=== PATIENT | female | born 1950 | race Caucasian/White ===

== ENCOUNTER → 2017-02-24 | Outpatient (CLI) | payer OTHER ==
--- NOTE | 2017-02-24 18:40 | US ---
EXAMINATION TYPE: US carotid duplex BILAT DATE OF EXAM: 02/24/2017 COMPARISON: NONE CLINICAL HISTORY: R55 Near Syncope, R00.2 Palpitations. EXAM MEASUREMENTS: RIGHT: Peak Systolic Velocity (PSV) cm/sec ----- Right CCA: 71.6 ----- Right ICA: 66.9 ----- Right ECA: 82.8 ICA/CCA ratio: 0.9 RIGHT: End Diastole cm/sec ----- Right CCA: 20.7 ----- Right ICA: 20.2 ----- Right ECA: 15.0 LEFT: Peak Systolic Velocity (PSV) cm/sec ----- Left CCA: 55.2 ----- Left ICA: 82.8 ----- Left ECA: 105.4 ICA/CCA ratio: 1.5 LEFT: End Diastole cm/sec ----- Left CCA: 20.0 ----- Left ICA: 32.5 ----- Left ECA: 17.5 VERTEBRALS (direction of flow): Right Vertebral: Antegrade Left Vertebral: Antegrade Bilateral high bifurcation vessels dive deep and torturous IMPRESSION: There is antegrade flow in the vertebral arteries. The images and measurements suggest c lose to 0% stenosis in both internal carotid arteries. Criteria for Assigning % of Stenosis / Diameter reduction (Estimation based on the indirect measurements of the internal carotid artery velocities (ICA PSV). 1. Normal (no stenosis)=ICA PSV < 125 cm/s: ratio < 2.0: ICA EDV<40 cm/s. 2. Less than 50% stenosis=ICA PSV < 125 cm/s: ratio < 2.0: ICA EDV<40 cm/s. 3. 50 to 69% stenosis=ICA PSV of 125 to 230 cm/s: ration 2.0 ? 4.0: ICA EDV 40-100 cm/s. 4. Greater than 70% stenosis to near occlusion= ICA PSV > 230 cm/s: ratio > 4.0: ICA EDV > 100 cm/s. 5. Near occlusion= ICA PSV velocities may be low or undetectable: variable ratio and ICA EDV. 6. Total occlusion=unable to detect flow.
== END | disposition home or self-care (01) ==
LOC: RADCTMAIN 17:48
PROVIDERS: ATTEND Family Medicine
DX: R55 Syncope and collapse (principal); R00.2 Palpitations
CPT/HCPCS: 93880

== ENCOUNTER → 2018-01-23 | Outpatient (CLI) | payer MEDICARE, OTHER ==
[2018-01-23 09:44] LABS: Albumin 3.9 g/dL (3.5-5.0); Calcium 9.1 mg/dL (8.4-10.2); Potassium 4.3 mmol/L (3.5-5.1); Total Bilirubin 0.4 mg/dL (0.2-1.3); Total Protein 6.3 g/dL (6.3-8.2)
[2018-01-23 09:48] LABS: Basophils % (A) 1 %; Eosinophils # (A) 0.2 k/uL (0-0.7); Eosinophils % (A) 4 %; HCT 44.6 % (34.0-46.0); HGB 14.4 gm/dL (11.4-16.0); Lymphocytes # (A) 2.2 k/uL (1.0-4.8); Lymphocytes % (A) 41 %; MCH 29.4 pg (25.0-35.0); MCHC 32.3 g/dL (31.0-37.0); Mean Platelet Volume 7.4; Monocytes # (A) 0.3 k/uL (0-1.0); Monocytes % (A) 5 %; Neutrophils # (A) 2.5 k/uL (1.3-7.7); Neutrophils % (A) 47 %; Platelet Count 242 k/uL (150-450); RDW 13.8 % (11.5-15.5); WBC 5.4 k/uL (3.8-10.6)
[2018-01-23 09:56] LABS: T4, Free (Free Thyroxine) 1.1 ng/dL (0.78-2.19)
[2018-01-23 18:14] LABS: Hemoglobin A1C 6.2 % (4.0-6.0)
== END | disposition home or self-care (01) ==
LOC: LABWHC1 08:51
PROVIDERS: ATTEND Family Medicine
DX: Z00.00 Encounter for general adult medical examination without abnormal findings (principal); E53.8 Deficiency of other specified B group vitamins; I10 Essential (primary) hypertension
CPT/HCPCS: 36415; 80053; 80061; 83036; 84439; 84443; 85025

== ENCOUNTER 2019-03-30 12:57 | Emergency (ER) | payer MEDICARE, OTHER ==
[2019-03-30 13:07] VITALS: TEMP 98.2
[2019-03-30] MEDS ORDERED: methylPREDNISolone SOD SUCCI 125 MG/2 ML VIAL IV STA (13:21)
[2019-03-30] MEDS ORDERED: IBUPROFEN 600 MG TAB PO STA (13:21)
[2019-03-30] MEDS ORDERED: IPRATROPIUM-ALBUTEROL 3 ML NEB INHALATION STA (13:21)
[2019-03-30] MEDS ORDERED: ACETAMINOPHEN TAB 500 MG TAB PO STA (13:21)
[2019-03-30] MEDS ORDERED: SODIUM CHLORIDE 0.9% 1,000 ML IV STA ×3 (13:21→13:24)
--- NOTE | 2019-03-30 13:56 | ED ---
URI HPI - General Chief Complaint: Upper Respiratory Infection Stated Complaint: head cold Time Seen by Provider: 03/30/19 13:11 Source: patient, RN notes reviewed, old records reviewed Mode of arrival: ambulatory Limitations: no limitations - History of Present Illness Initial Comments: Patient is a 68-year-old female presents emergency department today with chief complaint of dizziness, and cough for the past month. Patient reports symptoms started in her upper airway, with sinusitis and she was prescribed amoxicillin by her PCP. Patient reports that she finished a 10 day course 3 days ago. Patient states that she's had no specific fever or chills. She does report a productive cough. Patient denies any associated chest pain, or resting chest pain this time. She reports that she has felt quite lightheaded a few days ago. - Related Data Home Medications Medication Instructions Recorded Confirmed Diazepam [Valium] 5 mg PO DAILY PRN 03/30/19 03/30/19 Losartan/Hydrochlorothiazide 1 tab PO DAILY@1200 03/30/19 03/30/19 [Losartan-Hctz 100-25 mg Tab] Previous Rx's Medication Instructions Recorded Albuterol Inhaler [Ventolin Hfa 1 - 2 puff INHALATION RT-Q6H PRN 03/30/19 Inhaler] #1 inhaler guaiFENesin-DM 600/30MG [Mucinex 1 each PO Q12HR #20 tab.er.12h 03/30/19 Dm] methylPREDNISolone Dose Pack 4 mg PO DIRECTED #21 package 03/30/19 [Medrol Dose Pack] Allergies Allergy/AdvReac Type Severity Reaction Status Date / Time No Known Allergies Allergy Verified 03/30/19 13:24 Review of Systems ROS Statement: Those systems with pertinent positive or pertinent negative responses have been documented in the HPI. ROS Other: All systems not noted in ROS Statement are negative. Past Medical History Past Medical History: Hypertension Past Surgical History: Section, Tonsillectomy Additional Past Surgical History / Comment(s): Part on colon removed Past Psychological History: Anxiety Smoking Status: Former smoker Past Alcohol Use History: Occasional Past Drug Use History: None Reported General Exam - General Exam Comments Initial Comments: 68-year-old female. No significant distress. Limitations: no limitations General appearance: alert, in no apparent distress Head exam: Present: atraumatic, normocephalic, normal inspection Eye exam: Present: normal appearance, PERRL, EOMI. Absent: scleral icterus, conjunctival injection, periorbital swelling ENT exam: Present: normal exam, mucous membranes moist Neck exam: Present: normal inspection. Absent: tenderness, meningismus, lymphadenopathy Respiratory exam: Present: normal lung sounds bilaterally, other (slight cough with deep breathing. ) Cardiovascular Exam: Present: regular rate, normal rhythm, normal heart sounds. Absent: systolic murmur, diastolic murmur, rubs, gallop, clicks GI/Abdominal exam: Present: soft, normal bowel sounds. Absent: distended, tenderness, guarding, rebound, rigid Extremities exam: Present: normal inspection, full ROM, normal capillary refill. Absent: tenderness, pedal edema, joint swelling, calf tenderness Back exam: Present: normal inspection Neurological exam: Present: alert, oriented X3, CN II-XII intact Psychiatric exam: Present: normal affect, normal mood Skin exam: Present: warm, dry, intact, normal color. Absent: rash Course Vital Signs 03/30/19 03/30/19 03/30/19 13:02 13:41 13:51 Temperature 98.2 F Pulse Rate 114 H 112 H 110 H Respiratory 18 Rate Blood Pressure 153/82 O2 Sat by Pulse 98 Oximetry Medical Decision Making - Medical Decision Making This patient's a 68-year-old female presents emergency department today for evaluation for 3 weeks of cough congestion, upper respiratory symptoms. That she was feeling somewhat dizzy and lightheaded. Discussed doing the workup in cluding cardiac evaluation. Patient's EKG was reviewed and shows normal sinus rhythm, but sinus tachycardia but otherwise was normal. She had lab work obtained. With the dizziness, she did have a high heart rate we were concerned for the small likelihood of a PE. Patient did have a mildly elevated d-dimer of 0.76. CT of the chest was completed. There is low suspicion but difficult to visualize for concern for PE. Recommended could perform a repeat study in 24 hours. However patient's clinical appearance is more consistent with upper respiratory bronchitis. Patient was given 1 dose of Rocephin and Solu-Medrol after chest x-ray shows evidence of pneumonia. White blood cell count is within normal limits. There is also incidental noting of atherosclerotic plaque on the upper abdominal aorta. I discussed case with Dr. Lam. We did offer the Patient to be admitted for evaluation for dizziness lightheadedness, and concern for this possible plaque Patient denies abdominal pain or any cool extremities and her legs. I discussed that this would eventually need evaluation follow-up from her primary care doctor she does not stay in the hospital. Patient abraded she states that she preferred to go home. I discussed we can put the Patient on medication for upper respiratory infection. I did discuss she is prompt follow- up for primary care doctor for cholesterol check and further evaluation for the aorta. Says she were having any persistent chest pain or other complaints 2 hours return to the ER. Patient is agreeable to treatment plan. - Lab Data Result diagrams: 03/30/19 13:30 03/30/19 13:30 Lab Results 03/30/19 03/30/19 03/30/19 Range/Units 13:30 13:30 13:30 WBC 7.6 (3.8-10.6) k/uL RBC 4.83 (3.80-5.40) m/uL Hgb 14.3 (11.4-16.0) gm/dL Hct 44.7 (34.0-46.0) % MCV 92.5 (80.0-100.0) fL MCH 29.6 (25.0-35.0) pg MCHC 32.0 (31.0-37.0) g/dL RDW 14.1 (11.5-15.5) % Plt Count 262 (150-450) k/uL Neutrophils % 61 % Lymphocytes % 28 % Monocytes % 5 % Eosinophils % 3 % Basophils % 1 % Neutrophils # 4.7 (1.3-7.7) k/uL Lymphocytes # 2.1 (1.0-4.8) k/uL Monocytes # 0.4 (0-1.0) k/uL Eosinophils # 0.3 (0-0.7) k/uL Basophils # 0.1 (0-0.2) k/uL PT 9.4 (9.0-12.0) sec INR 0.9 (<1.2) APTT 25.6 (22.0-30.0) sec D-Dimer 0.72 H (<0.60) mg/L FEU Sodium 137 (137-145) mmol/L Potassium 4.2 (3.5-5.1) mmol/L Chloride 102 (98-107) mmol/L Carbon Dioxide 30 (22-30) mmol/L Anion Gap 5 mmol/L BUN 17 (7-17) mg/dL Creatinine 0.81 (0.52-1.04) mg/dL Est GFR (CKD-EPI)AfAm 88 (>60 ml/min/1.73 sqM) Est GFR (CKD-EPI)NonAf 76 (>60 ml/min/1.73 sqM) Glucose 140 H (74-99) mg/dL Calcium 9.0 (8.4-10.2) mg/dL Magnesium 2.1 (1.6-2.3) mg/dL Total Bilirubin 0.7 (0.2-1.3) mg/dL AST 19 (14-36) U/L ALT 46 (9-52) U/L Alkaline Phosphatase 65 (38-126) U/L Troponin I (0.000-0.034) ng/mL NT-Pro-B Natriuret Pep pg/mL Total Protein 6.2 L (6.3-8.2) g/dL Albumin 3.6 (3.5-5.0) g/dL 03/30/19 03/30/19 Range/Units 13:30 13:30 WBC (3.8-10.6) k/uL RBC (3.80-5.40) m/uL Hgb (11.4-16.0) gm/dL Hct (34.0-46.0) % MCV (80.0-100.0) fL MCH (25.0-35.0) pg MCHC (31.0-37.0) g/dL RDW (11.5-15.5) % Plt Count (150-450) k/uL Neutrophils % % Lymphocytes % % Monocytes % % Eosinophils % % Basophils % % Neutrophils # (1.3-7.7) k/uL Lymphocytes # (1.0-4.8) k/uL Monocytes # (0-1.0) k/uL Eosinophils # (0-0.7) k/uL Basophils # (0-0.2) k/uL PT (9.0-12.0) sec INR (<1.2) APTT (22.0-30.0) sec D-Dimer (<0.60) mg/L FEU Sodium (137-145) mmol/L Potassium (3.5-5.1) mmol/L Chloride (98-107) mmol/L Carbon Dioxide (22-30) mmol/L Anion Gap mmol/L BUN (7-17) mg/dL Creatinine (0.52-1.04) mg/dL Est GFR (CKD-EPI)AfAm (>60 ml/min/1.73 sqM) Est GFR (CKD-EPI)NonAf (>60 ml/min/1.73 sqM) Glucose (74-99) mg/dL Calcium (8.4-10.2) mg/dL Magnesium (1.6-2.3) mg/dL Total Bilirubin (0.2-1.3) mg/dL AST (14-36) U/L ALT (9-52) U/L Alkaline Phosphatase (38-126) U/L Troponin I <0.012 (0.000-0.034) ng/mL NT-Pro-B Natriuret Pep 42 pg/mL Total Protein (6.3-8.2) g/dL Albumin (3.5-5.0) g/dL - Radiology Data Radiology results: report reviewed CT shows nondiagnostic exam due to suboptimal opacification of the pulmonary arteries. There is extensive artifact noted. VQ scan a repeat exam in 24 hours could be Recommended. There is extensive eccentric soft atherosclerotic plaque visualized through the aorta near 50% stenosis of the upper abdominal aorta. Less than 5 mm pulmonary nodule is too small to characterize recommended follow- up in [address] recommended. Low density adenopathy in the anterior mediastinum measuring a short axis of 1.4 cm. Chest x-ray shows left basilar infiltrate. Disposition Clinical Impression: URI (upper respiratory infection), Atherosclerosis of aorta Disposition: HOME SELF-CARE Condition: Good Instructions (If sedation given, give patient instructions): Upper Respiratory Infection (ED) Additional Instructions: Please use medication as discussed. Please follow up with family doctor if s ymptoms have not improved over the next two days. Please return to the emergency room if your symptoms increase or worsen or for any other concerns. Prescriptions: methylPREDNISolone Dose Pack [Medrol Dose Pack] 4 mg PO DIRECTED #21 package guaiFENesin-DM 600/30MG [Mucinex Dm] 1 each PO Q12HR #20 tab.er.12h Albuterol Inhaler [Ventolin Hfa Inhaler] 1 - 2 puff INHALATION RT-Q6H PRN #1 inhaler PRN Reason: Shortness Of Breath Is patient prescribed a controlled substance at d/c from ED?: No Referrals: Gatito Kamara DO [Primary Care Provider] - 1-2 days Time of Disposition: 16:59
--- NOTE | 2019-03-30 14:16 | XR ---
EXAMINATION TYPE: XR chest 2V DATE OF EXAM: 03/30/2019 COMPARISON: 04/10/2014 TECHNIQUE: PA and lateral views submitted. HISTORY: Chest pain FINDINGS: Subsegmental consolidation left lung base. No overt failure or pneumothorax. Biapical pleural thicken ing. Heart size normal. Atherosclerotic change aorta. Degenerative change the spine. IMPRESSION: 1. Left basilar infiltrate
[2019-03-30 14:17] LABS: Basophils # (A) 0.1 k/uL (0-0.2); Basophils % (A) 1 %; Eosinophils # (A) 0.3 k/uL (0-0.7); Eosinophils % (A) 3 %; HCT 44.7 % (34.0-46.0); HGB 14.3 gm/dL (11.4-16.0); Lymphocytes # (A) 2.1 k/uL (1.0-4.8); Lymphocytes % (A) 28 %; MCH 29.6 pg (25.0-35.0); MCV 92.5 fL (80.0-100.0); Mean Platelet Volume 7.5; Monocytes # (A) 0.4 k/uL (0-1.0); Monocytes % (A) 5 %; Neutrophils # (A) 4.7 k/uL (1.3-7.7); Neutrophils % (A) 61 %; Platelet Count 262 k/uL (150-450); RBC 4.83 m/uL (3.80-5.40); RDW 14.1 % (11.5-15.5); WBC 7.6 k/uL (3.8-10.6)
[2019-03-30 14:26] LABS: Albumin 3.6 g/dL (3.5-5.0); Magnesium 2.1 mg/dL (1.6-2.3); Potassium 4.2 mmol/L (3.5-5.1); Total Bilirubin 0.7 mg/dL (0.2-1.3); Total Protein 6.2 g/dL (6.3-8.2)
[2019-03-30 14:36] LABS: INR 0.9 (<1.2); Partial Thromboplastin Time 25.6 sec (22.0-30.0); Prothrombin Time 9.4 sec (9.0-12.0)
[2019-03-30 14:43] LABS: D-Dimer 0.72 mg/L FEU (<0.60)
--- NOTE | 2019-03-30 16:09 | CT ---
EXAMINATION TYPE: CT chest angio for PE DATE OF EXAM: 03/30/2019 COMPARISON: 03/30/2019 HISTORY: elevated d dimer CT DLP: 783 mGycm Automated exposure control for dose reduction was used. CONTRAST: CT Chest for pulmonary embolism performed with with IV Contrast, patient injected with 100 mL of Isov ue 370. FINDINGS: LUNGS: The lungs are grossly clear, there is no concerning parenchymal mass or nodule identified. T here is no pleural effusion or pneumothorax seen. The tracheobronchial tree is patent. Subsegmental changes involving both lower lobes suggestive of scar or atelectasis. Left lower lobe 2 mm subpleural nodule. 4 mm right lower lobe pulmonary noted. MEDIASTINUM: There is unsatisfactory enhancement of the pulmonary arteries. There is extensive artifa ct within the pulmonary arteries bilaterally. Exam is felt nondiagnostic in assessment for pulmonary embolism. Coronary artery calcification noted. Irregular atherosclerotic plaque of the thoracic aorta . There is a soft tissue density in the anterior mediastinum with short axis of 1.4 cm may represent a small amount pericardial fluid or low density lymphadenopathy. OTHER: Multilevel degenerative disc disease and hypertrophic spurring. IMPRESSION: 1. Nondiagnostic exam due to suboptimal opacification of the pulmonary arteries. Extensive artifact i s noted. Either VQ scan or repeat exam in 24 hours recommended. 2. Extensive eccentric soft atherosclerotic plaque throughout the visualized aorta to near 50% stenos is of the upper abdominal aorta. 3. Less than 5 mm pulmonary nodules too small to characterize recommend follow-up [address] chest. 3. Low density adenopathy in the anterior mediastinum measuring a short axis of 1.4 cm.
[2019-03-30 17:19] VITALS: BP 138/88; PULSE 86; RESP 16
== END 2019-03-30 17:20 | disposition home or self-care (01) ==
LOC: EC 12:57
DX: J06.9 Acute upper respiratory infection, unspecified (principal); I70.0 Atherosclerosis of aorta; J18.9 Pneumonia, unspecified organism; R00.0 Tachycardia, unspecified; R79.1 Abnormal coagulation profile; R42 Dizziness and giddiness; I10 Essential (primary) hypertension; Z87.891 Personal history of nicotine dependence; Z79.899 Other long term (current) drug therapy; Z90.89 Acquired absence of other organs; Z53.20 Procedure and treatment not carried out because of patient's decision for unspecified reasons; Z53.8 Procedure and treatment not carried out for other reasons
CPT/HCPCS: 36415; 94640; 93005; 85379; 83880; 80053; 83735; 84484; 85025; 85610; 85730; 71046; 71275; 99284; 96365; 96375; 96361 ×2; J2930; J0696; Q9967

== ENCOUNTER 2019-06-16 18:12 | Inpatient (IN) | payer MEDICARE ==
[2019-06-16] MEDS ORDERED: HYDROmorphone 0.5 MG/0.5 ML SYRINGE IVP STA ×2 (18:37→20:07)
[2019-06-16] MEDS ORDERED: ONDANSETRON 4 MG/2 ML VIAL IVP STA (18:38)
[2019-06-16] MEDS ORDERED: SODIUM CHLORIDE 0.9% 500 ML 500 ML IV ONE (18:38)
[2019-06-16] MEDS: SODIUM CHLORIDE 0.9% 1,000 ML IV SCH (18:40)
--- NOTE | 2019-06-16 18:48 | ED ---
Abdominal Pain HPI - General Source: patient Mode of arrival: EMS Limitations: no limitations <Jackelyn Peterson - Last Filed: 06/16/19 20:08> <Mike Lam - Last Filed: 06/16/19 22:32> - General Chief Complaint: Abdominal Pain Stated Complaint: Abd pain Time Seen by Provider: 06/16/19 18:34 - History of Present Illness Initial Comments: 68-year-old female with history ofhypertension previous section presents today for chief complaint of ab and vomiting. (Jackelyn Peterson) - Related Data Home Medications Medication Instructions Recorded Confirmed Diazepam [Valium] 5 mg PO DAILY PRN 03/30/19 03/30/19 Losartan/Hydrochlorothiazide 1 tab PO DAILY@1200 03/30/19 03/30/19 [Losartan-Hctz 100-25 mg Tab] Previous Rx's Medication Instructions Recorded Albuterol Inhaler [Ventolin Hfa 1 - 2 puff INHALATION RT-Q6H PRN 03/30/19 Inhaler] #1 inhaler guaiFENesin-DM 600/30MG [Mucinex 1 each PO Q12HR #20 tab.er.12h 03/30/19 Dm] methylPREDNISolone Dose Pack 4 mg PO DIRECTED #21 package 03/30/19 [Medrol Dose Pack] Allergies Allergy/AdvReac Type Severity Reaction Status Date / Time No Known Allergies Allergy Verified 06/16/19 18:25 Review of Systems ROS Other: All systems not noted in ROS Statement are negative. <Jackelyn Peterson - Last Filed: 06/16/19 20:08> ROS Other: All systems not noted in ROS Statement are negative. <Mike Lam - Last Filed: 06/16/19 22:32> ROS Statement: Those systems with pertinent positive or pertinent negative responses have been documented in the HPI. Past Medical History Past Medical History: Hypertension Past Surgical History: Section, Tonsillectomy Additional Past Surgical History / Comment(s): Part on colon removed Past Psychological History: Anxiety Smoking Status: Former smoker Past Alcohol Use History: Occasional Past Drug Use History: None Reported <Jackelyn Peterson - Last Filed: 06/16/19 20:08> General Exam Limitations: no limitations <Jackelyn Peterson - Last Filed: 06/16/19 20:08> Course Vital Signs 06/16/19 06/16/19 06/16/19 18:21 19:25 20:00 Temperature 97.0 F L Pulse Rate 70 85 84 Respiratory 18 18 20 Rate Blood Pressure 198/102 189/86 183/89 O2 Sat by Pulse 95 98 98 Oximetry Medical Decision Making - Lab Data Result diagrams: 06/16/19 18:35 06/16/19 18:35 <Jackelyn Peterson - Last Filed: 06/16/19 20:08> - Lab Data Result diagrams: 06/16/19 18:35 06/16/19 18:35 <Mike Lam - Last Filed: 06/16/19 22:32> - Medical Decision Making Patient care was sent out to me by previous shift physician broker assistant Diana Ring. Briefly, patient 68-year-old female presents with abdominal pain. Plan sign out was to follow up with pending labs and imaging studies. Laboratory evaluation is unremarkable. No leukocytosis. Computed tomography scan was unremarkable for any acute processes. Ultrasound gallbladder showed gallstone with concern of acute cholecystitis. Discussed patient case with Dr. Spencer who recommends patient be started antibiotics and be admitted for observation. (Mike Lam) - Lab Data Lab Results 06/16/19 06/16/19 06/16/19 Range/Units 18:35 18:35 18:35 WBC 9.3 (3.8-10.6) k/uL RBC 5.01 (3.80-5.40) m/uL Hgb 14.7 (11.4-16.0) gm/dL Hct 45.0 (34.0-46.0) % MCV 89.8 (80.0-100.0) fL MCH 29.3 (25.0-35.0) pg MCHC 32.6 (31.0-37.0) g/dL RDW 14.1 (11.5-15.5) % Plt Count 223 (150-450) k/uL Neutrophils % 72 % Lymphocytes % 19 % Monocytes % 6 % Eosinophils % 1 % Basophils % 1 % Neutrophils # 6.7 (1.3-7.7) k/uL Lymphocytes # 1.8 (1.0-4.8) k/uL Monocytes # 0.5 (0-1.0) k/uL Eosinophils # 0.1 (0-0.7) k/uL Basophils # 0.1 (0-0.2) k/uL Sodium 138 (137-145) mmol/L Potassium 3.8 (3.5-5.1) mmol/L Chloride 105 (98-107) mmol/L Carbon Dioxide 27 (22-30) mmol/L Anion Gap 6 mmol/L BUN 13 (7-17) mg/dL Creatinine 0.72 (0.52-1.04) mg/dL Est GFR (CKD-EPI)AfAm >90 (>60 ml/min/1.73 sqM) Est GFR (CKD-EPI)NonAf 88 (>60 ml/min/1.73 sqM) Glucose 160 H (74-99) mg/dL Plasma Lactic Acid Manuel 1.1 (0.7-2.0) mmol/L Calcium 9.1 (8.4-10.2) mg/dL Total Bilirubin 0.7 (0.2-1.3) mg/dL AST 20 (14-36) U/L ALT 11 (4-34) U/L Alkaline Phosphatase 61 (38-126) U/L Troponin I (0.000-0.034) ng/mL Total Protein 6.3 (6.3-8.2) g/dL Albumin 3.8 (3.5-5.0) g/dL Amylase 31 (30-110) U/L Lipase 72 (23-300) U/L 06/16/ Range/Units 18:35 WBC (3.8-10.6) k/uL RBC (3.80-5.40) m/uL Hgb (11.4-16.0) gm/dL Hct (34.0-46.0) % MCV (80.0-100.0) fL MCH (25.0-35.0) pg MCHC (31.0-37.0) g/dL RDW (11.5-15.5) % Plt Count (150-450) k/uL Neutrophils % % Lymphocytes % % Monocytes % % Eosinophils % % Basophils % % Neutrophils # (1.3-7.7) k/uL Lymphocytes # (1.0-4.8) k/uL Monocytes # (0-1.0) k/uL Eosinophils # (0-0.7) k/uL Basophils # (0-0.2) k/uL Sodium (137-145) mmol/L Potassium (3.5-5.1) mmol/L Chloride (98-107) mmol/L Carbon Dioxide (22-30) mmol/L Anion Gap mmol/L BUN (7-17) mg/dL Creatinine (0.52-1.04) mg/dL Est GFR (CKD-EPI)AfAm (>60 ml/min/1.73 sqM) Est GFR (CKD-EPI)NonAf (>60 ml/min/1.73 sqM) Glucose (74-99) mg/dL Plasma Lactic Acid Manuel (0.7-2.0) mmol/L Calcium (8.4-10.2) mg/dL Total Bilirubin (0.2-1.3) mg/dL AST (14-36) U/L ALT (4-34) U/L Alkaline Phosphatase (38-126) U/L Troponin I <0.012 (0.000-0.034) ng/mL Total Protein (6.3-8.2) g/dL Albumin (3.5-5.0) g/dL Amylase (30-110) U/L Lipase (23-300) U/L Disposition <Jackelyn Peterson - Last Filed: 06/16/19 20:08> Decision Time: 22:32 <Mike Lam - Last Filed: 06/16/19 22:32> Clinical Impression: Abdominal pain Disposition: ADMITTED IP TO THIS HOSP Condition: Fair Referrals: Gatito Kamara DO [Primary Care Provider] - 1-2 days
[2019-06-16 19:03] LABS: Basophils # (A) 0.1 k/uL (0-0.2); Basophils % (A) 1 %; Eosinophils # (A) 0.1 k/uL (0-0.7); Eosinophils % (A) 1 %; HGB 14.7 gm/dL (11.4-16.0); Lymphocytes # (A) 1.8 k/uL (1.0-4.8); Lymphocytes % (A) 19 %; MCH 29.3 pg (25.0-35.0); MCHC 32.6 g/dL (31.0-37.0); MCV 89.8 fL (80.0-100.0); Mean Platelet Volume 8.1; Monocytes # (A) 0.5 k/uL (0-1.0); Monocytes % (A) 6 %; Neutrophils # (A) 6.7 k/uL (1.3-7.7); Neutrophils % (A) 72 %; Platelet Count 223 k/uL (150-450); RBC 5.01 m/uL (3.80-5.40); RDW 14.1 % (11.5-15.5); WBC 9.3 k/uL (3.8-10.6)
[2019-06-16 19:10] LABS: ALT 11 U/L (4-34); AST 20 U/L (14-36); African American GFR (CKD) >90 (>60 ml/min/1.73 sqM); Albumin 3.8 g/dL (3.5-5.0); Alkaline Phosphatase 61 U/L (38-126); Amylase 31 U/L (30-110); Anion Gap 6 mmol/L; Blood Urea Nitrogen 13 mg/dL (7-17); Calcium 9.1 mg/dL (8.4-10.2); Carbon Dioxide 27 mmol/L (22-30); Chloride 105 mmol/L (98-107); Glucose 160 mg/dL (74-99); Non-African American GFR(CKD) 88 (>60 ml/min/1.73 sqM); Potassium 3.8 mmol/L (3.5-5.1); Sodium 138 mmol/L (137-145); Total Bilirubin 0.7 mg/dL (0.2-1.3); Total Protein 6.3 g/dL (6.3-8.2)
--- NOTE | 2019-06-16 21:43 | US ---
EXAMINATION TYPE: US gallbladder DATE OF EXAM: 06/16/2019 COMPARISON: CT 2019 CLINICAL HISTORY: stone on CT abdominal pain vomiting. Stone on CT. Abdominal pain, vomiting. Part of colon removed. HTN. EXAM MEASUREMENTS: Liver Length: 19.4 cm Gallbladder Wall: 0.21 cm CBD: 0.50 cm Right Kidney: 9.6 x 4.8 x 3.4 cm Limited due to large body habitus and overlying bowel gas. Pancreas: Obscured by overlying bowel gas. Liver: Appears enlarged. Appears to have an increased echogenicity. Gallbladder: Hyperechoic focus seen with posterior shadowing and twinkle artifact within the gallbla dder measurin.0 x 2.0 x 1.4 cm. Evidence for sonographic Chandra's sign: Yes CBD: Appears to be wnl. Right Kidney: Appears to be wnl. IMPRESSION: There is a large gallstone. No dilated ducts. Mildly dilated gallbladder suggestive of ch olecystitis. gallbladder measures 5 cm in diameter.
--- NOTE | 2019-06-16 21:52 | CT ---
EXAM: CT Abdomen and Pelvis With Intravenous Contrast CLINICAL HISTORY: Moderate to severe pain, painful hernia palpable TECHNIQUE: Axial computed tomography images of the abdomen and pelvis with intravenous contrast. CTDI is 0.085, 0.085, 30.3, 30.7 mGy and DLP is 3052.4 mGy-cm. This CT exam was performed using one or more of the following dose reduction techniques: automated exposure control, adjustment of the mA and/or kV according to patient size, and/or use of iterative reconstruction technique. COMPARISON: No relevant prior studies available. FINDINGS: Lung bases: Bibasilar atelectasis. ABDOMEN: Liver: Decreased attenuation liver which may be phase of IV contrast versus hepatic steatosis. Gallbladder and bile ducts: Gallstones. No evidence of acute cholecystitis. Pancreas: Unremarkable. Spleen: Unremarkable. Adrenals: Unremarkable. Kidneys and ureters: Unremarkable. Stomach and bowel: Noninflamed colonic diverticulosis. PELVIS: Appendix: Appendix is unremarkable. Bladder: Unremarkable. Reproductive: Unremarkable as visualized. ABDOMEN and PELVIS: Intraperitoneal space: Unremarkable. Bones/joints: No acute fracture. No dislocation. Soft tissues: Minimal stranding noted about the umbilicus. Question prior umbilical hernia repair. Tiny residual fat-containing umbilical hernia is noted. Vasculature: Calcific and noncalcific atheromatous disease of the thoracic abdominal aorta. No abdominal aortic aneurysm. Lymph nodes: Unremarkable. IMPRESSION: Minimal stranding noted about the umbilicus. Question prior umbilical hernia repair. Tiny residual fat-containing umbilical hernia is noted.
[2019-06-16] MEDS ORDERED: PIPERACILLIN-TAZOBACTAM 3.375 GM in SODIUM CHLORIDE 0.9% 100 ML IVPB STA (22:24)
[2019-06-16] MEDS ORDERED: ONDANSETRON 4 MG/2 ML VIAL IVP PRN (22:29)
[2019-06-16] MEDS ORDERED: ACETAMINOPHEN TAB 325 MG TAB PO PRN (22:29)
[2019-06-16] MEDS ORDERED: NALOXONE 0.4 MG/ML 1 ML VIAL IV PRN (22:29)
[2019-06-16] MEDS: HYDROmorphone 0.5 MG/0.5 ML SYRINGE IVP PRN (23:43)
[2019-06-17] MEDS: HYDROmorphone 0.5 MG/0.5 ML SYRINGE IVP PRN (02:40)
[2019-06-17] MEDS: MORPHINE SULFATE 4 MG/ML SYRINGE IV PRN ×2 (04:36→04:38)
[2019-06-17 08:20] LABS: Basophils # (A) 0.1 k/uL (0-0.2); Basophils % (A) 0 %; Eosinophils % (A) 0 %; HCT 45.7 % (34.0-46.0); Lymphocytes # (A) 0.9 k/uL (1.0-4.8); Lymphocytes % (A) 5 %; MCH 30.3 pg (25.0-35.0); MCHC 32.8 g/dL (31.0-37.0); MCV 92.2 fL (80.0-100.0); Mean Platelet Volume 8.3; Monocytes # (A) 1.1 k/uL (0-1.0); Monocytes % (A) 6 %; Neutrophils # (A) 14.8 k/uL (1.3-7.7); Neutrophils % (A) 87 %; Platelet Count 245 k/uL (150-450); RBC 4.96 m/uL (3.80-5.40); RDW 13.9 % (11.5-15.5); WBC 16.9 k/uL (3.8-10.6)
[2019-06-17] MEDS ORDERED: HYDROmorphone 0.5 MG/0.5 ML SYRINGE IVP PRN (09:20)
[2019-06-17] MEDS ORDERED: HYDROmorphone 1 MG/ML 1 ML SYRINGE IVP STA (09:20)
--- NOTE | 2019-06-17 09:26 | P.GSHP ---
<Karina Salomon - Last Filed: 06/17/19 09:19> History of Present Illness H&P Date: 06/17/19 Chief Complaint: abdominal pain CHIEF COMPLAINT: abdominal pain HISTORY OF PRESENT ILLNESS: 68-year-old female who presented to emergency with chief complaint of abdominal pain. Patient reports she began having abdominal pain Wed night at approximately 6 PM after eating a plain hamburger. She reports her pain has been pretty consistent since that time. She reports the pain is in the epigastric region and is starting to radiate to her back. She re ports nausea and vomiting at home. Patient reports mild nausea this morning. No further episodes of vomiting. She denies fever or chills at home. PAST MEDICAL HISTORY: See list. PAST SURGICAL HISTORY: See list. SOCIAL HISTORY: No illicit drug use. REVIEW OF SYSTEMS: CONSTITUTIONAL: Denies fever or chills. HEENT: Denies blurred vision, vision changes, or eye pain. Denies hemoptysis CARDIOVASCULAR: Denies chest pain or pressure. RESPIRATORY: No shortness of breath. GASTROINTESTINAL: Refer to HPI for pertinent findings HEMATOLOGIC: Denies bleeding disorders. GENITOURINARY: Denies any blood in urine. SKIN: Denies pruitis. Denies rash. PHYSICAL EXAM: VITAL SIGNS: Reviewed. GENERAL: Well-developed in no acute distress. HEENT: No sclera icterus. Extraocular movements grossly intact. Moist buccal mucosa. Head is atraumatic, normocephalic. ABDOMEN: Soft. obese. Nondistended. Tenderness upon palpation of the epigastric region. NEUROLOGIC: Alert and oriented. Cranial nerves II through XII grossly intact. LABORATORY DATA: WBC on admission 9.3. Repeat 16.9. Bilirubin 0.7. AST 20. ALT 11. IMAGIN. ultrasound gallbladder: Large gallstone. No dilated ducts. Mildly dilated gallbladder suggestive of cholecystitis. Gallbladder measures 5 cm in diameter. 2. CT abdomen pelvis: gallstones. Appendix is unremarkable. minimal stranding noted about the umbilicus. ASSESSMENT: 1. Abdominal pain, nausea, vomiting 2. Cholelithiasis 3. Acute cholecystitis PLAN: -nothing by mouth -increase IV fluids to 125 mL an hour -pain control. Give 1 mg Dilaudid now. Increase Dilaudid to 1 mg every 3 hours as needed -Begin Zosyn IV every 8 hours. Monitor WBC -increase Zofran to every 6 hours -Obtain CMP -Consult PCP for medical management -Patient to undergo laparoscopic, possible open cholecystectomy today with Dr. Spencer Nurse practitioner note has been reviewed by physician. Signing provider agrees with the documented findings, assessment, and plan of care. Past Medical History Past Medical History: Hypertension History of Any Multi-Drug Resistant Organisms: None Reported Past Surgical History: Section, Tonsillectomy Additional Past Surgical History / Comment(s): Part on colon removed Past Anesthesia/Blood Transfusion Reactions: No Reported Reaction Past Psychological History: Anxiety Smoking Status: Former smoker Past Alcohol Use History: Occasional Past Drug Use History: None Reported Medications and Allergies Home Medications Medication Instructions Recorded Confirmed Type Albuterol Inhaler [Ventolin Hfa 1 - 2 puff INHALATION RT-Q6H PRN 03/30/19 06/16/19 Rx Inhaler] #1 inhaler Diazepam [Valium] 5 mg PO DAILY PRN 03/30/19 06/16/19 History Losartan/Hydrochlorothiazide 1 tab PO DAILY 03/30/19 06/17/19 History [Losartan-Hctz 100-25 mg Tab] Allergies Allergy/AdvReac Type Severity Reaction Status Date / Time No Known Allergies Allergy Verified 06/16/19 22:52 Surgical - Exam Vital Signs Temp Pulse Resp BP Pulse Ox 97.0 F L 70 18 198/102 95 06/16/19 18:21 06/16/19 18:21 06/16/19 18:21 06/16/19 18:21 06/16/19 18:21 Results - Labs 06/17/19 07:41 06/16/19 18:35 Abnormal Lab Results - Last 24 Hours (Table) 06/16/19 06/17/19 Range/Units 18:35 07:41 WBC 16.9 H (3.8-10.6) k/uL Neutrophils # 14.8 H (1.3-7.7) k/uL Lymphocytes # 0.9 L (1.0-4.8) k/uL Monocytes # 1.1 H (0-1.0) k/uL Glucose 160 H (74-99) mg/dL Diabetes panel 06/16/19 Range/Units 18:35 Sodium 138 (137-145) mmol/L Potassium 3.8 (3.5-5.1) mmol/L Chloride 105 (98-107) mmol/L Carbon Dioxide 27 (22-30) mmol/L BUN 13 (7-17) mg/dL Creatinine 0.72 (0.52-1.04) mg/dL Glucose 160 H (74-99) mg/dL Calcium 9.1 (8.4-10.2) mg/dL AST 20 (14-36) U/L ALT 11 (4-34) U/L Alkaline Phosphatase 61 (38-126) U/L Total Protein 6.3 (6.3-8.2) g/dL Albumin 3.8 (3.5-5.0) g/dL Calcium panel 06/16/19 Range/Units 18:35 Calcium 9.1 (8.4-10.2) mg/dL Albumin 3.8 (3.5-5.0) g/dL Pituitary panel 06/16/19 Range/Units 18:35 Sodium 138 (137-145) mmol/L Potassium 3.8 (3.5-5.1) mmol/L Chloride 105 (98-107) mmol/L Carbon Dioxide 27 (22-30) mmol/L BUN 13 (7-17) mg/dL Creatinine 0.72 (0.52-1.04) mg/dL Glucose 160 H (74-99) mg/dL Calcium 9.1 (8.4-10.2) mg/dL Adrenal panel 06/16/19 Range/Units 18:35 Sodium 138 (137-145) mmol/L Potassium 3.8 (3.5-5.1) mmol/L Chloride 105 (98-107) mmol/L Carbon Dioxide 27 (22-30) mmol/L BUN 13 (7-17) mg/dL Creatinine 0.72 (0.52-1.04) mg/dL Glucose 160 H (74-99) mg/dL Calcium 9.1 (8.4-10.2) mg/dL Total Bilirubin 0.7 (0.2-1.3) mg/dL AST 20 (14-36) U/L ALT 11 (4-34) U/L Alkaline Phosphatase 61 (38-126) U/L Total Protein 6.3 (6.3-8.2) g/dL Albumin 3.8 (3.5-5.0) g/dL <Devin Spencer - Last Filed: 06/17/19 14:28> History of Present Illness As above. Patient quite uncomfortable. White blood cell count increased now to 16.9. CAT scan and ultrasound suggest presence of acute cholecystitis. Exam findings consistent with that diagnosis. We will proceed with laparoscopic, possible open cholecystectomy. Risks of bleeding, infection, bile leak, bile duct injury, retained common bile duct stone, trocar injury, conversion to an open procedure, hernia, anesthesia related complications were reviewed. The patient understands and wishes to proceed. Surgical - Exam Vital Signs Temp Pulse Resp BP Pulse Ox 97.0 F L 70 18 198/102 95 06/16/19 18:21 06/16/19 18:21 06/16/19 18:21 06/16/19 18:21 06/16/19 18:21 Results - Labs 06/17/19 07:41 06/17/19 09:51 Abnormal Lab Results - Last 24 Hours (Table) 06/16/19 06/17/19 06/17/19 Range/Units 18:35 07:41 09:51 WBC 16.9 H (3.8-10.6) k/uL Neutrophils # 14.8 H (1.3-7.7) k/uL Lymphocytes # 0.9 L (1.0-4.8) k/uL Monocytes # 1.1 H (0-1.0) k/uL Glucose 160 H 171 H (74-99) mg/dL POC Glucose (mg/dL) (75-99) mg/dL 06/17/19 Range/Units 14:19 WBC (3.8-10.6) k/uL Neutrophils # (1.3-7.7) k/uL Lymphocytes # (1.0-4.8) k/uL Monocytes # (0-1.0) k/uL Glucose (74-99) mg/dL POC Glucose (mg/dL) 167 H (75-99) mg/dL Diabetes panel 06/16/19 06/17/19 Range/Units 18:35 09:51 Sodium 138 139 (137-145) mmol/L Potassium 3.8 4.3 (3.5-5.1) mmol/L Chloride 105 104 (98-107) mmol/L Carbon Dioxide 27 30 (22-30) mmol/L BUN 13 13 (7-17) mg/dL Creatinine 0.72 0.74 (0.52-1.04) mg/dL Glucose 160 H 171 H (74-99) mg/dL Calcium 9.1 8.7 (8.4-10.2) mg/dL AST 20 23 (14-36) U/L ALT 11 12 (4-34) U/L Alkaline Phosphatase 61 63 (38-126) U/L Total Protein 6.3 6.3 (6.3-8.2) g/dL Albumin 3.8 3.7 (3.5-5.0) g/dL Calcium panel 06/16/19 06/17/19 Range/Units 18:35 09:51 Calcium 9.1 8.7 (8.4-10.2) mg/dL Albumin 3.8 3.7 (3.5-5.0) g/dL Pituitary panel 06/16/19 06/17/19 Range/Units 18:35 09:51 Sodium 138 139 (137-145) mmol/L Potassium 3.8 4.3 (3.5-5.1) mmol/L Chloride 105 104 (98-107) mmol/L Carbon Dioxide 27 30 (22-30) mmol/L BUN 13 13 (7-17) mg/dL Creatinine 0.72 0.74 (0.52-1.04) mg/dL Glucose 160 H 171 H (74-99) mg/dL Calcium 9.1 8.7 (8.4-10.2) mg/dL Adrenal panel 06/16/19 06/17/19 Range/Units 18:35 09:51 Sodium 138 139 (137-145) mmol/L Potassium 3.8 4.3 (3.5-5.1) mmol/L Chloride 105 104 (98-107) mmol/L Carbon Dioxide 27 30 (22-30) mmol/L BUN 13 13 (7-17) mg/dL Creatinine 0.72 0.74 (0.52-1.04) mg/dL Glucose 160 H 171 H (74-99) mg/dL Calcium 9.1 8.7 (8.4-10.2) mg/dL Total Bilirubin 0.7 0.6 (0.2-1.3) mg/dL AST 20 23 (14-36) U/L ALT 11 12 (4-34) U/L Alkaline Phosphatase 61 63 (38-126) U/L Total Protein 6.3 6.3 (6.3-8.2) g/dL Albumin 3.8 3.7 (3.5-5.0) g/dL
[2019-06-17] MEDS ORDERED: LOSARTAN-HCTZ 50-12.5 MG 1 EACH TAB PO SCH (09:30)
[2019-06-17] MEDS: PIPERACILLIN-TAZOBACTAM 3.375 GM in SODIUM CHLORIDE 0.9% 100 ML IVPB SCH ×2 (10:07→20:36)
[2019-06-17] MEDS ORDERED: DIAZEPAM 5 MG TAB PO PRN (10:17)
[2019-06-17] MEDS ORDERED: hydrALAZINE HCL 20 MG/ML 1 ML VIAL IVP PRN (10:20)
[2019-06-17 10:47] LABS: ALT 12 U/L (4-34); AST 23 U/L (14-36); African American GFR (CKD) >90 (>60 ml/min/1.73 sqM); Albumin 3.7 g/dL (3.5-5.0); Alkaline Phosphatase 63 U/L (38-126); Anion Gap 5 mmol/L; Blood Urea Nitrogen 13 mg/dL (7-17); Calcium 8.7 mg/dL (8.4-10.2); Carbon Dioxide 30 mmol/L (22-30); Chloride 104 mmol/L (98-107); Glucose 171 mg/dL (74-99); Non-African American GFR(CKD) 85 (>60 ml/min/1.73 sqM); Potassium 4.3 mmol/L (3.5-5.1); Sodium 139 mmol/L (137-145); Total Bilirubin 0.6 mg/dL (0.2-1.3); Total Protein 6.3 g/dL (6.3-8.2)
[2019-06-17] MEDS: HYDROmorphone 1 MG/ML 1 ML SYRINGE IVP PRN ×2 (13:27→21:51)
--- NOTE | 2019-06-17 14:19 | P.CONS ---
History of Present Illness - Reason for Consult Consult date: 06/17/19 - Chief Complaint epigastric pain - History of Present Illness 68 years old female with past medical history of hypertension, history of diverticulitis status post colectomy, anxiety comes in with acute onset of abdominal pain started 3 days ago while patient was eating a burger. patient denies previous episodes of epigastric pain. Patient also endorses nausea and vomiting. Pain has started in the epigastric area and radiates to the back. Patient denies any hematemesis or hematuria. She denies any history of black stools, melena or change in bowel habits.no history of chest pain, shortness of breath. No history of heart attacks in the past she does have history of skipped heartbeat but denies any irregular rhythm. Patient does have high blood pressure and takes blood pressure medication as needed. On evaluation of white of his temp is 98.4 and pulse is 108 respiratory rate 18 blood pressure 182/106 saturating well on 2 L of oxygen.labs suggestive leukocytosis of 16.9 glucose 171 lactic acid 1.1 and normal liver enzymes. Liver suggest decrease agitation with concern for gallstones.no cholecystitis seen on computed tomography scan. On gallbladder ultrasound is a large gallstone no dilated duct mildly dilated gallbladder suggestive of cholecystitis. Patient is planned for surgery tonight Review of Systems Constitutional: Denies chills, Denies fever, Denies lethargy, Denies malaise, Denies poor appetite, Denies weakness, Denies weight loss Eyes: denies decreased vision, denies diplopia, denies discharge, denies pain Ears: deny: decreased hearing Ears, nose, mouth and throat: Denies dental pain, Denies headache, Denies nasal discharge, Denies nose pain Cardiovascular: Denies chest pain, Denies decreased exercise tolerance, Denies e matt, Denies high blood pressure, Denies irregular heart beat, Denies palpitations, Denies paroxysmal nocturnal dyspnea, Denies rapid heart beat, Denies shortness of breath Respiratory: Denies congestion, Denies cough, Denies cough with sputum, Denies dyspnea, Denies home oxygen, Denies wheezing Gastrointestinal: endorses severe abdominal pain, Denies change in bowel habits, Denies coffee ground emesis, Denies early satiety, Denies excessive gas, Denies heartburn, Denies hematemesis, Denies hematochezia, Denies loss of appetite, endorses nausea, endorses vomiting Genitourinary: Denies dysuria, Denies flank pain, Denies kidney stones, Denies m enorrhagia, Denies urgency, Denies urinary frequency Musculoskeletal: Denies gait dysfunction, Denies limitation of motion, Denies morning stiffness, Denies muscle cramps Integumentary: Denies rash, Denies wounds, Denies brittle nails, Denies change in hair/nails, Denies darkening of skin Neurological: Denies balance difficulties, Denies change in speech, Denies double vision, Denies gait dysfunction, Denies loss of vision, Denies motor disturbance, Denies numbness, Denies paralysis, Denies paresthesias, Denies seizures Psychiatric: Denies anxiety, Denies depression Endocrine: Denies excessive sweating, Denies excessive thirst, Denies high blood sugars, Denies palpitations Hematologic/Lymphatic: Denies easy bruising, Denies lymphadenopathy Past Medical History Past Medical History: Hypertension History of Any Multi-Drug Resistant Organisms: None Reported Past Surgical History: Section, Tonsillectomy Additional Past Surgical History / Comment(s): Part on colon removed Past Anesthesia/Blood Transfusion Reactions: No Reported Reaction Past Psychological History: Anxiety Smoking Status: Former smoker Past Alcohol Use History: Occasional Past Drug Use History: None Reported Medications and Allergies Home Medications Medication Instructions Recorded Confirmed Type Albuterol Inhaler [Ventolin Hfa 1 - 2 puff INHALATION RT-Q6H PRN 03/30/19 06/16/19 Rx Inhaler] #1 inhaler Diazepam [Valium] 5 mg PO DAILY PRN 03/30/19 06/16/19 History Losartan/Hydrochlorothiazide 1 tab PO DAILY 03/30/19 06/17/19 History [Losartan-Hctz 100-25 mg Tab] Allergies Allergy/AdvReac Type Severity Reaction Status Date / Time No Known Allergies Allergy Verified 06/16/19 22:52 Physical Exam Vitals: Vital Signs Temp Pulse Pulse Resp BP BP Pulse Ox 06/17/19 12:03 106 H 169/76 06/17/19 11:30 99 06/17/19 07:20 98.1 F 108 H 18 183/106 99 06/17/19 04:59 18 95 06/17/19 04:53 104 H 16 186/93 06/17/19 03:40 99 17 06/16/19 23:58 98.2 F 99 17 169/108 95 06/16/19 23:40 18 06/16/19 22:55 18 06/16/19 22:00 97.8 F 98 20 175/93 97 06/16/19 20:00 84 20 183/89 98 06/16/19 19:25 85 18 189/86 98 06/16/19 18:21 97.0 F L 70 18 198/102 95 Intake and Output 06/16/19 06/17/19 06/17/19 22:59 06:59 14:59 Other: # Voids 1 Weight 127.006 kg - Constitutional General appearance: cooperative, no acute distress, morbidly obese - EENT Eyes: anicteric sclerae, PERRLA, normal appearance ENT: hearing grossly normal - Neck Neck: no lymphadenopathy, normal ROM, no other, no rigidity, no stridor, no thyromegaly - Respiratory Respiratory: bilateral: CTA, negative: diminished, dullness, rales, rhonchi - Cardiovascular Rhythm: irregular Heart sounds: normal: S1, S2 Abnormal Heart Sounds: no systolic murmur, no diastolic murmur, no rub, no S3 Gallop, no S4 Gallop, no click, no other - Gastrointestinal General gastrointestinal: normal bowel sounds, soft tender in the right upper quadrant epigastric and pelvic area - Integumentary Integumentary: no rash - Neurologic Neurologic: CNII-XII intact - Musculoskeletal Musculoskeletal: gait not assessedl, strength equal bilaterally - Psychiatric Psychiatric: A&O x's 3, appropriate affect Results CBC & Chem 7: 06/17/19 07:41 06/17/19 09:51 Labs: Abnormal Lab Results - Last 24 Hours (Table) 06/16/19 06/17/19 06/17/19 Range/Units 18:35 07:41 09:51 WBC 16.9 H (3.8-10.6) k/uL Neutrophils # 14.8 H (1.3-7.7) k/uL Lymphocytes # 0.9 L (1.0-4.8) k/uL Monocytes # 1.1 H (0-1.0) k/uL Glucose 160 H 171 H (74-99) mg/dL Assessment and Plan Plan: #1 acute cholecystitis. Patient is low to intermediate risk with surgery but denies any history of chest pain. No history of coronary artery disease in the past. Blood pressure is significantly elevated. We will avoid giving Hayden inhibitors prior to surgery. Continue hydralazine 10 mg IV every 6 hours systolic more than 160. Incentive spirometry. Pain control with diet ordered 1 mg every 3 hours. Continue Zosyn 3.375 every 8 hours continue IV fluids at 75 mL per hour. Patient is cleared for surgery. #2 hypertension hold losartan/HCTZ prior to surgery. We will control blood pressure with hydralazine 10 mg IV every 6 hours. Patient can be started on amlodipine post surgery. #3 DVT prophylaxis with SCDs #4 anxiety continue Valium daily. Xanax can be given as needed for anxiety. #5 history of diverticulitis status post colectomy, stable #6 hypoglycemia patient is borderline diabetic continue insulin sliding scale thank you for the consult. I'll be happy to assist in patient's medical the lacerations in the hospital
[2019-06-17 14:21] LABS: Glucose,Whole Blood 167 mg/dL (75-99)
[2019-06-17] MEDS ORDERED: HEPARIN SODIUM,PORCINE 5,000 UNIT/ML 1 ML VIAL SQ STA (14:25)
[2019-06-17] MEDS ORDERED: ceFAZolin 3 GM in SODIUM CHLORIDE 0.9% 100 ML IVPB STA (14:25)
[2019-06-17] MEDS ORDERED: IV FLUID CONTINUATION 1,000 ML IV ONE (14:32)
[2019-06-17] MEDS: ONDANSETRON 4 MG/2 ML VIAL IVP PRN (14:49)
[2019-06-17] MEDS ORDERED: fentaNYL (PF) 50 MCG/ML 2 ML AMP IV ONE (15:54)
[2019-06-17] MEDS: SODIUM CHLORIDE 0.9% 1,000 ML IV SCH ×2 (15:58→22:37)
[2019-06-17] MEDS ORDERED: GLYCOPYRROLATE 0.2 MG/ML 2 ML VIAL ONE (16:37)
[2019-06-17] MEDS ORDERED: NEOSTIGMINE 1 MG/ML 10 ML VIAL ONE (16:37)
[2019-06-17] MEDS ORDERED: LIDOCAINE 1% INJ 10MG/ML (20 ML MDV) ONE (16:37)
[2019-06-17] MEDS ORDERED: fentaNYL (PF) 50 MCG/ML 2 ML AMP ONE (16:37)
[2019-06-17] MEDS ORDERED: PROPOFOL 10 MG/ML 20 ML VIAL IV ONE (16:37)
[2019-06-17] MEDS ORDERED: SUCCINYLCHOLINE CHLORIDE 100 MG/5 ML SYR IV ONE (16:37)
[2019-06-17] MEDS ORDERED: ROCURONIUM BROMIDE 10 MG/ML 10 ML VIAL IV ONE (16:37)
[2019-06-17] MEDS ORDERED: BUPIVACAINE (PF) 0.25% 30 ML VIAL SQ ONE (16:53)
[2019-06-17] MEDS ORDERED: LACTATED RINGERS 1,000 ML IV ONE (17:24)
[2019-06-17] MEDS ORDERED: NALOXONE 0.4 MG/ML 1 ML VIAL IV PRN (18:18)
--- NOTE | 2019-06-17 18:22 | P.OP ---
Date of Procedure: 06/17/19 Procedure(s) Performed: PREOPERATIVE DIAGNOSIS: Acute cholecystitis POSTOPERATIVE DIAGNOSIS: Same, intra-abdominal adhesions PROCEDURE: Laparoscopic cholecystectomy, laparoscopic lysis of adhesions SURGEON: Tj EBL: Minimal see anesthesia record ANESTHESIA: Gen. COMPLICATIONS: None OPERATIVE PROCEDURE: The patient was brought and placed on the operating room table in the supine position. The patient was placed under general anesthesia at that time. The abdomen was prepped and draped in the usual sterile fashion. An incision was then made in the left upper quadrant. Entrance into the peritoneal cavity took place using an optical 5 mm trocar. Thankfully there were no adhesions immediately beneath the peritoneum at this location. Insufflation took place up to 15 mmHg. An additional 5 mm trocar was placed under direct visualization in the upper lateral left upper quadrant. Through these trochars I was able to lyse adhesions between the omentum and the abdominal wall. This was relatively extensive taking approximately 20-30 minutes. The LigaSure and sharp dissection took place for this. Once we had enough space a 5 mm trocar was placed superior and to the right of the umbilicus. 2 additional 5 mm trochars were placed in the right upper quadrant under direct visualization. A 12 mm trocar was advanced into the epigastric incision site. The gallbladder was retracted superiorly and laterally. The gallbladder itself was distended. A large stone was present in the infundibulum . The peritoneum overlying the infundibulum was bluntly dissected. The patient's cystic duct was visualized. The junction between the cystic duct common and hepatic duct was identified. The cystic duct was then divided after placement of 3 12 mm clips on the patient's side and one on the specimen side. The cystic artery was identified and clipped as well. A small vessel was seen along the gallbladder fossa and clipped as well. The gallbladder was then removed from the liver bed using electrocautery and the LigaSure device. The gallbladder was then removed from the epigastric trocar site with an Endo Catch bag. The gallbladder fossa was irrigated with saline. There was no evidence of any bleeding or biliary drainage seen. The fascia at the 12 millimeter site was closed using a Satya-Sanjeev 0 Vicryl stitch. The trochars were then removed. The skin at all 6 sites was closed using a 4-0 Monocryl stitch. Skin glue was utilized on the incision sites. At the end of this procedure the sponge and needle counts were correct. DISPOSITION: Stable to the recovery room
[2019-06-17 20:36] LABS: Glucose,Whole Blood 182 mg/dL (75-99)
[2019-06-18] MEDS: HYDROmorphone 1 MG/ML 1 ML SYRINGE IVP PRN (02:19)
[2019-06-18] MEDS: PIPERACILLIN-TAZOBACTAM 3.375 GM in SODIUM CHLORIDE 0.9% 100 ML IVPB SCH ×3 (02:23→17:19)
[2019-06-18] MEDS: SODIUM CHLORIDE 0.9% 1,000 ML IV SCH (02:26)
[2019-06-18 06:50] LABS: Glucose,Whole Blood 151 mg/dL (75-99)
[2019-06-18 07:33] LABS: Basophils # (A) 0.1 k/uL (0-0.2); Basophils % (A) 0 %; Eosinophils % (A) 0 %; HCT 41.3 % (34.0-46.0); HGB 13.4 gm/dL (11.4-16.0); Lymphocytes # (A) 0.8 k/uL (1.0-4.8); Lymphocytes % (A) 6 %; MCH 30.2 pg (25.0-35.0); MCHC 32.5 g/dL (31.0-37.0); Mean Platelet Volume 8.4; Monocytes # (A) 0.7 k/uL (0-1.0); Monocytes % (A) 5 %; Neutrophils # (A) 12.2 k/uL (1.3-7.7); Neutrophils % (A) 88 %; Platelet Count 231 k/uL (150-450); RBC 4.44 m/uL (3.80-5.40); RDW 14.2 % (11.5-15.5)
[2019-06-18 07:46] LABS: Albumin 3.5 g/dL (3.5-5.0); Calcium 8.7 mg/dL (8.4-10.2); Magnesium 2.1 mg/dL (1.6-2.3); Total Bilirubin 0.7 mg/dL (0.2-1.3); Total Protein 5.9 g/dL (6.3-8.2)
[2019-06-18] MEDS: IPRATROPIUM-ALBUTEROL 3 ML NEB INHALATION PRN ×3 (08:20→17:00)
[2019-06-18] MEDS: HYDROcodone/APAP 5-325MG 1 EACH TAB PO PRN ×2 (08:22→12:14)
[2019-06-18] MEDS: ONDANSETRON 4 MG/2 ML VIAL IVP PRN ×2 (08:23→23:05)
[2019-06-18] MEDS: amLODIPine 10 MG TAB PO SCH (08:23)
[2019-06-18] MEDS: CARVEDILOL 6.25 MG TAB PO SCH ×2 (10:11→17:19)
--- NOTE | 2019-06-18 10:25 | P.PN ---
Subjective Progress Note Date: 06/18/19 Principal diagnosis: Status post cholecystectomy Patient currently is denying chest pain shortness breath nausea vomiting abdominal pain dizziness lightheadedness or blurry vision stated that her pain is controlled with the current IV pain medication that she is receiving. Patient overnight developed irregular heartbeats and EKG showed wide bundle but when I reviewed the EKG and noticed that there was EKG done on June 16 that showed atrial fibrillation. Objective - Vital Signs Vital signs: Vital Signs Temp 98.3 F 06/18/19 07:00 Pulse 100 06/18/19 08:29 Resp 17 06/18/19 07:00 BP 168/97 06/18/19 07:00 Pulse Ox 98 06/18/19 07:00 Intake & Output 06/17/19 06/18/19 06/18/19 18:59 06:59 18:59 Intake Total 1000 750 100 Output Total 10 Balance 990 750 100 Weight 137.5 kg Intake: IV 1000 Intake, IV Titration 750 Amount Lactated Ringers 1,000 ml 750 @ 0 mls/hr IV .[facility] [employer] Rx#:[id number] Oral 100 Output: Estimated Blood Loss 10 Other: # Voids 1 - Exam Gen.: in stated age, no acute distress Heart: Irregularly irregular rhythm Lungs: Clear to auscultation bilaterally Abdomen: Soft, no tenderness, hypoactive bowel sounds no guarding or rebound Skin: No new rash Psych: Alert and oriented 3 Neuro: No focal deficit - Labs CBC & Chem 7: 06/18/19 06:56 06/18/19 06:56 Labs: Abnormal Lab Results - Last 24 Hours (Table) 06/17/19 06/17/19 06/17/19 Range/Units 09:51 14:19 20:34 WBC (3.8-10.6) k/uL Neutrophils # (1.3-7.7) k/uL Lymphocytes # (1.0-4.8) k/uL Carbon Dioxide (22-30) mmol/L Glucose 171 H (74-99) mg/dL POC Glucose (mg/dL) 167 H 182 H (75-99) mg/dL Total Protein (6.3-8.2) g/dL 06/18/19 06/18/19 06/18/19 Range/Units 06:47 06:56 06:56 WBC 14.0 H (3.8-10.6) k/uL Neutrophils # 12.2 H (1.3-7.7) k/uL Lymphocytes # 0.8 L (1.0-4.8) k/uL Carbon Dioxide 33 H (22-30) mmol/L Glucose 139 H (74-99) mg/dL POC Glucose (mg/dL) 151 H (75-99) mg/dL Total Protein 5.9 L (6.3-8.2) g/dL Assessment and Plan Assessment: 1. Status post cholecystectomy. 2. New onset atrial fibrillation. 3. Bundle-branch block. 4. Morbid obesity. 5. under diagnosed obstructive sleep apnea. 6. COPD. 7. Remote history of smoking. I had long discussion with patient and her family members at the bedside where I explained that she's currently having new onset atrial fibrillation heart rate is fairly controlled worse with movement and I would like to start patients on Coreg 6.25 mg twice daily as her blood pressure is elevated and I would like to order stat 2-D echo. I have noticed that EKG was done on June 16 and showed atrial fibrillation that patient denied any history of irregular heartbeats in the past and asked last night for cardiology evaluation will follow-up with the recommendation and follow-up on 2-D echo result. I discussed with patient the option of being started on heparin drip if surgery agreed to the current decision but she declined it and stated that she would like to get over the surgery first and then consider anticoagulation as she is not ready to take the risk of bleeding and she does not want any other surgery even after explaining the risk of having thrombosis with all complication possibility. We'll monitor patient closely, repeat blood work in the morning and follow-up with cardiology and general surgery recommendation
[2019-06-18 11:17] LABS: Hemoglobin A1C 6.5 % (4.0-6.0)
[2019-06-18 11:24] LABS: Glucose,Whole Blood 141 mg/dL (75-99)
--- NOTE | 2019-06-18 11:41 | P.PN ---
Progress Note - Text Progress Note Date: 06/18/19 the patient status post laparoscopic cholestatic. She has complaints of significant abdominal pain. She also has had poor oral intake and nausea. She has complaints of GERD. On exam her vital signs are stable. Her abdomen soft. Incision sites are clean and intact. Status post laparoscopic choleKostecki. Patient was started on omeprazole. She'll hopefully be discharged home tomorrow.
[2019-06-18] MEDS: PANTOPRAZOLE 40 MG TABLET PO SCH ×2 (12:14→17:19)
--- NOTE | 2019-06-18 16:07 | P.CRDCN ---
History of Present Illness Consult date: 06/18/19 History of present illness: This is a 68-year-old female with history of hypertension, diverticulitis, status post colectomy and anxiety, who was admitted to the hospital with abdominal pain. Patient was having some nausea and vomiting and she was diagnosed to have cholecystitis. Patient underwent cholecystectomy, yesterday. Patient is still complaining of some burning pain. We're asked to see the patient because of possible atrial fibrillation. Patient also developed rate related, newly detected left bundle-branch block pattern. There is one EKG in the chart which shows irregular heart rhythm with significant baseline artifact. It is difficult to discern if patient has any periods, but appears it could be atrial fibrillation with controlled ventricular response. Subsequent EKGs showed a rate related left bundle branch block and all the monitor strips available also showed sinus rhythm and sinus tachycardia. From cardiac standpoint, she seemed to be stable. She has history of hypertension, seizure female, age 64. Patient may qualify for anti-coagulation therapy but patient at this point doesn't want to have any anticoagulation therapy. Echocardiogram is already done and will assess her LV function. The patient is concerned about going on anticoagulation, patient could be treated with aspirin at this time. We'll continue to monitor for any recurrence of atrial fibrillation. The patient remains in a sinus rhythm at this time, I would recommend outpatient long-term monitoring to see if there is any recurrence of atrial fibrillation. Further recommendations depend upon clinical course Review of Systems As per the chart Past Medical History Past Medical History: Hypertension History of Any Multi-Drug Resistant Organisms: None Reported Past Surgical History: Section, Tonsillectomy Additional Past Surgical History / Comment(s): Part on colon removed Past Anesthesia/Blood Transfusion Reactions: No Reported Reaction Past Psychological History: Anxiety Smoking Status: Former smoker Past Alcohol Use History: Occasional Past Drug Use History: None Reported Medications and Allergies Home Medications Medication Instructions Recorded Confirmed Type Albuterol Inhaler [Ventolin Hfa 1 - 2 puff INHALATION RT-Q6H PRN 03/30/19 06/16/19 Rx Inhaler] #1 inhaler Diazepam [Valium] 5 mg PO DAILY PRN 03/30/19 06/16/19 History Losartan/Hydrochlorothiazide 1 tab PO DAILY 03/30/19 06/17/19 History [Losartan-Hctz 100-25 mg Tab] Allergies Allergy/AdvReac Type Severity Reaction Status Date / Time No Known Allergies Allergy Verified 06/16/19 22:52 Physical Exam Vitals: Vital Signs Temp Pulse Pulse Pulse Resp BP Pulse Ox 06/18/19 14:26 98.4 F 81 16 148/72 93 L 06/18/19 12:09 130 H 169/94 06/18/19 11:42 100 06/18/19 11:33 96 06/18/19 08:29 100 06/18/19 08:23 101 H 06/18/19 07:00 98.3 F 98 17 168/97 98 06/18/19 04:28 16 06/18/19 00:24 97.6 F 114 H 15 156/80 99 06/18/19 00:00 16 06/17/19 22:15 97 169/80 06/17/19 22:00 116 H 153/87 06/17/19 21:45 92 168/87 06/17/19 21:30 80 163/84 06/17/19 21:15 93 161/83 06/17/19 21:00 76 164/94 06/17/19 20:45 73 173/90 06/17/19 20:30 78 173/80 06/17/19 20:15 97.6 F 75 16 161/81 98 06/17/19 20:10 16 06/17/19 19:45 76 20 162/77 95 06/17/19 19:31 79 20 165/79 95 06/17/19 19:16 84 20 159/72 94 L 06/17/19 19:00 90 24 160/76 94 L 06/17/19 18:47 97 F L 112 H 20 140/89 06/17/19 16:00 110 H 16 188/79 92 L Intake and Output 06/18/19 06/18/19 06/18/19 06:59 14:59 22:59 Intake Total 750 200 Balance 750 200 Intake: Intake, IV Titration 750 Amount Lactated Ringers 1,000 ml 750 @ 0 mls/hr IV .STK-MED ONE Rx#:[id number] Oral 200 Other: # Voids 1 2 Weight 137.5 kg GENERAL EXAM: Patient is alert and oriented and doesn't appear to be in any acute distress but having some abdominal discomfort HEENT: Normocephalic. Normal reaction of pupils, equal size, normal range of extraocular motion. No erythema or exudates in the throat. NECK: No masses, no nuchal rigidity. CHEST: No chest wall deformity. LUNGS: Equal air entry with no crackles or wheeze. HEART: S1 and S2 normal with no audible mumurs or gallops. Regular rhythm, femorals equal on both sides.. ABDOMEN: Postsurgical SKIN: No rashes CENTRAL NERVOUS SYSTEM: No focal deficits. EXTREMITIES: No cyanosis, clubbing or edema. Results 06/18/19 06:56 06/18/19 06:56 Cardiac Enzymes 06/18/19 Range/Units 06:56 AST 26 (14-36) U/L CBC 06/18/19 Range/Units 06:56 WBC 14.0 H (3.8-10.6) k/uL RBC 4.44 (3.80-5.40) m/uL Hgb 13.4 (11.4-16.0) gm/dL Hct 41.3 (34.0-46.0) % Plt Count 231 (150-450) k/uL Comprehensive Metabolic Panel 06/18/19 Range/Units 06:56 Sodium 140 (137-145) mmol/L Potassium 4.0 (3.5-5.1) mmol/L Chloride 100 (98-107) mmol/L Carbon Dioxide 33 H (22-30) mmol/L BUN 12 (7-17) mg/dL Creatinine 0.91 (0.52-1.04) mg/dL Glucose 139 H (74-99) mg/dL Calcium 8.7 (8.4-10.2) mg/dL AST 26 (14-36) U/L ALT 16 (4-34) U/L Alkaline Phosphatase 61 (38-126) U/L Total Protein 5.9 L (6.3-8.2) g/dL Albumin 3.5 (3.5-5.0) g/dL Current Medications Generic Name Dose Route Start Last Admin Trade Name Freq PRN Reason Stop Dose Admin Acetaminophen 650 mg 06/16/19 22:29 Tylenol Tab PO Q6HR PRN Mild Pain or Fever > 100.5 Hydrocodone Bitart/Acetaminophen 1 each 06/17/19 18:18 06/18/19 12:14 [place] 5-325 PO 1 each Q4HR PRN Administration Mild Pain Albuterol/Ipratropium 3 ml 12/20/19 10:18 06/18/19 11:32 Duoneb 0.5 Mg-3 Mg/3 Ml Soln INHALATION 3 ml RT-QID PRN Administration sob Amlodipine Besylate 10 mg 06/18/19 09:00 06/18/19 08:23 Norvasc PO 10 mg DAILY MUKESH Administration Carvedilol 6.25 mg 06/18/19 10:00 06/18/19 10:11 Coreg PO 6.25 mg BID-W/MEALS MUKESH Administration Diazepam 5 mg 06/17/19 10:17 Valium PO DAILY PRN Anxiety Hydralazine HCl 10 mg 06/17/19 10:20 06/18/19 12:14 Apresoline IVP 10 mg Q6HR PRN Administration Blood Pressure - High Hydromorphone HCl 1 mg 06/17/19 12:52 06/18/19 02:19 Dilaudid IVP 1 mg Q4HR PRN Administration Pain Piperacillin Sod/Tazobactam 100 mls @ 25 mls/hr 06/17/19 10:00 06/18/19 08:23 Sod 3.375 gm/ Sodium Chloride IVPB 25 mls/hr Q8H MUKESH Administration Morphine Sulfate 4 mg 06/16/19 22:29 06/17/19 04:38 Morphine Sulfate (Inj) IV 4 mg Q4HR PRN Administration Severe Pain Naloxone HCl 0.2 mg 06/16/19 22:29 Narcan IV Q2M PRN Opioid Reversal Naloxone HCl 0.2 mg 06/17/19 18:18 Narcan IV Q2M PRN Opioid Reversal Ondansetron HCl 4 mg 06/17/19 09:25 06/18/19 08:23 Zofran IVP 4 mg Q6HR PRN Administration Nausea And Vomiting Pantoprazole Sodium 40 mg 06/18/19 11:45 06/18/19 12:14 Protonix PO 40 mg AC-BID MUKESH Administration Intake and Output 06/18/19 06/18/19 06/18/19 06:59 14:59 22:59 Intake Total 750 200 Balance 750 200 Intake: Intake, IV Titration 750 Amount Lactated Ringers 1,000 ml 750 @ 0 mls/hr IV .STK-MED ONE Rx#:[id number] Oral 200 Other: # Voids 1 2 Weight 137.5 kg 06/18/19 06:56 06/18/19 06:56 EKG Interpretations (text) 1. EKG showed irregular heart rhythm with significant baseline artifacts. It may be consistent with atrial fibrillation but cannot be diagnosed with c onfidence. Rest of the EKGs and rhythm strips are consistent with a sinus rhythm or sinus tachycardia. Assessment and Plan (1) Status post cholecystectomy Current Visit: Yes Status: Acute Code(s): Z90.49 - ACQUIRED ABSENCE OF OTHER SPECIFIED PARTS OF DIGESTIVE TRACT SNOMED Code(s): 078776248 (2) Atrial fibrillation Current Visit: Yes Status: Acute Code(s): I48.91 - UNSPECIFIED ATRIAL FIBRILLATION SNOMED Code(s): 03534950 (3) Left bundle branch block Current Visit: Yes Status: Acute Code(s): I44.7 - LEFT BUNDLE-BRANCH BLOCK, UNSPECIFIED SNOMED Code(s): 03898696 Plan: EKGs are size to possible paroxysmal atrial fibrillation. Patient is currently in sinus rhythm with rate-related bundle branch block. Patient doesn't want to go on and decortication therapy. We'll make consider adding aspirin and continue to monitor for definite evidence of atrial fibrillation. Echocardiogra m to reviewed
--- NOTE | 2019-06-18 16:44 | ECHOF ---
Referral Reason:ekg changes, HTN MEASUREMENTS -------- HEIGHT: 152.4 cm WEIGHT: 137.4 kg BP: RVIDd: 3.4 cm (< 3.3) IVSd: 1.4 cm (0.6 - 1.1) LVIDd: 3.7 cm (3.9 - 5.3) LVPWd: 1.3 cm (0.6 - 1.1) IVSs: 1.8 cm LVIDs: 2.6 cm LVPWs: 1.6 cm LA Diam: 3.9 cm (2.7 - 3.8) Ao Diam: 3.3 cm (2.0 - 3.7) LA Diam: 3.7 cm (2.7 - 3.8) MV EXCURSION: 21.866 mm (> 18.000) MV EF SLOPE: 158 mm/s (70 - 150) EPSS: 0.2 cm MV E Caleb: 0.87 m/s MV DecT: 249 ms MV A Caleb: 1.03 m/s MV E/A Ratio: 0.85 RAP: 5.00 mmHg RVSP: 14.95 mmHg FINDINGS -------- Sinus rhythm. Morbid Obesity The left ventricular size is normal. There is mild concentric left ventricular hypertrophy. Overa ll left ventricular systolic function is low-normal with, an EF between 50 - 55 %. The right ventricle is normal in size. The left atrial size is normal. The right atrial size is normal. There is mild aortic valve sclerosis. There is no evidence of aortic regurgitation. Mild mitral annular calcification present. Mild mitral regurgitation is present. Mild tricuspid regurgitation present. Right ventricular systolic pressure is normal at < 35 mmHg. There is no evidence of pulmonary hypertension. The pulmonic valve was not well visualized. The aortic root size is normal. There is no pericardial effusion. CONCLUSIONS -------- 1. Sinus rhythm. 2. Morbid Obesity 3. The left ventricular size is normal. 4. There is mild concentric left ventricular hypertrophy. 5. Overall left ventricular systolic function is low-normal with, an EF between 50 - 55 %. 6. The right ventricle is normal in size. 7. The left atrial size is normal. 8. The right atrial size is normal. 9. There is mild aortic valve sclerosis. 10. Mild mitral annular calcification present. 11. Mild mitral regurgitation is present. 12. Mild tricuspid regurgitation present. 13. Right ventricular systolic pressure is normal at < 35 mmHg. 14. There is no evidence of pulmonary hypertension. 15. The pulmonic valve was not well visualized. 16. The aortic root size is normal. 17. There is no pericardial effusion. ANGLE DOZER OPERATOR: Jennifer Stein RDCS
[2019-06-18 16:48] LABS: Glucose,Whole Blood 153 mg/dL (75-99)
[2019-06-18 20:20] LABS: Glucose,Whole Blood 143 mg/dL (75-99)
[2019-06-19] MEDS: PIPERACILLIN-TAZOBACTAM 3.375 GM in SODIUM CHLORIDE 0.9% 100 ML IVPB SCH ×3 (01:35→17:29)
[2019-06-19] MEDS: HYDROcodone/APAP 5-325MG 1 EACH TAB PO PRN ×3 (01:39→20:27)
[2019-06-19 06:48] LABS: Glucose,Whole Blood 141 mg/dL (75-99)
[2019-06-19] MEDS: PANTOPRAZOLE 40 MG TABLET PO SCH ×2 (07:34→17:26)
[2019-06-19] MEDS: CARVEDILOL 6.25 MG TAB PO SCH ×2 (07:34→17:26)
[2019-06-19] MEDS: amLODIPine 10 MG TAB PO SCH (07:34)
[2019-06-19] MEDS: IPRATROPIUM-ALBUTEROL 3 ML NEB INHALATION PRN ×2 (08:09→11:30)
[2019-06-19 11:47] LABS: Glucose,Whole Blood 173 mg/dL (75-99)
--- NOTE | 2019-06-19 12:44 | P.PN ---
Subjective Progress Note Date: 06/19/19 Principal diagnosis: Status post cholecystectomy patient continued to be hemodynamically stable overnight has converted to sinus rhythm over the last 24 hours but continued to have right bundle branch block. 2-D echo was updated and showed preserved ejection fraction. Patient is denying chest pain shortness breath nausea vomiting abdominal pain dizziness lightheadedness or blurry vision was able to tolerate liquid diet and sitting up in chair along with walking to the bathroom without assistance. Family at the bedside and feels that the patient has improved significantly since yesterday Objective - Vital Signs Vital signs: Vital Signs Temp 97.8 F 06/19/19 07:00 Pulse 88 06/19/19 11:41 Resp 17 06/19/19 07:00 BP 120/85 06/19/19 07:00 Pulse Ox 96 06/19/19 07:00 Intake & Output 06/18/19 06/19/19 06/19/19 18:59 06:59 18:59 Intake Total 200 Balance 200 Intake: Oral 200 Other: # Voids 2 1 - Exam Gen.: in stated age, no acute distress Heart: Irregularly irregular rhythm Lungs: Clear to auscultation bilaterally Abdomen: Soft, no tenderness, hypoactive bowel sounds no guarding or rebound Skin: No new rash Psych: Alert and oriented 3 Neuro: No focal deficit - Labs CBC & Chem 7: 06/18/19 06:56 06/18/19 06:56 Labs: Abnormal Lab Results - Last 24 Hours (Table) 06/18/19 06/18/19 06/19/19 Range/Units 16:46 20:19 06:46 POC Glucose (mg/dL) 153 H 143 H 141 H (75-99) mg/dL 06/19/19 Range/Units 11:44 POC Glucose (mg/dL) 173 H (75-99) mg/dL Assessment and Plan Assessment: 1. Status post cholecystectomy. 2. New onset atrial fibrillation. 3. Bundle-branch block. 4. Morbid obesity. 5. under diagnosed obstructive sleep apnea. 6. COPD. 7. Remote history of smoking. I had long discussion with patient and her family regarding her irregular rhythm on D1 was suggesting atrial fibrillation but patient and currently is in sinus r hythm. Patient is still refusing any kind of anticoagulation and stated that she wants to get over the surgery first and then consider that in the future. 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 Patient will benefit from sleep study outpatient and weight loss on the long run area did would continue with oxygen supplementation continue with aggressive pulmonary hygiene encourage ambulation and encourage oral intake. we'll follow- up with cardiology recommendation and have patient's follow-up with cardiology office outpatient. Patient will benefit from aspirin and heart rate controlling agents on discharge and we will defer final decision for cardiology. Plan for discharge in the morning based on clinical progress
--- NOTE | 2019-06-19 12:44 | P.PN ---
Subjective Progress Note Date: 06/19/19 This is a patient was admitted with abdominal pain and underwent cholecystectomy. We're asked to see the patient because of episode of atrial fibrillation documented on the EKG. That EKGs has significant baseline artifacts and difficult to see if she has any P waves are not. Subsequent EKGs and rhythm strips did not reveal any evidence of atrial fibrillation. Patient doesn't want to go on anticoagulation therapy. She could be discharged on aspirin and be evaluated with event monitor as an outpatient. He Objective - Vital Signs Vital signs: Vital Signs Temp 97.8 F 06/19/19 07:00 Pulse 88 06/19/19 11:41 Resp 17 06/19/19 07:00 BP 120/85 06/19/19 07:00 Pulse Ox 96 06/19/19 07:00 Intake & Output 06/18/19 06/19/19 06/19/19 18:59 06:59 18:59 Intake Total 200 Balance 200 Intake: Oral 200 Other: # Voids 2 1 - Exam GENERAL EXAM: Patient is alert and oriented and doesn't appear to be in any acute distress HEENT: Normocephalic. Normal reaction of pupils, equal size, normal range of extraocular motion. No erythema or exudates in the throat. NECK: No masses, no nuchal rigidity. CHEST: No chest wall deformity. LUNGS: Equal air entry with no crackles or wheeze. HEART: S1 and S2 normal with no audible mumurs or gallops. Regular rhythm, femorals equal on both sides.. ABDOMEN: Postsurgical SKIN: No rashes CENTRAL NERVOUS SYSTEM: No focal deficits. EXTREMITIES: No cyanosis, clubbing or edema. - Labs CBC & Chem 7: 06/18/19 06:56 06/18/19 06:56 Labs: Abnormal Lab Results - Last 24 Hours (Table) 06/18/19 06/18/19 06/19/19 Range/Units 16:46 20: 06:46 POC Glucose (mg/dL) 153 H 143 H 141 H (75-99) mg/dL 06/19/19 Range/Units 11:44 POC Glucose (mg/dL) 173 H (75-99) mg/dL Assessment and Plan (1) Status post cholecystectomy Current Visit: Yes Status: Acute Code(s): Z90.49 - ACQUIRED ABSENCE OF OTHER SPECIFIED PARTS OF DIGESTIVE TRACT SNOMED Code(s): 358635778 (2) Atrial fibrillation Current Visit: Yes Status: Acute Code(s): I48.91 - UNSPECIFIED ATRIAL FIBRILLATION SNOMED Code(s): 81144211 (3) Left bundle branch block Current Visit: Yes Status: Acute Code(s): I44.7 - LEFT BUNDLE-BRANCH BLOCK, UNSPECIFIED SNOMED Code(s): 08544340 Plan: No recurrence of any episodes of atrial fibrillation. Patient doesn't want to go on anti-cognition therapy. Patient could be discharged home on aspirin. Outpatient event monitor and follow-up
--- NOTE | 2019-06-19 14:33 | P.PN ---
Progress Note - Text Progress Note Date: 06/19/19 the patient has complaints of abdominal pain and nausea. She does not want to go home today. On exam her vital signs are stable. Her abdomen soft. Incision sites are clean and intact. Patient will continue to have supportive care. We anticipate discharge home tomorrow.
[2019-06-19] MEDS: ONDANSETRON 4 MG/2 ML VIAL IVP PRN (15:57)
[2019-06-19] MEDS: INSULIN ASPART (NovoLOG) 100 UNIT/ML VIAL SQ SCH (17:27)
[2019-06-19 20:22] LABS: Glucose,Whole Blood 147 mg/dL (75-99)
[2019-06-20] MEDS: PIPERACILLIN-TAZOBACTAM 3.375 GM in SODIUM CHLORIDE 0.9% 100 ML IVPB SCH ×3 (02:30→17:50)
[2019-06-20 06:49] LABS: Glucose,Whole Blood 128 mg/dL (75-99)
[2019-06-20] MEDS: PANTOPRAZOLE 40 MG TABLET PO SCH ×2 (07:37→17:51)
[2019-06-20] MEDS: amLODIPine 10 MG TAB PO SCH (07:37)
[2019-06-20] MEDS: INSULIN ASPART (NovoLOG) 100 UNIT/ML VIAL SQ SCH ×3 (07:37→17:52)
[2019-06-20] MEDS: CARVEDILOL 6.25 MG TAB PO SCH (07:37)
[2019-06-20] MEDS ORDERED: METOPROLOL TARTRATE 50 MG TAB PO STA (08:47)
[2019-06-20 09:09] LABS: African American GFR (CKD) >90 (>60 ml/min/1.73 sqM); Anion Gap 4 mmol/L; Blood Urea Nitrogen 11 mg/dL (7-17); Calcium 8.3 mg/dL (8.4-10.2); Carbon Dioxide 36 mmol/L (22-30); Chloride 98 mmol/L (98-107); Glucose 136 mg/dL (74-99); Non-African American GFR(CKD) 83 (>60 ml/min/1.73 sqM); Potassium 3.6 mmol/L (3.5-5.1); Sodium 138 mmol/L (137-145)
[2019-06-20] MEDS ORDERED: DILTIAZEM DRIP BOLUS FROM BAG 1 MG SOLN IV ONE (09:33)
--- NOTE | 2019-06-20 09:43 | P.PN ---
Subjective This is a pleasant 68-year-old female past medical history significant for hypertension, diverticulitis with status post cholecystectomy. Telemetry tracings indicate paroxysmal atrial fibrillation with evidence of rate dependent left bundle branch block. This morning she initially was in sinus mechanism however had converted to atrial fibrillation with left bundle branch block heart rate in the 150s. She is seen and examined resting comfortably laying flat in bed in no acute distress. She complains of feeling palpitations. She denies chest pain, dizziness or shortness of breath. She states she has episodes like this frequently in the past but has never been diagnosed with A. fib. She denies prior history of coronary artery disease however has never undergone stress testing. Echocardiogram on this admission reveals preserved LV systolic function with ejection fraction 50-55% with mild mitral regurgitation. She is currently maintained on amlodipine 10 mg daily and coreg 6.25 mg BID. Blood pressure 149/76. She was initially resistant to manager terminal anti-coagulation however has agreed to try Eliquis 5 mg BID. Laboratory data reviewed, sodium 138, potassium 3.6, creatinine 0.76, magnesium 2.0 and TSH 1.05. GENERAL: Well-appearing, well-nourished and in no acute distress. Obese. NECK: Supple without JVD or thyromegaly. LUNGS: Breath sounds clear to auscultation bilaterally. Respiration equal and unlabored. No wheezes, rales or rhonchi. HEART: Irregular rate and rhythm without murmurs, rubs or gallops. S1 and S2 heard. Tachycardic. EXTREMITIES: Normal range of motion, no edema. No clubbing or cyanosis. P eripheral pulses intact. ASSESSMENT Paroxysmal atrial fibrillation with rapid ventricular response, new onset on this admission. Rate dependent left bundle branch block Status post cholecystectomy Leukocytosis Hypertension Morbid obesity, BMI 57 PLAN Electrolytes requested and reviewed. Lopressor 50 mg given initially with no response or improvement in heart rate. Initiate cardizem bolus and infusion for rate control. Discontinue amlodipine. Change to lopressor 50 mg BID. Resume home dose of losartan if blood pressure can tolerate. She is agreeable to Eliquis 5 mg BID, we have asked case management to check for coverage. Rx sent to pharmacy. Ongoing telemetry monitoring. Transfer to [facility] for cardizem infusion. We will continue to follow and make recommendations accordingly. Nurse Practitioner note has been reviewed, I agree with a documented findings and plan of care. Patient was seen and examined. Objective - Vital Signs Vital signs: Vital Signs Temp 98.5 F 06/20/19 07:56 Pulse 92 06/20/19 07:56 Resp 18 06/20/19 07:56 BP 149/76 06/20/19 07:56 Pulse Ox 97 06/20/19 07:56 Intake & Output 06/19/19 06/20/19 06/20/19 18:59 06:59 18:59 Intake Total 500 200 Output Total 1 Balance 500 199 Intake: Intake, IV Titration 260 200 Amount Lactated Ringers 1,000 ml 160 @ 0 mls/hr IV .STK-MED ONE Rx#:[id number] Piperacillin-Tazobactam 3 100 200 .375 gm In Sodium Chloride 0.9% 100 ml @ 25 mls/hr IVPB Q8H [facility] Rx#: [id number] Oral 240 Output: Urine 1 Other: Voiding Method Toilet # Voids 1 - Labs CBC & Chem 7: 06/18/19 06:56 06/20/19 08:26 Labs: Abnormal Lab Results - Last 24 Hours (Table) 06/19/19 06/19/19 06/20/19 Range/Units 11:44 20:20 06:48 Carbon Dioxide (22-30) mmol/L Glucose (74-99) mg/dL POC Glucose (mg/dL) 173 H 147 H 128 H (75-99) mg/dL Calcium (8.4-10.2) mg/dL 06/20/19 Range/Units 08:26 Carbon Dioxide 36 H (22-30) mmol/L Glucose 136 H (74-99) mg/dL POC Glucose (mg/dL) (75-99) mg/dL Calcium 8.3 L (8.4-10.2) mg/dL
[2019-06-20] MEDS: APIXABAN 5 MG TAB PO SCH ×2 (09:55→20:48)
[2019-06-20] MEDS: DILTIAZEM 125 MG in SODIUM CHLORIDE 0.9% 100 ML IV SCH (10:57)
--- NOTE | 2019-06-20 11:24 | P.PN ---
Subjective Progress Note Date: 06/20/19 Principal diagnosis: Acute cholecystitis Patient doing well today. Denies abdominal pain. [facility]. fib with RVR. Denies chest pain. Tolerating diet. Says her right upper quadrant pain has resolved. Objective - Vital Signs Vital signs: Vital Signs Temp 98.5 F 06/20/19 07:56 Pulse 92 06/20/19 07:56 Resp 18 06/20/19 07:56 BP 149/76 06/20/19 07:56 Pulse Ox 97 06/20/19 07:56 Intake & Output 06/19/19 06/20/19 06/20/19 18:59 06:59 18:59 Intake Total 500 200 Output Total 1 Balance 500 199 Intake: Intake, IV Titration 260 200 Amount Lactated Ringers 1,000 ml 160 @ 0 mls/hr IV .STK-MED ONE Rx#:[id number] Piperacillin-Tazobactam 3 100 200 .375 gm In Sodium Chloride 0.9% 100 ml @ 25 mls/hr IVPB Q8H [facility] Rx#: [id number] Oral 240 Output: Urine 1 Other: Voiding Method Toilet # Voids 1 - Exam Abdomen: Soft, nondistended, incisions clean and dry, minimal tenderness - Labs CBC & Chem 7: 06/18/19 06:56 06/20/19 08:26 Labs: Abnormal Lab Results - Last 24 Hours (Table) 06/19/19 06/19/19 06/20/19 Range/Units 11:44 20:20 06:48 Carbon Dioxide (22-30) mmol/L Glucose (74-99) mg/dL POC Glucose (mg/dL) 173 H 147 H 128 H (75-99) mg/dL Calcium (8.4-10.2) mg/dL 06/20/19 Range/Units 08:26 Carbon Dioxide 36 H (22-30) mmol/L Glucose 136 H (74-99) mg/dL POC Glucose (mg/dL) (75-99) mg/dL Calcium 8.3 L (8.4-10.2) mg/dL Assessment and Plan (1) Status post cholecystectomy Narrative/Plan: Patient doing well from our standpoint. Continue diet as tolerated. Continue oral analgesics. I'm comfortable with anticoagulation if needed. Current Visit: Yes Status: Acute Code(s): Z90.49 - ACQUIRED ABSENCE OF OTHER SPECIFIED PARTS OF DIGESTIVE TRACT SNOMED Code(s): 818276582
[2019-06-20 12:05] LABS: Glucose,Whole Blood 165 mg/dL (75-99)
[2019-06-20] MEDS: HYDROmorphone 1 MG/ML 1 ML SYRINGE IVP PRN ×2 (13:23→20:49)
[2019-06-20 16:37] LABS: Glucose,Whole Blood 136 mg/dL (75-99)
[2019-06-20] MEDS ORDERED: MAGNESIUM HYDROXIDE 2,400 MG/10 ML CUP PO PRN (17:53)
--- NOTE | 2019-06-20 18:55 | P.PN ---
Subjective Progress Note Date: 06/20/19 68 years old female with past medical history of hypertension, history of diverticulitis status post colectomy, anxiety comes in with acute onset of abdominal pain started 3 days ago while patient was eating a burger. patient denies previous episodes of epigastric pain. Patient also endorses nausea and vomiting. Pain has started in the epigastric area and radiates to the back. Patient denies any hematemesis or hematuria. She denies any history of black stools, melena or change in bowel habits.no history of chest pain, shortness of breath. No history of heart attacks in the past she does have history of skipped heartbeat but denies any irregular rhythm. Patient does have high blood pressure and takes blood pressure medication as needed. On evaluation of white of his temp is 98.4 and pulse is 108 respiratory rate 18 blood pressure 182/106 saturating well on 2 L of oxygen.labs suggestive leukocytosis of 16.9 glucose 171 lactic acid 1.1 and normal liver enzymes. Liver suggest decrease agitation with concern for gallstones.no cholecystitis seen on computed tomography scan. On gallbladder ultrasound is a large gallstone no dilated duct mildly dilated gallbladder suggestive of cholecystitis. Patient is planned for surgery 06/17patient was transferred to the cardiology floor secondary to atrial fibrillation, new onset, with RVR, patient is now seen by cardiology, ech ocardiogram performed shows EF of 55 to percent, mild MR, on Coreg 6.25 mg twice a day, she was counseled by cardiology to start on long-term anticoagulation for which now she has agreed totryE eliquis 5 mg twice a daypatient denies any labored breathing, no chest pain, she is comfortable, with postoperative pain under control, TSH 1.05, creatinine 0.76, potassium 3.6 Objective - Vital Signs Vital signs: Vital Signs Temp 98.4 F 06/20/19 16:00 Pulse 100 06/20/19 16:00 Resp 18 06/20/19 16:00 BP 103/59 06/20/19 16:00 Pulse Ox 94 L 06/20/19 17:46 Intake & Output 06/19/19 06/20/19 06/20/19 18:59 06:59 18:59 Intake Total 500 200 120 Output Total 1 Balance 500 199 120 Intake: Intake, IV Titration 260 200 Amount Lactated Ringers 1,000 ml 160 @ 0 mls/hr IV [facility] Rx#:[id number] Piperacillin-Tazobactam 3 100 200 .375 gm In Sodium Chloride 0.9% 100 ml @ 25 mls/hr IVPB Q8H [facility] Rx#: [id number] Oral 240 120 Output: Urine 1 Other: Voiding Method Toilet Toilet # Voids 1 - Constitutional General appearance: Present: average body habitus, cooperative, morbidly obese - EENT Eyes: Present: anicteric sclerae, EOMI, PERRLA, dentition normal, normal appearance ENT: Present: NA/AT, normal oropharynx - Respiratory Respiratory: bilateral: CTA, negative: diminished, dullness - Cardiovascular Rhythm: regular Heart sounds: normal: S1, S2 Abnormal Heart Sounds: Absent: systolic murmur, diastolic murmur, rub, S3 Gallop, S4 Gallop, click, other - Gastrointestinal General gastrointestinal: Present: normal bowel sounds - Integumentary Integumentary: Present: normal, normal turgor - Neurologic Neurologic: Present: CNII-XII intact - Musculoskeletal Musculoskeletal: Present: gait normal, strength equal bilaterally - Psychiatric Psychiatric: Present: A&O x's 3, appropriate affect, intact judgment & insight - Labs CBC & Chem 7: 06/18/19 06:56 06/20/19 08:26 Labs: Abnormal Lab Results - Last 24 Hours (Table) 06/19/19 06/20/19 06/20/19 Range/Units 20:20 06:48 08:26 Carbon Dioxide 36 H (22-30) mmol/L Glucose 136 H (74-99) mg/dL POC Glucose (mg/dL) 147 H 128 H (75-99) mg/dL Calcium 8.3 L (8.4-10.2) mg/dL 06/20/19 06/20/19 Range/Units 11:55 16:36 Carbon Dioxide (22-30) mmol/L Glucose (74-99) mg/dL POC Glucose (mg/dL) 165 H 136 H (75-99) mg/dL Calcium (8.4-10.2) mg/dL Assessment and Plan Plan: #1 acute cholecystitisstatus post laparoscopic cholecystectomy 06/17/2019, postop day #3. surgical specimen shows acute cholecystitis without abscess without perforation without gangrene Patient is low to intermediate risk with surgery but denies any history of chest pain. No history of coronary artery disease in the past. Blood pressure is significantly elevated. Continue hydralazine 10 mg IV every 6 hours systolic more than 160. Incentive spirometry. Pain control with diet ordered 1 mg every 3 hours. Continue Zosyn 3.375 every 8 hours continue IV fluids at 75 mL per hour. the plans for antibiotic post discharge unless recommended by general surgery #2, paroxysmal new-onset atrial fibrillation,[id number] score of 3, now oneliquis and metoprolol cardiology would follow, patient would need most likely an event monitor post discharge, and perform sleep studies as recommended #2 hypertension hold losartan/HCTZ prior to surgery. We will control blood pressure with hydralazine 10 mg IV every 6 hours. Patient can be started on amlodipine post surgery. #3 DVT prophylaxis with SCDs #4 anxiety continue Valium daily. Xanax can be given as needed for anxiety. #5 history of diverticulitis status post colectomy, stable #6 hyperglycemia A1c shows diabetic range at 6.5 continue insulin sliding scalecounseled regarding dietary modification, patient's eligible for metformin,
[2019-06-20 20:49] LABS: Glucose,Whole Blood 127 mg/dL (75-99)
[2019-06-20] MEDS: METOPROLOL TARTRATE 50 MG TAB PO SCH (20:49)
[2019-06-21] MEDS: PIPERACILLIN-TAZOBACTAM 3.375 GM in SODIUM CHLORIDE 0.9% 100 ML IVPB SCH ×2 (03:33→09:59)
[2019-06-21 06:14] LABS: Glucose,Whole Blood 134 mg/dL (75-99)
[2019-06-21] MEDS: INSULIN ASPART (NovoLOG) 100 UNIT/ML VIAL SQ SCH ×3 (06:22→17:41)
[2019-06-21] MEDS: HYDROmorphone 1 MG/ML 1 ML SYRINGE IVP PRN ×2 (06:28→12:27)
[2019-06-21] MEDS: PANTOPRAZOLE 40 MG TABLET PO SCH ×2 (06:29→17:42)
[2019-06-21] MEDS: APIXABAN 5 MG TAB PO SCH ×2 (09:57→20:34)
[2019-06-21] MEDS: METOPROLOL TARTRATE 50 MG TAB PO SCH ×2 (09:57→20:34)
[2019-06-21 12:15] LABS: Glucose,Whole Blood 119 mg/dL (75-99)
--- NOTE | 2019-06-21 13:35 | P.PN ---
Subjective Progress Note Date: 06/21/19 CHIEF COMPLAINT: Abdominal pain HISTORY OF PRESENT ILLNESS: Patient is status post laparoscopic cholecystectomy. Patient examined at the bedside with Dr. Meza. Patient reports her abdominal pain is tolerable at this time. Tolerating diet without nausea or vomiting. Patient remains in atrial fibrillation. She is also on a Cardizem drip. PHYSICAL EXAM: VITAL SIGNS: Reviewed. GENERAL: Well-developed in no acute distress. HEENT: No sclera icterus. Extraocular movements grossly intact. Moist buccal mucosa. Head is atraumatic, normocephalic. ABDOMEN: Soft. Nondistended. Appropriate surgical tenderness. Incisions clean dry and intact without drainage. NEUROLOGIC: Alert and oriented. Cranial nerves II through XII grossly intact. ASSESSMENT: 1. Acute cholecystitis, status post laparoscopic cholecystectomy 2. Atrial fibrillation PLAN: -Continue diet as tolerated -Pain control -Increase activity as tolerated -Cardiology following for new onset atrial fibrillation. Patient has been started on Eliquis. Patient will be discharged home when cleared by cardiology. Nurse practitioner note has been reviewed by physician. Signing provider agrees with the documented findings, assessment, and plan of care. Objective - Vital Signs Vital signs: Vital Signs Temp 98.7 F 06/21/19 12:00 Pulse 82 06/21/19 12:00 Resp 16 06/21/19 12:00 BP 112/69 06/21/19 12:00 Pulse Ox 94 L 06/21/19 12:00 Intake & Output 06/20/19 06/21/19 06/21/19 18:59 06:59 18:59 Intake Total 360 225 Balance 360 225 Weight 135.8 kg Intake: Intake, IV Titration 125 Amount Diltiazem 125 mg In 25 Sodium Chloride 0.9% 100 ml @ 5 MG/HR 5 mls/hr IV .Q24H [facility] Rx#:[id number] Piperacillin-Tazobactam 3 100 .375 gm In Sodium Chloride 0.9% 100 ml @ 25 mls/hr IVPB Q8H [facility] Rx#: [id number] Oral 360 100 Other: Voiding Method Toilet Toilet Toilet # Voids 3 # Bowel Movements 2 - Labs CBC & Chem 7: 06/18/19 06:56 06/20/19 08:26 Labs: Abnormal Lab Results - Last 24 Hours (Table) 06/20/19 06/20/19 06/21/19 Range/Units 16:36 20:48 06:12 POC Glucose (mg/dL) 136 H 127 H 134 H (75-99) mg/dL 06/21/19 Range/Units 12:13 POC Glucose (mg/dL) 119 H (75-99) mg/dL
--- NOTE | 2019-06-21 13:48 | P.PN ---
Subjective Progress Note Date: 06/21/19 68 years old female with past medical history of hypertension, history of diverticulitis status post colectomy, anxiety comes in with acute onset of abdominal pain started 3 days ago while patient was eating a burger. patient denies previous episodes of epigastric pain. Patient also endorses nausea and vomiting. Pain has started in the epigastric area and radiates to the back. Patient denies any hematemesis or hematuria. She denies any history of black stools, melena or change in bowel habits.no history of chest pain, shortness of breath. No history of heart attacks in the past she does have history of skipped heartbeat but denies any irregular rhythm. Patient does have high blood pressure and takes blood pressure medication as needed. On evaluation of white of his temp is 98.4 and pulse is 108 respiratory rate 18 blood pressure 182/106 saturating well on 2 L of oxygen.labs suggestive leukocytosis of 16.9 glucose 171 lactic acid 1.1 and normal liver enzymes. Liver suggest decrease agitation with concern for gallstones.no cholecystitis seen on computed tomography scan. On gallbladder ultrasound is a large gallstone no dilated duct mildly dilated gallbladder suggestive of cholecystitis. Patient is planned for surgery 06/17patient was transferred to the cardiology floor secondary to atrial fibrillation, new onset, with RVR, patient is now seen by cardiology, ech ocardiogram performed shows EF of 55 to percent, mild MR, on Coreg 6.25 mg twice a day, she was counseled by cardiology to start on long-term anticoagulation for which now she has agreed totryE eliquis 5 mg twice a daypatient denies any labored breathing, no chest pain, she is comfortable, with postoperative pain under control, TSH 1.05, creatinine 0.76, potassium 3.6 06/21: Patient remains in the cardiac monitoring unit, discuss with cardiology, has no new episodes of atrial fibrillation, patient is on IV Cardizem, which we will switch to oral metoprolol 25 mg twice a day per cardiology recommendations, patient is still requiring IV Dilaudid instead of the oral [place], patient still mentions that she feels sick, just diarrhea at 3 PM, none since then. Patient does not have any nausea, no abdominal pain that is different from postop pain however she prefers IV Dilaudid she also has A1c of 6.5 which gets into the diagnoses of diabetes mellitus, fasting sugars are in the 140s, we've offered her metformin at this time she has declined the treatment, patient is also not very committed towards compliance to eliquis she wants to speak to his brother regarding his experience for atrial fibrillation, patient also was counseled regarding close monitoring to her cardiology visits as an outpatient, event monitor was likely would be done, discharge planning is in progress, anticipate discharge in the next 24 hours once cleared by cardiology. We'll discontinue IV antibiotics at this time continue to monitor Objective - Vital Signs Vital signs: Vital Signs Temp 98.7 F 06/21/19 12:00 Pulse 82 06/21/19 12:00 Resp 16 06/21/19 12:00 BP 112/69 06/21/19 12:00 Pulse Ox 94 L 06/21/19 12:00 Intake & Output 06/20/19 06/21/19 06/21/19 18:59 06:59 18:59 Intake Total 360 225 Balance 360 225 Weight 135.8 kg Intake: Intake, IV Titration 125 Amount Diltiazem 125 mg In 25 Sodium Chloride 0.9% 100 ml @ 5 MG/HR 5 mls/hr IV .Q24H [facility] Rx#:[id number] Piperacillin-Tazobactam 3 100 .375 gm In Sodium Chloride 0.9% 100 ml @ 25 mls/hr IVPB Q8H [facility] Rx#: [id number] Oral 360 100 Other: Voiding Method Toilet Toilet Toilet # Voids 3 # Bowel Movements 2 - Constitutional General appearance: Present: cooperative, no acute distress, obese - EENT Eyes: Present: EOMI, PERRLA ENT: Present: NA/AT, normal oropharynx - Neck Neck: Present: normal ROM - Respiratory Respiratory: bilateral: CTA, negative: diminished, dullness, rales - Cardiovascular Rhythm: regular Heart sounds: normal: S1, S2 Abnormal Heart Sounds: Absent: systolic murmur, diastolic murmur, rub, S3 Gallop, S4 Gallop, click, other - Gastrointestinal General gastrointestinal: Present: normal bowel sounds, soft - Integumentary Integumentary: Present: decreased turgor, normal - Neurologic Neurologic: Present: CNII-XII intact - Musculoskeletal Musculoskeletal: Present: gait normal, strength equal bilaterally - Psychiatric Psychiatric: Present: A&O x's 3, appropriate affect, intact judgment & insight - Labs CBC & Chem 7: 06/18/19 06:56 06/20/19 08:26 Labs: Abnormal Lab Results - Last 24 Hours (Table) 06/20/19 06/20/19 06/21/19 Range/Units 16:36 20:48 06:12 POC Glucose (mg/dL) 136 H 127 H 134 H (75-99) mg/dL 06/21/19 Range/Units 12:13 POC Glucose (mg/dL) 119 H (75-99) mg/dL Assessment and Plan Plan: #1 acute cholecystitisstatus post laparoscopic cholecystectomy 06/17/2019, postop day #3. surgical specimen shows acute cholecystitis without abscess without perforation without gangrene Patient is low to intermediate risk with surgery but denies any history of chest pain. No history of coronary artery disease in the past. Blood pressure is significantly elevated. Continue hydralazine 10 mg IV every 6 hours systolic more than 160. Incentive spirometry. Pain control with dilaudid 1 mg every 3 hours. discontinue Zosyn 3.375 every 8 hours today, Hep-Lock IV no plans for antibiotic post discharge unless recommended by general surgery #2, paroxysmal new-onset atrial fibrillation,[id number] score of 3, now oneliquis and metoprolol cardiology would follow, patient would need most likely an event monitor post discharge, and perform sleep studies as recommended discontinued IV diltiazem June 21 #2 hypertension hold losartan/HCTZ prior to surgery. We will control blood p ressure with hydralazine 10 mg IV every 6 hours. Patient can be started on amlodipine post surgery. #3 DVT prophylaxis with SCDs #4 anxiety continue Valium daily. Xanax can be given as needed for anxiety. #5 history of diverticulitis status post colectomy, stable #6 new-onset diabetes mellitus type 2, hyperglycemia A1c shows diabetic range at 6.5 continue insulin sliding scalecounseled regarding dietary modification, patient's eligible for metformin, patient refused new medications at this time, patient was advised on compliance to diet as well as he dietary counseling that was already offered to her outpatient discharge planning, anticipate discharge in the next 24 hours, [facility]
[2019-06-21] MEDS: DILTIAZEM 125 MG in SODIUM CHLORIDE 0.9% 100 ML IV SCH (14:50)
[2019-06-21] MEDS: HYDROcodone/APAP 5-325MG 1 EACH TAB PO PRN (17:00)
[2019-06-21 17:20] LABS: Glucose,Whole Blood 120 mg/dL (75-99)
--- NOTE | 2019-06-21 18:46 | P.PN ---
Subjective Progress Note Date: 06/21/19 This is a patient was admitted with abdominal pain and underwent cholecystectomy. We're asked to see the patient because of episode of atrial fibrillation documented on the EKG. That EKGs has significant baseline artifacts and difficult to see if she has any P waves are not. Subsequent EKGs and rhythm strips did not reveal any evidence of atrial fibrillation. Patient doesn't want to go on anticoagulation therapy. She could be discharged on aspirin and be evaluated with event monitor as an outpatient. 06/21/2019. Patient is status post cholecystectomy. Had one EKG suggestive of atrial fibrillation. Since then has been maintaining sinus rhythm. Patient doesn't want to go on and decortication therapy. From Cardec standpoint patient is stable. Could be discharged home in medically cleared. Outpatient monitoring to be done to rule out recurrence of atrial fibrillation Objective - Vital Signs Vital signs: Vital Signs Temp 98.2 F 06/21/19 14:58 Pulse 73 06/21/19 14:58 Resp 18 06/21/19 14:58 BP 114/52 06/21/19 14:58 Pulse Ox 93 L 06/21/19 14:58 Intake & Output 06/20/19 06/21/19 06/21/19 18:59 06:59 18:59 Intake Total 360 425 Balance 360 425 Weight 135.8 kg Intake: Intake, IV Titration 125 Amount Diltiazem 125 mg In 25 Sodium Chloride 0.9% 100 ml @ 5 MG/HR 5 mls/hr IV .Q24H [facility] Rx#:[id number] Piperacillin-Tazobactam 3 100 .375 gm In Sodium Chloride 0.9% 100 ml @ 25 mls/hr IVPB Q8H [facility] Rx#: [id number] Oral 360 300 Other: Voiding Method Toilet Toilet Toilet # Voids 3 2 # Bowel Movements 2 - Exam GENERAL EXAM: Patient is alert and oriented and doesn't appear to be in any acute distress HEENT: Normocephalic. Normal reaction of pupils, equal size, normal range of extraocular motion. No erythema or exudates in the throat. NECK: No masses, no nuchal rigidity. CHEST: No chest wall deformity. LUNGS: Equal air entry with no crackles or wheeze. HEART: S1 and S2 normal with no audible mumurs or gallops. Regular rhythm, femo rals equal on both sides.. ABDOMEN: Postsurgical SKIN: No rashes CENTRAL NERVOUS SYSTEM: No focal deficits. EXTREMITIES: No cyanosis, clubbing or edema. - Labs CBC & Chem 7: 06/18/19 06:56 06/20/19 08:26 Labs: Abnormal Lab Results - Last 24 Hours (Table) 06/20/19 06/21/19 06/21/19 Range/Units 20:48 06:12 12:13 POC Glucose (mg/dL) 127 H 134 H 119 H (75-99) mg/dL 06/21/19 Range/Units 17:11 POC Glucose (mg/dL) 120 H (75-99) mg/dL Assessment and Plan (1) Status post cholecystectomy Current Visit: Yes Status: Acute Code(s): Z90.49 - ACQUIRED ABSENCE OF OTHER SPECIFIED PARTS OF DIGESTIVE TRACT SNOMED Code(s): 896771283 (2) Atrial fibrillation Current Visit: Yes Status: Acute Code(s): I48.91 - UNSPECIFIED ATRIAL FIBRILLATION SNOMED Code(s): 40644182 (3) Left bundle branch block Current Visit: Yes Status: Acute Code(s): I44.7 - LEFT BUNDLE-BRANCH BLOCK, UNSPECIFIED SNOMED Code(s): 87632711 Plan: Clinically stable without any recurrence of atrial fibrillation. Patient doesn't want to be on anticoagulation therapy. Follow up as an outpatient. An outpatient event monitor
[2019-06-21 20:32] LABS: Glucose,Whole Blood 167 mg/dL (75-99)
[2019-06-22 06:03] LABS: Glucose,Whole Blood 175 mg/dL (75-99)
[2019-06-22] MEDS: INSULIN ASPART (NovoLOG) 100 UNIT/ML VIAL SQ SCH ×2 (06:03→13:21)
[2019-06-22] MEDS: PANTOPRAZOLE 40 MG TABLET PO SCH (06:05)
[2019-06-22 06:32] LABS: Basophils # (A) 0.1 k/uL (0-0.2); Basophils % (A) 1 %; Eosinophils # (A) 0.5 k/uL (0-0.7); Eosinophils % (A) 6 %; HCT 35.5 % (34.0-46.0); HGB 11.1 gm/dL (11.4-16.0); Lymphocytes # (A) 1.3 k/uL (1.0-4.8); Lymphocytes % (A) 18 %; MCH 28.9 pg (25.0-35.0); MCHC 31.2 g/dL (31.0-37.0); MCV 92.6 fL (80.0-100.0); Mean Platelet Volume 8.5; Monocytes # (A) 0.5 k/uL (0-1.0); Monocytes % (A) 6 %; Neutrophils # (A) 5.1 k/uL (1.3-7.7); Neutrophils % (A) 67 %; Platelet Count 240 k/uL (150-450); RBC 3.83 m/uL (3.80-5.40); RDW 14.1 % (11.5-15.5); WBC 7.6 k/uL (3.8-10.6)
[2019-06-22 06:58] LABS: Albumin 2.8 g/dL (3.5-5.0); Bilirubin, Delta 0.3 mg/dL (0.0-0.2); Bilirubin,Unconjugated 0.2 mg/dL (0.0-1.1); Potassium 3.1 mmol/L (3.5-5.1); Total Bilirubin 0.5 mg/dL (0.2-1.3); Total Protein 5.1 g/dL (6.3-8.2)
[2019-06-22] MEDS: METOPROLOL TARTRATE 50 MG TAB PO SCH (08:24)
[2019-06-22] MEDS: APIXABAN 5 MG TAB PO SCH (08:24)
--- NOTE | 2019-06-22 09:58 | P.PN ---
Progress Note - Text Progress Note Date: 06/22/19 The patient resting comfortably in her bed. Apparently she cannot afford her L Catie. She may be being switched over to Coumadin. Her abdomen soft. Nontender. Incision sites are clean dry intact. The patient was transferred to the medical service. Once her anticoagulation has been resolved she'll be discharged home.
[2019-06-22 10:12] LABS: Prothrombin Time 10.7 sec (9.0-12.0)
[2019-06-22 10:17] VITALS: BP 128/83; PULSE 80; RESP 20; TEMP 97.9
[2019-06-22 12:10] LABS: Glucose,Whole Blood 165 mg/dL (75-99)
--- NOTE | 2019-06-22 13:25 | P.DS ---
Providers Date of admission: 06/18/19 15:12 Expected date of discharge: 06/22/19 Attending physician: Savannah Perea Consults: 06/17/19 08:21 Consult Physician Routine Consulting Provider: Savannah Perea Consult Reason/Comments: medical management Do you want consulting provider notified?: Yes 06/18/19 00:39 Consult Physician Routine Consulting Provider: Noelle Lane Consult Reason/Comments: Rhythm changes Do you want consulting provider notified?: Yes, Notify in am Primary care physician: [facility] Course: 68 years old female with past medical history of hypertension, history of diverticulitis status post colectomy, anxiety comes in with acute onset of abdominal pain started 3 days ago while patient was eating a burger. patient denies previous episodes of epigastric pain. Patient also endorses nausea and vomiting. Pain has started in the epigastric area and radiates to the back. Patient denies any hematemesis or hematuria. She denies any history of black stools, melena or change in bowel habits.no history of chest pain, shortness of breath. No history of heart attacks in the past she does have history of skipped heartbeat but denies any irregular rhythm. Patient does have high blood pressure and takes blood pressure medication as needed. On evaluation of white of his temp is 98.4 and pulse is 108 respiratory rate 18 blood pressure 182/106 saturating well on 2 L of oxygen.labs suggestive leukocytosis of 16.9 glucose 171 lactic acid 1.1 and normal liver enzymes. Liver suggest decrease agitation with concern for gallstones.no cholecystitis seen on computed tomography scan. On gallbladder ultrasound is a large gallstone no dilated duct mildly dilated gallbladder suggestive of cholecystitis. Patient is planned for surgery 06/17patient was transferred to the cardiology floor secondary to atrial fibrillation, new onset, with RVR, patient is now seen by cardiology, echocardiogram performed shows EF of 55 to percent, mild MR, on Coreg 6.25 mg twice a day, she was counseled by cardiology to start on long-term anticoagulation for which now she has agreed totryE eliquis 5 mg twice a daypatient denies any labored breathing, no chest pain, she is comfortable, with postoperative pain under control, TSH 1.05, creatinine 0.76, potassium 3.6 06/21: Patient remains in the cardiac monitoring unit, discuss with cardiology, has no new episodes of atrial fibrillation, patient is on IV Cardizem, which we will switch to oral metoprolol 25 mg twice a day per cardiology recommendations, patient is still requiring IV Dilaudid instead of the oral Pierre, patient still mentions that she feels sick, just diarrhea at 3 PM, none since then. Patient does not have any nausea, no abdominal pain that is different from postop pain however she prefers IV Dilaudid she also has A1c of 6.5 which gets into the diagnoses of diabetes mellitus, fasting sugars are in the 140s, we've offered her metformin at this time she has declined the treatment, patient is also not very committed towards compliance to eliquis she wants to speak 06/22: Patient has no symptoms, is still at the dilemma on anticoagulation as recommended by cardiology, she needs to either be on Coumadin or [place], patient did not like the hospital related to Coumadin monitoring as well as dietary restrictions, patient has no Medicare D coverage, coupons are provided for today, and PCPauthorize drug sponsorship for eliquis , patient finally agrees to this plan, she also has metformin at home which she is not taking, and can resume it post discharge. No Antibiotic needed for discharge, cleared by general surgery, cleared by cardiology. Outpatient follow-up, might need event monitor for secondary atrial fibrillation. Heart rate between 80s to 100, no change in metoprolol 50 mg twice a day final diagnosis #1 acute cholecystitisstatus post laparoscopic cholecystectomy 06/17/2019, postop day #4 surgical specimen shows acute cholecystitis without abscess without perforation without gangrene Patient is low to intermediate risk with surgery but denies any history of chest pain. No history of coronary artery disease in the past. Blood pressure is significantly elevated. Continue hydralazine 10 mg IV every 6 hours systolic more than 160. Incentive spirometry. Pain control with dilaudid 1 mg every 3 hours. discontinue Zosyn 3.375 every 8 hours today, Hep-Lock IV no plans for antibiotic post discharge unless recommended by general surgery #2, paroxysmal new-onset atrial fibrillation,[id number] score of 4 including diabetes mellitus, now on eliquis and metoprolol cardiology would follow, patient would need most likely an event monitor post discharge, and perform sleep studies as recommended discontinued IV diltiazem June 21 #2 hypertension onlosartan/HCTZ prior to surgery. #3 DVT prophylaxis with SCDs #4 anxiety continue Valium daily. Xanax can be given as needed for anxiety. #5 history of diverticulitis status post colectomy, stable #6 new-onset diabetes mellitus type 2, hyperglycemia A1c shows diabetic range at 6.5 continue insulin sliding scalecounseled regarding dietary modification, patient's eligible for metformin, patient refused new medications at this time, patient was advised on compliance to diet as well as he dietary counseling that was already offered to her outpatient Discharge condition stable and improved Discharge Medication List Albuterol Inhaler [Ventolin Hfa Inhaler] 1 - 2 puff INHALATION RT-Q6H PRN #1 inhaler 03/30/19 [Rx] Diazepam [Valium] 5 mg PO DAILY PRN 03/30/19 [History] Losartan/Hydrochlorothiazide [Losartan-Hctz 100-25 mg Tab] 1 tab PO DAILY 03/30/19 [History] Apixaban [Eliquis] 5 mg PO BID #60 tab 06/20/19 [Rx] Apixaban [Eliquis] 5 mg PO BID #60 tab 06/22/19 [Rx] Hydrocodone/Acetaminophen [Pierre 5-325] 1 tab PO Q6HR PRN 3 Days #12 tab 06/22/19 [Rx] Metoprolol Tartrate [Lopressor] 50 mg PO BID #60 tab 06/22/19 [Rx] Patient Condition at Discharge: Fair Plan - Discharge Summary New Discharge Prescriptions: New Apixaban [Eliquis] 5 mg PO BID #60 tab Hydrocodone/Acetaminophen [Pierre 5-325] 1 tab PO Q6HR PRN 3 Days #12 tab PRN Reason: Pain Apixaban [Eliquis] 5 mg PO BID #60 tab Metoprolol Tartrate [Lopressor] 50 mg PO BID #60 tab Continue Diazepam [Valium] 5 mg PO DAILY PRN PRN Reason: Anxiety Losartan/Hydrochlorothiazide [Losartan-Hctz 100-25 mg Tab] 1 tab PO DAILY Albuterol Inhaler [Ventolin Hfa Inhaler] 1 - 2 puff INHALATION RT-Q6H PRN #1 inhaler PRN Reason: Shortness Of Breath Discharge Medication List Albuterol Inhaler [Ventolin Hfa Inhaler] 1 - 2 puff INHALATION RT-Q6H PRN #1 inhaler 03/30/19 [Rx] Diazepam [Valium] 5 mg PO DAILY PRN 03/30/19 [History] Losartan/Hydrochlorothiazide [Losartan-Hctz 100-25 mg Tab] 1 tab PO DAILY 03/30/19 [History] Apixaban [Eliquis] 5 mg PO BID #60 tab 06/20/19 [Rx] Apixaban [Eliquis] 5 mg PO BID #60 tab 06/22/19 [Rx] Hydrocodone/Acetaminophen [Pierre 5-325] 1 tab PO Q6HR PRN 3 Days #12 tab 06/22/19 [Rx] Metoprolol Tartrate [Lopressor] 50 mg PO BID #60 tab 06/22/19 [Rx] Follow up Appointment(s)/Referral(s): Devin Spencer MD [Medical Doctor] - 1 Week (call office when open to make follow up appointment) Gatito Kamara DO [Primary Care Provider] - 1-2 days (call office when open to make follow up appointment) Jagdish Sosa MD [STAFF PHYSICIAN] - 2 Weeks (call office when open to make follow up appointment) Patient Instructions/Handouts: Laparoscopic Cholecystectomy (DC)
--- NOTE | 2019-06-22 13:58 | P.PN ---
Subjective Progress Note Date: 06/22/19 This is a patient was admitted with abdominal pain and underwent cholecystectomy. We're asked to see the patient because of episode of atrial fibrillation documented on the EKG. That EKGs has significant baseline artifacts and difficult to see if she has any P waves are not. Subsequent EKGs and rhythm strips did not reveal any evidence of atrial fibrillation. Patient doesn't want to go on anticoagulation therapy. She could be discharged on aspirin and be evaluated with event monitor as an outpatient. 06/21/2019. Patient is status post cholecystectomy. Had one EKG suggestive of atrial fibrillation. Since then has been maintaining sinus rhythm. Patient doesn't want to go on and decortication therapy. From Cardec standpoint patient is stable. Could be discharged home in medically cleared. Outpatient monitoring to be done to rule out recurrence of atrial fibrillation . 06/22/2019. Patient is status post cholecystectomy. Patient is complaining of mild abdominal pain but overall seemed to feeling better. No recurrence of atrial fibrillation. Patient agreed to go on anticoagulation therapy. She is going to be on Eliquis 5 mg by mouth twice a day. Follow-up as an outpatient in one to 2 weeks Objective - Vital Signs Vital signs: Vital Signs Temp 97.9 F 06/22/19 08:00 Pulse 80 06/22/19 08:00 Resp 20 06/22/19 08:00 BP 128/83 06/22/19 08:00 Pulse Ox 94 L 06/22/19 08:00 Intake & Output 06/21/19 06/22/19 06/22/19 18:59 06:59 18:59 Intake Total 655 240 Balance 655 240 Weight 135.9 kg Intake: Intake, IV Titration 125 Amount Diltiazem 125 mg In 25 Sodium Chloride 0.9% 100 ml @ 5 MG/HR 5 mls/hr IV .Q24H MUKESH Rx#:[id number] Piperacillin-Tazobactam 3 100 .375 gm In Sodium Chloride 0.9% 100 ml @ 25 mls/hr IVPB Q8H MUKESH Rx#: [id number] Oral 530 240 Other: Voiding Method Toilet Toilet # Voids 2 1 0 - Exam GENERAL EXAM: Patient is alert and oriented and doesn't appear to be in any acute distress HEENT: Normocephalic. Normal reaction of pupils, equal size, normal range of extraocular motion. No erythema or exudates in the throat. NECK: No masses, no nuchal rigidity. CHEST: No chest wall deformity. LUNGS: Equal air entry with no crackles or wheeze. HEART: S1 and S2 normal with no audible mumurs or gallops. Regular rhythm, fe morals equal on both sides.. ABDOMEN: Postsurgical SKIN: No rashes CENTRAL NERVOUS SYSTEM: No focal deficits. EXTREMITIES: No cyanosis, clubbing or edema. - Labs CBC & Chem 7: 06/22/19 05:59 06/22/19 05:59 Labs: Abnormal Lab Results - Last 24 Hours (Table) 06/21/19 06/21/19 06/22/19 Range/Units 17:11 20:30 05:59 Hgb 11.1 L (11.4-16.0) gm/dL Potassium (3.5-5.1) mmol/L Carbon Dioxide (22-30) mmol/L Glucose (74-99) mg/dL POC Glucose (mg/dL) 120 H 167 H (75-99) mg/dL Calcium (8.4-10.2) mg/dL Delta Bilirubin (0.0-0.2) mg/dL Total Protein (6.3-8.2) g/dL Albumin (3.5-5.0) g/dL 06/22/19 06/22/19 06/22/19 Range/Units 05:59 06:02 11:52 Hgb (11.4-16.0) gm/dL Potassium 3.1 L (3.5-5.1) mmol/L Carbon Dioxide 33 H (22-30) mmol/L Glucose 167 H (74-99) mg/dL POC Glucose (mg/dL) 175 H 165 H (75-99) mg/dL Calcium 8.0 L (8.4-10.2) mg/dL Delta Bilirubin 0.3 H (0.0-0.2) mg/dL Total Protein 5.1 L (6.3-8.2) g/dL Albumin 2.8 L (3.5-5.0) g/dL Assessment and Plan (1) Status post cholecystectomy Current Visit: Yes Status: Acute Code(s): Z90.49 - ACQUIRED ABSENCE OF OTHER SPECIFIED PARTS OF DIGESTIVE TRACT SNOMED Code(s): 769513898 (2) Atrial fibrillation Current Visit: Yes Status: Acute Code(s): I48.91 - UNSPECIFIED ATRIAL FIBRILLATION SNOMED Code(s): 36669343 (3) Left bundle branch block Current Visit: Yes Status: Acute Code(s): I44.7 - LEFT BUNDLE-BRANCH BLOCK, UNSPECIFIED SNOMED Code(s): 57552301 Plan: Patient is being discharged on anticoagulation therapy. He is also on beta garfield therapy. Follow up as an outpatient. May consider outpatient Holter monitoring
== END 2019-06-22 14:50 | disposition home or self-care (01) | DRG 418 ==
LOC: EC 18:12 → 1SOBS 22:31 → 4SSUR 06-17 19:28 → OBSVTOIN 06-18 15:12 → 3SCARD 06-20 10:34
PROVIDERS: ADMIT Family Medicine; ATTEND Family Medicine
PROC: 0FT44ZZ Resection of Gallbladder, Percutaneous Endoscopic Approach (ICD-10-PCS; principal; 2019-06-18)
DX: K80.00 Calculus of gallbladder with acute cholecystitis without obstruction (principal); Z68.43 Body mass index [BMI] 50.0-59.9, adult; I44.7 Left bundle-branch block, unspecified; K21.9 Gastro-esophageal reflux disease without esophagitis; E11.65 Type 2 diabetes mellitus with hyperglycemia; E66.01 Morbid (severe) obesity due to excess calories; F41.9 Anxiety disorder, unspecified; G47.33 Obstructive sleep apnea (adult) (pediatric); I10 Essential (primary) hypertension; I48.0 Paroxysmal atrial fibrillation; J44.9 Chronic obstructive pulmonary disease, unspecified; Z79.01 Long term (current) use of anticoagulants; Z87.891 Personal history of nicotine dependence; Z79.899 Other long term (current) drug therapy
CPT/HCPCS: 36415; 74177; 76705; 80048; 80053; 80076; 82150; 83036; 83605; 83690; 83735; 84443; 84484; 85025; 85610; 88304; 93005; 93306; 94640; 94660; 94760; 96361; 96365; 96375; 96376; 99285

== ENCOUNTER → 2020-05-03 | Outpatient (CLI) | payer MEDICARE ==
--- NOTE | 2020-05-03 14:01 | XR ---
EXAM TYPE: LUMBAR SPINE X RAY SERIES COMPARISON: NONE HISTORY: Back pain TECHNIQUE: 4 views are submitted. FINDINGS: Alignment is anatomic. The pedicles are intact. The transverse processes are intact. There is mult ilevel degenerative disc disease with the severe changes L4-5 and L5-S1. Grade 1 anterolisthesis L4 o n L5.. Surgical clips in the gallbladder fossa. Facet arthropathy L4-5 and L5-S1. Vascular calcifica tions noted. IMPRESSION: 1. Multilevel degenerative disc disease with severe changes L4-5 and L5-S1. Grade 1 anterolisthesis L 4 on L5..
== END | disposition home or self-care (01) ==
LOC: RADXRMAIN 13:32
PROVIDERS: ATTEND Family Medicine
DX: M43.16 Spondylolisthesis, lumbar region (principal); M51.36 Other intervertebral disc degeneration, lumbar region; M51.37 Other intervertebral disc degeneration, lumbosacral region
CPT/HCPCS: 72110

== ENCOUNTER 2020-05-28 05:57 | Inpatient (IN) | payer MEDICARE ==
[2020-05-28] MEDS ORDERED: ONDANSETRON 4 MG/2 ML VIAL IVP STA (06:17)
[2020-05-28] MEDS ORDERED: MORPHINE SULFATE 4 MG/ML SYRINGE IV STA (06:17)
[2020-05-28] MEDS ORDERED: SODIUM CHLORIDE 0.9% 500 ML 500 ML IV STA (06:17)
[2020-05-28] MEDS ORDERED: HEPARIN SODIUM,PORCINE 5,000 UNIT/ML 1 ML VIAL IV PRN (06:23)
[2020-05-28] MEDS ORDERED: HEPARIN SODIUM,PORCINE 5,000 UNIT/ML 1 ML VIAL IV ONE (06:23)
--- NOTE | 2020-05-28 06:23 | ED ---
General Adult HPI - General Source: patient, family Mode of arrival: wheelchair Limitations: no limitations <So Connor - Last Filed: 05/28/20 07:01> <Michelle Woodruff - Last Filed: 05/30/20 23:36> - General Chief complaint: Extremity Problem,Nontraumatic Stated complaint: abd pain Time Seen by Provider: 05/28/20 06:07 - History of Present Illness Initial comments: 69-year-old female patient with past medical history significant for hypertension presents to the emergency department today for evaluation of upper back pain and bilateral arm pain. Patient states she's been having pain on and off since Thursday but throughout the night tonight it has been constant and worse. States that she is having some shortness of breath and nausea with this. Denies any chest pain. Denies history of similar symptoms. States that movement does not increase her pain. Denies any known history of aortic aneurysm. States she does take her medication for hypertension. Denies fever or chills. Denies any injuries. Patient denies any recent rash, fever, chills, cough, diarrhea, constipation, back pain, numbness, tingling, dizziness, weakness, hematuria, dysuria, urinary urgency, urinary frequency, headache, vi sual changes, or any other complaints. (So Connor) - Related Data Home Medications Medication Instructions Recorded Confirmed diazePAM [Valium] 5 mg PO TID PRN 03/30/19 05/28/20 Aspirin [[place] Aspirin EC] 162 mg PO ONCE PRN 05/28/20 05/28/20 Previous Rx's Medication Instructions Recorded Atorvastatin [Lipitor] 80 mg PO HS #30 tab 05/30/20 Metoprolol Tartrate [Lopressor] 12.5 mg PO BID #60 tab 05/30/20 Nicotine 14Mg/24Hr Patch [Habitrol] 1 patch TRANSDERM DAILY #30 patch 05/30/20 Nitroglycerin Sl Tabs [Nitrostat] 0.4 mg SUBLINGUAL Q5M PRN #25 tab 05/30/20 Spironolactone [Aldactone] 25 mg PO DAILY #30 tab 05/30/20 Ticagrelor [Brilinta] 90 mg PO BID #60 tab 05/30/20 lisinopriL [Zestril] 2.5 mg PO DAILY #30 tab 05/30/20 Allergies Allergy/AdvReac Type Severity Reaction Status Date / Time No Known Allergies Allergy Verified 05/28/20 12:20 Review of Systems ROS Other: All systems not noted in ROS Statement are negative. <So Connor - Last Filed: 05/28/20 07:01> ROS Other: All systems not noted in ROS Statement are negative. <KacyMichelle Lex - Last Filed: 05/30/20 23:36> ROS Statement: Those systems with pertinent positive or pertinent negative responses have been documented in the HPI. Past Medical History Past Medical History: Hypertension History of Any Multi-Drug Resistant Organisms: None Reported Past Surgical History: Section, Cholecystectomy, Tonsillectomy Additional Past Surgical History / Comment(s): Part on colon removed Past Anesthesia/Blood Transfusion Reactions: No Reported Reaction Past Psychological History: Anxiety Smoking Status: Current every day smoker Past Alcohol Use History: Occasional Past Drug Use History: None Reported <So Connor - Last Filed: 05/28/20 07:01> General Exam Limitations: no limitations General appearance: alert, in no apparent distress, other (Physical well- developed, well-nourished adult female patient in mild distress related to pain. Vital signs upon presentation are temperature 97.7F, pulse 68, respirations 26, blood pressure 175/82, pulse ox 100% on room air.) Eye exam: Present: normal appearance, PERRL, EOMI. Absent: scleral icterus, conjunctival injection, periorbital swelling ENT exam: Present: normal exam, normal oropharynx, mucous membranes moist Respiratory exam: Present: normal lung sounds bilaterally. Absent: respiratory distress, wheezes, rales, rhonchi, stridor Cardiovascular Exam: Present: regular rate, normal rhythm, normal heart sounds. Absent: systolic murmur, diastolic murmur, rubs, gallop, clicks GI/Abdominal exam: Present: soft, tenderness (Mild midepigastric), normal bowel sounds. Absent: distended, guarding, rebound, rigid Extremities exam: Present: normal inspection, full ROM, normal capillary refill, other (Skin to the upper extremities pink, warm, dry. Cap refills less than 3 seconds. Radial pulses 2+ and equal bilaterally.). Absent: tenderness, pedal edema, joint swelling, calf tenderness Neurological exam: Present: alert, oriented X3, CN II-XII intact Psychiatric exam: Present: normal affect, normal mood Skin exam: Present: warm, dry, intact, normal color. Absent: rash <So Connor - Last Filed: 05/28/20 07:01> Course <Michelle Woodruff - Last Filed: 05/30/20 23:36> Vital Signs 05/28/20 05/28/20 06:01 06:39 Temperature 97.7 F Pulse Rate 68 75 Respiratory 26 H 20 Rate Blood Pressure 175/82 155/84 O2 Sat by Pulse 100 Oximetry - Reevaluation(s) Reevaluation #1: Spoke with Dr. Arreguin 05/28/20 06:31 (Michelle Woodruff) EKG Findings - EKG Comments: EKG Findings:: EKG demonstrates normal sinus rhythm with a ventricular rate of 67. WV interval 204. QRS 96. QTC of 433. Acute ST segment elevation 2, 3 and aVF with reciprocal changes and 1 and aVL as well as V2 through V4 <Michelle Woodruff - Last Filed: 05/30/20 23:36> Medical Decision Making <So Connor - Last Filed: 05/28/20 07:01> - Lab Data Result diagrams: 05/30/20 07:15 05/29/20 03:07 <Michelle Woodruff - Last Filed: 05/30/20 23:36> - Medical Decision Making 69-year-old female patient presented to the emergency department today for emerson luation of upper back pain and bilateral arm pain. Symptoms started on Thursday that worsened overnight last night. She is also reporting nausea and shortness of breath. EKG was obtained and patient was found to have significant ST elevations and depressions concerning for inferior wall infarction. STEMI alert was called. Patient will be transferred to labor trainer. Dr. Berry is accepting. (So Connor) I evaluated the patient myself and spoke with Dr. Arreguin after labor trainer was activated. (Michelle Woodruff) Disposition Decision to Admit Reason: Admit from EC Decision Date: 05/28/20 Decision Time: 06:37 <So Connor - Last Filed: 05/28/20 07:01> <Michelle Woodruff Last Filed: 05/30/20 23:36> Clinical Impression: STEMI (ST elevation myocardial infarction) Disposition: ADMITTED IP TO THIS HOSP Condition: Good
[2020-05-28] MEDS ORDERED: ASPIRIN 81 MG PO STA (06:25)
[2020-05-28] MEDS ORDERED: NITROGLYCERIN SL TABS 0.4 MG TAB SUBLINGUAL STA (06:25)
[2020-05-28] MEDS ORDERED: NALOXONE 0.4 MG/ML 1 ML VIAL IV PRN (06:37)
[2020-05-28] MEDS ORDERED: LIDOCAINE 1% INJ 10MG/ML (20 ML MDV) ONE (06:53)
[2020-05-28] MEDS ORDERED: VERAPAMIL 2.5 MG/ML 2 ML AMP ONE (06:56)
[2020-05-28 07:01] LABS: Basophils # (A) 0.1 k/uL (0-0.2); Basophils % (A) 1 %; Eosinophils # (A) 0.2 k/uL (0-0.7); Eosinophils % (A) 2 %; HCT 48.6 % (34.0-46.0); HGB 15.8 gm/dL (11.4-16.0); Lymphocytes # (A) 2.3 k/uL (1.0-4.8); Lymphocytes % (A) 28 %; MCH 30.2 pg (25.0-35.0); MCHC 32.4 g/dL (31.0-37.0); MCV 93.1 fL (80.0-100.0); Mean Platelet Volume 8.3; Monocytes # (A) 0.5 k/uL (0-1.0); Monocytes % (A) 6 %; Neutrophils # (A) 5.2 k/uL (1.3-7.7); Neutrophils % (A) 63 %; Platelet Count 259 k/uL (150-450); RBC 5.23 m/uL (3.80-5.40); WBC 8.3 k/uL (3.8-10.6)
[2020-05-28] MEDS ORDERED: MIDAZOLAM 2 MG/2 ML VIAL IVP ONE (07:08)
[2020-05-28] MEDS ORDERED: LIDOCAINE 1% INJ 10MG/ML (20 ML MDV) SQ ONE (07:10)
[2020-05-28] MEDS ORDERED: IV FLUID CONTINUATION 1,000 ML IV ONE (07:11)
[2020-05-28] MEDS ORDERED: HEPARIN SODIUM 1,000 UN/ML (10ML VL) ONE (07:13)
[2020-05-28] MEDS ORDERED: VERAPAMIL SYRINGE (5 MG/10 ML) INTRAARTER ONE (07:13)
[2020-05-28] MEDS ORDERED: TICAGRELOR 90 MG TAB ONE ×2 (07:19)
--- NOTE | 2020-05-28 07:19 | XR ---
EXAMINATION TYPE: XR chest 1V DATE OF EXAM: 05/28/2020 COMPARISON: 03/30/2019 HISTORY: 69-year-old female with chest pain TECHNIQUE: Single frontal view of the chest is obtained. FINDINGS: Very limited exam due to portable technique and large patient body habitus. The exam is markedly unde rpenetrated. There also seems to be low lung volumes limiting assessment. Lung bases are largely nond iagnostic. Upper lungs appear relatively clear. Heart appears borderline enlarged. IMPRESSION: Borderline heart size but otherwise, nearly nondiagnostic exam due to large patient body habitus and portable technique. The upper lungs appear relatively clear. Lung bases are poorly assessed.
[2020-05-28] MEDS ORDERED: BIVALIRUDIN BOLUS 250 MG/50 ML IV ONE (07:20)
[2020-05-28] MEDS ORDERED: TICAGRELOR 90 MG TAB PO ONE (07:20)
[2020-05-28] MEDS ORDERED: BIVALIRUDIN 250 MG in SODIUM CHLORIDE 0.9% 50 ML IV ONE (07:21)
[2020-05-28] MEDS ORDERED: fentaNYL (PF) 50 MCG/ML 2 ML AMP IVP ONE (07:25)
[2020-05-28] MEDS ORDERED: fentaNYL (PF) 50 MCG/ML 2 ML AMP ONE (07:25)
[2020-05-28] MEDS ORDERED: ATROPINE SULFATE 0.1 MG/ML 10ML SYRINGE IV ONE (07:31)
[2020-05-28 07:34] LABS: Albumin 4.4 g/dL (3.5-5.0); Calcium 9.2 mg/dL (8.4-10.2); Magnesium 1.8 mg/dL (1.6-2.3); Total Bilirubin 1.2 mg/dL (0.2-1.3); Total Protein 7.8 g/dL (6.3-8.2)
--- NOTE | 2020-05-28 07:37 | P.CRDCN ---
History of Present Illness Consult date: 05/28/20 History of present illness: This is a 69-year-old female with history of hypertension, smoking and obesity who was started having intermittent chest pains Thursday,that is about 2 days prior to admission. However the pains became more consistent last night and patient came to the emergency room this morning. EKG in the emergency room are size to of inferior wall MA. Patient is advised to have cardiac catheterization for definitive diagnosis and possible primary intervention. Patient was taking anticoagulation therapy at home, probably for DVT. Review of Systems As per the chart Past Medical History Past Medical History: Hypertension History of Any Multi-Drug Resistant Organisms: None Reported Past Surgical History: Section, Cholecystectomy, Tonsillectomy Additional Past Surgical History / Comment(s): Part on colon removed Past Anesthesia/Blood Transfusion Reactions: No Reported Reaction Past Psychological History: Anxiety Smoking Status: Current every day smoker Past Alcohol Use History: Occasional Past Drug Use History: None Reported Medications and Allergies Home Medications Medication Instructions Recorded Confirmed Type Albuterol Inhaler (Mhu) [Ventolin 1 - 2 puff INHALATION RT-Q6H PRN 03/30/19 06/16/19 Rx Hfa Inhaler (Mhu)] #1 inhaler Losartan/Hydrochlorothiazide 1 tab PO DAILY 03/30/19 06/17/19 History [Losartan-Hctz 100-25 mg Tab] diazePAM [Valium] 5 mg PO DAILY PRN 03/30/19 06/16/19 History Apixaban [Eliquis] 5 mg PO BID #60 tab 06/22/19 Rx Hydrocodone/Acetaminophen [[place] 1 tab PO Q6HR PRN 3 Days #12 tab 06/22/19 Rx 5-325] Metoprolol Tartrate [Lopressor] 50 mg PO BID #60 tab 06/22/19 Rx Allergies Allergy/AdvReac Type Severity Reaction Status Date / Time No Known Allergies Allergy Verified 05/28/20 06:06 Physical Exam Vitals: Vital Signs Temp Pulse Resp BP Pulse Ox 05/28/20 06:51 89 20 133/73 94 L 05/28/20 06:39 75 20 155/84 05/28/20 06:01 97.7 F 68 26 H 175/82 100 Intake and Output 05/27/20 05/28/20 05/28/20 22:59 06:59 14:59 Other: Weight 121.563 kg GENERAL EXAM: Patient is alert and oriented and appears to be in moderate distress. Obese HEENT: Normocephalic. Normal reaction of pupils, equal size, normal range of extraocular motion. No erythema or exudates in the throat. NECK: No masses, no nuchal rigidity. CHEST: No chest wall deformity. LUNGS: Equal air entry with no crackles or wheeze. HEART: S1 and S2 normal with no audible mumurs or gallops. Regular rhythm, femorals equal on both sides.. ABDOMEN: No hepatosplenomegaly, normal bowel sounds, no guarding or rigidity. Protuberant SKIN: No rashes CENTRAL NERVOUS SYSTEM: No focal deficits. EXTREMITIES: No cyanosis, clubbing or edema. Results 05/28/20 06:39 CBC 05/28/20 Range/Units 06:39 WBC 8.3 (3.8-10.6) k/uL RBC 5.23 (3.80-5.40) m/uL Hgb 15.8 (11.4-16.0) gm/dL Hct 48.6 H (34.0-46.0) % Plt Count 259 (150-450) k/uL Current Medications Generic Name Dose Route Start Last Admin Trade Name Freq PRN Reason Stop Dose Admin Heparin Sodium (Porcine) 0 unit 05/28/20 06:23 Heparin Sodium,Porcine 5,000 Unit/Ml 1 Ml Vial IV PER PROTOCOL PRN Low PTT Protocol Naloxone HCl 0.2 mg 05/28/20 06:37 Naloxone 0.4 Mg/Ml 1 Ml Vial IV Q2M PRN Opioid Reversal Intake and Output 05/27/20 05/28/20 05/28/20 22:59 06:59 14:59 Other: Weight 121.563 kg 05/28/20 06:39 EKG Interpretations (text) Sinus rhythm with evidence of acute inferior wall MA with reciprocal changes Assessment and Plan (1) Hypertension Current Visit: Yes Status: Acute Code(s): I10 - ESSENTIAL (PRIMARY) HYPERTENSION SNOMED Code(s): 93029909 (2) STEMI (ST elevation myocardial infarction) Current Visit: Yes Status: Acute Code(s): I21.3 - ST ELEVATION (STEMI) MYOCARDIAL INFARCTION OF [facility] SITE SNOMED Code(s): 52888882 (3) Atrial fibrillation Current Visit: No Status: Acute Code(s): I48.91 - UNSPECIFIED ATRIAL FIBRILLATION SNOMED Code(s): 97892334 Plan: Proceed with cardiac catheterization with intervention of primary intervention.
[2020-05-28 07:39] LABS: Potassium 5.6 mmol/L (3.5-5.1)
--- NOTE | 2020-05-28 07:43 | P.CARDCATH ---
Date of Procedure: 05/28/20 Preoperative Diagnosis: Acute inferior wall SC Postoperative Diagnosis: Total occlusion of RCA and moderate disease in the LAD Procedure(s) Performed: Left heart catheterization without left ventriculography Description of Procedure: HISTORY: This is a 69-year-old female with history of hypertension and possible atrial fibrillation was admitted to the hospital in inferior wall SC. Left heart Was recommended CONSENT:I have discussed the risks, benefits and alternative therapies for the above-mentioned procedure and for both sedation/analgesia as well as necessary blood product administration, if indicated, as they pertain to this patient. The patient has indicated understanding and acceptance of the risks and procedures discussed. [] PROCEDURE: Patient was brought to the lab in a fasting state. Patient was given some IV sedation. The right wrist is infiltrated with lidocaine and right radial artery was entered using Seldinger technique. A 6-Czech catheter was left in place and selective coronary arteriography was performed. Patient tolerated the procedure well. Patient is found to have total occlusion of RCA and went on to have stent placement by Dr. Lane.. No immediate complications were noted . Conscious Sedation: Versed 1mg Fentanyl [] g Duration 11minutes HEMODYNAMICS: The aortic pressure is 110/70 SELECTIVE CORONARY ARTERIOGRAPHY: LEFT MAIN: Normal length and free of occlusive disease THE LEFT ANTERIOR DESCENDING CORONARY ARTERY: This is a faint caliber vessel with about 50-60% stenosis in the mid LAD THE LEFT CIRCUMFLEX AND IS CORONARY ARTERY: . This is a good caliber vessel free of any significant occlusive disease THE RIGHT CORONARY ARTERY: And a good caliber vessel which is totally occluded in the midportion LEFT VENTRICULOGRAPHY: Not performed FINAL IMPRESSION: Total occlusion of the RCA. Moderate disease in mid LAD PLAN: Stent placement of the RCA being done by Dr. Lane PROGNOSIS: Guarded
[2020-05-28] MEDS ORDERED: NOREPINEPHRINE 4 MG in SODIUM CHLORIDE 0.9% 250 ML IV ONE (07:52)
[2020-05-28 07:55] LABS: INR 0.9 (<1.2); Partial Thromboplastin Time 24.6 sec (22.0-30.0); Prothrombin Time 9.6 sec (9.0-12.0)
[2020-05-28] MEDS ORDERED: IOPAMIDOL-370 125ML BTL INJ ONE (07:55)
[2020-05-28] MEDS ORDERED: RX INFO: IV CONTRAST WAS GIVEN 1 EACH MISC MISCELLANE PRN (08:04)
[2020-05-28] MEDS ORDERED: ZOLPIDEM 5 MG TAB PO PRN (08:04)
[2020-05-28] MEDS ORDERED: NITROGLYCERIN SL TABS 0.4 MG TAB SUBLINGUAL PRN (08:04)
[2020-05-28] MEDS ORDERED: MAG HYDROX/AL HYDROX/SIMETH 30 ML CUP PO PRN (08:04)
[2020-05-28] MEDS ORDERED: ATROPINE SULFATE 0.1 MG/ML 10ML SYRINGE IV PRN (08:04)
[2020-05-28] MEDS ORDERED: SODIUM CHLORIDE 0.9% 1,000 ML IV SCH (08:15)
[2020-05-28 09:25] LABS: Cholesterol 280 mg/dL (<200); HDL Cholesterol 40 mg/dL (40-60); LDL Cholesterol,Calculated 183 mg/dL (0-99); Triglycerides 284 mg/dL (<150)
--- NOTE | 2020-05-28 09:29 | PTCA ---
PERCUTANEOUSTRANS CORORONARY ANGIOGRAPHY Mrs. Mcdowell is a 69-year-old female with history of chronic tobacco use, who presented with an acute inferior myocardial infarction. Her pain started at least 6 - 8 hours prior to admission, came into the emergency room, was found to have an evidence of ST- segment elevation inferiorly, underwent cardiac catheterization by Dr. Sosa and was found to have a totally occluded mid right coronary artery. In view of that, recommendation was made regarding angioplasty and stenting, the procedures, risks, and complications were discussed with the patient who is in full understanding and agreement. PROCEDURE: A 6-Azeri FR4 guiding catheter introduced into the system. Following that, a 0.014 balanced medium weight J-wire with FineCross straight microcatheter were advanced across the total occlusion. Subsequently, the microcatheter was removed and a 2.5 x 12 mm NC Emerge balloon was advanced and 2 inflations at 10 atmospheres were done. Following that, the balloon was removed and a 3.25 x 18 mm Xience Eugenie stent was deployed post-dilated at 16 atmospheres. Following that, a 3.5 x 15 mm NC Emerge balloon was advanced and one inflation at 14 atmospheres was done. Following that, the balloon and the guidewire was withdrawn back in the guiding catheter. Images were obtained and repeated. Those images reveal stable successful stenting. At that point, the guiding catheter, the balloon and the guidewire were removed and a 6-Azeri tight pigtail catheter was introduced into the left ventricle and pressures were calculated. Following that, catheter and sheath were removed. Hemostasis was obtained with deployment of a TR band. There was no immediate complication. Patient is returned to her room in stable condition. Of note, the patient received Angiomax per protocol as well as oral loading dose of Brilinta. Her pain has resolved at the end of the procedure and there was improvement in her ST-segment changes. RESULTS: Successful stenting of the mid RCA with reduction of stenosis from 100% to 0%. RECOMMENDATION: Patient to continue on aspirin, Brilinta, beta garfield, CLARISA and statin the importance of dual antiplatelet treatment and smoking cessation was discussed with the patient who is in full understanding and agreement. Duration of sedation is 29 minutes. MMODL / IJN: [id number] / FRANDY
[2020-05-28] MEDS ORDERED: HYDROcodone/APAP 5-325MG 1 EACH TAB PO PRN (10:33)
[2020-05-28] MEDS ORDERED: ACETAMINOPHEN TAB 325 MG TAB PO PRN (10:34)
--- NOTE | 2020-05-28 10:37 | P.HPIM ---
History of Present Illness H&P Date: 05/28/20 HISTORY OF PRESENT ILLNESS This is a 69-year-old female patient of Dr. Kamara with past medical history of hypertension, paroxysmal atrial fibrillation on eliquis, ruptured diverticulitis status post colon resection, chronic back pain, active tobacco use and dependence. Patient complains of pain that started in her fingertips and one of her arms to her shoulders and across back on both sides more so on the right. This started on Thursday night was on and off but on Thursday became very severe and constant. She also had some mild shortness of breath and nausea. Patient came into [facility] emergency center and diagnosed with acute ST elevated inferior wall [place] and underwent heart catheterization which revealed total occlusion of the RCA, moderate disease in the LAD status post stenting of the mid RCA and started on Brilinta, CLARISA inhibitor, beta garfield, aspirin and statin. Patient currently denies any chest pain. REVIEW OF SYSTEMS Constitutional: No fever, no chills, no night sweats. No weight change. Reports fatigue. Reports weakness. No daytime sleepiness. EENT: No headache. No blurred vision or double vision, no loss of vision. No loss of Hearing, no ringing in the ears, no dizziness. No nasal drainage or congestion. No epistaxis. No sore throat. Lungs: Reports shortness of breath, denies cough, no sputum production. No wheezing. Cardiovascular: No chest pain, no lower extremity edema. No palpitations. No paroxysmal nocturnal dyspnea. No orthopnea. No lightheadedness or dizziness. No syncopal episodes. Abdominal: No abdominal pain. Reports nausea, denies vomiting. No diarrhea. No constipation. No bloody or tarry stools.. No loss of appetite. Genitourinary: No dysuria, increased frequency, urgency. No urinary retention. Musculoskeletal: No myalgias. No muscle weakness, no gait dysfunction, no frequent falls. Reports upper back pain. No neck pain. Integumentary: No wounds, no lesions. No rash or pruritus. No unusual bruising. No change in hair or nails. Neurologic: No aphasia. No facial droop. No change in mentation. No head injury. No headache. No paralysis. No paresthesia. Psychiatric: No depression. No anxiety. Weight Endocrine: No abnormal blood sugars. No weight change. SOCIAL HISTORY Patient is a smoker of half a pack per day for 47 years. She uses alcohol occasionally. She denies any marijuana or illicit drug use. She is and lives with her . 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 FAMILY HISTORY Father at age 48 from peptic ulcer disease. Mother at 78 from a type of cancer unknown. Patient has 4 children with no major medical problems. Patient is a total of 5 siblings one has passed from consultations from diabetes. PHYSICAL EXAMINATION Gen: This is a morbidly obese 69-year-old female. She is seen in the [facility].. She is resting on stretcher and appears to be comfortable and in no acute distress. HEENT: Head is atraumatic, normocephalic. Pupils equal, round. Sclerae is anicteric. NECK: Supple. No JVD. No lymphadenopathy. No thyromegaly. LUNGS: Clear to auscultation. No wheezes or rhonchi. No intercostal retractions. HEART: Regular rate and rhythm. No murmur. ABDOMEN: Soft. Bowel sounds are present. No masses. No tenderness. EXTREMITIES: No pedal edema. No calf tenderness. Dorsalis pedis palpable bilaterally. TR band on the right wrist. NEUROLOGICAL: Patient is awake, alert and oriented x3. Cranial nerves 2 through 12 are grossly intact. ASSESSMENT AND PLAN 1. Acute inferior wall ST elevated myocardial infarction status post heart catheterization and stent of the mid RCA. Cardiology consult appreciated. Continue aspirin 81 mg daily, Lipitor 80 mg at bedtime, lisinopril 2.5 mg daily, Lopressor 25 mg twice daily, Brilinta 90 mg twice daily, Aldactone 25 mg daily. 2. Paroxysmal atrial fibrillation. Eliquis is on hold. continue Lopressor. 3. Hypertension. Continue lisinopril, Lopressor, Aldactone. Hold losartan. 4. Chronic lumbar back pain. Continue [place]. 5. Tobacco use and dependence. Smoking cessation. Nicotine patch. 6. DVT prophylaxis. 7. GI prophylaxis. Protonix. Patient will be admitted to the hospital for a minimum of 2 night stay. DISCHARGE PLAN HOME. Impression and plan of care have been directed as dictated by the signing physician. Mariela Baez nurse practitioner acting as scribe for signing physician. Past Medical History Past Medical History: Hypertension History of Any Multi-Drug Resistant Organisms: None Reported Past Surgical History: Section, Cholecystectomy, Tonsillectomy Additional Past Surgical History / Comment(s): Part on colon removed Past Anesthesia/Blood Transfusion Reactions: No Reported Reaction Past Psychological History: Anxiety Smoking Status: Current every day smoker Past Alcohol Use History: Occasional Past Drug Use History: None Reported Medications and Allergies Home Medications Medication Instructions Recorded Confirmed Type Albuterol Inhaler (Mhu) [Ventolin 1 - 2 puff INHALATION RT-Q6H PRN 03/30/19 06/16/19 Rx Hfa Inhaler (Mhu)] #1 inhaler Losartan/Hydrochlorothiazide 1 tab PO DAILY 03/30/19 06/17/19 History [Losartan-Hctz 100-25 mg Tab] diazePAM [Valium] 5 mg PO DAILY PRN 03/30/19 06/16/19 History Apixaban [Eliquis] 5 mg PO BID #60 tab 06/22/19 Rx Hydrocodone/Acetaminophen [[place] 1 tab PO Q6HR PRN 3 Days #12 tab 06/22/19 Rx 5-325] Metoprolol Tartrate [Lopressor] 50 mg PO BID #60 tab 06/22/19 Rx Allergies Allergy/AdvReac Type Severity Reaction Status Date / Time No Known Allergies Allergy Verified 05/28/20 06:06 Physical Exam Vitals: Vital Signs Temp Pulse Pulse Resp BP BP Pulse Ox 05/28/20 09:12 74 16 117/57 100 05/28/20 08:57 83 16 120/82 99 05/28/20 08:43 82 16 91/52 95 05/28/20 08:35 85 16 100/53 100 05/28/20 08:19 88 16 98/59 94 L 05/28/20 08:10 90 16 77/50 98 05/28/20 06:51 89 20 133/73 94 L 05/28/20 06:39 75 20 155/84 05/28/20 06:01 97.7 F 68 26 H 175/82 100 Intake and Output 05/27/20 05/28/20 05/28/20 22:59 06:59 14:59 Intake Total 450 Balance 450 Intake: IV 450 Other: Weight 121.563 kg Results CBC & Chem 7: 05/28/20 06:39 05/28/20 06:39 Labs: Abnormal Lab Results - Last 24 Hours (Table) 11/05/28/20 05/28/20 Range/Units 06:39 06:39 06:39 Hct 48.6 H (34.0-46.0) % Sodium 134 L (137-145) mmol/L Potassium 5.6 H (3.5-5.1) mmol/L BUN 30 H (7-17) mg/dL Creatinine 1.36 H (0.52-1.04) mg/dL Glucose 174 H (74-99) mg/dL AST 43 H (14-36) U/L Troponin I 0.594 H* (0.000-0.034) ng/mL Triglycerides (<150) mg/dL Cholesterol (<200) mg/dL LDL Cholesterol, Calc (0-99) mg/dL 05/28/20 Range/Units 06:39 Hct (34.0-46.0) % Sodium (137-145) mmol/L Potassium (3.5-5.1) mmol/L BUN (7-17) mg/dL Creatinine (0.52-1.04) mg/dL Glucose (74-99) mg/dL AST (14-36) U/L Troponin I (0.000-0.034) ng/mL Triglycerides 284 H (<150) mg/dL Cholesterol 280 H (<200) mg/dL LDL Cholesterol, Calc 183 H (0-99) mg/dL
[2020-05-28 12:00] LABS: Glucose,Whole Blood 130 mg/dL (75-99)
[2020-05-28] MEDS: SPIRONOLACTONE 25 MG TAB PO SCH (12:09)
[2020-05-28] MEDS: METOPROLOL TARTRATE 25 MG TAB PO SCH ×2 (12:09→20:15)
[2020-05-28] MEDS: ALPRAZolam 0.25 MG TAB PO PRN ×2 (12:29→23:26)
[2020-05-28] MEDS: NICOTINE 14MG/24HR PATCH TRANSDERM SCH (12:31)
[2020-05-28 15:34] VITALS: BMI 49.0
[2020-05-28] MEDS ORDERED: ONDANSETRON 4 MG/2 ML VIAL IVP PRN (20:06)
[2020-05-28] MEDS: PANTOPRAZOLE 40 MG TABLET PO SCH (20:14)
[2020-05-28] MEDS: TICAGRELOR 90 MG TAB PO SCH (20:14)
[2020-05-28] MEDS: ATORVASTATIN 80 MG TAB PO SCH (20:15)
[2020-05-29 03:45] LABS: Basophils # (A) 0.1 k/uL (0-0.2); Basophils % (A) 1 %; Eosinophils # (A) 0.2 k/uL (0-0.7); Eosinophils % (A) 2 %; HCT 39.2 % (34.0-46.0); HGB 13.4 gm/dL (11.4-16.0); Lymphocytes # (A) 2.1 k/uL (1.0-4.8); Lymphocytes % (A) 25 %; MCH 31.6 pg (25.0-35.0); MCHC 34.3 g/dL (31.0-37.0); MCV 92.3 fL (80.0-100.0); Monocytes # (A) 0.6 k/uL (0-1.0); Monocytes % (A) 7 %; Neutrophils # (A) 5.4 k/uL (1.3-7.7); Neutrophils % (A) 64 %; Platelet Count 238 k/uL (150-450); RBC 4.25 m/uL (3.80-5.40); RDW 13.9 % (11.5-15.5); WBC 8.5 k/uL (3.8-10.6)
[2020-05-29 03:55] LABS: Calcium 9.1 mg/dL (8.4-10.2); Potassium 4.4 mmol/L (3.5-5.1)
--- NOTE | 2020-05-29 07:15 | ECHOF ---
Referral Reason:cad MEASUREMENTS -------- HEIGHT: 157.5 cm WEIGHT: 121.6 kg BP: 117/57 RVIDd: 3.0 cm (< 3.3) IVSd: 1.4 cm (0.6 - 1.1) LVIDd: 4.0 cm (3.9 - 5.3) LVPWd: 1.3 cm (0.6 - 1.1) IVSs: 1.9 cm LVIDs: 2.9 cm LVPWs: 1.8 cm LA Diam: 3.4 cm (2.7 - 3.8) Ao Diam: 3.1 cm (2.0 - 3.7) AV Cusp: 2.0 cm (1.5 - 2.6) MV EXCURSION: 20.282 mm (> 18.000) MV EF SLOPE: 74 mm/s (70 - 150) EPSS: 0.8 cm MV E Caleb: 0.83 m/s MV DecT: 276 ms MV A Caleb: 0.97 m/s MV E/A Ratio: 0.86 FINDINGS -------- Sinus rhythm. This was a technically adequate study. The left ventricular size is normal. There is moderate concentric left ventricular hypertrophy. O verall left ventricular systolic function is mildly impaired with, an EF between 45 - 50 %. Basal i nferior LV wall motion is hypokinetic. The right ventricle is normal in size. The left atrium is normal in size. The right atrial size is normal. The aortic valve is trileaflet, and appears structurally normal. No aortic stenosis or regurgitation. The mitral valve is normal. There is trace to mild mitral regurgitation. The tricuspid valve appears structurally normal. No regurgitation noted The pulmonic valve was not well visualized. Trace/mild (physiologic) pulmonic regurgitation. The aortic root size is normal. Normal inferior vena cava with normal inspiratory collapse consistent with estimated right atrial pre ssure of 5 mmHg. There is no pericardial effusion. CONCLUSIONS -------- 1. There is moderate concentric left ventricular hypertrophy. 2. Overall left ventricular systolic function is mildly impaired with, an EF between 45 - 50 %. 3. Basal inferior LV wall motion is hypokinetic. 4. The left atrium is normal in size. 5. The aortic valve is trileaflet, and appears structurally normal. No aortic stenosis or regurgitati on. 6. There is trace to mild mitral regurgitation. 7. Trace/mild (physiologic) pulmonic regurgitation. 8. There is no pericardial effusion. GRIEVANCE MANAGER: Bailee Courtney RDCS
[2020-05-29] MEDS: TICAGRELOR 90 MG TAB PO SCH ×2 (09:24→20:09)
[2020-05-29] MEDS: ASPIRIN 81 MG PO SCH (09:24)
[2020-05-29] MEDS: METOPROLOL TARTRATE 25 MG TAB PO SCH (09:24)
[2020-05-29] MEDS: NICOTINE 14MG/24HR PATCH TRANSDERM SCH (09:25)
--- NOTE | 2020-05-29 11:32 | P.PN ---
Subjective Progress Note Date: 05/29/20 This is a 69-year-old female with history of hypertension, nicotine dependence, obesity, who presented to the hospital with an acute ST elevation inferior wall [place], she was taken to the cardiac catheterization lab where she underwent angioplasty and stenting of the right coronary artery. Echocardiogram with Doppler study revealed an ejection fraction of 45-50%. Patient states she felt quite anxious through the night last night, was only sleeping a couple hours at a time. [place] like it was hard to take a deep breath. Her blood pressure has been running in the range of mid 90s systolic to low 100s. 95% on room air. White blood cell count 8.5, hemoglobin 13.4, platelet count 238. Sodium 133, potassium 4.4, BUN 27 and creatinine 1.1. Objective - Vital Signs Vital signs: Vital Signs Temp 98 F 05/29/20 09:00 Pulse 66 05/29/20 11:00 Resp 18 05/29/20 11:00 BP 93/61 05/29/20 11:00 Pulse Ox 95 05/29/20 11:00 Intake & Output 05/28/20 05/29/20 05/29/20 18:59 06:59 18:59 Intake Total 950 200 240 Balance 950 200 240 Weight 121.563 kg Intake: IV 450 Intake, IV Titration 300 Amount Sodium Chloride 0.9% 1, 300 000 ml @ 75 mls/hr IV . [id number] MUKESH Rx#:[id number] Oral 200 200 240 Other: # Voids 1 1 - Exam PHYSICAL EXAMINATION: GENERAL: 69-year-old female in no acute distress at the time of my examination HEENT: Head is atraumatic, normocephalic. Pupils equal, round. Sclera anicteric. Conjunctiva are clear. Mucous membranes of the mouth are moist. Neck is supple. There is no elevated jugular venous pressure. No carotid bruit is heard. HEART EXAMINATION: Heart S1, S2 normal. No murmur or gallop heard. CHEST EXAMINATION: Lungs are clear to auscultation and precussion. No chest wall tenderness is noted on palpation or with deep breathing. ABDOMEN: Soft, obese, nontender. Bowel sounds are heard. No organomegaly noted. EXTREMITIES: 2+ peripheral pulses with no evidence of peripheral edema and no calf tenderness noted. Right radial site clean and dry, good distal pulse. NEUROLOGIC patient is awake, alert and oriented 3 . . - Labs CBC & Chem 7: 05/29/20 03:07 05/29/20 03:07 Labs: Abnormal Lab Results - Last 24 Hours (Table) 05/28/20 05/28/20 05/29/20 Range/Units 11:58 13:02 03:07 Sodium 133 L (137-145) mmol/L BUN 27 H (7-17) mg/dL Creatinine 1.15 H (0.52-1.04) mg/dL Glucose 137 H (74-99) mg/dL POC Glucose (mg/dL) 130 H (75-99) mg/dL Troponin I 30.900 H* (0.000-0.034) ng/mL Assessment and Plan Plan: Assessment and plan #[address] elevation myocardial infarction, status post angioplasty and stenting of the RCA #2 hypertension #3 hyperlipidemia #4 obesity #5 nicotine dependence Plan We will decrease the dose of lisinopril and beta garfield. Continue baby aspirin , Brilinta 90 mg twice a day, Aldactone 25 mg daily. Patient has been encouraged to be up in the chair. Her echocardiogram with Doppler study revealed an ejection fraction of 45-50%. DNP note has been reviewed, I agree with a documented findings and plan of care. Patient was seen and examined.
--- NOTE | 2020-05-29 11:37 | P.PN ---
Subjective Progress Note Date: 05/29/20 HISTORY OF PRESENT ILLNESS This is a 69-year-old female patient of Dr. Kamara with past medical history of hypertension, paroxysmal atrial fibrillation on eliquis, ruptured dive rticulitis status post colon resection, chronic back pain, active tobacco use and dependence. Patient complains of pain that started in her fingertips and one of her arms to her shoulders and across back on both sides more so on the right. This started on Thursday night was on and off but on Thursday became very severe and constant. She also had some mild shortness of breath and nausea. Patient came into [facility] emergency center and diagnosed with acute ST elevated inferior wall [place] and underwent heart catheterization which revealed total occlusion of the RCA, moderate disease in the LAD status post stenting of the mid RCA and started on Brilinta, CLARISA inhibitor, beta block er, aspirin and statin. Patient currently denies any chest pain. 05/29: Patient is currently seen in the intensive care unit. She denies having any chest pain or shortness of breath. No lightheadedness or dizziness. Echocardiogram reveals EF of 45-50% with moderate concentric left hypertrophy, trace to mild mitral regurgitation. Patient has been afebrile, heart rate 68, blood pressure 101/60, pulse ox 94% on room air. CBC normal. Sodium 133, potassium 4.4. BUN 27 creatinine 1.15. Blood sugar 137. Triglycerides 284, cholesterol 280, LDL 183, HDL 40. Patient is waiting for a bed on the cardiac stepdown unit. Anticipate she'll be ready for discharge tomorrow. REVIEW OF SYSTEMS Constitutional: No fever, no chills, no night sweats. No weight change. Reports fatigue. Reports weakness. No daytime sleepiness. EENT: No headache. No blurred vision or double vision, no loss of vision. No loss of Hearing, no ringing in the ears, no dizziness. No nasal drainage or congestion. No epistaxis. No sore throat. Lungs: Reports shortness of breath, denies cough, no sputum production. No wheezing. Cardiovascular: No chest pain, no lower extremity edema. No palpitations. No paroxysmal nocturnal dyspnea. No orthopnea. No lightheadedness or dizziness. No syncopal episodes. Abdominal: No abdominal pain. Reports nausea, denies vomiting. No diarrhea. No constipation. No bloody or tarry stools.. No loss of appetite. Genitourinary: No dysuria, increased frequency, urgency. No urinary retention. Musculoskeletal: No myalgias. No muscle weakness, no gait dysfunction, no frequent falls. Reports upper back pain. No neck pain. Integumentary: No wounds, no lesions. No rash or pruritus. No unusual bruising. No change in hair or nails. Neurologic: No aphasia. No facial droop. No change in mentation. No head injury. No headache. No paralysis. No paresthesia. Psychiatric: No depression. No anxiety. Weight Endocrine: No abnormal blood sugars. No weight change. PHYSICAL EXAMINATION Gen: This is a morbidly obese 69-year-old female. She is seen in the ESU.. She is resting on stretcher and appears to be comfortable and in no acute distress. HEENT: Head is atraumatic, normocephalic. Pupils equal, round. Sclerae is anicteric. NECK: Supple. No JVD. No lymphadenopathy. No thyromegaly. LUNGS: Clear to auscultation. No wheezes or rhonchi. No intercostal retractions. HEART: Regular rate and rhythm. No murmur. ABDOMEN: Soft. Bowel sounds are present. No masses. No tenderness. EXTREMITIES: No pedal edema. No calf tenderness. Dorsalis pedis palpable bilaterally. TR band on the right wrist. NEUROLOGICAL: Patient is awake, alert and oriented x3. Cranial nerves 2 through 12 are grossly intact. ASSESSMENT AND PLAN 1. Acute inferior wall ST elevated myocardial infarction status post heart catheterization and stent of the mid RCA. Cardiology consult appreciated. Continue aspirin 81 mg daily, Lipitor 80 mg at bedtime, lisinopril 2.5 mg daily, Lopressor 25 mg twice daily, Brilinta 90 mg twice daily, Aldactone 25 mg daily. 2. Paroxysmal atrial fibrillation by history. Eliquis discontinued. continue Lopressor. 3. Hypertension. Continue lisinopril, Lopressor, Aldactone. Hold losartan. 4. Chronic lumbar back pain. Continue [place]. 5. Tobacco use and dependence. Smoking cessation. Nicotine patch. 6. DVT prophylaxis. 7. GI prophylaxis. Protonix. DISCHARGE PLAN HOME. Impression and plan of care have been directed as dictated by the signing physician. Mariela Baez nurse practitioner acting as scribe for signing physician. Objective - Vital Signs Vital signs: Vital Signs Temp 98 F 05/29/20 09:00 Pulse 68 05/29/20 09:00 Resp 16 05/29/20 09:00 BP 101/60 05/29/20 09:00 Pulse Ox 94 L 05/29/20 09:00 Intake & Output 05/28/20 05/29/20 05/29/20 18:59 06:59 18:59 Intake Total 950 200 Balance 950 200 Weight 121.563 kg Intake: IV 450 Intake, IV Titration 300 Amount Sodium Chloride 0.9% 1, 300 000 ml @ 75 mls/hr IV . [id number] MUKESH Rx#:[id number] Oral 200 200 Other: # Voids 1 1 - Labs CBC & Chem 7: 05/29/20 03:07 05/29/20 03:07 Labs: Abnormal Lab Results - Last 24 Hours (Table) 05/28/20 05/28/20 05/28/20 Range/Units 09:34 11:58 13:02 Sodium (137-145) mmol/L BUN (7-17) mg/dL Creatinine (0.52-1.04) mg/dL Glucose (74-99) mg/dL POC Glucose (mg/dL) 130 H (75-99) mg/dL Troponin I 8.060 H* 30.900 H* (0.000-0.034) ng/mL 05/29/20 Range/Units 03:07 Sodium 133 L (137-145) mmol/L BUN 27 H (7-17) mg/dL Creatinine 1.15 H (0.52-1.04) mg/dL Glucose 137 H (74-99) mg/dL POC Glucose (mg/dL) (75-99) mg/dL Troponin I (0.000-0.034) ng/mL
[2020-05-29] MEDS: SPIRONOLACTONE 25 MG TAB PO SCH (12:18)
[2020-05-29] MEDS: METOPROLOL TARTRATE 12.5 MG TAB PO SCH (20:08)
[2020-05-29] MEDS: ATORVASTATIN 80 MG TAB PO SCH (20:09)
[2020-05-30 04:30] VITALS: TEMP 97.9
[2020-05-30] MEDS: PANTOPRAZOLE 40 MG TABLET PO SCH (06:48)
[2020-05-30 07:49] LABS: Basophils % (A) 1 %; Eosinophils # (A) 0.2 k/uL (0-0.7); Eosinophils % (A) 3 %; HCT 41.1 % (34.0-46.0); HGB 13.2 gm/dL (11.4-16.0); Lymphocytes # (A) 2.5 k/uL (1.0-4.8); Lymphocytes % (A) 35 %; MCH 29.9 pg (25.0-35.0); MCHC 32.2 g/dL (31.0-37.0); Monocytes # (A) 0.5 k/uL (0-1.0); Monocytes % (A) 6 %; Neutrophils # (A) 3.8 k/uL (1.3-7.7); Neutrophils % (A) 54 %; Platelet Count 249 k/uL (150-450); RBC 4.42 m/uL (3.80-5.40); RDW 14.3 % (11.5-15.5); WBC 7.1 k/uL (3.8-10.6)
[2020-05-30] MEDS: ASPIRIN 81 MG PO SCH (08:49)
[2020-05-30] MEDS: SPIRONOLACTONE 25 MG TAB PO SCH (08:49)
[2020-05-30] MEDS: TICAGRELOR 90 MG TAB PO SCH (08:49)
[2020-05-30] MEDS: NICOTINE 14MG/24HR PATCH TRANSDERM SCH ×2 (08:49→08:55)
[2020-05-30] MEDS: METOPROLOL TARTRATE 12.5 MG TAB PO SCH (08:49)
--- NOTE | 2020-05-30 09:12 | P.DS ---
Providers Date of admission: 05/28/20 06:31 Expected date of discharge: 05/30/20 Attending physician: Savannah Perea Consults: 05/28/20 08:04 Consult Physician Routine Consulting Provider: [facility] Consult Reason/Comments: Post Interventional patient Do you want consulting provider notified?: Already Contacted Primary care physician: Gatito [facility] Course: HISTORY OF PRESENT ILLNESS This is a 69-year-old female patient of Dr. Kamara with past medical history of hypertension, paroxysmal atrial fibrillation on eliquis, ruptured diverticulitis status post colon resection, chronic back pain, active tobacco use and dependence. Patient complains of pain that started in her fingertips and one of her arms to her shoulders and across back on both sides more so on the right. This started on Thursday night was on and off but on Thursday became very severe and constant. She also had some mild shortness of breath and nausea. Patient came into [facility] emergency center and diagnosed with acute ST elevated inferior wall [place] and underwent heart catheterization which revealed total occlusion of the RCA, moderate disease in the LAD status post stenting of the mid RCA and started on Brilinta, CLARISA inhibitor, beta garfield, aspirin and statin. Patient currently denies any chest pain. 05/29: Patient is currently seen in the intensive care unit. She denies having any chest pain or shortness of breath. No lightheadedness or dizziness. Echocardiogram reveals EF of 45-50% with moderate concentric left hypertrophy, trace to mild mitral regurgitation. Patient has been afebrile, heart rate 68, blood pressure 101/60, pulse ox 94% on room air. CBC normal. Sodium 133, potassium 4.4. BUN 27 creatinine 1.15. Blood sugar 137. Triglycerides 284, cholesterol 280, LDL 183, HDL 40. Patient is waiting for a bed on the cardiac stepdown unit. Anticipate she'll be ready for discharge tomorrow. 05/30: Patient denies having any chest pain or shortness of breath. Repeat blood work reveals CBC is unremarkable. Sodium 133, potassium 4.4, chloride 103, CO2 27, BUN 27 creatinine 1.15. Blood sugar 137. Patient is concerned regarding the cost of her Lantus and her nurse will check into the cost prior to discharge. If necessary, Brilinta can be changed by cardiology to another med ication. Patient has been afebrile, heart rate in the 60s and 70s, blood pressure 101/52, pulse ox 95% on room air. ASSESSMENT AND PLAN 1. Acute inferior wall ST elevated myocardial infarction status post heart catheterization and stent of the mid RCA. 2. Paroxysmal atrial fibrillation history--patient never started eliquis as she could not afford it. 3. Hypertension. 4. Chronic lumbar back pain. 5. Tobacco use and dependence. DISCHARGE PLAN HOME. Impression and plan of care have been directed as dictated by the signing physi cian. Mariela Baez nurse practitioner acting as scribe for signing physician. Patient Condition at Discharge: Good Plan - Discharge Summary Discharge Rx Participant: Yes New Discharge Prescriptions: New Spironolactone [Aldactone] 25 mg PO DAILY #30 tab Ticagrelor [Brilinta] 90 mg PO BID #60 tab Nicotine 14Mg/24Hr Patch [Habitrol] 1 patch TRANSDERM DAILY #30 patch Atorvastatin [Lipitor] 80 mg PO HS #30 tab Metoprolol Tartrate [Lopressor] 12.5 mg PO BID #60 tab Nitroglycerin Sl Tabs [Nitrostat] 0.4 mg SUBLINGUAL Q5M PRN #25 tab PRN Reason: Chest Pain lisinopriL [Zestril] 2.5 mg PO DAILY #30 tab Continue diazePAM [Valium] 5 mg PO TID PRN PRN Reason: Anxiety Aspirin [Rapides Aspirin EC] 162 mg PO ONCE PRN PRN Reason: Chest Pain Discontinued Olmesartan/Hydrochlorothiazide [Benicar Hct 40-25 mg Tablet] 1 tab PO DAILY Discharge Medication List diazePAM [Valium] 5 mg PO TID PRN 03/30/19 [History] Aspirin [Rapides Aspirin EC] 162 mg PO ONCE PRN 05/28/20 [History] Atorvastatin [Lipitor] 80 mg PO HS #30 tab 05/30/20 [Rx] Metoprolol Tartrate [Lopressor] 12.5 mg PO BID #60 tab 05/30/20 [Rx] Nicotine 14Mg/24Hr Patch [Habitrol] 1 patch TRANSDERM DAILY #30 patch 05/30/20 [Rx] Nitroglycerin Sl Tabs [Nitrostat] 0.4 mg SUBLINGUAL Q5M PRN #25 tab 05/30/20 [Rx] Spironolactone [Aldactone] 25 mg PO DAILY #30 tab 12/02/20 [Rx] Ticagrelor [Brilinta] 90 mg PO BID #60 tab 05/30/20 [Rx] lisinopriL [Zestril] 2.5 mg PO DAILY #30 tab 05/30/20 [Rx] Follow up Appointment(s)/Referral(s): Gatito Kamara DO [Primary Care Provider] - 1 Week Jagdish Sosa MD [STAFF PHYSICIAN] - 1 Week Discharge Disposition: HOME SELF-CARE
--- NOTE | 2020-05-30 09:35 | P.PN ---
Subjective Progress Note Date: 05/30/20 This is a 69-year-old female with history of hypertension, nicotine dependence, obesity, who presented to the hospital with an acute ST elevation inferior wall [place], she was taken to the cardiac catheterization lab where she underwent angioplasty and stenting of the right coronary artery. Echocardiogram with Doppler study revealed an ejection fraction of 45-50%. Patient states she felt quite anxious through the night last night, was only sleeping a couple hours at a time. [place] like it was hard to take a deep breath. Her blood pressure has been running in the range of mid 90s systolic to low 100s. 95% on room air. White blood cell count 8.5, hemoglobin 13.4, platelet count 238. Sodium 133, potassium 4.4, BUN 27 and creatinine 1.1. 05-30-2020 Patient was seen and examined this morning, denies any chest discomfort, just complains of feeling tired. She has not been up moving around very much yet. We've encouraged her to do so. Blood pressure this morning 100/50 with a heart rate in the 60s, respirations 16. 97% on room air. White blood cell count 7.1, hemoglobin 13.2, platelet count 249. Objective - Vital Signs Vital signs: Vital Signs Temp 97.9 F 05/30/20 04:00 Pulse 67 05/30/20 04:00 Resp 16 05/30/20 04:00 BP 101/52 05/30/20 04:00 Pulse Ox 95 05/30/20 04:00 Intake & Output 05/29/20 05/30/20 05/30/20 18:59 06:59 18:59 Intake Total 480 360 236 Balance 480 360 236 Weight 126.4 kg Intake: Oral 480 360 236 Other: # Voids 2 3 # Bowel Movements 0 - Exam PHYSICAL EXAMINATION: GENERAL: 69-year-old female in no acute distress at the time of my examination HEENT: Head is atraumatic, normocephalic. Pupils equal, round. Sclera anicteric. Conjunctiva are clear. Mucous membranes of the mouth are moist. Neck is supple. There is no elevated jugular venous pressure. No carotid bruit is heard. HEART EXAMINATION: Heart S1, S2 normal. No murmur or gallop heard. CHEST EXAMINATION: Lungs are clear to auscultation and precussion. No chest wall tenderness is noted on palpation or with deep breathing. ABDOMEN: Soft, obese, nontender. Bowel sounds are heard. No organomegaly noted. EXTREMITIES: 2+ peripheral pulses with no evidence of peripheral edema and no calf tenderness noted. Right radial site clean and dry, good distal pulse. Small amount of ecchymosis. NEUROLOGIC patient is awake, alert and oriented 3 . . - Labs CBC & Chem 7: 05/30/20 07:15 05/29/20 03:07 Assessment and Plan Plan: Assessment and plan #[address] elevation myocardial infarction, status post angioplasty and stenting of the RCA #2 hypertension #3 hyperlipidemia #4 obesity #5 nicotine dependence Plan From cardiology's perspective, patient may be able to be discharged home today. We will make her a follow-up appointment with Dr. Sosa in the office in one week. Discharge medications include aspirin 81 mg daily, Lipitor 80 mg daily, lisinopril 2.5 mg daily, metoprolol 12-1/2 twice a day, nicotine patch, Aldactone 25 mg daily, Brilinta 90 mg daily and sublingual nitroglycerin as needed for chest pain. DNP note has been reviewed, I agree with a documented findings and plan of care. Patient was seen and examined.
[2020-05-30 11:00] VITALS: BP 119/66; PULSE 75; RESP 20
== END 2020-05-30 14:15 | disposition home or self-care (01) | DRG 247 ==
LOC: EC 05:57 → 2SICU 06:31 → 3SCARD 05-29 17:02
PROVIDERS: ADMIT Family Medicine; ATTEND Family Medicine
PROC: 027034Z Dilation of Coronary Artery, One Artery with Drug-eluting Intraluminal Device, Percutaneous Approach (ICD-10-PCS; principal; 2020-05-28 18:55)
PROC: B2111ZZ Fluoroscopy of Multiple Coronary Arteries using Low Osmolar Contrast (ICD-10-PCS; 2020-05-28 18:55)
PROC: 4A023N7 Measurement of Cardiac Sampling and Pressure, Left Heart, Percutaneous Approach (ICD-10-PCS; 2020-05-28 18:55)
DX: I21.19 ST elevation (STEMI) myocardial infarction involving other coronary artery of inferior wall (principal); Z68.43 Body mass index [BMI] 50.0-59.9, adult; E78.5 Hyperlipidemia, unspecified; E66.9 Obesity, unspecified; F17.200 Nicotine dependence, unspecified, uncomplicated; F41.9 Anxiety disorder, unspecified; G89.29 Other chronic pain; I10 Essential (primary) hypertension; I25.10 Atherosclerotic heart disease of native coronary artery without angina pectoris; I25.82 Chronic total occlusion of coronary artery; I48.0 Paroxysmal atrial fibrillation; M54.5 Low back pain; Z79.01 Long term (current) use of anticoagulants; Z79.02 Long term (current) use of antithrombotics/antiplatelets; Z79.82 Long term (current) use of aspirin; Z79.899 Other long term (current) drug therapy; Z83.3 Family history of diabetes mellitus; Z90.49 Acquired absence of other specified parts of digestive tract; Z90.89 Acquired absence of other organs; Z98.891 History of uterine scar from previous surgery
CPT/HCPCS: 71045; 80048; 80053; 80061; 83690; 83735; 84484; 85025; 85347; 85610; 85730; 93005; 93306; 93458; 96374; 96375; 99285

== ENCOUNTER → 2020-07-24 | Outpatient (CLI) | payer MEDICARE ==
[2020-07-25 05:51] LABS: Albumin 4.4 g/dL (3.80-4.90); Albumin/Globulin Ratio 2.32 (1.60-3.17); Bilirubin, Conjugated 0.2 mg/dL (0.20-0.40); Bilirubin,Unconjugated 0.4 mg/dL; Chol/HDL Ratio 3.91; Globulin 1.9 g/dL (1.6-3.3); LDL Cholesterol,Calculated 73.2 mg/dL (0.0-131.0); Total Bilirubin 0.6 mg/dL (0.3-1.2); Total Protein 6.3 g/dL (6.2-8.2); VLDL Calculation 22.8 mg/dL (5.00-40.00)
== END | disposition home or self-care (01) ==
LOC: LABWHC1 15:07
PROVIDERS: ATTEND Internal Medicine Cardiovascular Disease
DX: I25.10 Atherosclerotic heart disease of native coronary artery without angina pectoris (principal); E78.5 Hyperlipidemia, unspecified
CPT/HCPCS: 36415; 80061; 80076

== ENCOUNTER 2023-01-23 11:23 | Emergency (ER) | payer MEDICARE ==
[2023-01-23 11:47] VITALS: TEMP 98
--- NOTE | 2023-01-23 11:53 | ED ---
General Adult HPI - General Chief complaint: Extremity Injury, Upper Stated complaint: L Arm Pain Time Seen by Provider: 01/23/23 11:51 Source: patient Mode of arrival: ambulatory Limitations: no limitations - History of Present Illness Initial comments: Tiana 72-year-old female with a history of coronary artery disease, COPD, morbid obesity she presents the ER today for evaluation of pain in her left arm. Patient reports she has pain from the fingers all the way up through her shoulder into her neck with some increased muscle tension around her neck which is cause some headaches. Symptoms of been intermittent over the past 2 weeks. She cannot identify any exacerbating factors but states she does feel more comfortable when she is written laying on her right side with her left arm extended behind her back. No pain in the chest, palpitations. Her shortness of breath is baseline for her does not worsen her typical COPD. She has had some episodes of sweatiness but attributed this to the heat and humidity not associated with any pain or fany rtness of breath. She denies any known injuries to the arm or neck. - Related Data Home Medications Medication Instructions Recorded Confirmed Atorvastatin [Lipitor] 80 mg PO HS 08/08/22 08/08/22 Losartan Potassium [Cozaar] 25 mg PO DAILY 08/08/22 08/08/22 Previous Rx's Medication Instructions Recorded Albuterol Inhaler [Ventolin Hfa 1 - 2 puff INHALATION Q6HR PRN #1 08/08/22 Inhaler] each Aspirin 81 mg PO DAILY #30 tab 08/08/22 Fluticasone Propion/Salmeterol 1 inhalation PO BID #1 each 08/08/22 [Advair 250-50 Diskus] Metoprolol Tartrate [Lopressor] 50 mg PO BID #60 tab 08/08/22 Orphenadrine [Norflex] 100 mg PO Q12H #20 tab 01/23/23 Allergies Allergy/AdvReac Type Severity Reaction Status Date / Time No Known Allergies Allergy Verified 01/23/23 11:44 Review of Systems ROS Statement: Those systems with pertinent positive or pertinent negative responses have been documented in the HPI. ROS Other: All systems not noted in ROS Statement are negative. Past Medical History Past Medical History: Hypertension History of Any Multi-Drug Resistant Organisms: None Reported Past Surgical History: Section, Cholecystectomy, Tonsillectomy Additional Past Surgical History / Comment(s): Part on colon removed Past Anesthesia/Blood Transfusion Reactions: No Reported Reaction Past Psychological History: Anxiety Smoking Status: Former smoker Past Alcohol Use History: Rare Past Drug Use History: None Reported General Exam - General Exam Comments Initial Comments: Physical Exam GENERAL: Morbidly obese female in no acute distress HENT: Normocephalic, Atraumatic. EYES: PERRL, EOMI PULMONARY: Unlabored respirations. No audible rales rhonchi or wheezing was noted. CARDIOVASCULAR: There is a regular rate and rhythm without any murmurs gallops or rubs. ABDOMEN: Soft and nontender with normal bowel sounds. SKIN: Skin is clear with no lesions or rashes and otherwise unremarkable. : Deferred NEUROLOGIC: Patient is alert and oriented x3. Moving all extremities spontaneously MUSCULOSKELETAL: Normal extremities with adequate strength and full range of motion. No lower extremity swelling or edema. No calf tenderness. Negative Spurling test of cervical spine Negative tinel's and finklestein test for carpal tunnel PSYCHIATRIC: Normal psychiatric evaluation. Limitations: no limitations Course Vital Signs 01/23/23 11:44 Temperature 98 F Pulse Rate 67 Respiratory 18 Rate Blood Pressure 152/84 O2 Sat by Pulse 94 L Oximetry EKG Findings - EKG Comments: EKG Findings:: EKG interpreted by me EKG was obtained due to left arm pain, EKG obtained at 1325 rate is 67 sinus bradycardia no acute ST elevations or depressions or evidence of ischemia or infarction. Medical Decision Making - Medical Decision Making Pt and evaluated, history is obtained from the patient, patient has left-sided arm pain that seems to radiate up and cause tension in her trapezius which is been causing a headache. No chest pain palpitations or shortness of breath. She does report some tingling in the fingers. No neck pain. Physical exam reveals a morbidly obese female, I cannot elicit any worsening pain provocative testing. Current workup was ordered due to the patient's history and was negative considering she has had his comfort for weeks and not actively having any pain feel a single negative troponin negative chest x-ray and EKG is adequate to rule out acute coronary syndrome Advised patient I suspect she is having muscular skeletal pain likely neuropathic pain and recommended follow-up with her primary care for referral for further testing including EMG and possible imaging of her cervical spine patient agreeable to this Was pt. sent in by a medical professional or institution (Dr., PA, TUBE MACHINE OPERATOR HELPER, urgent care, hospital, or skilled nursing...) When possible be specific @ -No Did you speak to anyone other than the patient for history (EMS, parent, family, police, friend...)? What history was obtained from this source @ -No Did you review nursing and triage notes (agree or disagree)? Why? @ -I reviewed and agree with nursing and triage notes Were old charts reviewed (outside hosp., previous admission, EMS record, old EKG , old radiological studies, urgent care reports/EKG's, skilled nursing records)? Report findings @ -No old charts were reviewed Differential Diagnosis (chest pain, altered mental status, abdominal pain women, abdominal pain men, vaginal bleeding, weakness, fever, dyspnea, syncope, headache, dizziness, GI bleed, back pain, seizure, CVA, palpatations, mental health, musculoskeletal)? @ Differential Musculoskeletal Muscular strain, contusion, ligament sprain, fracture, arthritis, septic arthritis, bursitis, cellulitis, muscle spasm, nerve compression, DVT, arterial occlusion, herpes zoster, electrolyte abnormality, tumor.... This is not meant to be in all inclusive list EKG interpreted by me (3pts min.). @ -As above X-rays interpreted by me (1pt min.). @ -None done CT interpreted by me (1pt min.). @ -None done U/S interpreted by me (1pt. min.). @ -None done What testing was considered but not performed or refused? (CT, X-rays, U/S, labs)? Why? @ -None What meds were considered but not given or refused? Why? @ -None Did you discuss the management of the patient with other professionals (professionals i.e. NGA Jones, TUBE MACHINE OPERATOR HELPER, lab, RT, psych nurse, clinical social work aide, paper goods machine set up operator, teacher, international first officer, director case management)? Give summary @ -No Was smoking cessation discussed for >3mins.? @ -No Was critical care preformed (if so, how long)? @ -No Were there social determinants of health that impacted care today? How? (Homelessness, low income, unemployed, alcoholism, drug addiction, trans portation, low edu. Level, literacy, decrease access to med. care, long-term, rehab)? @ -No Was there de-escalation of care discussed even if they declined (Discuss DNR or withdrawal of care, Hospice)? DNR status @ -No What co-morbidities impacted this encounter? (DM, HTN, Smoking, COPD, CAD, Cancer, CVA, ARF, Chemo, Hep., AIDS, mental health diagnosis, sleep apnea, morbid obesity)? @ -None Was patient admitted / discharged? Hospital course, mention meds given and route, prescriptions, significant lab abnormalities, going to OR and other pertinent info. @ -hospital course Undiagnosed new problem with uncertain prognosis? @ -No Drug Therapy requiring intensive monitoring for toxicity (Heparin, Nitro, Insul in, Cardizem)? @ -No Were any procedures done? @ -No Diagnosis/symptom? @ -Left arm pain Acute, or Chronic, or Acute on Chronic? @ -default Uncomplicated (without systemic symptoms) or Complicated (systemic symptoms)? @ -default Side effects of treatment? @ -No Exacerbation, Progression, or Severe Exacerbation? @ -No Poses a threat to life or bodily function? How? (Chest pain, USA, CT, pneumonia, PE, COPD, DKA, ARF, appy, cholecystitis, CVA, Diverticulitis, Homicidal, Suicidal, threat to staff... and all critical care pts) @ -No - Lab Data Result diagrams: 01/23/23 13:19 01/23/23 13:19 Lab Results 01/23/23 01/23/23 01/23/23 Range/Units 13:19 13:19 13:19 WBC 6.1 (3.8-10.6) k/uL RBC 4.60 (3.80-5.40) m/uL Hgb 14.7 (11.4-16.0) gm/dL Hct 43.5 (34.0-46.0) % MCV 94.6 (80.0-100.0) fL MCH 31.9 (25.0-35.0) pg MCHC 33.7 (31.0-37.0) g/dL RDW 13.3 (11.5-15.5) % Plt Count 170 (150-450) k/uL MPV 8.8 Neutrophils % 55 % Lymphocytes % 31 % Monocytes % 8 % Eosinophils % 3 % Basophils % 1 % Neutrophils # 3.3 (1.3-7.7) k/uL Lymphocytes # 1.9 (1.0-4.8) k/uL Monocytes # 0.5 (0-1.0) k/uL Eosinophils # 0.2 (0-0.7) k/uL Basophils # 0.1 (0-0.2) k/uL PT 9.9 (9.0-12.0) sec INR 0.9 (<1.2) APTT 24.2 (22.0-30.0) sec Sodium 139 (137-145) mmol/L Potassium 4.5 (3.5-5.1) mmol/L Chloride 106 (98-107) mmol/L Carbon Dioxide 27 (22-30) mmol/L Anion Gap 6 mmol/L BUN 17 (7-17) mg/dL Creatinine 0.93 (0.52-1.04) mg/dL Est GFR (CKD-EPI)AfAm 73 (>60 ml/min/1.73 sqM) Est GFR (CKD-EPI)NonAf 63 (>60 ml/min/1.73 sqM) Glucose 121 H (74-99) mg/dL Calcium 8.9 (8.4-10.2) mg/dL Magnesium 2.0 (1.6-2.3) mg/dL Total Bilirubin 0.6 (0.2-1.3) mg/dL AST 17 (14-36) U/L ALT 15 (4-34) U/L Alkaline Phosphatase 52 (38-126) U/L Troponin I (0.000-0.034) ng/mL Total Protein 6.1 L (6.3-8.2) g/dL Albumin 3.4 L (3.5-5.0) g/dL 01/23/23 Range/Units 13:19 WBC (3.8-10.6) k/uL RBC (3.80-5.40) m/uL Hgb (11.4-16.0) gm/dL Hct (34.0-46.0) % MCV (80.0-100.0) fL MCH (25.0-35.0) pg MCHC (31.0-37.0) g/dL RDW (11.5-15.5) % Plt Count (150-450) k/uL MPV Neutrophils % % Lymphocytes % % Monocytes % % Eosinophils % % Basophils % % Neutrophils # (1.3-7.7) k/uL Lymphocytes # (1.0-4.8) k/uL Monocytes # (0-1.0) k/uL Eosinophils # (0-0.7) k/uL Basophils # (0-0.2) k/uL PT (9.0-12.0) sec INR (<1.2) APTT (22.0-30.0) sec Sodium (137-145) mmol/L Potassium (3.5-5.1) mmol/L Chloride (98-107) mmol/L Carbon Dioxide (22-30) mmol/L Anion Gap mmol/L BUN (7-17) mg/dL Creatinine (0.52-1.04) mg/dL Est GFR (CKD-EPI)AfAm (>60 ml/min/1.73 sqM) Est GFR (CKD-EPI)NonAf (>60 ml/min/1.73 sqM) Glucose (74-99) mg/dL Calcium (8.4-10.2) mg/dL Magnesium (1.6-2.3) mg/dL Total Bilirubin (0.2-1.3) mg/dL AST (14-36) U/L ALT (4-34) U/L Alkaline Phosphatase (38-126) U/L Troponin I <0.012 (0.000-0.034) ng/mL Total Protein (6.3-8.2) g/dL Albumin (3.5-5.0) g/dL Disposition Clinical Impression: Left arm pain Disposition: HOME SELF-CARE Condition: Stable Additional Instructions: As discussed I suspect that the pain in your arm is due to pinched nerves, you can try muscle relaxors for the tension at home, follow with your primary care doctor for further evaluation Return to the ER at any time for any change in condition or devleopment of any new or concerning symptoms Prescriptions: Orphenadrine [Norflex] 100 mg PO Q12H #20 tab Is patient prescribed a controlled substance at d/c from ED?: No Referrals: Gatito Kamara DO [Primary Care Provider] - 1-2 days
[2023-01-23] MEDS ORDERED: ASPIRIN 81 MG PO STA (12:21)
[2023-01-23 13:24] LABS: Basophils # (A) 0.1 k/uL (0-0.2); Basophils % (A) 1 %; Eosinophils # (A) 0.2 k/uL (0-0.7); Eosinophils % (A) 3 %; HCT 43.5 % (34.0-46.0); HGB 14.7 gm/dL (11.4-16.0); Lymphocytes # (A) 1.9 k/uL (1.0-4.8); Lymphocytes % (A) 31 %; MCH 31.9 pg (25.0-35.0); MCHC 33.7 g/dL (31.0-37.0); MCV 94.6 fL (80.0-100.0); Mean Platelet Volume 8.8; Monocytes # (A) 0.5 k/uL (0-1.0); Monocytes % (A) 8 %; Neutrophils # (A) 3.3 k/uL (1.3-7.7); Neutrophils % (A) 55 %; Platelet Count 170 k/uL (150-450); RDW 13.3 % (11.5-15.5); WBC 6.1 k/uL (3.8-10.6)
[2023-01-23 13:34] LABS: INR 0.9 (<1.2); Partial Thromboplastin Time 24.2 sec (22.0-30.0); Prothrombin Time 9.9 sec (9.0-12.0)
[2023-01-23 13:41] LABS: ALT 15 U/L (4-34); AST 17 U/L (14-36); African American GFR (CKD) 73 (>60 ml/min/1.73 sqM); Albumin 3.4 g/dL (3.5-5.0); Alkaline Phosphatase 52 U/L (38-126); Anion Gap 6 mmol/L; Blood Urea Nitrogen 17 mg/dL (7-17); Calcium 8.9 mg/dL (8.4-10.2); Carbon Dioxide 27 mmol/L (22-30); Chloride 106 mmol/L (98-107); Glucose 121 mg/dL (74-99); Non-African American GFR(CKD) 63 (>60 ml/min/1.73 sqM); Potassium 4.5 mmol/L (3.5-5.1); Sodium 139 mmol/L (137-145); Total Bilirubin 0.6 mg/dL (0.2-1.3); Total Protein 6.1 g/dL (6.3-8.2)
--- NOTE | 2023-01-23 13:56 | XR ---
EXAMINATION TYPE: XR chest 2V DATE OF EXAM: 01/23/2023 COMPARISON: 08/08/2022 HISTORY: Shortness of breath TECHNIQUE: Frontal and lateral views of the chest are obtained. FINDINGS: Scattered senescent parenchymal changes noted. No evidence for infiltrate. No evidence for atelectasis. Heart size is stable. Mediastinal structures are stable and grossly unremarkable. No evidence for hilar prominence. Degenerative changes dorsal spine. IMPRESSION: 1. No evidence for acute pulmonary disease.
[2023-01-23 14:54] VITALS: BP 167/90; PULSE 87; RESP 20
== END 2023-01-23 14:54 | disposition home or self-care (01) ==
LOC: EC 11:23
DX: M79.602 Pain in left arm (principal); I10 Essential (primary) hypertension; Z86.59 Personal history of other mental and behavioral disorders; Z87.891 Personal history of nicotine dependence; Z79.899 Other long term (current) drug therapy
CPT/HCPCS: 36415; 71046; 80053; 83735; 84484; 85025; 85610; 85730; 93005; 99284

== ENCOUNTER 2023-12-17 18:19 | Inpatient (IN) | payer MEDICARE ==
--- NOTE | 2023-12-17 18:23 | ED ---
General Adult HPI - General Stated complaint: difficulty breathing Time Seen by Provider: 12/17/23 18:22 - History of Present Illness Initial comments: Marianne is a 73-year-old female who presents the ER today via EMS for evaluation of difficulty breathing. Patient reports about an hour prior to arrival she suddenly had difficulty in breathing she denies any significant pulmonary history. Patient states that she was previously on some cardiac medications but has been taken off of them and has not been taking them for over a year. Previous medications included Plavix which she is not certain why she took. Patient is still taking metoprolol and losartan. Patient denies any recent injuries or illness. She denies any chest pain but reports she just feels like she cannot catch her breath. - Related Data Home Medications Medication Instructions Recorded Confirmed Losartan Potassium [Cozaar] 25 mg PO PC-SUPPER 08/08/22 12/17/23 Atorvastatin [Lipitor] 80 mg PO PC-SUPPER 12/17/23 12/17/23 Azithromycin [Zithromax Z Pack] See Taper PO DIRECTED 12/17/23 12/17/23 Metoprolol Succinate (ER) [Toprol 50 mg PO PC-SUPPER 12/17/23 12/17/23 Xl] methylPREDNISolone Dose Pack See Taper PO DIRECTED 12/17/23 12/17/23 [Medrol Dose Pack] Allergies Allergy/AdvReac Type Severity Reaction Status Date / Time No Known Allergies Allergy Verified 12/17/23 19:30 Review of Systems ROS Statement: Those systems with pertinent positive or pertinent negative responses have been documented in the HPI. ROS Other: All systems not noted in ROS Statement are negative. Past Medical History Past Medical History: Hypertension History of Any Multi-Drug Resistant Organisms: None Reported Past Surgical History: Section, Cholecystectomy, Tonsillectomy Additional Past Surgical History / Comment(s): Part on colon removed Past Anesthesia/Blood Transfusion Reactions: No Reported Reaction Past Psychological History: Anxiety Smoking Status: Former smoker Past Alcohol Use History: Rare Past Drug Use History: None Reported General Exam - General Exam Comments Initial Comments: Physical Exam GENERAL: Patient is well-developed and well-nourished. Patient is nontoxic and well- hydrated and is in no distress. Morbidly obese female HENT: Normocephalic, Atraumatic. EYES: PERRL, EOMI PULMONARY: Rales bilaterally CARDIOVASCULAR: Tachycardic, Pitting edema bilateral lower extremities ABDOMEN: Soft and nontender with normal bowel sounds. SKIN: Skin is clear with no lesions or rashes and otherwise unremarkable. : Deferred NEUROLOGIC: Patient is alert and oriented x3. Moving all extremities spontaneously MUSCULOSKELETAL: Normal extremities with adequate strength and full range of motion. PSYCHIATRIC: Normal psychiatric evaluation. Course Vital Signs 12/17/23 12/17/23 12/17/23 18:21 18:25 18:49 Pulse Rate 134 H 110 H Respiratory 20 20 Rate Blood Pressure 159/111 168/113 O2 Sat by Pulse 97 100 Oximetry Fraction of 100 Inspired Oxygen (FIO2) 12/17/23 12/17/23 12/17/23 19:03 19:45 19:48 Pulse Rate 92 Respiratory 14 Rate Blood Pressure 185/104 O2 Sat by Pulse 97 Oximetry Fraction of 40 40 Inspired Oxygen (FIO2) EKG Findings - EKG Comments: EKG Findings:: EKG interpreted by me, initial EKG obtained at 1824, initial EKG with a rate of 122 rhythm appears to be irregular tachycardia with a bundle branch block due to tachycardia uncertain to say if this is A-fib versus sinus t ach. There is no obvious ST elevations depressions no evidence of ischemia or infarction. When compared to EKG from last year the left bundle branch block is new. Repeat EKG was obtained at 1940 6 repeat EKG with a rate of 94 rhythm is sinus with PACs noted there is no obvious ST elevations or depressions no evidence of acute ischemia or infarction. When compared to previous EKGs the intraventricular conduction delay was present on previous EKGs from 2 years ago but not on most recent EKG from 2022. Medical Decision Making - Medical Decision Making Was pt. sent in by a medical professional or institution (, PA, STEAM AND POWER SUPERVISOR, urgent care, hospital, or [place] health care facility...) When possible be specific @ -No Did you speak to anyone other than the patient for history (EMS, parent, family, police, friend...)? What history was obtained from this source @ -EMS Did you review nursing and triage notes (agree or disagree)? Why? @ -I reviewed and agree with nursing and triage notes Were old charts reviewed (outside hosp., previous admission, EMS record, old EKG, old radiological studies, urgent care reports/EKG's, [place] health care facility records)? Report findings @ -Previous EKGs were reviewed Differential Diagnosis (chest pain, altered mental status, abdominal pain women, abdominal pain men, vaginal bleeding, weakness, fever, dyspnea, syncope, head ache, dizziness, GI bleed, back pain, seizure, CVA, palpatations, mental health)? @ -Differential Dyspnea: Coronary syndrome, arrhythmia, tamponade, asthma, COPD, pulmonary embolism, pneumonia, pneumothorax, pulmonary effusion, anaphylaxis, diabetic ketoacidosis, flailed chest, pulmonary contusion, diaphragmatic rupture, anemia, neuromuscular, this is not meant to be an all-inclusive list. EKG interpreted by me (3pts min.). @ -As above X-rays interpreted by me (1pt min.). @ -Cardiomegaly and fluid overload on x-ray CT interpreted by me (1pt min.). @ -None done U/S interpreted by me (1pt. min.). @ -None done What testing was considered but not performed or refused? (CT, X-rays, U/S, l abs)? Why? @ -Serial troponin to be performed while admitted What meds were considered but not given or refused? Why? @ -None Did you discuss the management of the patient with other professionals ( professionals i.e. , PA, STEAM AND POWER SUPERVISOR, lab, RT, psych nurse, director of social media marketing, hospice executive director, teacher, driver license reviewing officer, business case analyst)? Give summary @ -No Was smoking cessation discussed for >3mins.? @ -No Was critical care preformed (if so, how long)? @ -Yes, 30 minutes Were there social determinants of health that impacted care today? How? (Homelessness, low income, unemployed, alcoholism, drug addiction, trans portation, low edu. Level, literacy, decrease access to med. care, [facility], rehab)? @ -No Was there de-escalation of care discussed even if they declined (Discuss DNR or withdrawal of care, Hospice)? DNR status @ -No What co-morbidities impacted this encounter? (DM, HTN, Smoking, COPD, CAD, Cancer, CVA, ARF, Chemo, Hep., AIDS, mental health diagnosis, sleep apnea, morbid obesity)? @ -Hypertension, morbid obesity Was patient admitted / discharged? Hospital course, mention meds given and route, prescriptions, significant lab abnormalities, going to OR and other pertinent info. @ -Admit Patient was seen and evaluated immediately upon arrival to the emergency department. Patient is in moderate respiratory distress. Patient was started on BiPAP labs ABG and chest x-ray were obtained. Initial EKG showed tachycardia uncertain if this is A-fib versus sinus tachycardia, labs were obtained and are consistent with CHF as well as chest x-ray suggestive of CHF. Labs do show worsening kidney function as well. Troponin is mildly elevated. Patient will be started on heparin for NSTEMI versus hypertensive emergency. Nitropaste was ordered for hypertension. Repeat EKG is sinus rhythm with ectopy no longer concern for atrial fibrillation. Patient's respiratory distress improving with BiPAP. Patient will be admitted with BiPAP Nitropaste and heparin for respiratory distress secondary to acute heart failure. Undiagnosed new problem with uncertain prognosis? @ -Yes Drug Therapy requiring intensive monitoring for toxicity (Heparin, Nitro, Insulin, Cardizem)? @ -Yes, heparin Were any procedures done? @ -No Diagnosis/symptom? @ -Acute heart failure, CHF, hypertensive urgency Acute, or Chronic, or Acute on Chronic? @ -Acute Uncomplicated (without systemic symptoms) or Complicated (systemic symptoms)? @ -Default Side effects of treatment? @ -No Exacerbation, Progression, or Severe Exacerbation? @ -No Poses a threat to life or bodily function? How? (Chest pain, [place], [place], pneumonia, PE, COPD, DKA, ARF, appy, cholecystitis, CVA, Diverticulitis, Homicidal, Suicidal, threat to staff... and all critical care pts) @ -Yes - Lab Data Result diagrams: 12/17/23 18:30 12/17/23 18:30 Lab Results 12/17/23 12/17/23 12/17/23 Range/Units 18:30 18:30 18:30 WBC 12.6 H (3.8-10.6) k/uL RBC 5.00 (3.80-5.40) m/uL Hgb 14.8 (11.4-16.0) gm/dL Hct 48.5 H (34.0-46.0) % MCV 97.1 (80.0-100.0) fL MCH 29.6 (25.0-35.0) pg MCHC 30.5 L (31.0-37.0) g/dL RDW 13.9 (11.5-15.5) % Plt Count 320 (150-450) k/uL MPV 8.5 Neutrophils % 83 % Lymphocytes % 12 % Monocytes % 4 % Eosinophils % 0 % Basophils % 0 % Neutrophils # 10.4 H (1.3-7.7) k/uL Lymphocytes # 1.6 (1.0-4.8) k/uL Monocytes # 0.5 (0-1.0) k/uL Eosinophils # 0.0 (0-0.7) k/uL Basophils # 0.1 (0-0.2) k/uL Hypochromasia Slight PT 10.2 (10.0-12.5) sec INR 0.9 (<1.2) APTT 22.4 (22.0-30.0) sec Sample Site ABG pH (7.35-7.45) ABG pCO2 (35-45) mmHg ABG pO2 (83-108) mmHg ABG HCO3 (21-25) mmol/L ABG Total CO2 (19-24) mmol/L ABG O2 Saturation (94-97) % ABG Base Excess mmol/L Froy Test FiO2 % Sodium 140 (137-145) mmol/L Potassium 4.4 (3.5-5.1) mmol/L Chloride 105 (98-107) mmol/L Carbon Dioxide 26 (22-30) mmol/L Anion Gap 9 mmol/L BUN 24 H (7-17) mg/dL Creatinine 1.44 H (0.52-1.04) mg/dL Est GFR (CKD-EPI)AfAm 42 (>60 ml/min/1.73 sqM) Est GFR (CKD-EPI)NonAf 37 (>60 ml/min/1.73 sqM) Glucose 275 H (74-99) mg/dL Plasma Lactic Acid Manuel (0.7-2.0) mmol/L Calcium 9.5 (8.4-10.2) mg/dL Magnesium 1.9 (1.6-2.3) mg/dL Total Bilirubin 0.6 (0.2-1.3) mg/dL AST 20 (14-36) U/L ALT 12 (4-34) U/L Alkaline Phosphatase 73 (38-126) U/L Troponin I (0.000-0.034) ng/mL NT-Pro-B Natriuret Pep 40503 pg/mL Total Protein 6.8 (6.3-8.2) g/dL Albumin 4.1 (3.5-5.0) g/dL 12/17/23 12/17/23 12/17/23 Range/Units 18:30 18:30 18:40 WBC (3.8-10.6) k/uL RBC (3.80-5.40) m/uL Hgb (11.4-16.0) gm/dL Hct (34.0-46.0) % MCV (80.0-100.0) fL MCH (25.0-35.0) pg MCHC (31.0-37.0) g/dL RDW (11.5-15.5) % Plt Count (150-450) k/uL MPV Neutrophils % % Lymphocytes % % Monocytes % % Eosinophils % % Basophils % % Neutrophils # (1.3-7.7) k/uL Lymphocytes # (1.0-4.8) k/uL Monocytes # (0-1.0) k/uL Eosinophils # (0-0.7) k/uL Basophils # (0-0.2) k/uL Hypochromasia PT (10.0-12.5) sec INR (<1.2) APTT (22.0-30.0) sec Sample Site Left Brachial ABG pH 7.29 L (7.35-7.45) ABG pCO2 54 H (35-45) mmHg ABG pO2 >420 H (83-108) mmHg ABG HCO3 26 H (21-25) mmol/L ABG Total CO2 28 H (19-24) mmol/L ABG O2 Saturation 100.5 H (94-97) % ABG Base Excess -1.5 mmol/L Froy Test Yes FiO2 100 % Sodium (137-145) mmol/L Potassium (3.5-5.1) mmol/L Chloride (98-107) mmol/L Carbon Dioxide (22-30) mmol/L Anion Gap mmol/L BUN (7-17) mg/dL Creatinine (0.52-1.04) mg/dL Est GFR (CKD-EPI)AfAm (>60 ml/min/1.73 sqM) Est GFR (CKD-EPI)NonAf (>60 ml/min/1.73 sqM) Glucose (74-99) mg/dL Plasma Lactic Acid Manuel 2.8 H* (0.7-2.0) mmol/L Calcium (8.4-10.2) mg/dL Magnesium (1.6-2.3) mg/dL Total Bilirubin (0.2-1.3) mg/dL AST (14-36) U/L ALT (4-34) U/L Alkaline Phosphatase (38-126) U/L Troponin I 0.058 H* (0.000-0.034) ng/mL NT-Pro-B Natriuret Pep pg/mL Total Protein (6.3-8.2) g/dL Albumin (3.5-5.0) g/dL Disposition Clinical Impression: CHF (congestive heart failure), Hypertensive emergency Disposition: ADMITTED IP TO THIS HOSP Condition: Serious Is patient prescribed a controlled substance at d/c from ED?: No Referrals: Gatito Kamara DO [Primary Care Provider] - 1-2 days
[2023-12-17 18:42] LABS: ABG Base Excess -1.5 mmol/L; ABG HCO3 26 mmol/L (21-25); ABG Oxygen Saturation 100.5 % (94-97); ABG PCO2 54 mmHg (35-45); ABG PH 7.29 (7.35-7.45); ABG TCO2 28 mmol/L (19-24); Allen Test Performed? Yes
[2023-12-17 18:47] LABS: ABG PO2 >420 mmHg (83-108)
[2023-12-17 18:56] LABS: Basophils # (A) 0.1 k/uL (0-0.2); Basophils % (A) 0 %; Eosinophils % (A) 0 %; HCT 48.5 % (34.0-46.0); HGB 14.8 gm/dL (11.4-16.0); Hypochromasia Slight; Lymphocytes # (A) 1.6 k/uL (1.0-4.8); Lymphocytes % (A) 12 %; MCH 29.6 pg (25.0-35.0); MCHC 30.5 g/dL (31.0-37.0); MCV 97.1 fL (80.0-100.0); Mean Platelet Volume 8.5; Monocytes # (A) 0.5 k/uL (0-1.0); Monocytes % (A) 4 %; Neutrophils # (A) 10.4 k/uL (1.3-7.7); Neutrophils % (A) 83 %; Platelet Count 320 k/uL (150-450); RDW 13.9 % (11.5-15.5); WBC 12.6 k/uL (3.8-10.6)
--- NOTE | 2023-12-17 18:59 | XR ---
EXAMINATION TYPE: XR chest 1V portable DATE OF EXAM: 12/17/2023 COMPARISON: 01/23/2023 INDICATION: Dyspnea difficulty breathing TECHNIQUE: Single frontal view of the chest is obtained. FINDINGS: The heart size is enlarged. The pulmonary vasculature is prominent. No suspicious focal consolidation or infiltrates evident IMPRESSION: 1. Cardiomegaly with prominent pulmonary vascular markings. Correlate for volume overload.
[2023-12-17 19:06] LABS: ALT 12 U/L (4-34); AST 20 U/L (14-36); African American GFR (CKD) 42 (>60 ml/min/1.73 sqM); Albumin 4.1 g/dL (3.5-5.0); Alkaline Phosphatase 73 U/L (38-126); Anion Gap 9 mmol/L; Blood Urea Nitrogen 24 mg/dL (7-17); Calcium 9.5 mg/dL (8.4-10.2); Carbon Dioxide 26 mmol/L (22-30); Chloride 105 mmol/L (98-107); Glucose 275 mg/dL (74-99); Magnesium 1.9 mg/dL (1.6-2.3); Non-African American GFR(CKD) 37 (>60 ml/min/1.73 sqM); Potassium 4.4 mmol/L (3.5-5.1); Sodium 140 mmol/L (137-145); Total Bilirubin 0.6 mg/dL (0.2-1.3); Total Protein 6.8 g/dL (6.3-8.2)
[2023-12-17 19:11] LABS: INR 0.9 (<1.2); Partial Thromboplastin Time 22.4 sec (22.0-30.0); Prothrombin Time 10.2 sec (10.0-12.5)
[2023-12-17 19:13] LABS: NT-Pro-B-Type Natriuretic Pept 10400 pg/mL
[2023-12-17] MEDS ORDERED: HEPARIN SODIUM 1,000 UN/ML (10ML VL) IV PRN (19:36)
[2023-12-17] MEDS: HEPARIN SODIUM 1,000 UN/ML (10ML VL) IV ONE (19:55)
[2023-12-17] MEDS: HEPARIN SOD,PORK IN 0.45% NACL 25,000 UNIT in 0.45% NACL 1 250ML.BAG IV SCH (19:58)
[2023-12-17] MEDS: METOPROLOL TARTRATE 25 MG TAB PO SCH (21:27)
[2023-12-17] MEDS: ATORVASTATIN 80 MG TAB PO SCH (21:27)
[2023-12-17] MEDS: NITROGLYCERIN OINT 1 INCH/GM PACKET TOPICAL STA (21:27)
[2023-12-17] MEDS: FUROSEMIDE 10 MG/ML 4 ML VIAL IV SCH (21:27)
[2023-12-17 22:13] LABS: Partial Thromboplastin Time 43.8 sec (22.0-30.0); Prothrombin Time 11.1 sec (10.0-12.5)
[2023-12-18 02:30] LABS: Basophils % (A) 0 %; Eosinophils % (A) 0 %; HCT 44.1 % (34.0-46.0); HGB 13.6 gm/dL (11.4-16.0); Hypochromasia Slight; Lymphocytes # (A) 1.4 k/uL (1.0-4.8); Lymphocytes % (A) 13 %; MCH 29.9 pg (25.0-35.0); MCHC 30.9 g/dL (31.0-37.0); MCV 96.7 fL (80.0-100.0); Mean Platelet Volume 8.8; Monocytes # (A) 0.8 k/uL (0-1.0); Monocytes % (A) 7 %; Neutrophils # (A) 8.6 k/uL (1.3-7.7); Neutrophils % (A) 79 %; Platelet Count 262 k/uL (150-450); RBC 4.56 m/uL (3.80-5.40)
[2023-12-18 02:46] LABS: INR 0.9 (<1.2); Partial Thromboplastin Time 27.9 sec (22.0-30.0); Prothrombin Time 10.4 sec (10.0-12.5)
[2023-12-18 09:52] LABS: African American GFR (CKD) 48 (>60 ml/min/1.73 sqM); Anion Gap 4 mmol/L; Blood Urea Nitrogen 26 mg/dL (7-17); Calcium 8.7 mg/dL (8.4-10.2); Carbon Dioxide 30 mmol/L (22-30); Chloride 105 mmol/L (98-107); Glucose 157 mg/dL (74-99); Non-African American GFR(CKD) 42 (>60 ml/min/1.73 sqM); Potassium 3.7 mmol/L (3.5-5.1); Sodium 139 mmol/L (137-145)
--- NOTE | 2023-12-18 10:05 | P.CRDCN ---
History of Present Illness Consult date: 12/18/23 Reason for Consult (text): Hypertension, CHF, non-ST elevated MN History of present illness: This is a 73-year-old female patient of Dr. Macias with past medical history of coronary artery disease with stenting of the RCA and known history of in termediate disease involving the LAD, hypertension, dyslipidemia, questionable paroxysmal atrial fibrillation-not on anticoagulation as patient cannot afford this, nonsustained ventricular tachycardia, history of smoking and COPD, overweight. We have been asked to evaluate the patient for hypertension, CHF, non-ST elevated MN. Patient was last seen in the office with Dr. Macias on 10/29/2023. Patient states she had no complaints at that time but following the appointment she developed shortness of breath. No coughing. She does complain of wheezing and phlegm production. No chest pain. No dizziness and no syncopal episodes. She does have some palpitations after she eats. She is not normally active. She states she gets some shortness of breath just from doing dishes or stirring a pot. No lower extremity edema, no PND. She states she quit coffee drinking a while back and has no alcohol intake. She has been smoking on and off. She denies any blood in her stools or urine. No history of stroke or seizure. Patient is seen today in the emergency center waiting for bed on the cardiac stepdown unit. Patient has been started on heparin drip and IV Lasix 40 mg every 12 hours. Blood pressure 154/82, heart rate 71, pulse ox 99% on 5 L nasal cannula. EKG: Sinus rhythm with IVCD Chest x-ray: Cardiomegaly with prominent pulmonary vascular markings. Correlate for volume overload. Laboratory studies: WBC 11, hemoglobin 13.6. Potassium 4.4, BUN 24 creatinine 1.44. Blood sugar 275. Lactic acid 2.8 followed by 1.6. Troponin 0.058. proBNP 10,400. Home Home cardiac medications: Atorvastatin 80 mg with supper, losartan 25 mg with supper, Toprol-XL 50 mg with supper. Cardiac catheterization history 05/28/2020: Occluded RCA, intermediate disease in the LAD, PCI stent of the mid RCA. Echocardiogram performed in the office on 07/16/2022 revealed normal EF, mild MR, mild TR. Event monitor 08/08/2022 revealed nonsustained ventricular tachycardia, sinus rhythm. [employer] Cardiolite stress test 08/29/2020 performed in the office was normal. Review Of Systems: At the time of my exam: CONSTITUTIONAL: Denies fever or chills. HEENT: Denies blurred vision, vision changes, or eye pain. Denies hemoptysis CARDIOVASCULAR: Denies chest pain. Denies orthopnea. Denies PND. Denies palpi tations RESPIRATORY: Reports dyspnea on exertion, reports shortness of breath. Reports sputum production GASTROINTESTINAL: Denies abdominal pain. Denies nausea or vomiting. HEMATOLOGIC: Denies bleeding disorders. GENITOURINARY: Denies any blood in urine. SKIN: Denies puritis. Denies rash. Physical examination: Gen: This is a 73-year-old female in no acute distress VS: reviewed HEENT: Head is atraumatic, normocephalic. Pupils equal, round. Sclerae is anicteric. NECK: Supple. No JVD. LUNGS: Clear to auscultation. No wheezes or rhonchi. No intercostal retractions. HEART: Regular rate and rhythm. Systolic murmur. ABDOMEN: Soft No tenderness. EXTREMITIES: No pedal edema. No calf tenderness. NEUROLOGICAL: Patient is awake, alert and oriented x3. Assessment: Acute hypoxic respiratory failure secondary to possible acute diastolic heart failure, and more likely due to recent bronchitis with sputum production as well as morbid obesity Acute kidney injury Elevated troponin most likely due to acute kidney injury without acute cardiac ischemia or injury History of coronary artery disease with previous stenting of the RCA and known intermediate disease in the LAD Hypertension Dyslipidemia Questionable paroxysmal atrial fibrillation as this was not found on previous EKGs/telemetry Nonsustained ventricular tachycardia history Tobacco use and dependence COPD Morbid obesity with BMI of 53. Plan: Resume patient's home cardiac medications Continue IV Lasix 40 mg every 12 hours Discontinue heparin drip in the morning Start patient on aspirin 81 mg daily Monitor JEWELL, daily weights, electrolytes and renal function Obtain 2-D echocardiogram and Doppler study to assess cardiac structure and function Further recommendations to follow based upon clinical course Thank you kindly for this consultation. Nurse practitioner note has been reviewed, I agree with documented findings and plan of care. Patient was seen and examined. Past Medical History Past Medical History: Hypertension History of Any Multi-Drug Resistant Organisms: None Reported Past Surgical History: Section, Cholecystectomy, Tonsillectomy Additional Past Surgical History / Comment(s): Part on colon removed Past Anesthesia/Blood Transfusion Reactions: No Reported Reaction Past Psychological History: Anxiety Smoking Status: Former smoker Past Alcohol Use History: Rare Past Drug Use History: None Reported Medications and Allergies Home Medications Medication Instructions Recorded Confirmed Type Losartan Potassium [Cozaar] 25 mg PO PC-SUPPER 08/08/22 12/17/23 History Atorvastatin [Lipitor] 80 mg PO PC-SUPPER 12/17/23 12/17/23 History Azithromycin [Zithromax Z Pack] See Taper PO DIRECTED 12/17/23 12/17/23 History Metoprolol Succinate (ER) [Toprol 50 mg PO PC-SUPPER 12/17/23 12/17/23 History Xl] methylPREDNISolone Dose Pack See Taper PO DIRECTED 12/17/23 12/17/23 History [Medrol Dose Pack] Allergies Allergy/AdvReac Type Severity Reaction Status Date / Time No Known Allergies Allergy Verified 12/17/23 19:30 Physical Exam Vitals: Vital Signs Pulse Resp BP Pulse Ox FiO2 12/18/23 06:04 71 154/82 99 12/17/23 23:40 98 12/17/23 21:35 90 20 168/90 98 12/17/23 19:48 40 12/17/23 19:45 92 14 185/104 97 12/17/23 19:03 40 12/17/23 18:49 110 H 20 168/113 100 12/17/23 18:25 100 12/17/23 18:21 134 H 20 159/111 97 Intake and Output 12/17/23 12/18/23 12/18/23 22:59 06:59 14:59 Other: Weight 131.542 kg Results 12/18/23 01:59 12/18/23 09:20 Cardiac Enzymes 12/17/23 12/17/23 Range/Units 18:30 18:30 AST 20 (14-36) U/L Troponin I 0.058 H* (0.000-0.034) ng/mL Coagulation 12/17/23 12/17/23 12/18/23 Range/Units 18:30 21:15 01:59 PT 10.2 11.1 10.4 (10.0-12.5) sec APTT 22.4 43.8 H 27.9 (22.0-30.0) sec CBC 12/17/23 12/18/23 Range/Units 18:30 01:59 WBC 12.6 H 11.0 H (3.8-10.6) k/uL RBC 5.00 4.56 (3.80-5.40) m/uL Hgb 14.8 13.6 (11.4-16.0) gm/dL Hct 48.5 H 44.1 (34.0-46.0) % Plt Count 320 262 (150-450) k/uL Comprehensive Metabolic Panel 12/17/23 Range/Units 18:30 Sodium 140 (137-145) mmol/L Potassium 4.4 (3.5-5.1) mmol/L Chloride 105 (98-107) mmol/L Carbon Dioxide 26 (22-30) mmol/L BUN 24 H (7-17) mg/dL Creatinine 1.44 H (0.52-1.04) mg/dL Glucose 275 H (74-99) mg/dL Calcium 9.5 (8.4-10.2) mg/dL AST 20 (14-36) U/L ALT 12 (4-34) U/L Alkaline Phosphatase 73 (38-126) U/L Total Protein 6.8 (6.3-8.2) g/dL Albumin 4.1 (3.5-5.0) g/dL Current Medications Generic Name Dose Route Start Last Admin Trade Name Freq PRN Reason Stop Dose Admin Atorvastatin Calcium 80 mg 12/17/23 21:15 12/17/23 21:27 Atorvastatin 80 Mg Tab PO 80 mg HS MUKESH Administration Furosemide 40 mg 12/17/23 21:15 12/17/23 21:27 Furosemide 10 Mg/Ml 4 Ml Vial IV 40 mg Q12H MUKESH Administration Heparin Sodium (Porcine) 0 unit 12/17/23 19:36 Heparin Sodium 1,000 Un/Ml (10ml Vl) IV PER PROTOCOL PRN Low PTT Protocol Heparin Sodium/Sodium Chloride 250 mls @ 9.997 mls/hr 12/17/23 19:45 12/17/23 19:58 25,000 unit/ Sodium Chloride IV 7.6 units/kg/hr .Q24H MUKESH 9.997 mls/hr Administration Protocol 7.6 UNITS/KG/HR Metoprolol Tartrate 25 mg 12/17/23 21:15 12/17/23 21:27 Metoprolol Tartrate 25 Mg Tab PO 25 mg BID MUKESH Administration Intake and Output 12/17/23 12/18/23 12/18/23 22:59 06:59 14:59 Other: Weight 131.542 kg 12/18/23 01:59 12/17/23 18:30
[2023-12-18] MEDS: ASPIRIN 81 MG PO SCH (10:47)
--- NOTE | 2023-12-18 12:12 | CA ---
Transthoracic Echo Report Name: Tiana Mcdowell Age: 73 Gender: F : 1950 Exam Date: 12/18/2023 09:43 Exam Location: [facility] Ht (in): 62 Wt (lb): 290 Ordering Physician: Mariela Baez Attending/Referring Phys: [id number], Sasha Engine Assembly Supervisor Bailee Courtney RDCS Procedure CPT: Indications: LVF Cardiac Hx: Technical Quality: Technically difficult study Contrast 1: Definity Total Dose (mL): 2 Contrast 2: Total Dose (mL): MEASUREMENTS (Male / Female) Normal Values 2D ECHO LV Diastolic Diameter PLAX 6.5 cm 4.2 - 5.9 / 3.9 - 5.3 cm LV Systolic Diameter PLAX 5.8 cm IVS Diastolic Thickness 1.4 cm 0.6 - 1.0 / 0.6 - 0.9 cm LVPW Diastolic Thickness 1.5 cm 0.6 - 1.0 / 0.6 - 0.9 cm LV Relative Wall Thickness 0.4 RV Internal Dim ED PLAX 2.9 cm LA Systolic Diameter LX 4.0 cm 3.0 - 4.0 / 2.7 - 3.8 cm LV Diastolic Volume MOD BP 154.6 cm??? 67 - 155 / 56 - 104 cm??? LV Systolic Volume MOD BP 117.7 cm??? 22 - 58 / 19 - 49 cm??? LV Ejection Fraction MOD BP 23.9 % >= 55 % LV Cardiac Index MOD BP 801.2 cm???/min???m??? LV Diastolic Volume MOD 4C 162.5 cm??? LV Systolic Volume MOD 4C 125.7 cm??? LV Ejection Fraction MOD 4C 22.6 % LV Cardiac Index MOD 4C 798.0 cm???/min???m??? LV Diastolic Length 4C 8.2 cm LV Systolic Length 4C 7.8 cm LV Diastolic Volume MOD 2C 136.6 cm??? LV Systolic Volume MOD 2C 108.7 cm??? LV Ejection Fraction MOD 2C 20.4 % LV Cardiac Index MOD 2C 606.1 cm???/min???m??? LV Diastolic Length 2C 8.8 cm LV Systolic Length 2C 7.9 cm M-MODE Aortic Root Diameter MM 3.2 cm LA Systolic Diameter MM 3.3 cm LA Ao Ratio MM 1.0 DOPPLER AV Peak Velocity 143.6 cm/s AV Peak Gradient 8.2 mmHg Mitral E Point Velocity 81.1 cm/s Mitral A Point Velocity 94.0 cm/s Mitral E to A Ratio 0.9 MV Deceleration Time 326.8 ms MV E' Velocity 2.7 cm/s Mitral E to MV E' Ratio 30.0 TR Peak Velocity 234.0 cm/s TR Peak Gradient 21.9 mmHg Right Ventricular Systolic Press 40.0 mmHg FINDINGS Left Ventricle Left ventricular ejection fraction is estimated at 20-25 %. Moderately increased septal wall thickness. Moderately increased posterior wall thickness. Severely increased left ventricular diastolic diameter. Severely increased left ventricular diastolic volume. Severely increased left ventricular systolic volume. Severely decreased left ventricular ejection fraction. Global hypokinesis Right Ventricle Normal right ventricular size. Mild pulmonary hypertension. Right Atrium Normal right atrial size. No right atrial thrombus or mass seen. Left Atrium Mildly increased left atrial diameter.Moderatly increase LV volume. No left atrial thrombus or mass present. Mitral Valve Structurally normal mitral valve. Mitral annular calcification. Mild to moderate mitral regurgitation. Aortic Valve Trileaflet aortic valve. No aortic valve stenosis or regurgitation. Tricuspid Valve Structurally normal tricuspid valve. Mild tricuspid regurgitation. Pulmonic Valve Structurally normal pulmonic valve. Trace pulmonic regurgitation. Pericardium No pericardial effusion. Aorta Normal size aortic root and proximal ascending aorta. CONCLUSIONS Dilated LV with severely impaired LV function and EF between 20 to 25% Mild to moderate mitral regurgitation Previewed by: Dr. Ziggy Macias MD (Electronically Signed) Final Date: 18 December 2023 12:11
--- NOTE | 2023-12-18 14:56 | P.HPIM ---
History of Present Illness H&P Date: 12/18/23 Chief Complaint: Difficulty breathing 73-year-old female who presents the ER today via EMS for evaluation of difficulty breathing. Patient reports about an hour prior to arrival she suddenly had difficulty in breathing she denies any significant pulmonary history. Patient states that she was previously on some cardiac medications but has been taken off of them and has not been taking them for over a year. Previous medications included Plavix which she is not certain why she took. Patient is still taking metoprolol and losartan. Patient denies any recent injuries or illness. She denies any chest pain but reports she just feels like she cannot catch her breath. Blood work completed in ED reveals a WBC of 12.6, hemoglobin of 14.8 and platelet count of 320, sodium 140, potassium 4.4, BUNs/creatinine of 24/1.44 and blood glucose of 275, BNP of 10,400, with lactic acid level of 2.8 and troponin elevated at 0.058 -Patient is being admitted for hypertensive emergency and acute exacerbation CHF Review of Systems REVIEW OF SYSTEMS: CONSTITUTIONAL: No fever, no malaise, no fatigue. HEENT: No recent visual problems or hearing problems. Denied any sore throat. CARDIOVASCULAR: No chest pain, orthopnea, PND, no palpitations, no syncope. PULMONARY: No shortness of breath, no cough, no hemoptysis. GASTROINTESTINAL: No diarrhea, no nausea, no vomiting, no abdominal pain. NEUROLOGICAL: No headaches, no weakness, no numbness. HEMATOLOGICAL: Denies any bleeding or petechiae. GENITOURINARY: Denies any burning micturition, frequency, or urgency. MUSCULOSKELETAL/RHEUMATOLOGICAL: Denies any joint pain, swelling, or any muscle pain. ENDOCRINE: Denies any polyuria or polydipsia. The rest of the 14-point review of systems is negative. Past Medical History Past Medical History: Hypertension Additional Past Medical History / Comment(s): questionable a-fib History of Any Multi-Drug Resistant Organisms: None Reported Past Surgical History: Section, Cholecystectomy, Tonsillectomy Additional Past Surgical History / Comment(s): Part on colon removed Past Anesthesia/Blood Transfusion Reactions: No Reported Reaction Date of Last Stent Placement:: 2019 Past Psychological History: Anxiety Smoking Status: Former smoker Past Alcohol Use History: Rare Past Drug Use History: None Reported Medications and Allergies Home Medications Medication Instructions Recorded Confirmed Type Losartan Potassium [Cozaar] 25 mg PO PC-SUPPER 08/08/22 12/17/23 History Atorvastatin [Lipitor] 80 mg PO PC-SUPPER 12/17/23 12/17/23 History Azithromycin [Zithromax Z Pack] See Taper PO DIRECTED 12/17/23 12/17/23 History Metoprolol Succinate (ER) [Toprol 50 mg PO PC-SUPPER 12/17/23 12/17/23 History Xl] methylPREDNISolone Dose Pack See Taper PO DIRECTED 12/17/23 12/17/23 History [Medrol Dose Pack] Allergies Allergy/AdvReac Type Severity Reaction Status Date / Time No Known Allergies Allergy Verified 12/17/23 19:30 Physical Exam Vitals: Vital Signs Temp Pulse Pulse Resp BP BP Pulse Ox 12/18/23 08:30 98 12/18/23 08:00 98.2 F 62 20 136/75 97 12/18/23 06:04 71 154/82 99 12/17/23 23:40 98 12/17/23 21:35 90 20 168/90 98 12/17/23 19:48 12/17/23 19:45 92 14 185/104 97 12/17/23 19:03 12/17/23 18:49 110 H 20 168/113 100 12/17/23 18:25 12/17/23 18:21 134 H 20 159/111 97 FiO2 12/18/23 08:30 12/18/23 08:00 12/18/23 06:04 12/17/23 23:40 12/17/23 21:35 12/17/23 19:48 40 12/17/23 19:45 12/17/23 19:03 40 12/17/23 18:49 12/17/23 18:25 100 12/17/23 18:21 Intake and Output 12/17/23 12/18/23 12/18/23 22:59 06:59 14:59 Other: Voiding Method External Catheter Weight 131.542 kg 131.542 kg Gen: This is a 73-year-old female in no acute distress VS: reviewed HEENT: Head is atraumatic, normocephalic. Pupils equal, round. Sclerae is anicteric. NECK: Supple. No JVD. LUNGS: Clear to auscultation. No wheezes or rhonchi. No intercostal retractions. HEART: Regular rate and rhythm. Systolic murmur. ABDOMEN: Soft No tenderness. EXTREMITIES: No pedal edema. No calf tenderness. NEUROLOGICAL: Patient is awake, alert and oriented x3. Results CBC & Chem 7: 12/18/23 01:59 12/18/23 09:20 Labs: Abnormal Lab Results - Last 24 Hours (Table) 12/17/23 12/17/23 12/17/23 Range/Units 18:30 18:30 18:30 WBC 12.6 H (3.8-10.6) k/uL Hct 48.5 H (34.0-46.0) % MCHC 30.5 L (31.0-37.0) g/dL Neutrophils # 10.4 H (1.3-7.7) k/uL APTT (22.0-30.0) sec ABG pH (7.35-7.45) ABG pCO2 (35-45) mmHg ABG pO2 (83-108) mmHg ABG HCO3 (21-25) mmol/L ABG Total CO2 (19-24) mmol/L ABG O2 Saturation (94-97) % BUN 24 H (7-17) mg/dL Creatinine 1.44 H (0.52-1.04) mg/dL Glucose 275 H (74-99) mg/dL Plasma Lactic Acid Manuel 2.8 H* (0.7-2.0) mmol/L Troponin I (0.000-0.034) ng/mL 12/17/23 12/17/23 12/17/23 Range/Units 18:30 18:40 21:15 WBC (3.8-10.6) k/uL Hct (34.0-46.0) % MCHC (31.0-37.0) g/dL Neutrophils # (1.3-7.7) k/uL APTT 43.8 H (22.0-30.0) sec ABG pH 7.29 L (7.35-7.45) ABG pCO2 54 H (35-45) mmHg ABG pO2 >420 H (83-108) mmHg ABG HCO3 26 H (21-25) mmol/L ABG Total CO2 28 H (19-24) mmol/L ABG O2 Saturation 100.5 H (94-97) % BUN (7-17) mg/dL Creatinine (0.52-1.04) mg/dL Glucose (74-99) mg/dL Plasma Lactic Acid Manuel (0.7-2.0) mmol/L Troponin I 0.058 H* (0.000-0.034) ng/mL 12/18/23 12/18/23 12/18/23 Range/Units 01:59 09:20 09:20 WBC 11.0 H (3.8-10.6) k/uL Hct (34.0-46.0) % MCHC 30.9 L (31.0-37.0) g/dL Neutrophils # 8.6 H (1.3-7.7) k/uL APTT 31.0 H (22.0-30.0) sec ABG pH (7.35-7.45) ABG pCO2 (35-45) mmHg ABG pO2 (83-108) mmHg ABG HCO3 (21-25) mmol/L ABG Total CO2 (19-24) mmol/L ABG O2 Saturation (94-97) % BUN 26 H (7-17) mg/dL Creatinine 1.30 H (0.52-1.04) mg/dL Glucose 157 H (74-99) mg/dL Plasma Lactic Acid Manuel (0.7-2.0) mmol/L Troponin I (0.000-0.034) ng/mL Thrombosis Risk Factor Assmnt - Choose All That Apply Any of the Below Risk Factors Present?: No Each Risk Factor Represents 2 Points: Age 61-74 years Thrombosis Risk Factor Assessment Total Risk Factor Score: 2 Thrombosis Risk Factor Assessment Level: Low Risk Assessment and Plan Assessment: 1. Acute hypoxic respiratory failure likely multifactorial; CHF versus acute bronchitis versus morbid obesity -We will keep patient on O2 per nasal cannula with plans to titrate keeping O2 saturation greater than 92% 2. Acute exacerbation diastolic CHF -Patient has been placed on Lasix 40 mg IV every 12 hours; cardiology on board and agreeable -The echo is ordered and pending -We will monitor strict JEWELL's, daily weights, renal function electrolytes; avoid nephrotoxins and hypotension 3. Recent acute purulent tracheobronchitis; start patient on azithromycin 500 mg IV x 1 followed by 250 mg IV daily -- Patient remains on home inhaler therapy; symptomatic treatment 4. Acute renal injury; hold off on IV fluid hydration given acute CHF; will monitor strict JEWELL's, daily weights, renal function electrolytes; avoid nephrotoxins and hypotension 5. Elevated troponin; deemed likely related to acute renal injury without any evidence of acute cardiac ischemia -- Patient was placed on IV heparin in ED; cardiology recommending to discontinue heparin and start patient on aspirin 81 mg daily 6. Hypertension; Toprol-XL 50 mg daily, losartan 25 mg daily which is placed on hold given acute renal injury 7. Hyperlipidemia; Lipitor 80 mg p.o. nightly 8. Paroxysmal atrial fibrillation; patient not on any anticoagulation therapy 9. History of coronary artery disease; history of stenting to RCA and known intermediate disease in LAD 10. COPD; not in exacerbation; continue with home inhaler therapy DVT prophylaxis; SCDs/subcu heparin CODE STATUS; full code
[2023-12-18] MEDS: HEPARIN SODIUM,PORCINE 5,000 UNIT/ML 1 ML VIAL SQ SCH (15:54)
[2023-12-19 11:14] VITALS: BMI 47.3
[2023-12-19 11:25] LABS: Basophils # (A) 0.1 k/uL (0-0.2); Basophils % (A) 1 %; Eosinophils # (A) 0.2 k/uL (0-0.7); Eosinophils % (A) 2 %; HCT 45.8 % (34.0-46.0); HGB 14.3 gm/dL (11.4-16.0); Lymphocytes # (A) 1.8 k/uL (1.0-4.8); Lymphocytes % (A) 20 %; MCH 29.7 pg (25.0-35.0); MCHC 31.3 g/dL (31.0-37.0); MCV 94.8 fL (80.0-100.0); Mean Platelet Volume 8.4; Monocytes # (A) 0.8 k/uL (0-1.0); Monocytes % (A) 9 %; Neutrophils # (A) 6.1 k/uL (1.3-7.7); Neutrophils % (A) 67 %; Platelet Count 260 k/uL (150-450); RBC 4.83 m/uL (3.80-5.40); RDW 13.9 % (11.5-15.5)
[2023-12-19 11:45] LABS: African American GFR (CKD) 49 (>60 ml/min/1.73 sqM); Anion Gap 5 mmol/L; Blood Urea Nitrogen 32 mg/dL (7-17); Carbon Dioxide 35 mmol/L (22-30); Chloride 97 mmol/L (98-107); Glucose 145 mg/dL (74-99); Non-African American GFR(CKD) 42 (>60 ml/min/1.73 sqM); Potassium 3.6 mmol/L (3.5-5.1); Sodium 137 mmol/L (137-145)
[2023-12-19] MEDS: DAPAGLIFLOZIN PROPANEDIOL 10 MG TABLET PO SCH (13:30)
[2023-12-19 13:31] LABS: INR 0.9 (<1.2); Partial Thromboplastin Time 23.9 sec (22.0-30.0); Prothrombin Time 10.5 sec (10.0-12.5)
[2023-12-19] MEDS: HEPARIN SOD,PORK IN 0.45% NACL 25,000 UNIT in 0.45% NACL 1 250ML.BAG IV SCH (13:31)
--- NOTE | 2023-12-19 13:39 | P.PN ---
Subjective HISTORY OF PRESENT ILLNESS: This is a 73-year-old female patient of Dr. Macias with past medical history of coronary artery disease with stenting of the RCA and known history of intermediate disease involving the LAD, hypertension, dyslipidemia, questionable paroxysmal atrial fibrillation-not on anticoagulation as patient cannot afford this, nonsustained ventricular tachycardia, history of smoking and COPD, overweight. We have been asked to evaluate the patient for hypertension, CHF, non-ST elevated [place]. Patient was last seen in the office with Dr. Macias on 10/29/2023. Patient states she had no complaints at that time but following the appointment she developed shortness of breath. No coughing. She does complain of wheezing and phlegm production. No chest pain. No dizziness and no syncopal episodes. She does have some palpitations after she eats. She is not normally active. She states she gets some shortness of breath just from doing dishes or stirring a pot. No lower extremity edema, no PND. She states she quit coffee drinking a while back and has no alcohol intake. She has been smoking on and off. She denies any blood in her stools or urine. No history of stroke or seizure. Patient is seen today in the emergency center waiting for bed on the cardiac stepdown unit. Patient has been started on heparin drip and IV Lasix 40 mg every 12 hours. Blood pressure 154/82, heart rate 71, pulse ox 99% on 5 L nasal cannula. EKG: Sinus rhythm with IVCD Chest x-ray: Cardiomegaly with prominent pulmonary vascular markings. Correlate for volume overload. Laboratory studies: WBC 11, hemoglobin 13.6. Potassium 4.4, BUN 24 creatinine 1.44. Blood sugar 275. Lactic acid 2.8 followed by 1.6. Troponin 0.058. proBNP 10,400. Home Home cardiac medications: Atorvastatin 80 mg with supper, losartan 25 mg with supper, Toprol-XL 50 mg with supper. Cardiac catheterization history 05/28/2020: Occluded RCA, intermediate disease in the LAD, PCI stent of the mid RCA. Echocardiogram performed in the office on 07/16/2022 revealed normal EF, mild MR, mild TR. Event monitor 08/08/2022 revealed nonsustained ventricular tachycardia, sinus rhythm. Lexiscan Cardiolite stress test 08/29/2020 performed in the office was normal. 2023 Patient examined this morning at the bedside. Patient currently denies any chest pain or pressure. She continues to report shortness of breath although improving. She does report a cough with sputum production. She remains on IV Lasix 40 mg twice a day. Creatinine stable at 1.28. Echocardiogram completed revealing ejection fraction 20 to 25%, global hypokinesis, mild to moderate MR, mild TR. Telemetry reveals sinus mechanism with PVCs with questionable bouts of atrial fibrillation. PHYSICAL EXAM: VITAL SIGNS: Reviewed. GENERAL: Well-developed in no acute distress. NECK: Supple. No JVD or thyromegaly LUNGS: Respirations even and unlabored. Lungs essentially clear to auscultation bilaterally. HEART: Regular rate and rhythm. S1 and S2 heard. Systolic murmur. EXTREMITIES: Normal range of motion. No clubbing or cyanosis. Peripheral pulses intact. No lower extremity edema ASSESSMENT: Acute hypoxic respiratory failure secondary Recent bronchitis Acute heart failure with reduced EF, 20 to 25% New onset cardiomyopathy, EF 20 to 25%, EF normal in June 2022, ischemic versus nonischemic Elevated troponin secondary to acute myocardial injury without ischemia secondary to YOLI Acute kidney injury History of coronary artery disease with previous stenting of the RCA and known intermediate disease in the LAD Hypertension Dyslipidemia Questionable paroxysmal atrial fibrillation as this was not found on previous EKGs/telemetry History of nonsustained VT Nicotine dependence COPD Morbid obesity: BMI 47.4 PLAN: Begin IV heparin due to possible atrial fibrillation noted on telemetry. Continue telemetry monitoring Continue IV Lasix. Decrease dosing to once daily Add Farxiga 10 mg daily Repeat kidney function in a.m. If stable will consider adding Entresto tomorrow. Eventual addition of aldactone Patient will require cardiac catheterization when stable to evaluate car diomyopathy Further recommendations pending patient course Nurse practitioner note has been reviewed by physician. Signing provider agrees with the documented findings, assessment, and plan of care documented by CHAINER as a scribe. Objective - Vital Signs Vital signs: Vital Signs Temp 98.0 F 12/19/23 08:44 Pulse 65 12/19/23 08:44 Resp 20 12/19/23 08:44 BP 129/73 12/19/23 08:44 Pulse Ox 90 L 12/19/23 08:44 FiO2 40 12/17/23 19:48 Intake & Output 12/18/23 12/19/23 12/19/23 18:59 06:59 18:59 Intake Total 327.456 Output Total 675 1000 700 Balance -347.544 -1000 -700 Weight 131.542 kg 117.5 kg Intake: Intake, IV Titration 147.456 Amount Heparin Sod,Pork in 0.45% 147.456 NaCl 25,000 unit In 0.45 % NaCl 1 250ml.bag @ 7.6 UNITS/KG/HR 9.997 mls/hr IV .Q24H [facility] Rx#: [id number] Oral 180 Output: Urine 675 1000 700 Other: Voiding Method External Catheter External Catheter External Catheter # Voids 1 - Labs CBC & Chem 7: 12/19/23 10:59 12/19/23 10:59
--- NOTE | 2023-12-19 15:28 | P.PN ---
Subjective Progress Note Date: 12/19/23 73-year-old female who presents the ER today via EMS for evaluation of difficulty breathing. Patient reports about an hour prior to arrival she suddenly had difficulty in breathing she denies any significant pulmonary history. Patient states that she was previously on some cardiac medications but has been taken off of them and has not been taking them for over a year. Previous medications included Plavix which she is not certain why she took. Patient is still taking metoprolol and losartan. Patient denies any recent injuries or illness. She denies any chest pain but reports she just feels like she cannot catch her breath. Blood work completed in ED reveals a WBC of 12.6, hemoglobin of 14.8 and platelet count of 320, sodium 140, potassium 4.4, BUNs/creatinine of 24/1.44 and blood glucose of 275, BNP of 10,400, with lactic acid level of 2.8 and troponin elevated at 0.058 -Patient is being admitted for hypertensive emergency and acute exacerbation CHF Objective - Vital Signs Vital signs: Vital Signs Temp 98.0 F 12/19/23 08:44 Pulse 65 12/19/23 08:44 Resp 20 12/19/23 08:44 BP 129/73 12/19/23 08:44 Pulse Ox 90 L 12/19/23 08:44 FiO2 40 12/17/23 19:48 Intake & Output 12/18/23 12/19/23 12/19/23 18:59 06:59 18:59 Intake Total 327.456 Output Total 675 1000 700 Balance -347.544 -1000 -700 Weight 131.542 kg 117.5 kg Intake: Intake, IV Titration 147.456 Amount Heparin Sod,Pork in 0.45% 147.456 NaCl 25,000 unit In 0.45 % NaCl 1 250ml.bag @ 7.6 UNITS/KG/HR 9.997 mls/hr IV .Q24H [facility] Rx#: [id number] Oral 180 Output: Urine 675 1000 700 Other: Voiding Method External Catheter External Catheter External Catheter # Voids 1 - Exam VS: reviewed HEENT: Head is atraumatic, normocephalic. Pupils equal, round. Sclerae is anicteric. NECK: Supple. No JVD. LUNGS: Clear to auscultation. No wheezes or rhonchi. No intercostal retractions. HEART: Regular rate and rhythm. Systolic murmur. ABDOMEN: Soft No tenderness. EXTREMITIES: No pedal edema. No calf tenderness. NEUROLOGICAL: Patient is awake, alert and oriented x3. - Labs CBC & Chem 7: 12/19/23 10:59 12/19/23 10:59 Assessment and Plan Assessment: 1. Acute hypoxic respiratory failure likely multifactorial; CHF versus acute bronchitis versus morbid obesity -We will keep patient on O2 per nasal cannula with plans to titrate keeping O2 saturation greater than 92% 2. Acute exacerbation diastolic CHF -Patient has been placed on Lasix 40 mg IV every 12 hours; cardiology on board and agreeable -The echo is ordered and pending -We will monitor strict JEWELL's, daily weights, renal function electrolytes; avoid nephrotoxins and hypotension 3. Recent acute purulent tracheobronchitis; start patient on azithromycin 500 mg IV x 1 followed by 250 mg IV daily -- Patient remains on home inhaler therapy; symptomatic treatment 4. Acute renal injury; hold off on IV fluid hydration given acute CHF; will monitor strict JEWELL's, daily weights, renal function electrolytes; avoid nephrotoxins and hypotension 5. Elevated troponin; deemed likely related to acute renal injury without any evidence of acute cardiac ischemia -- Patient was placed on IV heparin in ED; cardiology recommending to discontinue heparin and start patient on aspirin 81 mg daily 6. Hypertension; Toprol-XL 50 mg daily, losartan 25 mg daily which is placed on hold given acute renal injury 7. Hyperlipidemia; Lipitor 80 mg p.o. nightly 8. Paroxysmal atrial fibrillation; patient not on any anticoagulation therapy 9. History of coronary artery disease; history of stenting to RCA and known intermediate disease in LAD 10. COPD; not in exacerbation; continue with home inhaler therapy DVT prophylaxis; SCDs/subcu heparin CODE STATUS; full code
[2023-12-19] MEDS: HEPARIN SODIUM 1,000 UN/ML (10ML VL) IV PRN (22:28)
[2023-12-20] MEDS: ALPRAZolam 0.5 MG TAB PO STA ×2 (01:29→22:33)
[2023-12-20 06:57] LABS: Basophils # (A) 0.1 k/uL (0-0.2); Basophils % (A) 1 %; Eosinophils # (A) 0.2 k/uL (0-0.7); Eosinophils % (A) 2 %; HCT 44.4 % (34.0-46.0); HGB 14.1 gm/dL (11.4-16.0); Lymphocytes # (A) 2.4 k/uL (1.0-4.8); Lymphocytes % (A) 23 %; MCH 30.1 pg (25.0-35.0); MCHC 31.8 g/dL (31.0-37.0); MCV 94.6 fL (80.0-100.0); Mean Platelet Volume 8.6; Monocytes # (A) 0.9 k/uL (0-1.0); Monocytes % (A) 9 %; Neutrophils # (A) 6.4 k/uL (1.3-7.7); Neutrophils % (A) 63 %; Platelet Count 229 k/uL (150-450); RBC 4.69 m/uL (3.80-5.40); RDW 13.7 % (11.5-15.5); WBC 10.2 k/uL (3.8-10.6)
[2023-12-20 07:03] LABS: Partial Thromboplastin Time 41.8 sec (22.0-30.0); Prothrombin Time 10.8 sec (10.0-12.5)
[2023-12-20 07:13] LABS: African American GFR (CKD) 50 (>60 ml/min/1.73 sqM); Anion Gap 3 mmol/L; Blood Urea Nitrogen 33 mg/dL (7-17); Calcium 8.8 mg/dL (8.4-10.2); Carbon Dioxide 36 mmol/L (22-30); Chloride 98 mmol/L (98-107); Glucose 130 mg/dL (74-99); Non-African American GFR(CKD) 44 (>60 ml/min/1.73 sqM); Potassium 3.4 mmol/L (3.5-5.1); Sodium 137 mmol/L (137-145)
[2023-12-20 07:19] LABS: NT-Pro-B-Type Natriuretic Pept 5040 pg/mL
[2023-12-20] MEDS: SACUBITRIL/VALSARTAN 24 MG-26 MG TABLET PO SCH (09:46)
[2023-12-20] MEDS: FUROSEMIDE 10 MG/ML 4 ML VIAL IV SCH (09:54)
--- NOTE | 2023-12-20 10:28 | P.PN ---
Subjective HISTORY OF PRESENT ILLNESS: This is a 73-year-old female patient of Dr. Macias with past medical history of coronary artery disease with stenting of the RCA and known history of intermediate disease involving the LAD, hypertension, dyslipidemia, questionable paroxysmal atrial fibrillation-not on anticoagulation as patient cannot afford this, nonsustained ventricular tachycardia, history of smoking and COPD, overweight. We have been asked to evaluate the patient for hypertension, CHF, non-ST elevated [place]. Patient was last seen in the office with Dr. Macias on 10/29/2023. Patient states she had no complaints at that time but following the appointment she developed shortness of breath. No coughing. She does complain of wheezing and phlegm production. No chest pain. No dizziness and no syncopal episodes. She does have some palpitations after she eats. She is not normally active. She states she gets some shortness of breath just from doing dishes or stirring a pot. No lower extremity edema, no PND. She states she quit coffee drinking a while back and has no alcohol intake. She has been smoking on and off. She denies any blood in her stools or urine. No history of stroke or seizure. Patient is seen today in the emergency center waiting for bed on the cardiac stepdown unit. Patient has been started on heparin drip and IV Lasix 40 mg every 12 hours. Blood pressure 154/82, heart rate 71, pulse ox 99% on 5 L nasal cannula. EKG: Sinus rhythm with IVCD Chest x-ray: Cardiomegaly with prominent pulmonary vascular markings. Correlate for volume overload. Laboratory studies: WBC 11, hemoglobin 13.6. Potassium 4.4, BUN 24 creatinine 1.44. Blood sugar 275. Lactic acid 2.8 followed by 1.6. Troponin 0.058. proBNP 10,400. Home Home cardiac medications: Atorvastatin 80 mg with supper, losartan 25 mg with supper, Toprol-XL 50 mg with supper. Cardiac catheterization history 05/28/2020: Occluded RCA, intermediate disease in the LAD, PCI stent of the mid RCA. Echocardiogram performed in the office on 07/16/2022 revealed normal EF, mild MR, mild TR. Event monitor 08/08/2022 revealed nonsustained ventricular tachycardia, sinus rhythm. Lexiscan Cardiolite stress test 08/29/2020 performed in the office was normal. December 19 2023 Patient examined this morning at the bedside. Patient currently denies any chest pain or pressure. She continues to report shortness of breath although improving. She does report a cough with sputum production. She remains on IV Lasix 40 mg twice a day. Creatinine stable at 1.28. Echocardiogram completed revealing ejection fraction 20 to 25%, global hypokinesis, mild to moderate MR, mild TR. Telemetry reveals sinus mechanism with PVCs with questionable bouts of atrial fibrillation. December 20 2023 Patient examined this morning at the bedside. Patient denies chest pain or pressure. She reports her shortness of breath is improving. She continues to report that she is spitting up orange-colored sputum. She remains on IV heparin. Telemetry this morning appears to reveal atrial fibrillation. Creatinine today 1.25. She remains on IV Lasix. PHYSICAL EXAM: VITAL SIGNS: Reviewed. GENERAL: Well-developed in no acute distress. NECK: Supple. No JVD or thyromegaly LUNGS: Respirations even and unlabored. Lungs essentially clear to auscultation bilaterally. HEART: Irregular rate and rhythm. S1 and S2 heard. Systolic murmur. EXTREMITIES: Normal range of motion. No clubbing or cyanosis. Peripheral pulses intact. No lower extremity edema ASSESSMENT: Acute hypoxic respiratory failure secondary Recent bronchitis Acute heart failure with reduced EF, 20 to 25% New onset cardiomyopathy, EF 20 to 25%, EF normal in June 2022, ischemic versus nonischemic Elevated troponin secondary to acute myocardial injury without ischemia secondary to YOLI Acute kidney injury History of coronary artery disease with previous stenting of the RCA and known intermediate disease in the LAD Hypertension Dyslipidemia Paroxysmal atrial fibrillation History of nonsustained VT Nicotine dependence COPD Morbid obesity: BMI 47.4 PLAN: Continue IV heparin. Obtain EKG. Continue telemetry monitoring Discontinue IV Lasix. Begin oral Lasix 40 mg daily Begin Entresto Eventual addition of aldactone Continue to monitor kidney function. Repeat in a.m. Possible cardiac catheterization to be performed on Thursday to evaluate cardiomyopathy Further recommendations pending patient course Nurse practitioner note has been reviewed by physician. Signing provider agrees with the documented findings, assessment, and plan of care documented by [employer]CHIT[employer] as a scribe. Objective - Vital Signs Vital signs: Vital Signs Temp 97.8 F 12/20/23 09:47 Pulse 73 12/20/23 09:47 Resp 18 12/20/23 09:47 BP 144/79 12/20/23 09:47 Pulse Ox 96 12/20/23 09:47 FiO2 40 12/17/23 19:48 Intake & Output 12/19/23 12/20/23 12/20/23 18:59 06:59 18:59 Intake Total 143 99.667 223.6 Output Total 700 800 375 Balance -557 -700.333 -151.4 Weight 117.5 kg Intake: IV 25 10 Invasive Line 1 25 10 Intake, IV Titration 89.667 103.6 Amount Heparin Sod,Pork in 0.45% 89.667 103.6 NaCl 25,000 unit In 0.45 % NaCl 1 250ml.bag @ 8. 511 UNITS/KG/HR 10 mls/hr IV .Q24H [facility] Rx#: [id number] Oral 118 120 Output: Urine 700 800 375 Other: Voiding Method External Catheter External Catheter External Catheter # Voids 3 1 - Labs CBC & Chem 7: 12/20/23 06:13 12/20/23 06:13 Labs: Abnormal Lab Results - Last 24 Hours (Table) 12/19/23 12/19/23 12/20/23 Range/Units 10:59 19:06 06:13 APTT 37.9 H (22.0-30.0) sec Potassium 3.4 L (3.5-5.1) mmol/L Chloride 97 L (98-107) mmol/L Carbon Dioxide 35 H 36 H (22-30) mmol/L BUN 32 H 33 H (7-17) mg/dL Creatinine 1.28 H 1.25 H (0.52-1.04) mg/dL Glucose 145 H 130 H (74-99) mg/dL 12/20/23 Range/Units 06:13 APTT 41.8 H (22.0-30.0) sec Potassium (3.5-5.1) mmol/L Chloride (98-107) mmol/L Carbon Dioxide (22-30) mmol/L BUN (7-17) mg/dL Creatinine (0.52-1.04) mg/dL Glucose (74-99) mg/dL
[2023-12-20] MEDS: FAMOTIDINE 20 MG TAB PO SCH (20:18)
[2023-12-20] MEDS ORDERED: FAMOTIDINE 20 MG/2 ML VIAL IV SCH (21:00)
[2023-12-21] MEDS: FUROSEMIDE 40 MG TAB PO SCH (09:41)
[2023-12-21 10:18] LABS: African American GFR (CKD) 55 (>60 ml/min/1.73 sqM); Anion Gap 2 mmol/L; Blood Urea Nitrogen 28 mg/dL (7-17); Calcium 8.7 mg/dL (8.4-10.2); Carbon Dioxide 34 mmol/L (22-30); Chloride 102 mmol/L (98-107); Glucose 158 mg/dL (74-99); Non-African American GFR(CKD) 48 (>60 ml/min/1.73 sqM); Potassium 3.3 mmol/L (3.5-5.1); Sodium 138 mmol/L (137-145)
[2023-12-21] MEDS ORDERED: NITROGLYCERIN SL TABS 0.4 MG TAB SUBLINGUAL PRN (10:29)
[2023-12-21] MEDS: ATORVASTATIN 80 MG TAB PO STA (10:40)
[2023-12-21] MEDS: SODIUM CHLORIDE 0.9% 1,000 ML in EMPTY BAG 1 BAG IV SCH (10:41)
[2023-12-21] MEDS: ASPIRIN 81 MG PO STA (10:41)
[2023-12-21] MEDS: IV FLUID CONTINUATION 1,000 ML IV ONE (11:36)
[2023-12-21] MEDS: MIDAZOLAM 2 MG/2 ML VIAL IVP ONE (11:36)
--- NOTE | 2023-12-21 11:45 | P.PN ---
Subjective HISTORY OF PRESENT ILLNESS: This is a 73-year-old female patient of Dr. Macias with past medical history of coronary artery disease with stenting of the RCA and known history of intermediate disease involving the LAD, hypertension, dyslipidemia, questionable paroxysmal atrial fibrillation-not on anticoagulation as patient cannot afford this, nonsustained ventricular tachycardia, history of smoking and COPD, overweight. We have been asked to evaluate the patient for hypertension, CHF, non-ST elevated TN. Patient was last seen in the office with Dr. Macias on 10/29/2023. Patient states she had no complaints at that time but following the appointment she developed shortness of breath. No coughing. She does complain of wheezing and phlegm production. No chest pain. No dizziness and no syncopal episodes. She does have some palpitations after she eats. She is not normally active. She states she gets some shortness of breath just from doing dishes or stirring a pot. No lower extremity edema, no PND. She states she quit coffee drinking a while back and has no alcohol intake. She has been smoking on and off. She denies any blood in her stools or urine. No history of stroke or seizure. Patient is seen today in the emergency center waiting for bed on the cardiac stepdown unit. Patient has been started on heparin drip and IV Lasix 40 mg every 12 hours. Blood pressure 154/82, heart rate 71, pulse ox 99% on 5 L nasal cannula. EKG: Sinus rhythm with IVCD Chest x-ray: Cardiomegaly with prominent pulmonary vascular markings. Correlate for volume overload. Laboratory studies: WBC 11, hemoglobin 13.6. Potassium 4.4, BUN 24 creatinine 1.44. Blood sugar 275. Lactic acid 2.8 followed by 1.6. Troponin 0.058. proBNP 10,400. Home Home cardiac medications: Atorvastatin 80 mg with supper, losartan 25 mg with supper, Toprol-XL 50 mg with supper. Cardiac catheterization history 05/28/2020: Occluded RCA, intermediate disease in the LAD, PCI stent of the mid RCA. Echocardiogram performed in the office on 07/16/2022 revealed normal EF, mild MR, mild TR. Event monitor 08/08/2022 revealed nonsustained ventricular tachycardia, sinus rhythm. Lexiscan Cardiolite stress test 08/29/2020 performed in the office was normal. December 19 2023 Patient examined this morning at the bedside. Patient currently denies any chest pain or pressure. She continues to report shortness of breath although improving. She does report a cough with sputum production. She remains on IV Lasix 40 mg twice a day. Creatinine stable at 1.28. Echocardiogram completed revealing ejection fraction 20 to 25%, global hypokinesis, mild to moderate MR, mild TR. Telemetry reveals sinus mechanism with PVCs with questionable bouts of atrial fibrillation. December 20 2023 Patient examined this morning at the bedside. Patient denies chest pain or pressure. She reports her shortness of breath is improving. She continues to report that she is spitting up orange-colored sputum. She remains on IV heparin. Telemetry this morning appears to reveal atrial fibrillation. Creatinine today 1.25. She remains on IV Lasix. December 21, 2023 Patient examined this morning at the bedside. Patient currently denies chest pain or pressure. She reports continued shortness of breath although improving from admission. Telemetry reveals atrial fibrillation with heart rate in the 80s. She remains on IV heparin. Kidney function today remained stable with a creatinine of 1.1 PHYSICAL EXAM: VITAL SIGNS: Reviewed. GENERAL: Well-developed in no acute distress. NECK: Supple. No JVD or thyromegaly LUNGS: Respirations even and unlabored. Lungs essentially clear to auscultation bilaterally. HEART: Irregular rate and rhythm. S1 and S2 heard. Systolic murmur. EXTREMITIES: Normal range of motion. No clubbing or cyanosis. Peripheral pulses intact. No lower extremity edema ASSESSMENT: Acute hypoxic respiratory failure secondary Recent bronchitis Acute heart failure with reduced EF, 20 to 25% New onset cardiomyopathy, EF 20 to 25%, EF normal in June 2022, ischemic versus nonischemic Elevated troponin secondary to acute myocardial injury without ischemia secondary to YOLI Acute kidney injury History of coronary artery disease with previous stenting of the RCA and known intermediate disease in the LAD Hypertension Dyslipidemia Paroxysmal atrial fibrillation History of nonsustained VT Nicotine dependence COPD Morbid obesity: BMI 47.4 PLAN: Continue current cardiac medications Eventual addition of aldactone Continue to monitor kidney function. Repeat in a.m. Patient to undergo cardiac catheterization today with Dr. Macias Continue IV heparin. Patient will require eventual transition to oral anticoagulation after cardiac catheterization Further recommendations pending patient course Nurse practitioner note has been reviewed by physician. Signing provider agrees with the documented findings, assessment, and plan of care documented by BREAST TRIMMER as a scribe. Objective - Vital Signs Vital signs: Vital Signs Temp 97.5 F L 12/21/23 04:00 Pulse 83 12/21/23 08:00 Resp 16 12/21/23 08:00 BP 110/74 12/21/23 07:09 Pulse Ox 95 12/21/23 08:39 FiO2 40 12/17/23 19:48 Intake & Output 12/20/23 12/21/23 12/21/23 18:59 06:59 18:59 Intake Total 656.200 234.133 118 Output Total 750 300 Balance -93.800 -65.867 118 Weight 130.6 kg Intake: IV 120 .9@10 120 Intake, IV Titration 176.200 234.133 Amount Heparin Sod,Pork in 0.45% 176.200 234.133 NaCl 25,000 unit In 0.45 % NaCl 1 250ml.bag @ 8. 511 UNITS/KG/HR 10 mls/hr IV .Q24H [facility] Rx#: [id number] Oral 360 118 Output: Urine 750 300 Other: Voiding Method External Catheter External Catheter External Catheter # Voids 1 - Labs CBC & Chem 7: 12/20/23 06:13 12/21/23 09:37 Labs: Abnormal Lab Results - Last 24 Hours (Table) 12/20/23 12/21/23 12/21/23 Range/Units 11:34 09:37 09:37 APTT 63.8 H 56.7 H (22.0-30.0) sec Potassium 3.3 L (3.5-5.1) mmol/L Carbon Dioxide 34 H (22-30) mmol/L BUN 28 H (7-17) mg/dL Creatinine 1.16 H (0.52-1.04) mg/dL Glucose 158 H (74-99) mg/dL
[2023-12-21] MEDS: LIDOCAINE 1% INJ 10MG/ML (20 ML MDV) SQ ONE (11:46)
[2023-12-21] MEDS: HEPARIN SODIUM 1,000 UN/ML (10ML VL) IVP ONE (11:47)
[2023-12-21] MEDS: VERAPAMIL SYRINGE (5 MG/10 ML) INTRAARTER ONE (11:48)
[2023-12-21] MEDS ORDERED: RX INFO: IV CONTRAST WAS GIVEN 1 EACH MISC MISCELLANE PRN (11:57)
--- NOTE | 2023-12-21 11:59 | P.PCN ---
Date of Procedure: 12/21/23 Operative Findings: CARDIAC CATHETERIZATION PERFORMING PHYSICIAN: Ziggy Macias MD, RPVI PROCEDURE PERFORMED: 1. Selective right and left coronary angiogram 2. Left heart catheterization 3. Ultrasound-guided access of the right radial artery INDICATION: Cardiomyopathy COMPLICATION: None APPROACH: Right radial artery LEVEL OF SEDATION: Moderate with a sedation length of 8 minutes PROCEDURE DESCRIPTION: After obtaining an informed consent, the patient was brought to cardiac grinding and polishing laborer. Local anesthesia was performed using lidocaine subcutaneously. The right radial artery was cannulated using Seldinger technique, the guidewire passed easily, following that we advanced a 5-Japanese sheath dilator assembly, the wire and dilator were removed and sheath was flushed. Following that, 2 mg of verapamil along with 5000 unit heparin were given. Selective right and left coronary angiogram using a 6-Japanese JR4 and JL 3.5 catheters. Following that we did left heart catheterization using 6-Japanese pigtail catheter. The procedure was completed there was no complication. SELECTIVE CORONARY ANGIOGRAM: The right coronary artery: The dominant vessel. The stent in the mid 90s. Left main: Is angiographically normal The left circumflex: Large caliber vessel nondominant vessel with mild to moderate disease with normal stenosis was identified and gives rise into an OM1 which appears to have diffuse The left anterior descending artery: The proximal LAD appears to be angiographically normal. The mid LAD has a lesion appears to be in the range of 30 to 40% has not changed compared to before as [id number] if any has improved compared to before HEMODYNAMICS: The LVEDP was 21 mmHg with no significant gradient across aortic valve CONCLUSION: 1. Patent stent in the mid RCA 2. Intermediate nonobstructive lesion involving the mid LAD has not changed compared to before 3. Elevated left-sided filling pressure POSTPROCEDURE MANAGEMENT: Medical treatment and consider atrial fibrillation control and possibly cardioversion
[2023-12-21] MEDS: IOPAMIDOL-370 200ML BTL INJ ONE (12:03)
--- NOTE | 2023-12-21 12:11 | P.PN ---
Subjective 73-year-old female who presents the ER today via EMS for evaluation of difficulty breathing. Patient reports about an hour prior to arrival she gael denly had difficulty in breathing she denies any significant pulmonary history. Patient states that she was previously on some cardiac medications but has been taken off of them and has not been taking them for over a year. Previous medications included Plavix which she is not certain why she took. Patient is still taking metoprolol and losartan. Patient denies any recent injuries or illness. She denies any chest pain but reports she just feels like she cannot catch her breath. Blood work completed in ED reveals a WBC of 12.6, hemoglobin of 14.8 and platelet count of 320, sodium 140, potassium 4.4, BUNs/creatinine of 24/1.44 and blood glucose of 275, BNP of 10,400, with lactic acid level of 2.8 and troponin elevated at 0.058 -Patient is being admitted for hypertensive emergency and acute exacerbation CHF 12/21/2023 Patient awake alert She has some dyspnea and exertional dyspnea but denies chest pain No significant leg swelling. She is hemodynamically stable Patient s/p cardiac cath today showing patent RCA stent and moderate obstructive LAD disease that trim die maker recommended medical management 1 continue management of atrial fibrillation and possible cardioversion Objective - Vital Signs Vital signs: Vital Signs Temp 97.5 F L 12/21/23 04:00 Pulse 83 12/21/23 08:00 Resp 16 12/21/23 08:00 BP 110/74 12/21/23 07:09 Pulse Ox 95 12/21/23 08:39 FiO2 40 12/17/23 19:48 Intake & Output 12/20/23 12/21/23 12/21/23 18:59 06:59 18:59 Intake Total 656.200 234.133 193 Output Total 750 300 Balance -93.800 -65.867 193 Weight 130.6 kg Intake: IV 120 75 .9@10 120 Intake, IV Titration 176.200 234.133 Amount Heparin Sod,Pork in 0.45% 176.200 234.133 NaCl 25,000 unit In 0.45 % NaCl 1 250ml.bag @ 8. 511 UNITS/KG/HR 10 mls/hr IV .Q24H [facility] Rx#: [id number] Oral 360 118 Output: Urine 750 300 Other: Voiding Method External Catheter External Catheter External Catheter # Voids 1 - Exam -GENERAL: The patient is alert and oriented x3, not in any acute distress. Well developed, well nourished. Obese HEENT: Pupils are round and equally reacting to light. EOMI. No scleral icterus. No conjunctival pallor. Normocephalic, atraumatic. No pharyngeal erythema. No thyromegaly. CARDIOVASCULAR: S1 and S2 present. No murmurs, rubs, or gallops. PULMONARY: Chest is clear to auscultation, no wheezing , no crackles. ABDOMEN: Soft, nontender, nondistended, normoactive bowel sounds. No palpable organomegaly. MUSCULOSKELETAL: No joint swelling or deformity. EXTREMITIES: No cyanosis, clubbing, or pedal edema. NEUROLOGICAL: Gross neurological examination did not reveal any focal deficits. SKIN: No rashes. no petechiae. - Labs CBC & Chem 7: 12/20/23 06:13 12/21/23 09:37 Labs: Abnormal Lab Results - Last 24 Hours (Table) 12/20/23 12/21/23 12/21/23 Range/Units 11:34 09:37 09:37 APTT 63.8 H 56.7 H (22.0-30.0) sec Potassium 3.3 L (3.5-5.1) mmol/L Carbon Dioxide 34 H (22-30) mmol/L BUN 28 H (7-17) mg/dL Creatinine 1.16 H (0.52-1.04) mg/dL Glucose 158 H (74-99) mg/dL Assessment and Plan Assessment: 1. Acute hypoxic respiratory failure likely multifactorial; CHF versus acute bronchitis versus morbid obesity -We will keep patient on O2 per nasal cannula with plans to titrate keeping O2 saturation greater than 92% patient currently on room air - 2. Acute exacerbation diastolic CHF, new onset. Nonischemic -Patient has been placed on Lasix 40 mg IV every 12 hours; cardiology on board and agreeable -The echo is ordered and pending -We will monitor strict JEWELL's, daily weights, renal function electrolytes; avoid nephrotoxins and hypotension - s/p cardiac cath on 12/20 showing patent stents of the mid RCA and intermediate nonobstructive lesion in the mid LAD. Medical management recommended 3. Recent acute purulent tracheobronchitis; start patient on azithromycin 500 mg IV x 1 followed by 250 mg IV daily -- Patient remains on home inhaler therapy; symptomatic treatment -Currently not an active issue 4. Acute renal injury; hold off on IV fluid hydration given acute CHF; will monitor strict JEWELL's, daily weights, renal function electrolytes; avoid neph rotoxins and hypotension 5. persistent atrial fibrillation -- Patient was placed on IV heparin in ED; cardiology recommending to discontinue heparin and start patient on aspirin 81 mg daily -- Started on Eliquis by trim die maker, find co-pay 6. Hypertension; Toprol-XL 50 mg daily, losartan 25 mg daily which is placed on hold given acute renal injury 7. Hyperlipidemia; Lipitor 80 mg p.o. nightly 8. Paroxysmal atrial fibrillation; patient not on any anticoagulation therapy 9. History of coronary artery disease; history of stenting to RCA and known intermediate disease in LAD 10. COPD; not in exacerbation; continue with home inhaler therapy DVT prophylaxis; SCDs/subcu Eliquis CODE STATUS; full code
--- NOTE | 2023-12-21 12:54 | P.PN ---
Subjective Progress Note Date: 12/20/23 73-year-old female who presents the ER today via EMS for evaluation of difficulty breathing. Patient reports about an hour prior to arrival she suddenly had difficulty in breathing she denies any significant pulmonary history. Patient states that she was previously on some cardiac medications but has been taken off of them and has not been taking them for over a year. Previous medications included Plavix which she is not certain why she took. Patient is still taking metoprolol and losartan. Patient denies any recent injuries or illness. She denies any chest pain but reports she just feels like she cannot catch her breath. Blood work completed in ED reveals a WBC of 12.6, hemoglobin of 14.8 and platelet count of 320, sodium 140, potassium 4.4, BUNs/creatinine of 24/1.44 and blood glucose of 275, BNP of 10,400, with lactic acid level of 2.8 and troponin elevated at 0.058 -Patient is being admitted for hypertensive emergency and acute exacerbation CHF 12/20/2023 Patient is seen and evaluated multiple family members at bedside; reports she has had detailed discussion with cardiology and is aware of worsening ejection fraction Vital signs are reviewed and remained stable with temperature of 97.8, pulse 73, respiration 18 blood pressure of 144/79 Lab review shows WBC of 10.2, for hemoglobin of 14.1 and platelet count of 229, sodium 137, potassium 3.4, BUNs/creatinine of 33/1.25 Echocardiogram reveals reduced EF of 20 to 25% which is down from normal EF in June 2022; cardiology concerned about ischemia versus nonischemic etiology -Patient has been placed back on IV heparin per cardiology recommendations; plan to proceed with cardiac catheterization tomorrow morning Objective - Vital Signs Vital signs: Vital Signs Temp 97.8 F 12/20/23 09:47 Pulse 73 12/20/23 09:47 Resp 18 12/20/23 09:47 BP 144/79 12/20/23 09:47 Pulse Ox 96 12/20/23 09:47 FiO2 40 12/17/23 19:48 Intake & Output 12/19/23 12/20/23 12/20/23 18:59 06:59 18:59 Intake Total 143 99.667 223.6 Output Total 700 800 375 Balance -557 -700.333 -151.4 Weight 117.5 kg Intake: IV 25 10 Invasive Line 1 25 10 Intake, IV Titration 89.667 103.6 Amount Heparin Sod,Pork in 0.45% 89.667 103.6 NaCl 25,000 unit In 0.45 % NaCl 1 250ml.bag @ 8. 511 UNITS/KG/HR 10 mls/hr IV .Q24H [facility] Rx#: [id number] Oral 118 120 Output: Urine 700 800 375 Other: Voiding Method External Catheter External Catheter External Catheter # Voids 3 1 - Exam VS: reviewed HEENT: Head is atraumatic, normocephalic. Pupils equal, round. Sclerae is anicteric. NECK: Supple. No JVD. LUNGS: Clear to auscultation. No wheezes or rhonchi. No intercostal retractions. HEART: Regular rate and rhythm. Systolic murmur. ABDOMEN: Soft No tenderness. EXTREMITIES: No pedal edema. No calf tenderness. NEUROLOGICAL: Patient is awake, alert and oriented x3. - Labs CBC & Chem 7: 12/20/23 06:13 12/21/23 09:37 Labs: Abnormal Lab Results - Last 24 Hours (Table) 12/19/23 12/19/23 12/20/23 Range/Units 10:59 19:06 06:13 APTT 37.9 H (22.0-30.0) sec Potassium 3.4 L (3.5-5.1) mmol/L Chloride 97 L (98-107) mmol/L Carbon Dioxide 35 H 36 H (22-30) mmol/L BUN 32 H 33 H (7-17) mg/dL Creatinine 1.28 H 1.25 H (0.52-1.04) mg/dL Glucose 145 H 130 H (74-99) mg/dL 12/20/23 Range/Units 06:13 APTT 41.8 H (22.0-30.0) sec Potassium (3.5-5.1) mmol/L Chloride (98-107) mmol/L Carbon Dioxide (22-30) mmol/L BUN (7-17) mg/dL Creatinine (0.52-1.04) mg/dL Glucose (74-99) mg/dL Assessment and Plan Assessment: 1. Acute hypoxic respiratory failure likely multifactorial; CHF versus acute b ronchitis versus morbid obesity -We will keep patient on O2 per nasal cannula with plans to titrate keeping O2 saturation greater than 92% 2. Acute exacerbation diastolic CHF -Patient has been placed on Lasix 40 mg IV every 12 hours; cardiology on board and agreeable -The echo is ordered and pending -We will monitor strict JEWELL's, daily weights, renal function electrolytes; avoid nephrotoxins and hypotension 3. Recent acute purulent tracheobronchitis; start patient on azithromycin 500 mg IV x 1 followed by 250 mg IV daily -- Patient remains on home inhaler therapy; symptomatic treatment 4. Acute renal injury; hold off on IV fluid hydration given acute CHF; will monitor strict JEWELL's, daily weights, renal function electrolytes; avoid nephrotoxins and hypotension 5. Elevated troponin; deemed likely related to acute renal injury without any evidence of acute cardiac ischemia -- Patient was placed on IV heparin in ED; cardiology recommending to discontinue heparin and start patient on aspirin 81 mg daily 6. Hypertension; Toprol-XL 50 mg daily, losartan 25 mg daily which is placed on hold given acute renal injury 7. Hyperlipidemia; Lipitor 80 mg p.o. nightly 8. Paroxysmal atrial fibrillation; patient not on any anticoagulation therapy 9. History of coronary artery disease; history of stenting to RCA and known intermediate disease in LAD 10. COPD; not in exacerbation; continue with home inhaler therapy DVT prophylaxis; SCDs/subcu heparin CODE STATUS; full code
[2023-12-21] MEDS: DEXTROSE 5% IN WATER 100 ML with AMIODARONE 150 MG IV ONE (14:53)
[2023-12-21] MEDS: AMIODARONE 360 MG in DEXTROSE 5% IN WATER 200 ML IV ONE (15:12)
[2023-12-21] MEDS: APIXABAN 5 MG TAB PO SCH (20:36)
[2023-12-21] MEDS: ALPRAZolam 0.5 MG TAB PO PRN (20:36)
[2023-12-21] MEDS: SODIUM CHLORIDE 0.9% 1,000 ML IV SCH (21:03)
[2023-12-21] MEDS: AMIODARONE 450 MG in DEXTROSE 5% IN WATER 250 ML IV SCH (22:32)
[2023-12-22] MEDS ORDERED: HEPARIN SODIUM,PORCINE 10,000 UNIT in SODIUM CHLORIDE 0.9% 1,000 ML IRRIGATION PRN (07:00)
[2023-12-22] MEDS ORDERED: HEPARIN SODIUM,PORCINE (1 ML) 2,500 UNIT in SODIUM CHLORIDE 0.9% 250 ML IRRIGATION PRN (07:00)
[2023-12-22 08:42] LABS: African American GFR (CKD) 54 (>60 ml/min/1.73 sqM); Anion Gap 3 mmol/L; Blood Urea Nitrogen 23 mg/dL (7-17); Calcium 8.8 mg/dL (8.4-10.2); Carbon Dioxide 33 mmol/L (22-30); Chloride 102 mmol/L (98-107); Glucose 122 mg/dL (74-99); Non-African American GFR(CKD) 47 (>60 ml/min/1.73 sqM); Potassium 3.6 mmol/L (3.5-5.1); Sodium 138 mmol/L (137-145)
--- NOTE | 2023-12-22 09:45 | P.PN ---
Subjective 73-year-old female who presents the ER today via EMS for evaluation of difficulty breathing. Patient reports about an hour prior to arrival she gael denly had difficulty in breathing she denies any significant pulmonary history. Patient states that she was previously on some cardiac medications but has been taken off of them and has not been taking them for over a year. Previous medications included Plavix which she is not certain why she took. Patient is still taking metoprolol and losartan. Patient denies any recent injuries or illness. She denies any chest pain but reports she just feels like she cannot catch her breath. Blood work completed in ED reveals a WBC of 12.6, hemoglobin of 14.8 and platelet count of 320, sodium 140, potassium 4.4, BUNs/creatinine of 24/1.44 and blood glucose of 275, BNP of 10,400, with lactic acid level of 2.8 and troponin elevated at 0.058 -Patient is being admitted for hypertensive emergency and acute exacerbation CHF 12/21/2023 Patient awake alert She has some dyspnea and exertional dyspnea but denies chest pain No significant leg swelling. 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 She is currently on aspirin 81 mg and El iquis 5 mg. Creatinine stable 1.17. Objective - Vital Signs Vital signs: Vital Signs Temp 97.5 F L 12/22/23 08:31 Pulse 78 12/22/23 08:31 Resp 18 12/22/23 08:31 BP 126/69 12/22/23 08:31 Pulse Ox 94 L 12/22/23 08:31 FiO2 21 12/22/23 08:15 Intake & Output 12/21/23 12/22/23 12/22/23 18:59 06:59 18:59 Intake Total 429 Output Total 200 Balance 229 Weight 130.8 kg Intake: IV 75 Oral 354 Output: Urine 200 Other: Voiding Method External Catheter Toilet # Voids 1 2 # Bowel Movements 2 - Exam -GENERAL: The patient is alert and oriented x3, not in any acute distress. Well developed, well nourished. Obese HEENT: Pupils are round and equally reacting to light. EOMI. No scleral icterus. No conjunctival pallor. Normocephalic, atraumatic. No pharyngeal erythema. No thyromegaly. CARDIOVASCULAR: S1 and S2 present. No murmurs, rubs, or gallops. PULMONARY: Chest is clear to auscultation, no wheezing , no crackles. ABDOMEN: Soft, nontender, nondistended, normoactive bowel sounds. No palpable organomegaly. MUSCULOSKELETAL: No joint swelling or deformity. EXTREMITIES: No cyanosis, clubbing, or pedal edema. NEUROLOGICAL: Gross neurological examination did not reveal any focal deficits. SKIN: No rashes. no petechiae. - Labs CBC & Chem 7: 12/20/23 06:13 12/22/23 07:30 Labs: Abnormal Lab Results - Last 24 Hours (Table) 12/21/23 12/21/23 12/22/23 Range/Units 09:37 09:37 07:30 APTT 56.7 H (22.0-30.0) sec Potassium 3.3 L (3.5-5.1) mmol/L Carbon Dioxide 34 H 33 H (22-30) mmol/L BUN 28 H 23 H (7-17) mg/dL Creatinine 1.16 H 1.17 H (0.52-1.04) mg/dL Glucose 158 H 122 H (74-99) mg/dL Assessment and Plan Assessment: 1. Acute hypoxic respiratory failure likely multifactorial; CHF versus acute bronchitis versus morbid obesity -We will keep patient on O2 per nasal cannula with plans to titrate keeping O2 saturation greater than 92% patient currently on room air - 2. Acute exacerbation diastolic CHF, new onset. Nonischemic -Patient has been placed on Lasix 40 mg IV every 12 hours; cardiology on board and agreeable -The echo is ordered and pending -We will monitor strict JEWELL's, daily weights, renal function electrolytes; avoid nephrotoxins and hypotension - s/p cardiac cath on 12/20 showing patent stents of the mid RCA and intermediate nonobstructive lesion in the mid LAD. Medical management recommended 3. Recent acute purulent tracheobronchitis; start patient on azithromycin 500 mg IV x 1 followed by 250 mg IV daily -- Patient remains on home inhaler therapy; symptomatic treatment -Currently not an active issue 4. Acute renal injury; hold off on IV fluid hydration given acute CHF; will monitor strict JEWELL's, daily weights, renal function electrolytes; avoid nephrotoxins and hypotension 5. persistent atrial fibrillation -- Patient was placed on IV heparin in ED; cardiology recommending to discontinue heparin and start patient on aspirin 81 mg daily -- Started on Eliquis by levers lace machine operator, find co-pay 6. Hypertension; Toprol-XL 50 mg daily, losartan 25 mg daily which is placed on hold given acute renal injury 7. Hyperlipidemia; Lipitor 80 mg p.o. nightly 8. Paroxysmal atrial fibrillation; patient not on any anticoagulation therapy 9. History of coronary artery disease; history of stenting to RCA and known intermediate disease in LAD 10. COPD; not in exacerbation; continue with home inhaler therapy DVT prophylaxis; SCDs/subcu Eliquis CODE STATUS; full code
[2023-12-22] MEDS: POTASSIUM CHLORIDE ER 20 MEQ TAB.ER PO STA (11:27)
--- NOTE | 2023-12-22 12:29 | P.PN ---
Subjective HISTORY OF PRESENT ILLNESS: This is a 73-year-old female patient of Dr. Macias with past medical history of coronary artery disease with stenting of the RCA and known history of intermediate disease involving the LAD, hypertension, dyslipidemia, questionable paroxysmal atrial fibrillation-not on anticoagulation as patient cannot afford this, nonsustained ventricular tachycardia, history of smoking and COPD, overweight. We have been asked to evaluate the patient for hypertension, CHF, non-ST elevated [place]. Patient was last seen in the office with Dr. Macias on 10/29/2023. Patient states she had no complaints at that time but following the appointment she developed shortness of breath. No coughing. She does complain of wheezing and phlegm production. No chest pain. No dizziness and no syncopal episodes. She does have some palpitations after she eats. She is not normally active. She states she gets some shortness of breath just from doing dishes or stirring a pot. No lower extremity edema, no PND. She states she quit coffee drinking a while back and has no alcohol intake. She has been smoking on and off. She denies any blood in her stools or urine. No history of stroke or seizure. Patient is seen today in the emergency center waiting for bed on the cardiac stepdown unit. Patient has been started on heparin drip and IV Lasix 40 mg every 12 hours. Blood pressure 154/82, heart rate 71, pulse ox 99% on 5 L nasal cannula. EKG: Sinus rhythm with IVCD Chest x-ray: Cardiomegaly with prominent pulmonary vascular markings. Correlate for volume overload. Laboratory studies: WBC 11, hemoglobin 13.6. Potassium 4.4, BUN 24 creatinine 1.44. Blood sugar 275. Lactic acid 2.8 followed by 1.6. Troponin 0.058. proBNP 10,400. Home Home cardiac medications: Atorvastatin 80 mg with supper, losartan 25 mg with supper, Toprol-XL 50 mg with supper. Cardiac catheterization history 05/28/2020: Occluded RCA, intermediate disease in the LAD, PCI stent of the mid RCA. Echocardiogram performed in the office on 07/16/2022 revealed normal EF, mild MR, mild TR. Event monitor 08/08/2022 revealed nonsustained ventricular tachycardia, sinus rhythm. Lexiscan Cardiolite stress test 08/29/2020 performed in the office was normal. December 19 2023 Patient examined this morning at the bedside. Patient currently denies any chest pain or pressure. She continues to report shortness of breath although improving. She does report a cough with sputum production. She remains on IV Lasix 40 mg twice a day. Creatinine stable at 1.28. Echocardiogram completed revealing ejection fraction 20 to 25%, global hypokinesis, mild to moderate MR, mild TR. Telemetry reveals sinus mechanism with PVCs with questionable bouts of atrial fibrillation. December 20 2023 Patient examined this morning at the bedside. Patient denies chest pain or pressure. She reports her shortness of breath is improving. She continues to report that she is spitting up orange-colored sputum. She remains on IV heparin. Telemetry this morning appears to reveal atrial fibrillation. Creatinine today 1.25. She remains on IV Lasix. December 21, 2023 Patient examined this morning at the bedside. Patient currently denies chest pain or pressure. She reports continued shortness of breath although improving from admission. Telemetry reveals atrial fibrillation with heart rate in the 80s. She remains on IV heparin. Kidney function today remained stable with a creatinine of 1.1 December 22, 2023 Patient underwent cardiac catheterization yesterday with Dr. Macias revealing patent stent in the mid RCA, intermediate nonobstructive disease involving the mid LAD, and elevated left-sided filling pressures. Patient examined this morning the bedside. She currently denies chest pain or pressure. She is laying flat in bed and appears comfortable. Patient was started on IV amiodarone yesterday. She remains in atrial fibrillation with controlled ventricular rate. PHYSICAL EXAM: VITAL SIGNS: Reviewed. GENERAL: Well-developed in no acute distress. NECK: Supple. No JVD or thyromegaly LUNGS: Respirations even and unlabored. Lungs essentially clear to auscultation bilaterally. HEART: Irregular rate and rhythm. S1 and S2 heard. Systolic murmur. EXTREMITIES: Normal range of motion. No clubbing or cyanosis. Peripheral pulses intact. No lower extremity edema ASSESSMENT: Acute hypoxic respiratory failure secondary Recent bronchitis Acute heart failure with reduced EF, 20 to 25% New onset cardiomyopathy, EF 20 to 25%, EF normal in June 2022, nonischemic, status post cardiac catheterization with no progression of CAD, may be due to atrial fibrillation Elevated troponin secondary to acute myocardial injury without ischemia secondary to YOLI Acute kidney injury History of coronary artery disease with previous stenting of the RCA and known intermediate disease in the LAD Hypertension Dyslipidemia Paroxysmal atrial fibrillation History of nonsustained VT Nicotine dependence COPD Morbid obesity: BMI 47.4 PLAN: Continue current cardiac medications Increase Lasix to 40 mg twice a day Eventual addition of aldactone Continue to monitor kidney function. Repeat in a.m. Continue oral anticoagulation with Eliquis IV amiodarone infusion completed. Begin oral amiodarone 400 mg twice a day N.p.o. at midnight Patient to undergo HAZEL and cardioversion tomorrow with Dr. Macias Further recommendations pending patient course Nurse practitioner note has been reviewed by physician. Signing provider agrees with the documented findings, assessment, and plan of care documented by FACILITY ATTENDANT as a scribe. Objective - Vital Signs Vital signs: Vital Signs Temp 97.5 F L 12/22/23 08:31 Pulse 66 12/22/23 11:23 Resp 18 12/22/23 11:23 BP 101/67 12/22/23 11:23 Pulse Ox 92 L 12/22/23 11:23 FiO2 21 12/22/23 08:15 Intake & Output 12/21/23 12/22/23 12/22/23 18:59 06:59 18:59 Intake Total 429 10 Output Total 200 Balance 229 10 Weight 130.8 kg Intake: IV 75 10 Invasive Line 2 10 Oral 354 Output: Urine 200 Other: Voiding Method External Catheter Toilet # Voids 1 2 1 # Bowel Movements 2 - Labs CBC & Chem 7: 12/23/23 11:25 12/23/23 11:25 Labs: Abnormal Lab Results - Last 24 Hours (Table) 12/22/23 Range/Units 07:30 Carbon Dioxide 33 H (22-30) mmol/L BUN 23 H (7-17) mg/dL Creatinine 1.17 H (0.52-1.04) mg/dL Glucose 122 H (74-99) mg/dL
[2023-12-22] MEDS: AMIODARONE 200 MG TAB PO SCH (13:04)
[2023-12-22] MEDS: FUROSEMIDE 40 MG TAB PO SCH (15:10)
[2023-12-23] MEDS: ALPRAZolam 0.25 MG TAB PO PRN (00:14)
[2023-12-23 12:13] LABS: Basophils # (A) 0.1 k/uL (0-0.2); Basophils % (A) 1 %; Eosinophils # (A) 0.2 k/uL (0-0.7); Eosinophils % (A) 3 %; HCT 44.6 % (34.0-46.0); HGB 13.9 gm/dL (11.4-16.0); Lymphocytes # (A) 1.9 k/uL (1.0-4.8); Lymphocytes % (A) 25 %; MCH 29.6 pg (25.0-35.0); MCHC 31.2 g/dL (31.0-37.0); MCV 94.8 fL (80.0-100.0); Monocytes # (A) 0.7 k/uL (0-1.0); Monocytes % (A) 9 %; Neutrophils # (A) 4.6 k/uL (1.3-7.7); Neutrophils % (A) 61 %; Platelet Count 253 k/uL (150-450); WBC 7.5 k/uL (3.8-10.6)
[2023-12-23 13:03] LABS: African American GFR (CKD) 42 (>60 ml/min/1.73 sqM); Anion Gap 4 mmol/L; Blood Urea Nitrogen 23 mg/dL (7-17); Carbon Dioxide 31 mmol/L (22-30); Chloride 103 mmol/L (98-107); Glucose 127 mg/dL (74-99); Magnesium 1.9 mg/dL (1.6-2.3); Non-African American GFR(CKD) 36 (>60 ml/min/1.73 sqM); Potassium 3.8 mmol/L (3.5-5.1); Sodium 138 mmol/L (137-145)
[2023-12-23] MEDS: LACTATED RINGERS 1,000 ML IV ONE ×2 (13:45→14:29)
[2023-12-23] MEDS ORDERED: LIDOCAINE 2% (PF) 20 MG/ML 5 ML VIAL ONE (13:54)
[2023-12-23] MEDS ORDERED: PROPOFOL 10 MG/ML 20 ML VIAL IV ONE (13:54)
[2023-12-23] MEDS: BENZOCAINE SPRAY 1 CAN MUCOUS MEM PRN (13:57)
--- NOTE | 2023-12-23 20:45 | P.PCN ---
Date of Procedure: 12/23/23 Operative Findings: Transesophageal echocardiogram Performing physician Ziggy Macias MD Indication Rule out anticolic thrombus before cardioversion Complications None Level of sedation The procedure was performed using propofol Procedure description After obtaining informed consent the patient was brought to the recovery room. A pulse oximetry and heart rate monitors were attached and the patient subsequently the patient was turned into the left lateral position after the bite guard was placed and the throat was sprayed using lidocaine. Subsequently after sedation was induced using propofol the transesophageal echocardiogram was advanced to the mid esophageal where a 2D echocardiogram images as well as color Doppler images were obtained using a 2D echocardiogram as well as color Doppler and continuous-wave Doppler. The procedure was completed with no complication Conclusion Intact left atrial appendage with no thrombus No evidence of any intracardiac thrombus Impaired LV function with EF around 30% Mild to moderate mitral regurgitation Intact interatrial septum
--- NOTE | 2023-12-23 20:46 | P.PCN ---
Date of Procedure: 12/23/23 Operative Findings: Cardioversion report Performing physician Ziggy Macias Procedure performed Successful cardioversion of atrial fibrillation to normal sinus mechanism using 150 J and first attempt Indication Atrial fibrillation uncontrolled on maximized medical treatment Procedure description After a transesophageal echocardiogram was performed and intracardiac thrombus was ruled out patient cardioverted from atrial fibrillation to normal sinus mechanism using 150 J and first attempt Postprocedure management Continue oral anticoagulation Follow-up with the patient
--- NOTE | 2023-12-23 22:33 | P.PN ---
Subjective 73-year-old female who presents the ER today via EMS for evaluation of difficulty breathing. Patient reports about an hour prior to arrival she gael denly had difficulty in breathing she denies any significant pulmonary history. Patient states that she was previously on some cardiac medications but has been taken off of them and has not been taking them for over a year. Previous medications included Plavix which she is not certain why she took. Patient is still taking metoprolol and losartan. Patient denies any recent injuries or illness. She denies any chest pain but reports she just feels like she cannot catch her breath. Blood work completed in ED reveals a WBC of 12.6, hemoglobin of 14.8 and platelet count of 320, sodium 140, potassium 4.4, BUNs/creatinine of 24/1.44 and blood glucose of 275, BNP of 10,400, with lactic acid level of 2.8 and troponin elevated at 0.058 -Patient is being admitted for hypertensive emergency and acute exacerbation CHF 12/21/2023 Patient awake alert She has some dyspnea and exertional dyspnea but denies chest pain No significant leg swelling. She is hemodynamically stable Patient s/p cardiac cath today showing patent RCA stent and moderate obstructive LAD disease that glove finisher recommended medical management 1 continue management of atrial fibrillation and possible cardioversion 12/21 Patient still feels short of breath with exertional dyspnea but no chest pain She feels generally weak she remains on amiodarone drip 0.5 mg Cardiology team on the case and the case, planning for cardioversion procedure tomorrow, patient aware and agreeable. She is currently on aspirin 81 mg and El iquis 5 mg. Creatinine stable 1.17. 12/22 Patient states she still has some dyspnea especially with exertion although she is walking with assistance to the bathroom. She is staying in bed most of the time No chest pain Patient status post cardioversion this afternoon and switched to sinus rhythm PT is going to evaluate the patient tomorrow Possible discharge in 24 to 48 hours Objective - Vital Signs Vital signs: Vital Signs Temp 97.9 F 12/23/23 19:59 Pulse 62 12/23/23 21:57 Resp 16 12/23/23 19:59 BP 121/69 12/23/23 19:59 Pulse Ox 95 12/23/23 19:59 FiO2 21 12/23/23 14:45 Intake & Output 12/23/23 12/23/2324 06:59 18:59 06:59 Intake Total 318 120 Balance 318 120 Weight 130 kg Intake: IV 200 Oral 118 120 Other: Voiding Method Toilet Toilet Toilet # Voids 1 1 - Exam -GENERAL: The patient is alert and oriented x3, not in any acute distress. Well developed, well nourished. Obese HEENT: Pupils are round and equally reacting to light. EOMI. No scleral icterus. No conjunctival pallor. Normocephalic, atraumatic. No pharyngeal erythema. No thyromegaly. CARDIOVASCULAR: S1 and S2 present. No murmurs, rubs, or gallops. PULMONARY: Chest is clear to auscultation, no wheezing , no crackles. ABDOMEN: Soft, nontender, nondistended, normoactive bowel sounds. No palpable organomegaly. MUSCULOSKELETAL: No joint swelling or deformity. EXTREMITIES: No cyanosis, clubbing, or pedal edema. NEUROLOGICAL: Gross neurological examination did not reveal any focal deficits. SKIN: No rashes. no petechiae. - Labs CBC & Chem 7: 12/23/23 11:25 12/23/23 11:25 Labs: Abnormal Lab Results - Last 24 Hours (Table) 12/23/23 Range/Units 11:25 Carbon Dioxide 31 H (22-30) mmol/L BUN 23 H (7-17) mg/dL Creatinine 1.45 H (0.52-1.04) mg/dL Glucose 127 H (74-99) mg/dL Assessment and Plan Assessment: 1. Acute hypoxic respiratory failure likely multifactorial; CHF versus acute bronchitis versus morbid obesity -We will keep patient on O2 per nasal cannula with plans to titrate keeping O2 saturation greater than 92% patient currently on room air - 2. Acute exacerbation diastolic CHF, new onset. Nonischemic -Patient has been placed on Lasix 40 mg IV every 12 hours; cardiology on board and agreeable -The echo is ordered and pending -We will monitor strict JEWELL's, daily weights, renal function electrolytes; avoid nephrotoxins and hypotension - s/p cardiac cath on 12/20 showing patent stents of the mid RCA and intermediate nonobstructive lesion in the mid LAD. Medical management recommended 3. Recent acute purulent tracheobronchitis; start patient on azithromycin 500 m g IV x 1 followed by 250 mg IV daily -- Patient remains on home inhaler therapy; symptomatic treatment -Currently not an active issue 4. Acute renal injury; hold off on IV fluid hydration given acute CHF; will monitor strict JEWELL's, daily weights, renal function electrolytes; avoid nephrotoxins and hypotension 5. persistent atrial fibrillation -- Patient was placed on IV heparin in ED; cardiology recommending to discontinue heparin and start patient on aspirin 81 mg daily -- Started on Eliquis by glove finisher, find co-pay -Status post cardioversion on 12/22 6. Hypertension; Toprol-XL 50 mg daily, losartan 25 mg daily which is placed on hold given acute renal injury 7. Hyperlipidemia; Lipitor 80 mg p.o. nightly 8. Paroxysmal atrial fibrillation; patient not on any anticoagulation therapy 9. History of coronary artery disease; history of stenting to RCA and known intermediate disease in LAD 10. COPD; not in exacerbation; continue with home inhaler therapy DVT prophylaxis; SCDs/subcu Eliquis CODE STATUS; full code
--- NOTE | 2023-12-24 15:10 | P.PN ---
Subjective HISTORY OF PRESENT ILLNESS: This is a 73-year-old female patient of Dr. Macias with past medical history of coronary artery disease with stenting of the RCA and known history of intermediate disease involving the LAD, hypertension, dyslipidemia, questionable paroxysmal atrial fibrillation-not on anticoagulation as patient cannot afford this, nonsustained ventricular tachycardia, history of smoking and COPD, overweight. We have been asked to evaluate the patient for hypertension, CHF, non-ST elevated [place]. Patient was last seen in the office with Dr. Macias on 10/29/2023. Patient states she had no complaints at that time but following the appointment she developed shortness of breath. No coughing. She does complain of wheezing and phlegm production. No chest pain. No dizziness and no syncopal episodes. She does have some palpitations after she eats. She is not normally active. She states she gets some shortness of breath just from doing dishes or stirring a pot. No lower extremity edema, no PND. She states she quit coffee drinking a while back and has no alcohol intake. She has been smoking on and off. She denies any blood in her stools or urine. No history of stroke or seizure. Patient is seen today in the emergency center waiting for bed on the cardiac stepdown unit. Patient has been started on heparin drip and IV Lasix 40 mg every 12 hours. Blood pressure 154/82, heart rate 71, pulse ox 99% on 5 L nasal cannula. EKG: Sinus rhythm with IVCD Chest x-ray: Cardiomegaly with prominent pulmonary vascular markings. Correlate for volume overload. Laboratory studies: WBC 11, hemoglobin 13.6. Potassium 4.4, BUN 24 creatinine 1.44. Blood sugar 275. Lactic acid 2.8 followed by 1.6. Troponin 0.058. proBNP 10,400. Home Home cardiac medications: Atorvastatin 80 mg with supper, losartan 25 mg with supper, Toprol-XL 50 mg with supper. Cardiac catheterization history 05/28/2020: Occluded RCA, intermediate disease in the LAD, PCI stent of the mid RCA. Echocardiogram performed in the office on 07/16/2022 revealed normal EF, mild MR, mild TR. Event monitor 08/08/2022 revealed nonsustained ventricular tachycardia, sinus rhythm. Lexiscan Cardiolite stress test 08/29/2020 performed in the office was normal. December 19 2023 Patient examined this morning at the bedside. Patient currently denies any chest pain or pressure. She continues to report shortness of breath although improving. She does report a cough with sputum production. She remains on IV Lasix 40 mg twice a day. Creatinine stable at 1.28. Echocardiogram completed revealing ejection fraction 20 to 25%, global hypokinesis, mild to moderate MR, mild TR. Telemetry reveals sinus mechanism with PVCs with questionable bouts of atrial fibrillation. December 20 2023 Patient examined this morning at the bedside. Patient denies chest pain or pressure. She reports her shortness of breath is improving. She continues to report that she is spitting up orange-colored sputum. She remains on IV heparin. Telemetry this morning appears to reveal atrial fibrillation. Creatinine today 1.25. She remains on IV Lasix. December 21, 2023 Patient examined this morning at the bedside. Patient currently denies chest pain or pressure. She reports continued shortness of breath although improving from admission. Telemetry reveals atrial fibrillation with heart rate in the 80s. She remains on IV heparin. Kidney function today remained stable with a creatinine of 1.1 December 22, 2023 Patient underwent cardiac catheterization yesterday with Dr. Macias revealing patent stent in the mid RCA, intermediate nonobstructive disease involving the mid LAD, and elevated left-sided filling pressures. Patient examined this morning the bedside. She currently denies chest pain or pressure. She is laying flat in bed and appears comfortable. Patient was started on IV amiodarone yesterday. She remains in atrial fibrillation with controlled ventricular rate. 12/23 Seen and examined. No chest pain or SOB. Underwent HAZEL/CV which showed EF 30% and successful CV. PHYSICAL EXAM: VITAL SIGNS: Reviewed. GENERAL: Well-developed in no acute distress. NECK: Supple. No JVD or thyromegaly LUNGS: Respirations even and unlabored. Lungs essentially clear to auscultation bilaterally. HEART: Irregular rate and rhythm. S1 and S2 heard. Systolic murmur. EXTREMITIES: Normal range of motion. No clubbing or cyanosis. Peripheral pulses intact. No lower extremity edema ASSESSMENT: Acute hypoxic respiratory failure secondary Recent bronchitis Acute heart failure with reduced EF, 20 to 25% New onset cardiomyopathy, EF 20 to 25%, EF normal in June 2022, nonischemic, status post cardiac catheterization with no progression of CAD, may be due to atrial fibrillation Elevated troponin secondary to acute myocardial injury without ischemia secondary to YOLI Acute kidney injury History of coronary artery disease with previous stenting of the RCA and known intermediate disease in the LAD Hypertension Dyslipidemia Paroxysmal atrial fibrillation History of nonsustained VT Nicotine dependence COPD Morbid obesity: BMI 47.4 PLAN: Continue current cardiac medications Continue Lasix Continue oral anticoagulation with Eliquis S/p CV Appears stable for DC on current heart failure regimen with outpt followup. Objective - Vital Signs Vital signs: Vital Signs Temp 98.9 F 12/24/23 08:00 Pulse 58 L 12/24/23 11:36 Resp 18 12/24/23 11:36 BP 121/73 12/24/23 11:36 Pulse Ox 94 L 12/24/23 11:36 FiO2 21 12/23/23 14:45 Intake & Output 12/23/23 12/24/23 12/24/23 18:59 06:59 18:59 Intake Total 218 120 358 Balance 218 120 358 Weight 134.2 kg Intake: IV 100 Oral 118 120 358 Other: Voiding Method Toilet Toilet Toilet # Voids 1 2 1 - Labs CBC & Chem 7: 12/23/23 11:25 12/23/23 11:25
[2023-12-24 15:43] VITALS: BP 106/67; PULSE 60; RESP 17; TEMP 98.2
--- NOTE | 2023-12-28 08:26 | CDI ---
Documentation Clarification Form Date: 12/28/23 From: Tia Bennett Admit Date: 12/17/2023 09:05:00 PM Patient Name: Tiana Mcdowell Visit Number: [id number] Discharge Date: 12/24/2023 05:02:00 PM ATTENTION: The Clinical Documentation Specialists (CDI) and [facility] Coding Staff appreciate your assistance in clarifying documentation. Please respond to the clarification below the line at the bottom and electronically sign. The CDI & [facility] Coding staff will review the response and follow-up if needed. Please note: Queries are made part of the Legal Health Record. If you have any questions, please contact the author of this message via ITS. Dr. tSinson E Sheet, Your patient has troponin level(s) of: 0.058 [12/16]. Please clarify if there is an additional diagnosis and/or clinical significance related to this value. Patient history/risk factors: HTN w acute diastolic CHF w CKD 3, acute hypoxic respiratory failure, morbid obesity w BMI 54.1, hypertensive emergency, YOLI, persistent atrial fibrillation, cardiomyopathy, COPD w acute bronchitis, HLD, anxiety Clinical indicators: 12/[address]: Elevated troponinsecondary toacute myocardial injury withoutischemia secondary toAKI. Treatment: Begin IV heparin due to possible atrial fibrillationnoted ontelemetry. Continuetelemetry monitoring Continue IV Lasix. Decrease dosing to once daily Add Farxiga 10 mg daily Repeat kidney function in a.m. If stable will consider adding Entresto tomorrow. Eventual addition of aldactone Patient will requirecardiac catheterizationwhen stable to evaluate cardiomyopathy Is there an additional diagnosis and/or clinical significance related to the above lab result/information: [ ] NSTEMI type 1 [ ] STEMI type 1 [ ] Type 2 TN due to (specify cause ____) [ x ] Non-ischemic with acute myocardial injury [ ] No additional diagnosis/Not clinically significant [ ] Other, please specify [ ] Unable to determine Reference: [employer] [place] [employer] Fourth [place] Definition of Myocardial Infraction Elevated Cardiac Troponin >99th percentile with Troponin rise and/or fall With Acute ischemia Atherosclerosis thrombosis Type I TN Oxygen supply and demand imbalance Type II TN (Please indicate etiology) Without acute ischemia Acute Myocardial Injury MTDD
--- NOTE | 2024-01-05 15:36 | P.DS ---
Providers Date of admission: 12/17/23 21:05 Attending physician: Nav Loo Consults: 12/17/23 21:04 Consult Physician Routine Consulting Provider: [facility] Consult Reason/Comments: htn, chf, NSTEMI Do you want consulting provider notified?: Yes, Notify in am Primary care physician: [facility] Course: Date of service for this note is 12/24/2023. Patient seen and examined by me at bedside 73-year-old female who presents the ER today via EMS for evaluation of difficulty breathing. Patient reports about an hour prior to arrival she suddenly had difficulty in breathing she denies any significant pulmonary history. Patient states that she was previously on some cardiac medications but has been taken off of them and has not been taking them for over a year. Previous medications included Plavix which she is not certain why she took. Patient is still taking metoprolol and losartan. Patient denies any recent injuries or illness. She denies any chest pain but reports she just feels like she cannot catch her breath. Blood work completed in ED reveals a WBC of 12.6, hemoglobin of 14.8 and platelet count of 320, sodium 140, potassium 4.4, BUNs/creatinine of 24/1.44 and blood glucose of 275, BNP of 10,400, with lactic acid level of 2.8 and troponin elevated at 0.058 -Patient is being admitted for hypertensive emergency and acute exacerbation CHF 12/21/2023 Patient awake alert She has some dyspnea and exertional dyspnea but denies chest pain No significant leg swelling. She is hemodynamically stable Patient s/p cardiac cath today showing patent RCA stent and moderate obstructive LAD disease that construction worker recommended medical management 1 continue management of atrial fibrillation and possible cardioversion 12/21 Patient still feels short of breath with exertional dyspnea but no chest pain She feels generally weak she remains on amiodarone drip 0.5 mg Cardiology team on the case and the case, planning for cardioversion procedure tomorrow, patient aware and agreeable. She is currently on aspirin 81 mg and Eliquis 5 mg. Creatinine stable 1.17. 12/22 Patient states she still has some dyspnea especially with exertion although she is walking with assistance to the bathroom. She is staying in bed most of the time No chest pain Patient status post cardioversion this afternoon and switched to sinus rhythm PT is going to evaluate the patient tomorrow Possible discharge in to 48 hours 12/24/23 Patient remains stable and improved. Patient denies any new complaint and she agrees to go home today as well as precious haddad at bedside. Creatinine is stable upon discharge, most likely patient has chronic kidney disease stage III. Patient states she follow-up with cloth desizing range operator chief as an outpatient Patient was cleared for discharge by construction worker Problems and management plan were discussed with the patient and he verbalized understanding and acceptance Patient was found stable and can be discharged home in guarded prognosis however he needs follow-up as an outpatient. Patient was instructed to follow up with PCP Dr. Kamara within one week and patient agrees Patient was instructed to follow-up with construction worker Dr. Barbosa in 1 week and cloth desizing range operator chief Dr. Lam in 1 week after discharge and patient verbalized understanding and acceptance Patient will be discharged on Eliquis, co-pay is $40 per month patient and family at bedside agreeable. Also patient will be discharged on oral Lasix 40 mg twice daily, and other cardiac medication, please refer to the discharge medication and instructions Time spent more than 35 minutes - Exam -GENERAL: The patient is alert and oriented x3, not in any acute distress. Well developed, well nourished. Obese HEENT: Pupils are round and equally reacting to light. EOMI. No scleral icterus. No conjunctival pallor. Normocephalic, atraumatic. No pharyngeal erythema. No thyromegaly. CARDIOVASCULAR: S1 and S2 present. No murmurs, rubs, or gallops. PULMONARY: Chest is clear to auscultation, no wheezing , no crackles. ABDOMEN: Soft, nontender, nondistended, normoactive bowel sounds. No palpable organomegaly. MUSCULOSKELETAL: No joint swelling or deformity. EXTREMITIES: No cyanosis, clubbing, or pedal edema. NEUROLOGICAL: Gross neurological examination did not reveal any focal deficits. SKIN: No rashes. no petechiae. Assessment and Plan Assessment: 1. Acute hypoxic respiratory failure likely multifactorial; CHF versus acute bronchitis versus morbid obesity -We will keep patient on O2 per nasal cannula with plans to titrate keeping O2 saturation greater than 92% patient currently on room air - 2. Acute exacerbation diastolic CHF, new onset. Nonischemic -Patient has been placed on Lasix 40 mg IV every 12 hours; cardiology on board and agreeable -The echo is ordered and pending -We will monitor strict JEWELL's, daily weights, renal function electrolytes; avoid nephrotoxins and hypotension - s/p cardiac cath on 12/20 showing patent stents of the mid RCA and intermediate nonobstructive lesion in the mid LAD. Medical management recommended 3. Recent acute purulent tracheobronchitis; start patient on azithromycin 500 mg IV x 1 followed by 250 mg IV daily -- Patient remains on home inhaler therapy; symptomatic treatment -Currently not an active issue 4. Acute renal injury; hold off on IV fluid hydration given acute CHF; will monitor strict JEWELL's, daily weights, renal function electrolytes; avoid nephrotoxins and hypotension 5. persistent atrial fibrillation -- Patient was placed on IV heparin in ED; cardiology recommending to discontinue heparin and start patient on aspirin 81 mg daily -- Started on Eliquis by construction worker, find co-pay -Status post cardioversion on 12/22 6. Hypertension; Toprol-XL 50 mg daily, losartan 25 mg daily which is placed on hold given acute renal injury 7. Hyperlipidemia; Lipitor 80 mg p.o. nightly 8. Paroxysmal atrial fibrillation; patient not on any anticoagulation therapy 9. History of coronary artery disease; history of stenting to RCA and known intermediate disease in LAD 10. COPD; not in exacerbation; continue with home inhaler therapy DVT prophylaxis; SCDs/subcu Eliquis CODE STATUS; full code Patient Condition at Discharge: Serious Plan - Discharge Summary Discharge Rx Participant: No New Discharge Prescriptions: New RX: Apixaban [Eliquis] 5 mg PO BID 30 Days #60 tab RX: Aspirin 81 mg PO DAILY #30 tab RX: Amiodarone [Cordarone] 200 mg PO DIRECTED #90 tab RX: Furosemide [Lasix] 40 mg PO BID@0900,1600 #60 tab RX: Famotidine [Pepcid] 20 mg PO HS #30 tab RX: Sacubitril/Valsartan [Entresto 24 mg-26 mg Tablet] 1 each PO BID #60 tab RX: Dapagliflozin Propanediol [Farxiga] 10 mg PO DAILY 30 Days #30 tab RX: Metoprolol Tartrate [Lopressor] 25 mg PO BID #60 tab Continue RX: Azithromycin [Zithromax Z Pack] See Taper PO DIRECTED RX: Atorvastatin [Lipitor] 80 mg PO PC-SUPPER RX: methylPREDNISolone Dose Pack [Medrol Dose Pack] See Taper PO DIRECTED Discontinued Metoprolol Succinate (ER) [Toprol Xl] 50 mg PO PC-SUPPER RX: Losartan Potassium [Cozaar] 25 mg PO PC-SUPPER Discharge Medication List RX: Atorvastatin [Lipitor] 80 mg PO PC-SUPPER 12/17/23 [History] RX: Azithromycin [Zithromax Z Pack] See Taper PO DIRECTED 12/17/23 [History] RX: methylPREDNISolone Dose Pack [Medrol Dose Pack] See Taper PO DIRECTED 12/17/23 [History] RX: Apixaban [Eliquis] 5 mg PO BID 30 Days #60 tab 12/21/23 [Rx] RX: Amiodarone [Cordarone] 200 mg PO DIRECTED #90 tab 12/24/23 [Rx] RX: Aspirin 81 mg PO DAILY #30 tab 12/24/23 [Rx] RX: Dapagliflozin Propanediol [Farxiga] 10 mg PO DAILY 30 Days #30 tab 12/24/23 [Rx] RX: Famotidine [Pepcid] 20 mg PO HS #30 tab 12/24/23 [Rx] RX: Furosemide [Lasix] 40 mg PO BID@0900,1600 #60 tab 12/24/23 [Rx] RX: Metoprolol Tartrate [Lopressor] 25 mg PO BID #60 tab 12/24/23 [Rx] RX: Sacubitril/Valsartan [Entresto 24 mg-26 mg Tablet] 1 each PO BID #60 tab 12/24/23 [Rx] Follow up Appointment(s)/Referral(s): Sherly Lam MD [STAFF PHYSICIAN] - 1 Week (CALL AND MAKE ROSSI! (KIDNEY DOCTOR)) Ziggy Macias MD [STAFF PHYSICIAN] - 1 Week (CALL AND MAKE ROSSI! (HEART DOCTOR)) Gatito Kamara DO [Primary Care Provider] - 3 Days (CALL AND MAKE ROSSI! (PCP)) Patient Instructions/Handouts: Heart Failure (DC) Activity/Diet/Wound Care/Special Instructions: heart healthy diet Activity is restricted till you see your doctor your Sarbjit copay is $40 per month Discharge Disposition: HOME SELF-CARE
== END 2023-12-24 17:02 | disposition home or self-care (01) | DRG 286 ==
LOC: EC 18:19 → 3SCARD 21:05
PROVIDERS: ADMIT Hospitalist; ATTEND Hospitalist
PROC: 5A09357 Assistance with Respiratory Ventilation, Less than 24 Consecutive Hours, Continuous Positive Airway Pressure (ICD-10-PCS; 2023-12-17)
PROC: 3E033RZ Introduction of Antiarrhythmic into Peripheral Vein, Percutaneous Approach (ICD-10-PCS; 2023-12-21)
PROC: B2111ZZ Fluoroscopy of Multiple Coronary Arteries using Low Osmolar Contrast (ICD-10-PCS; principal; 2023-12-21 12:30)
PROC: 4A023N7 Measurement of Cardiac Sampling and Pressure, Left Heart, Percutaneous Approach (ICD-10-PCS; principal; 2023-12-21 12:30)
PROC: 5A2204Z Restoration of Cardiac Rhythm, Single (ICD-10-PCS; 2023-12-23)
PROC: B246ZZ4 Ultrasonography of Right and Left Heart, Transesophageal (ICD-10-PCS; 2023-12-23)
DX: I13.0 Hypertensive heart and chronic kidney disease with heart failure and stage 1 through stage 4 chronic kidney disease, or unspecified chronic kidney disease (principal); I50.31 Acute diastolic (congestive) heart failure; J96.01 Acute respiratory failure with hypoxia; N17.9 Acute kidney failure, unspecified; Z68.43 Body mass index [BMI] 50.0-59.9, adult; I48.19 Other persistent atrial fibrillation; J44.0 Chronic obstructive pulmonary disease with (acute) lower respiratory infection; I16.1 Hypertensive emergency; I42.9 Cardiomyopathy, unspecified; I5A Non-ischemic myocardial injury (non-traumatic); E66.01 Morbid (severe) obesity due to excess calories; N18.30 Chronic kidney disease, stage 3 unspecified; J20.9 Acute bronchitis, unspecified; Z28.310 Unvaccinated for COVID-19; I25.10 Atherosclerotic heart disease of native coronary artery without angina pectoris; E78.5 Hyperlipidemia, unspecified; F41.9 Anxiety disorder, unspecified; Z79.899 Other long term (current) drug therapy; Z87.891 Personal history of nicotine dependence; Z95.5 Presence of coronary angioplasty implant and graft; Z71.3 Dietary counseling and surveillance
CPT/HCPCS: 36415; 36600; 71045; 80048; 80053; 82805; 83605; 83735; 83880; 84484; 85025; 85610; 85730; 92960; 93005; 93306; 93312; 93320; 93325; 93458; 94660; 94760; 96365; 96366; 96372; 96375; 96376; 99291

== ENCOUNTER 2024-08-29 09:35 | Inpatient (IN) | payer MEDICARE ==
[2024-08-29] MEDS: IPRATROPIUM-ALBUTEROL 3 ML NEB INHALATION STA ×2 (09:51→10:28)
--- NOTE | 2024-08-29 09:53 | ED ---
General Adult HPI - General Chief complaint: Shortness of Breath Stated complaint: MARC Time Seen by Provider: 08/29/24 09:41 Source: patient, EMS, RN notes reviewed Mode of arrival: EMS Limitations: no limitations - History of Present Illness Initial comments: Patient is a 73-year-old female presents emergency department with concerns with difficulty breathing. Onset of symptoms was just the past couple of days. Patient has had some congestion and some cough. Cough was somewhat productive following precaution on her back by family member. Patient does use inhalers at home. Patient has questionable past history of COPD. Patient is a previous non-smoker. EMS found patient tachycardic and hypoxic appearing however she is significantly improved with CPAP. Pulse ox was in the upper 70s. - Related Data Home Medications Medication Instructions Recorded Confirmed Atorvastatin [Lipitor] 80 mg PO PC-SUPPER 12/17/23 12/17/23 Azithromycin [Zithromax Z Pack] See Taper PO DIRECTED 12/17/23 12/17/23 methylPREDNISolone Dose Pack See Taper PO DIRECTED 12/17/23 12/17/23 [Medrol Dose Pack] Previous Rx's Medication Instructions Recorded Apixaban [Eliquis] 5 mg PO BID 30 Days #60 tab 12/21/23 Amiodarone [Cordarone] 200 mg PO DIRECTED #90 tab 12/24/23 Aspirin 81 mg PO DAILY #30 tab 12/24/23 Dapagliflozin Propanediol [Farxiga] 10 mg PO DAILY 30 Days #30 tab 12/24/23 Famotidine [Pepcid] 20 mg PO HS #30 tab 12/24/23 Furosemide [Lasix] 40 mg PO BID@0900,1600 #60 tab 12/24/23 Metoprolol Tartrate [Lopressor] 25 mg PO BID #60 tab 12/24/23 Sacubitril/Valsartan [Entresto 24 1 each PO BID #60 tab 12/24/23 mg-26 mg Tablet] Allergies Allergy/AdvReac Type Severity Reaction Status Date / Time No Known Allergies Allergy Verified 08/29/24 09:47 Review of Systems ROS Statement: Those systems with pertinent positive or pertinent negative responses have been documented in the HPI. ROS Other: All systems not noted in ROS Statement are negative. Constitutional: Denies: fever Eyes: Denies: eye pain ENT: Denies: ear pain Respiratory: Reports: as per HPI, cough, dyspnea Cardiovascular: Denies: chest pain Endocrine: Reports: fatigue Gastrointestinal: Denies: abdominal pain Musculoskeletal: Denies: back pain Skin: Denies: rash Past Medical History Past Medical History: Hypertension Additional Past Medical History / Comment(s): questionable a-fib History of Any Multi-Drug Resistant Organisms: None Reported Past Surgical History: Section, Cholecystectomy, Tonsillectomy Additional Past Surgical History / Comment(s): Part on colon removed Past Anesthesia/Blood Transfusion Reactions: No Reported Reaction Date of Last Stent Placement:: 2019 Past Psychological History: Anxiety Smoking Status: Former smoker Past Alcohol Use History: Rare Past Drug Use History: None Reported General Exam Limitations: no limitations General appearance: alert Head exam: Present: normocephalic Eye exam: Present: normal appearance Neck exam: Present: normal inspection Respiratory exam: Present: wheezes, decreased breath sounds Cardiovascular Exam: Present: regular rate, normal rhythm GI/Abdominal exam: Present: soft. Absent: tenderness Extremities exam: Present: normal inspection. Absent: pedal edema, calf tenderness Neurological exam: Present: alert Psychiatric exam: Present: normal affect, normal mood Skin exam: Present: normal color Course Vital Signs 08/29/24 08/29/24 08/29/24 09:43 09:48 09:51 Temperature 99 F Pulse Rate 98 87 Respiratory 18 Rate Blood Pressure 181/89 O2 Sat by Pulse 99 Oximetry Fraction of 40 40 Inspired Oxygen (FIO2) 08/29/24 08/29/24 08/29/24 09:59 10:28 10:40 Temperature Pulse Rate 82 75 73 Respiratory Rate Blood Pressure O2 Sat by Pulse Oximetry Fraction of Inspired Oxygen (FIO2) 08/29/24 08/29/24 11:32 11:44 Temperature Pulse Rate 81 Respiratory 18 Rate Blood Pressure 144/92 O2 Sat by Pulse 100 Oximetry Fraction of 40 Inspired Oxygen (FIO2) EKG Findings - EKG Results: EKG: interpreted by ERMD (Left bundle branch block), sinus rhythm, normal axis, normal ST/T Medical Decision Making - Medical Decision Making Was pt. sent in by a medical professional or institution (, PA, MINE PRODUCTION ENGINEER, urgent care, hospital, or fdc...) When possible be specific @ -No Did you speak to anyone other than the patient for history (EMS, parent, family, police, friend...)? What history was obtained from this source @ -EMS provides history of treatment and transportation Did you review nursing and triage notes (agree or disagree)? Why? @ -I reviewed and agree with nursing and triage notes Were old charts reviewed (outside hosp., previous admission, EMS record, old EKG, old radiological studies, urgent care reports/EKG's, fdc records)? Report findings @ -No old charts were reviewed Differential Diagnosis (chest pain, altered mental status, abdominal pain women, abdominal pain men, vaginal bleeding, weakness, fever, dyspnea, syncope, headache, dizziness, GI bleed, back pain, seizure, CVA, palpatations, mental health, musculoskeletal)? @ -Differential Dyspnea: Coronary syndrome, arrhythmia, tamponade, asthma, COPD, pulmonary embolism, pneumonia, pneumothorax, pulmonary effusion, anaphylaxis, diabetic ketoacidosis, flailed chest, pulmonary contusion, diaphragmatic rupture, anemia, neuromuscular, this is not meant to be an all-inclusive list. EKG interpreted by me (3pts min.). @ -As above X-rays interpreted by me (1pt min.). @ -Chest x-ray shows right lower lobe infiltrate CT interpreted by me (1pt min.). @ -CT scan without pulmonary embolism. Right sided infiltrate and effusion U/S interpreted by me (1pt. min.). @ -None done What testing was considered but not performed or refused? (CT, X-rays, U/S, labs)? Why? @ -None What meds were considered but not given or refused? Why? @ -None Did you discuss the management of the patient with other professionals (professionals i.e. , PA, MINE PRODUCTION ENGINEER, lab, RT, psych nurse, director social service, envelope maker, te acher, program officer, rn case manager hospice)? Give summary @ -Case was discussed with Dr. Jose M sherwood who will admit covering Dr. Kamara Was smoking cessation discussed for >3mins.? @ -No Was critical care preformed (if so, how long)? @ -32 minutes critical care time Were there social determinants of health that impacted care today? How? (Homelessness, low income, unemployed, alcoholism, drug addiction, transportation, low edu. Level, literacy, decrease access to med. care, group home, rehab)? @ -No Was there de-escalation of care discussed even if they declined (Discuss DNR or withdrawal of care, Hospice)? DNR status @ -No What co-morbidities impacted this encounter? (DM, HTN, Smoking, COPD, CAD, Ca ncer, CVA, ARF, Chemo, Hep., AIDS, mental health diagnosis, sleep apnea, morbid obesity)? @ -Questionable history of COPD Was patient admitted / discharged? Hospital course, mention meds given and ro [place], prescriptions, significant lab abnormalities, going to OR and other pertinent info. @ -Patient presents respiratory distress, improved with CPAP. Patient is improved with BiPAP in emergency department. Patient reevaluated and updated. There is concern for influenza. There is concern for pneumonia, unclear if this is bacterial or viral. Patient will be admitted with Tamiflu and IV antibi otics. Concern for pneumonia diagnosed at noon. Admission orders written. Pulmonary will be placed on consult. Undiagnosed new problem with uncertain prognosis? @ -No Drug Therapy requiring intensive monitoring for toxicity (Heparin, Nitro, Insulin, Cardizem)? @ -BiPAP Were any procedures done? @ -No Diagnosis/symptom? @ -Influenza, pneumonia, respiratory failure Acute, or Chronic, or Acute on Chronic? @ -Acute, acute, acute Uncomplicated (without systemic symptoms) or Complicated (systemic symptoms)? @ -Default Side effects of treatment? @ -No Exacerbation, Progression, or Severe Exacerbation? @ -No Poses a threat to life or bodily function? How? (Chest pain, [place], GA, pneumonia, PE, COPD, DKA, ARF, appy, cholecystitis, CVA, Diverticulitis, Homicidal, Suicidal, threat to staff... and all critical care pts) @ -Threat to pulmonary function - Lab Data Result diagrams: 08/29/24 09:52 08/29/24 09:52 Lab Results 08/29/24 08/29/24 08/29/24 Range/Units 09:52 09:52 09:52 WBC 9.4 (3.8-10.6) k/uL RBC 4.95 (3.80-5.40) m/uL Hgb 14.7 (11.4-16.0) gm/dL Hct 47.8 H (34.0-46.0) % MCV 96.6 (80.0-100.0) fL MCH 29.7 (25.0-35.0) pg MCHC 30.7 L (31.0-37.0) g/dL RDW 14.0 (11.5-15.5) % Plt Count 256 (150-450) k/uL MPV 8.3 Neutrophils % 83 % Lymphocytes % 10 % Monocytes % 4 % Eosinophils % 2 % Basophils % 0 % Neutrophils # 7.8 H (1.3-7.7) k/uL Lymphocytes # 1.0 (1.0-4.8) k/uL Monocytes # 0.3 (0-1.0) k/uL Eosinophils # 0.2 (0-0.7) k/uL Basophils # 0.0 (0-0.2) k/uL Hypochromasia Moderate PT 10.9 (10.0-12.5) sec INR 1.0 (<1.2) APTT 25.6 (22.0-30.0) sec D-Dimer 1.53 H (<0.60) mg/L FEU Sodium 139 (137-145) mmol/L Potassium 4.2 (3.5-5.1) mmol/L Chloride 101 (98-107) mmol/L Carbon Dioxide 24 (22-30) mmol/L Anion Gap 14 mmol/L BUN 19 H (7-17) mg/dL Creatinine 1.43 H (0.52-1.04) mg/dL Est GFR (CKD-EPI)AfAm 43 (>60 ml/min/1.73 sqM) Est GFR (CKD-EPI)NonAf 37 (>60 ml/min/1.73 sqM) Glucose 239 H (74-99) mg/dL Plasma Lactic Acid Manuel (0.7-2.0) mmol/L Calcium 9.1 (8.4-10.2) mg/dL Magnesium 2.0 (1.6-2.3) mg/dL Total Bilirubin 1.6 H (0.2-1.3) mg/dL AST 19 (14-36) U/L ALT 13 (4-34) U/L Alkaline Phosphatase 67 (38-126) U/L Troponin I (0.000-0.034) ng/mL NT-Pro-B Natriuret Pep 15361 pg/mL Total Protein 6.9 (6.3-8.2) g/dL Albumin 4.2 (3.5-5.0) g/dL Influenza Type A (PCR) (Not Detectd) Influenza Type B (PCR) (Not Detectd) RSV (PCR) (Not Detectd) SARS-CoV-2 (PCR) (Not Detectd) 08/29/24 08/29/24 08/29/24 Range/Units 09:52 09:52 09:52 WBC (3.8-10.6) k/uL RBC (3.80-5.40) m/uL Hgb (11.4-16.0) gm/dL Hct (34.0-46.0) % MCV (80.0-100.0) fL MCH (25.0-35.0) pg MCHC (31.0-37.0) g/dL RDW (11.5-15.5) % Plt Count (150-450) k/uL MPV Neutrophils % % Lymphocytes % % Monocytes % % Eosinophils % % Basophils % % Neutrophils # (1.3-7.7) k/uL Lymphocytes # (1.0-4.8) k/uL Monocytes # (0-1.0) k/uL Eosinophils # (0-0.7) k/uL Basophils # (0-0.2) k/uL Hypochromasia PT (10.0-12.5) sec INR (<1.2) APTT (22.0-30.0) sec D-Dimer (<0.60) mg/L FEU Sodium (137-145) mmol/L Potassium (3.5-5.1) mmol/L Chloride (98-107) mmol/L Carbon Dioxide (22-30) mmol/L Anion Gap mmol/L BUN (7-17) mg/dL Creatinine (0.52-1.04) mg/dL Est GFR (CKD-EPI)AfAm (>60 ml/min/1.73 sqM) Est GFR (CKD-EPI)NonAf (>60 ml/min/1.73 sqM) Glucose (74-99) mg/dL Plasma Lactic Acid Manuel 3.0 H* (0.7-2.0) mmol/L Calcium (8.4-10.2) mg/dL Magnesium (1.6-2.3) mg/dL Total Bilirubin (0.2-1.3) mg/dL AST (14-36) U/L ALT (4-34) U/L Alkaline Phosphatase (38-126) U/L Troponin I 0.015 (0.000-0.034) ng/mL NT-Pro-B Natriuret Pep pg/mL Total Protein (6.3-8.2) g/dL Albumin (3.5-5.0) g/dL Influenza Type A (PCR) Detected A (Not Detectd) Influenza Type B (PCR) Not Detected (Not Detectd) RSV (PCR) Not Detected (Not Detectd) SARS-CoV-2 (PCR) Not Detected (Not Detectd) Critical Care Time Critical Care Time: Yes Disposition Clinical Impression: Acute respiratory failure Disposition: ADMITTED IP TO THIS [facility] Condition: Serious Is patient prescribed a controlled substance at d/c from ED?: No Referrals: Gatito Kamara DO [Primary Care Provider] - 1-2 days Time of Disposition: 12:26
[2024-08-29] MEDS: methylPREDNISolone SOD SUCCI 125 MG/2 ML VIAL IV STA (09:54)
--- NOTE | 2024-08-29 10:12 | XR ---
EXAMINATION TYPE: XR chest 1V portable DATE OF EXAM: 08/29/2024 10:08 AM COMPARISON: 12/17/2023 CLINICAL INDICATION: Female, 73 years old with history of murray, TECHNIQUE: XR chest 1V portable views of the chest are obtained. FINDINGS: Demonstrated are scattered senescent parenchymal change. Patchy infiltrate right lower lobe suspicious for developing pneumonia. Correlate clinically. Progres s study is advised. The heart is stable. Hilar and mediastinal structures are within normal limits. Degenerative changes are seen of the dorsal spine. IMPRESSION: 1. Patchy infiltrate right lower lobe suspicious for developing pneumonia. Correlate clinically. Pro rachell study is advised. [facility], , 08/29/2024 10:09 AM
[2024-08-29 10:14] LABS: Basophils % (A) 0 %; Eosinophils # (A) 0.2 k/uL (0-0.7); Eosinophils % (A) 2 %; HCT 47.8 % (34.0-46.0); HGB 14.7 gm/dL (11.4-16.0); Hypochromasia Moderate; Lymphocytes % (A) 10 %; MCH 29.7 pg (25.0-35.0); MCHC 30.7 g/dL (31.0-37.0); MCV 96.6 fL (80.0-100.0); Mean Platelet Volume 8.3; Monocytes # (A) 0.3 k/uL (0-1.0); Monocytes % (A) 4 %; Neutrophils # (A) 7.8 k/uL (1.3-7.7); Neutrophils % (A) 83 %; Platelet Count 256 k/uL (150-450); RBC 4.95 m/uL (3.80-5.40); WBC 9.4 k/uL (3.8-10.6)
[2024-08-29 10:28] LABS: ALT 13 U/L (4-34); AST 19 U/L (14-36); African American GFR (CKD) 43 (>60 ml/min/1.73 sqM); Albumin 4.2 g/dL (3.5-5.0); Alkaline Phosphatase 67 U/L (38-126); Anion Gap 14 mmol/L; Blood Urea Nitrogen 19 mg/dL (7-17); Calcium 9.1 mg/dL (8.4-10.2); Carbon Dioxide 24 mmol/L (22-30); Chloride 101 mmol/L (98-107); Glucose 239 mg/dL (74-99); Non-African American GFR(CKD) 37 (>60 ml/min/1.73 sqM); Potassium 4.2 mmol/L (3.5-5.1); Sodium 139 mmol/L (137-145); Total Bilirubin 1.6 mg/dL (0.2-1.3); Total Protein 6.9 g/dL (6.3-8.2)
[2024-08-29 10:33] LABS: Partial Thromboplastin Time 25.6 sec (22.0-30.0); Prothrombin Time 10.9 sec (10.0-12.5)
[2024-08-29 10:35] LABS: NT-Pro-B-Type Natriuretic Pept 10800 pg/mL
[2024-08-29 10:49] LABS: Influenza A Detected (Not Detectd); Influenza B Not Detected (Not Detectd); RSV Not Detected (Not Detectd)
[2024-08-29] MEDS: OSELTAMIVIR 75 MG CAP PO SCH (11:11)
[2024-08-29] MEDS: OSELTAMIVIR 30 MG CAP PO SCH (11:18)
--- NOTE | 2024-08-29 11:43 | CT ---
EXAMINATION TYPE: CT angio chest CT DLP: 1175.8 mGycm, Automated exposure control for dose reduction was used. DATE OF EXAM: 08/29/2024 11:39 AM COMPARISON: Chest radiograph from same day. CTA chest 03/30/2019 CLINICAL INDICATION:Female, 73 years old with history of murray; MURRAY and elevated d-dimer. TECHNIQUE/CONTRAST: CTA scan of the thorax is performed with IV Contrast, patient injected with 80ml mL of Isovue 370, pu lmonary embolism protocol. MIP images are created and reviewed. FINDINGS: Pulmonary Artery: There is no evidence for a filling defect within the pulmonary vasculature to sugge st acute pulmonary embolism. The pulmonary artery is dilated measuring up to 3.1 cm in diameter. Lungs/Pleura: Small bilateral pleural effusions with right greater than left and associated atelectas is. Right middle lobe patchy consolidative opacity with air bronchograms. Lingular linear atelectasis . No pneumothorax. Airway: Large airways are patent. Heart: Mild to moderately enlarged. Stable fluid within the prevascular space. Vasculature: No evidence of aortic aneurysm. Moderate atherosclerotic calcification of the aorta and its branches. Most prominent involving the visualized descending thoracic aorta. Mediastinum: No gross evidence of adenopathy. Musculoskeletal: No acute osseous abnormalities. Multilevel degenerative disc disease of the thoracic spine. Soft Tissues: Unremarkable. Lower neck: No significant findings. Upper Abdomen: Gallbladder is surgically absent. Atrophy of the visualized right kidney. There is poo r contrast enhancement within the right renal artery.. IMPRESSION: 1. No evidence of pulmonary embolism. 2. Right middle lobe patchy consolidation with air bronchograms most consistent with pneumonia. 3. Small bilateral pleural effusions with associated atelectasis, right greater than left. 4. Dilated main pulmonary artery suggesting pulmonary arterial hypertension. 5. Atrophy of the visualized right kidney with poor contrast enhancement of the right renal artery. [facility], , 08/29/2024 11:41 AM
[2024-08-29] MEDS ORDERED: PNEUMONIA PROTOCOL UTILIZED 1 EACH MISC PO PRN (12:36)
[2024-08-29] MEDS ORDERED: IPRATROPIUM-ALBUTEROL 3 ML NEB INHALATION PRN (12:36)
[2024-08-29] MEDS ORDERED: NALOXONE 0.4 MG/ML 1 ML VIAL IVP PRN (12:36)
[2024-08-29] MEDS: SODIUM CHLORIDE 0.9% 1,000 ML IV SCH (13:17)
[2024-08-29] MEDS: AZITHROMYCIN 500 MG in SODIUM CHLORIDE 0.9% 250 ML IVPB STA (13:17)
[2024-08-29] MEDS: IPRATROPIUM-ALBUTEROL 3 ML NEB INHALATION SCH (15:35)
[2024-08-29] MEDS: FUROSEMIDE 40 MG TAB PO SCH (16:04)
--- NOTE | 2024-08-29 16:18 | P.HPIM ---
History of Present Illness H&P Date: 08/29/24 History of present illness: 73-year-old female with past medical history significant for COPD, history of diastolic CHF, history of coronary artery disease status post PCI, history of proximal atrial fibrillation, history of NSVT, hypertension, hyperlipidemia who presented to ER with a complaint of worsening shortness of breath. Patient reported that she was having shortness of breath going on for the last 2 months which was recently getting worse for the last 4 days. Patient reports chills, denied any fevers. Patient reported that she was noticing worsening shortness of breath for the last 2 days, also reported cough and congestion, cough is productive with brown sputum. Patient reported using inhalers at home. Patient stated that she was not taking her Lasix regularly because of urinary frequency. Patient's reported that she was not able to catch her breath even at rest now. Patient reported chills. Patient denied any chest pain, palpitations, nausea vomiting diarrhea constipation abdominal pain dysuria urgency frequency weakness or numbness of the extremities. EMS found patient was tachycardic and hypoxic, oxygen saturation significantly improved with CPAP. Patient's pulse ox was noted to be in the upper 70s by EMS. In the ED patient had temperature 99 F, pulse rate 98, respiratory rate 18, blood pressure was 181/89, was saturating 99% on 40% FiO2 with BiPAP. WBC 9.4, hemoglobin 14.7, platelet 256. Sodium 139 potassium 4.2 chloride 101 CO2 24 BUN 19 creatinine 1.43. Initial lactate was 3.0, improved to 1.6. Troponin negative. NT proBNP was more than 10,000. Influenza A was positive. D-dimer was elevated. CT chest was negative for PE, showed right middle lobe patchy consolidation with air bronchograms most consistent with pneumonia, small bilateral pleural effusions with associated atelectasis, right greater than left, dilated main pulmonary artery suggesting pulmonary arterial hypertension. Atrophy of the visualized right kidney with poor contrast enhancement of right renal artery. Assessment and plan: Acute hypoxic respiratory failure: Pneumonia: Acute COPD exacerbation: Acute influenza A infection Presented with worsening shortness of breath, productive cough, congestion Influenza A positive CT chest showed right middle lobe patchy consolidation with air bronchograms consistent with pneumonia Continue azithromycin and Rocephin Mucinex, incentive spirometry BiPAP as needed Tamiflu Inhaler/bronchodilator protocol, Solu-Medrol Pulmonary consult Acute on chronic diastolic CHF Paroxysmal atrial fibrillation: On Eliquis History of CAD/PCI: History of NSVT Hypertension Hyperlipidemia: Continue home meds including aspirin, statin, amiodarone, Lasix, Farxiga, metoprolol, losartan Continue Eliquis Monitor daily weight and I&O's Cardiology consult DVT prophylaxis Anticoagulated Monitor vital signs and labs Labs and medication were reviewed. Continue same treatment. Further recommendations as per clinical course of the patient PHYSICAL EXAMINATION: GENERAL: The patient is A&O x3, NAD HEENT: EOMI, Sclerae anicteric, Moist Mucous membranes Neck: Supple, Non tender, No JVD PULMONARY: Decreased breath sound bilaterally, bilateral crackles CARDIOVASCULAR: S1, S2 present. No murmurs, rubs, or gallops. ABDOMEN: Soft, nontender, nondistended, normoactive bowel sounds. No guarding or rebound tenderness. MUSCULOSKELETAL: No edema, No cyanosis. No clubbing. Normal ROM. Intact peripheral pulses. NEUROLOGICAL: CN 2-12 grossly intact. No FND REVIEW OF SYSTEMS: CONSTITUTIONAL: No fever, no malaise, no fatigue. HEENT: No recent visual problems or hearing problems. Denied any sore throat. CARDIOVASCULAR: No chest pain, orthopnea, PND, no palpitations, no syncope. PULMONARY: Complains of shortness breath, productive cough, congestion. GASTROINTESTINAL: No diarrhea, no nausea, no vomiting, no abdominal pain. NEUROLOGICAL: No headaches, no weakness, no numbness. HEMATOLOGICAL: Denies any bleeding or petechiae. GENITOURINARY: Denies any burning micturition, frequency, or urgency. MUSCULOSKELETAL/RHEUMATOLOGICAL: Denies any joint pain, swelling, or any muscle pain. ENDOCRINE: Denies any polyuria or polydipsia. The rest of the 14-point review of systems is negative. Dictation was produced using [employer] software. please excuse any grammatical, word or spelling errors. Past Medical History Past Medical History: Hypertension Additional Past Medical History / Comment(s): questionable a-fib History of Any Multi-Drug Resistant Organisms: None Reported Past Surgical History: Section, Cholecystectomy, Tonsillectomy Additional Past Surgical History / Comment(s): Part on colon removed Past Anesthesia/Blood Transfusion Reactions: No Reported Reaction Date of Last Stent Placement:: 2019 Past Psychological History: Anxiety Smoking Status: Former smoker Past Alcohol Use History: Rare Past Drug Use History: None Reported Medications and Allergies Home Medications Medication Instructions Recorded Confirmed Type Apixaban [Eliquis] 5 mg PO BID 30 Days #60 tab 12/21/23 08/29/24 Rx Famotidine [Pepcid] 20 mg PO HS #30 tab 12/24/23 08/29/24 Rx Amiodarone [Cordarone] 100 mg PO HS 08/29/24 08/29/24 History Aspirin 81 mg PO HS 08/29/24 08/29/24 History Dapagliflozin Propanediol [Farxiga] 10 mg PO HS 08/29/24 08/29/24 History Furosemide [Lasix] 40 mg PO BID 08/29/24 08/29/24 History Losartan [Cozaar] 25 mg PO HS 08/29/24 08/29/24 History Metoprolol Succinate (ER) [Toprol 100 mg PO HS 08/29/24 08/29/24 History Xl] Allergies Allergy/AdvReac Type Severity Reaction Status Date / Time No Known Allergies Allergy Verified 08/29/24 13:01 Physical Exam Vitals: Vital Signs Temp Pulse Resp BP Pulse Ox FiO2 08/29/24 13:19 80 20 166/75 96 08/29/24 11:44 40 08/29/24 11:32 81 18 144/92 100 08/29/24 10:40 73 08/29/24 10:28 75 08/29/24 09:59 82 08/29/24 09:51 87 40 08/29/24 09:48 40 08/29/24 09:43 99 F 98 18 181/89 99 Intake and Output 08/29/24 08/29/24 08/29/24 06:59 14:59 22:59 Other: Weight 127.006 kg Results CBC & Chem 7: 08/29/24 09:52 08/29/24 09:52 Labs: Abnormal Lab Results - Last 24 Hours (Table) 08/29/24 08/29/24 08/29/24 Range/Units 09:52 09:52 09:52 Hct 47.8 H (34.0-46.0) % MCHC 30.7 L (31.0-37.0) g/dL Neutrophils # 7.8 H (1.3-7.7) k/uL D-Dimer 1.53 H (<0.60) mg/L FEU BUN 19 H (7-17) mg/dL Creatinine 1.43 H (0.52-1.04) mg/dL Glucose 239 H (74-99) mg/dL Plasma Lactic Acid Manuel (0.7-2.0) mmol/L Total Bilirubin 1.6 H (0.2-1.3) mg/dL Influenza Type A (PCR) (Not Detectd) 08/29/24 08/29/24 Range/Units 09:52 09:52 Hct (34.0-46.0) % MCHC (31.0-37.0) g/dL Neutrophils # (1.3-7.7) k/uL D-Dimer (<0.60) mg/L FEU BUN (7-17) mg/dL Creatinine (0.52-1.04) mg/dL Glucose (74-99) mg/dL Plasma Lactic Acid Manuel 3.0 H* (0.7-2.0) mmol/L Total Bilirubin (0.2-1.3) mg/dL Influenza Type A (PCR) Detected A (Not Detectd)
[2024-08-29] MEDS: methylPREDNISolone SOD SUCCI 125 MG/2 ML VIAL IV SCH (18:57)
[2024-08-29] MEDS: SYMBICORT 160-4.5 MCG INHALER INHALATION SCH (20:22)
[2024-08-29] MEDS: DAPAGLIFLOZIN PROPANEDIOL 10 MG TABLET PO SCH (22:41)
[2024-08-29] MEDS: FAMOTIDINE 20 MG TAB PO SCH (22:42)
[2024-08-29] MEDS: METOPROLOL SUCCINATE (ER) 100 MG TAB.ER.24H PO SCH (22:42)
[2024-08-29] MEDS: LOSARTAN 25 MG TAB PO SCH (22:42)
[2024-08-29] MEDS: ASPIRIN 81 MG PO SCH (22:42)
[2024-08-29] MEDS: guaiFENesin 600 MG TABLET.ER PO SCH (22:42)
[2024-08-29] MEDS: APIXABAN 5 MG TAB PO SCH (22:42)
[2024-08-29] MEDS: AMIODARONE 100 MG TAB PO SCH (22:49)
[2024-08-30] MEDS: MELATONIN 5 MG TABLET PO SCH (02:30)
--- NOTE | 2024-08-30 05:27 | P.CNPUL ---
History of Present Illness Consult date: 08/30/24 Requesting physician: Jian Mccarthy Reason for consult: other (influenza A positive) Chief complaint: Dyspnea History of present illness: Patient is a 73-year-old female with past medical history significant for atrial fibrillation anticoagulated on Eliquis, coronary artery disease with previous P CI/stents, [place], ischemic cardiomyopathy with ejection fraction of 20 to 25% along with mild to moderate mitral regurgitation, COPD. PCP is Dr. Kamara. Presents to the emergency department yesterday morning with a chief complaint of difficulty in breathing. Progressively worse over the last couple days. States that herself and her developed a "cold" that started approximately 1 week ago. On arrival to the ED, found to be in some respiratory distress, pulse ox was reading the upper 70s. She was placed on BiPAP. Workup in the emergency department including a viral screen positive for influenza A. Chest CTA did not show any evidence of filling defects consistent with pulmonary embolism. Right middle lobe patchy consolidation with air bronchograms, consistent with pneumonia. Small bilateral pleural effusions with associated atelectasis right greater than left. Dilated main pulmonary artery suggestive of pulmonary hypertension. CBC: WBC count 9.4, hemoglobin 14.7, platelets 256. CMP: Sodium 139, potassium 4.2, chloride 101, serum bicarb 24, BUN 19, creatinine 1.43, glucose elevated 239. Lactic was 3 and is down to 1.6. LFTs not elevated. Troponin less than 0.015. NT proBNP significantly elevated at 10,800. EKG: Sinus mechanism, heart rate 98 bpm, interventricular conduction delay. Patient is currently being evaluated emergency department. BiPAP is on standby with settings 06/02. She is on a 2 L/min nasal cannula. Nondistressed. Patient states that her and her developed flulike symptoms approximately 1 week ago. Progressive shortness of breath. Associated cough, with productive sputum brown to bloody in color. Denies any fever. Denies nausea, vomiting, diarrhea. Tolerating oral intake. Denies any chest pain. Denies orthopnea or increased lower extremity edema. Does take Lasix on an outpatient basis, states she is suppose to be taking 40 mg twice a day. 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 Denies missing any doses of Eliquis. Started on empiric antibiotics in the ED. Also, started on Tamiflu. Current vital signs: Temperature 99.5 F, heart rate 83 bpm, blood pressure 141/76 mmHg, respiratory rate nontachypneic, SpO2 reading 94% on 2 L/min nasal cannula. Review of Systems Constitutional: Reports fatigue, Reports poor appetite, Denies chills, Denies fever, Denies weight gain, Denies weight loss Ears, nose, mouth and throat: Reports nasal congestion, Reports nasal discharge, Denies headache, Denies post-nasal drip, Denies sinus pain, Denies sinus pressure, Denies sore throat Cardiovascular: Reports shortness of breath, Denies chest pain, Denies lightheadedness, Denies orthopnea, Denies palpitations, Denies paroxysmal nocturnal dyspnea, Denies syncope Respiratory: Reports congestion, Reports cough, Reports cough with sputum, Reports dyspnea, Denies home oxygen, Denies pain on inspiration Gastrointestinal: Denies abdominal pain, Denies change in bowel habits, Denies diarrhea, Denies loss of appetite, Denies nausea, Denies vomiting Genitourinary: Denies dysuria Musculoskeletal: Denies limitation of motion Integumentary: Denies rash Neurological: Denies seizures, Denies syncope Psychiatric: Denies anxiety, Denies depression Past Medical History Past Medical History: Hypertension Additional Past Medical History / Comment(s): questionable a-fib History of Any Multi-Drug Resistant Organisms: None Reported Past Surgical History: Section, Cholecystectomy, Tonsillectomy Additional Past Surgical History / Comment(s): Part on colon removed Past Anesthesia/Blood Transfusion Reactions: No Reported Reaction Date of Last Stent Placement:: 2019 Past Psychological History: Anxiety Smoking Status: Former smoker Past Alcohol Use History: Rare Past Drug Use History: None Reported Medications and Allergies Home Medications Medication Instructions Recorded Confirmed Type Apixaban [Eliquis] 5 mg PO BID 30 Days #60 tab 12/21/23 08/29/24 Rx Famotidine [Pepcid] 20 mg PO HS #30 tab 12/24/23 08/29/24 Rx Amiodarone [Cordarone] 100 mg PO HS 08/29/24 08/29/24 History Aspirin 81 mg PO HS 08/29/24 08/29/24 History Dapagliflozin Propanediol [Farxiga] 10 mg PO HS 08/29/24 08/29/24 History Furosemide [Lasix] 40 mg PO BID 08/29/24 08/29/24 History Losartan [Cozaar] 25 mg PO HS 08/29/24 08/29/24 History Metoprolol Succinate (ER) [Toprol 100 mg PO HS 08/29/24 08/29/24 History Xl] Allergies Allergy/AdvReac Type Severity Reaction Status Date / Time No Known Allergies Allergy Verified 08/29/24 13:01 Physical Exam Vitals: Vital Signs Temp Pulse Resp BP Pulse Ox FiO2 08/29/24 22:39 99.5 F 83 21 141/76 95 08/29/24 20:36 86 08/29/24 20:22 85 08/29/24 18:00 80 22 139/64 96 08/29/24 16:04 98.2 F 87 21 147/71 94 L 08/29/24 15:52 96 08/29/24 15:48 81 08/29/24 15:35 77 08/29/24 15:30 40 08/29/24 13:19 80 20 166/75 96 08/29/24 11:44 40 08/29/24 11:32 81 18 144/92 100 08/29/24 10:40 73 08/29/24 10:28 75 08/29/24 09:59 82 08/29/24 09:51 87 40 08/29/24 09:48 40 08/29/24 09:43 99 F 98 18 181/89 99 Intake and Output 08/29/24 08/29/24 08/30/24 14:59 22:59 06:59 Other: Weight 127.006 kg GENERAL EXAM: Alert, 73-year-old morbidly obese female, comfortable in no apparent distress. HEAD: Normocephalic and atraumatic EYES: Normal reaction of pupils, equal size. NOSE: Clear with pink turbinates. THROAT: No erythema or exudates. NECK: No masses, no JVD. CHEST: No chest wall deformity. LUNGS: Equal air entry with no crackles, wheeze, rhonchi or dullness. On 2 L/min nasal cannula. No conversational dyspnea or accessory muscle use.. CVS: S1 and S2 normal with no audible murmur, regular rhythm. No extra heart sounds ABDOMEN: No hepatosplenomegaly, active bowel sounds, no guarding or rigidity. SPINE: No scoliosis or deformity SKIN: No rashes CENTRAL NERVOUS SYSTEM: No focal deficits, tone is normal in all 4 extremities. EXTREMITIES: There is no peripheral edema, clubbing, or cyanosis. Peripheral pulses are intact. Results - Laboratory Findings CBC and BMP: 08/29/24 09:52 08/29/24 09:52 PT/INR, D-dimer PT 10.9 sec (10.0-12.5) 08/29/24 09:52 INR 1.0 (<1.2) 08/29/24 09:52 D-Dimer 1.53 mg/L FEU (<0.60) H 08/29/24 09:52 Abnormal lab findings: Abnormal Labs 08/29/24 08/29/24 08/29/24 09:52 09:52 09:52 Hct 47.8 H MCHC 30.7 L Neutrophils # 7.8 H D-Dimer 1.53 H BUN 19 H Creatinine 1.43 H Glucose 239 H Plasma Lactic Acid Manuel Total Bilirubin 1.6 H Influenza Type A (PCR) 08/29/24 08/29/24 09:52 09:52 Hct MCHC Neutrophils # D-Dimer BUN Creatinine Glucose Plasma Lactic Acid Manuel 3.0 H* Total Bilirubin Influenza Type A (PCR) Detected A - Diagnostic Findings Chest x-ray: image reviewed Assessment and Plan Assessment: Acute influenza A infection, possibility of superimposed bacterial infection is not excluded. Acute exacerbation of systolic congestive heart failure Acute hypoxemic respiratory failure, secondary to above, currently on 2 L/min nasal cannula, Chest CTA did not show any evidence of filling defects consistent with pulmonary embolism. Right middle lobe patchy consolidation with air bronchograms, consistent with pneumonia. Small bilateral pleural effusions with associated atelectasis right greater than left. Dilated main pulmonary artery suggestive of pulmonary hypertension. NT proBNP elevated 10,800 History of paroxysmal atrial fibrillation, currently sinus mechanism History of coronary artery disease with previous PCI/stents History of nonischemic cardiomyopathy, with an ejection fraction 20 to 25% along with mild to moderate mitral regurgitation Hypertension History of hyperlipidemia Chronic kidney disease stage IIIB History of COPD, appears stable on clinical examination Morbid obesity, with a BMI of 52.9 kg/m Plan: Patient's medications, labs, imaging reviewed Continue supplemental oxygen, maintain oxygen saturation of 92% or greater Continue Tamiflu, adjusted for renal clearance Continue empiric antibiotics Obtain sputum and blood cultures Check procalcitonin level Consult cardiology Resume Lasix 40 mg twice daily Sarbjit is resumed We will continue to follow, additional recommendations forthcoming I have personally seen and examined the patient, performed the documentation and the assessment and plan as written. Number of minutes spent on the visit:20 This dictation was produced using [employer] dictation software please excuse gram matical errors Time with Patient: Greater than 30
--- NOTE | 2024-08-30 07:25 | XR ---
EXAMINATION TYPE: XR chest 1V DATE OF EXAM: 08/30/2024 6:37 AM COMPARISON: Chest radiograph from one day prior. CLINICAL INDICATION: Female, 73 years old with history of pneumonia; [facility] TECHNIQUE: XR chest 1V Frontal view of the chest. FINDINGS: Lungs/Pleura: Tehere right basilar/perihilar airspace opacities remain present is no evidence of pleu ral effusion, focal consolidation, or pneumothorax. Pulmonary vascularity: Unremarkable. Heart/mediastinum: Cardiomediastinal silhouette is unremarkable. Musculoskeletal: No acute osseous pathology. IMPRESSION: Right basilar airspace opacities remain present. [facility], , 08/30/2024 7:22 AM
[2024-08-30 08:42] LABS: Basophils % (A) 0 %; Eosinophils % (A) 0 %; HCT 43.7 % (34.0-46.0); Hypochromasia Marked; Lymphocytes # (A) 0.3 k/uL (1.0-4.8); Lymphocytes % (A) 5 %; MCHC 29.7 g/dL (31.0-37.0); MCV 97.6 fL (80.0-100.0); Mean Platelet Volume 9.7; Monocytes # (A) 0.2 k/uL (0-1.0); Monocytes % (A) 4 %; Neutrophils # (A) 5.9 k/uL (1.3-7.7); Neutrophils % (A) 91 %; Platelet Count 272 k/uL (150-450); RBC 4.48 m/uL (3.80-5.40); RDW 14.3 % (11.5-15.5); WBC 6.5 k/uL (3.8-10.6)
[2024-08-30 08:53] LABS: African American GFR (CKD) 35 (>60 ml/min/1.73 sqM); Anion Gap 8 mmol/L; Blood Urea Nitrogen 23 mg/dL (7-17); Calcium 8.7 mg/dL (8.4-10.2); Carbon Dioxide 28 mmol/L (22-30); Chloride 100 mmol/L (98-107); Glucose 154 mg/dL (74-99); Non-African American GFR(CKD) 30 (>60 ml/min/1.73 sqM); Potassium 3.9 mmol/L (3.5-5.1); Sodium 136 mmol/L (137-145)
[2024-08-30] MEDS: FUROSEMIDE 10 MG/ML 4 ML VIAL IV SCH (09:00)
[2024-08-30] MEDS: AZITHROMYCIN 500 MG TAB PO SCH (09:00)
--- NOTE | 2024-08-30 14:00 | P.CRDCN ---
History of Present Illness History of present illness: HISTORY OF PRESENT ILLNESS: This is a 73-year-old female with a past medical history significant for coronary artery disease with previous stenting, nonischemic cardiomyopathy, atrial fibrillation, SVT, hypertension, hyperlipidemia, COPD, morbid obesity, and nicotine dependence. Patient follows in the office with Dr. Macias. We have been asked to see the patient in consultation for congestive heart failure. Patient examined at the bedside in the emergency room. Patient presented to the hospital for chief complaint of shortness of breath. She states she has been feeling short of breath for the past 4 to 5 days. She states the shortness of breath is worse when she is laying flat and also with exertion. She denies any chest pain or pressure. Patient was found to be positive for influenza A. Patient was also found to be in acute CHF and was started on IV Lasix. DIAGNOSTICS: - EKG reveals sinus mechanism with IVCD. - Chest xray patchy infiltrate right lower lobe suspicious for developing pneumonia. -Chest CTA: Negative for pulmonary embolism, right middle lobe patchy con solidation with air bronchograms most consistent with pneumonia, small bilateral pleural effusions with associated atelectasis, right greater than left, dilated main pulmonary artery suggesting pulmonary arterial hypertension - Laboratory data: WBC 6.5. Hemoglobin 13.0. Platelet count 272. Sodium 136. Potassium 3.9. BUN 23. Creatinine 1.68. Troponin negative x 1. proBNP 10,800. Procalcitonin 0.37. - Current home cardiac medications include amiodarone 100 mg at night, Eliquis 5 mg twice a day, aspirin 81 mg at night, Farxiga 10 mg at night, Lasix 40 mg twice a day, losartan 25 mg at night, metoprolol succinate 50 mg at night. - Most recent echocardiogram obtained in February 2024 revealed ejection fraction 40 to 45% with global LV hypokinesis - Patient underwent cardioversion with Dr. Macias in November 2023 - Cardiac catheterization history: November 2023 revealing patent stent to the mid RCA, intermediate nonobstructive lesion involving the mid LAD unchanged from before, elevated left-sided filling pressures. REVIEW OF SYSTEMS: At the time of my exam: CONSTITUTIONAL: Denies fever or chills. HEENT: Denies blurred vision, vision changes, or eye pain. Denies hemoptysis CARDIOVASCULAR: Denies chest pain. Denies orthopnea. Denies PND. Denies palpitations RESPIRATORY: Denies shortness of breath. GASTROINTESTINAL: Denies abdominal pain. Denies nausea or vomiting. HEMATOLOGIC: Denies bleeding disorders. GENITOURINARY: Denies any blood in urine. SKIN: Denies pruitis. Denies rash. PHYSICAL EXAM: VITAL SIGNS: Reviewed. GENERAL: Well-developed in no acute distress. HEENT: Head is normocephalic. Pupils are equal, round. Sclerae anicteric. Mucous membranes of the mouth are moist. Neck supple. No JVD or thyromegaly LUNGS: Respirations even and unlabored. Lungs with wheezing bilaterally HEART: Regular rate and rhythm. S1 and S2 heard. ABDOMEN: Soft. Nondistended. Nontender. EXTREMITIES: Normal range of motion. No clubbing or cyanosis. Peripheral pulses intact. 1+ bilateral lower extremity edema NEUROLOGIC: Awake and alert. Oriented x 3. ASSESSMENT: Shortness of breath Acute influenza A Possible right sided pneumonia per chest x-ray Acute on chronic heart failure with reduced EF 40 to 45% Coronary artery disease with previous stenting Paroxysmal atrial fibrillation History of HAZEL cardioversion, November 2023 History of SVT Hypertension Hyperlipidemia History of COPD Morbid obesity: BMI 52.9 Former nicotine dependence PLAN: Need to repeat echocardiogram as this was performed in February 2024 Begin IV Lasix 40 mg every 12 hours Daily weights, accurate intake and output, monitoring of kidney function Continue additional cardiac medications including amiodarone, Eliquis, aspirin, Farxiga, losartan, and metoprolol Recommend outpatient sleep study evaluation Further recommendations pending patient course Nurse practitioner note has been reviewed by physician. Signing provider agrees with the documented findings, assessment, and plan of care documented by FIRE MANAGEMENT SPECIALIST as a scribe. Past Medical History Past Medical History: Hypertension Additional Past Medical History / Comment(s): questionable a-fib History of Any Multi-Drug Resistant Organisms: None Reported Past Surgical History: Section, Cholecystectomy, Tonsillectomy Additional Past Surgical History / Comment(s): Part on colon removed Past Anesthesia/Blood Transfusion Reactions: No Reported Reaction Date of Last Stent Placement:: 2019 Past Psychological History: Anxiety Smoking Status: Former smoker Past Alcohol Use History: Rare Past Drug Use History: None Reported Medications and Allergies Home Medications Medication Instructions Recorded Confirmed Type Apixaban [Eliquis] 5 mg PO BID 30 Days #60 tab 12/21/23 08/29/24 Rx Famotidine [Pepcid] 20 mg PO HS #30 tab 12/24/23 08/29/24 Rx Amiodarone [Cordarone] 100 mg PO HS 08/29/24 08/29/24 History Aspirin 81 mg PO HS 08/29/24 08/29/24 History Dapagliflozin Propanediol [Farxiga] 10 mg PO HS 08/29/24 08/29/24 History Furosemide [Lasix] 40 mg PO BID 08/29/24 08/29/24 History Losartan [Cozaar] 25 mg PO HS 08/29/24 08/29/24 History Metoprolol Succinate (ER) [Toprol 50 mg PO HS 08/30/24 08/30/24 History Xl] Allergies Allergy/AdvReac Type Severity Reaction Status Date / Time No Known Allergies Allergy Verified 08/29/24 13:01 Physical Exam Vitals: Vital Signs Temp Pulse Resp BP Pulse Ox FiO2 08/30/24 12:46 88 08/30/24 12:38 75 08/30/24 09:17 74 08/30/24 09:07 67 16 145/77 98 08/30/24 09:03 63 08/30/24 08:18 97.5 F L 89 16 140/69 97 08/30/24 05:16 67 16 130/96 97 08/30/24 02:31 71 18 121/61 96 08/29/24 22:39 99.5 F 83 21 141/76 95 08/29/24 20:36 86 08/29/24 20:22 85 08/29/24 18:00 80 22 139/64 96 08/29/24 16:04 98.2 F 87 21 147/71 94 L 08/29/24 15:52 96 08/29/24 15:48 81 08/29/24 15:35 77 08/29/24 15:30 40 Results 08/30/24 01:31 08/30/24 01:31 CBC 08/30/24 Range/Units 01:31 WBC 6.5 (3.8-10.6) k/uL RBC 4.48 (3.80-5.40) m/uL Hgb 13.0 (11.4-16.0) gm/dL Hct 43.7 (34.0-46.0) % Plt Count 272 (150-450) k/uL Comprehensive Metabolic Panel 08/30/24 Range/Units 01:31 Sodium 136 L (137-145) mmol/L Potassium 3.9 (3.5-5.1) mmol/L Chloride 100 (98-107) mmol/L Carbon Dioxide 28 (22-30) mmol/L BUN 23 H (7-17) mg/dL Creatinine 1.68 H (0.52-1.04) mg/dL Glucose 154 H (74-99) mg/dL Calcium 8.7 (8.4-10.2) mg/dL Current Medications Generic Name Dose Route Start Last Admin Trade Name Freq PRN Reason Stop Dose Admin Albuterol/Ipratropium 3 ml 08/29/24 16:00 08/30/24 12:37 Ipratropium-Albuterol 3 Ml Neb INHALATION 3 ml RT-QID MUKESH Administration Albuterol/Ipratropium 3 ml 08/29/24 12:36 Ipratropium-Albuterol 3 Ml Neb INHALATION RT-Q4H PRN shortness of breath Amiodarone HCl 100 mg 08/29/24 21:00 08/29/24 22:49 Amiodarone 100 Mg Tab PO Not Given HS MUKESH Apixaban 5 mg 08/29/24 21:00 08/30/24 09:00 Apixaban 5 Mg Tab PO 5 mg BID MUKESH Administration Protocol Aspirin 81 mg 08/29/24 21:00 08/29/24 22:42 Aspirin 81 Mg PO 81 mg HS MUKESH Administration Azithromycin 500 mg 08/30/24 09:00 08/30/24 09:00 Azithromycin 500 Mg Tab PO 08/31/24 09:01 500 mg DAILY MUKESH Administration Protocol Budesonide/Formoterol Fumarate 2 puff 08/29/24 20:00 08/30/24 09:03 Symbicort 160-4.5 Mcg Inhaler INHALATION 2 puff RT-BID MUKESH Administration Dapagliflozin 10 mg 08/29/24 21:00 08/29/24 22:41 Dapagliflozin Propanediol 10 Mg Tablet PO 10 mg HS MUKESH Administration Famotidine 20 mg 08/29/24 21:00 08/29/24 22:42 Famotidine 20 Mg Tab PO 20 mg HS MUKESH Administration Furosemide 40 mg 08/30/24 09:00 08/30/24 09:00 Furosemide 10 Mg/Ml 4 Ml Vial IV 40 mg Q12HR MUKESH Administration Guaifenesin 600 mg 08/29/24 21:00 08/30/24 09:21 Guaifenesin 600 Mg Tablet.Er PO 600 mg Q12HR MUKESH Administration Ceftriaxone Sodium 2 gm/ 50 mls @ 100 mls/hr 08/30/24 09:00 08/30/24 09:00 Sodium Chloride IVPB 100 mls/hr Q24HR MUKESH Administration Protocol Losartan Potassium 25 mg 08/29/24 21:00 08/29/24 22:42 Losartan 25 Mg Tab PO 25 mg HS MUKESH Administration Melatonin 5 mg 08/30/24 02:10 08/30/24 02:30 Melatonin 5 Mg Tablet PO 5 mg HS MUKESH Administration Methylprednisolone Sodium Succinate 60 mg 08/29/24 18:00 08/30/24 13:13 Methylprednisolone Sod Succi 125 Mg/2 Ml Vial IV 60 mg Q6HR MUKESH Administration Metoprolol Succinate 50 mg 08/30/24 21:00 Metoprolol Succinate (Er) 50 Mg Tab.Er.24h PO HS [facility] Miscellaneous Information 1 each 08/29/24 12:36 Pneumonia Protocol Utilized 1 Each Misc PO ONCE PRN Per Protocol Naloxone HCl 0.2 mg 08/29/24 12:36 Naloxone 0.4 Mg/Ml 1 Ml Vial IVP Q2M PRN Opioid Reversal Oseltamivir Phosphate 30 mg 08/29/24 11:00 08/30/24 09:21 Oseltamivir 30 Mg Cap PO 09/02/24 09:01 30 mg DAILY MUKESH Administration Protocol 08/30/24 01:31 08/30/24 01:31
--- NOTE | 2024-08-30 15:24 | P.PN ---
Subjective Progress Note Date: 08/30/24 Interval History: 73-year-old female with past medical history significant for COPD, history of diastolic CHF, history of coronary artery disease status post PCI, history of proximal atrial fibrillation, history of NSVT, hypertension, hyperlipidemia who presented to ER with a complaint of worsening shortness of breath. Patient reported that she was having shortness of breath going on for the last 2 months which was recently getting worse for the last 4 days. Patient reports chills, denied any fevers. Patient reported that she was noticing worsening shortness of breath for the last 2 days, also reported cough and congestion, cough is productive with brown sputum. Patient reported using inhalers at home. Patient stated that she was not taking her Lasix regularly because of urinary frequency. Patient's reported that she was not able to catch her breath even at rest now. Patient reported chills. Patient denied any chest pain, palpitations, nausea vomiting diarrhea constipation abdominal pain dysuria urgency frequency weakness or numbness of the extremities. EMS found patient was tachycardic and hypoxic, oxygen saturation significantly improved with CPAP. Patient's pulse ox was noted to be in the upper 70s by EMS. In the ED patient had temperature 99 F, pulse rate 98, respiratory rate 18, blood pressure was 181/89, was saturating 99% on 40% FiO2 with BiPAP. WBC 9.4, hemoglobin 14.7, platelet 256. Sodium 139 potassium 4.2 chloride 101 CO2 24 BUN 19 creatinine 1.43. Initial lactate was 3.0, improved to 1.6. Troponin negative. NT proBNP was more than 10,000. Influenza A was positive. D-dimer was elevated. CT chest was negative for PE, showed right middle lobe patchy consolidation with air bronchograms most consistent with pneumonia, small bilateral pleural effusions with associated atelectasis, right greater than left, dilated main pulmonary artery suggesting pulmonary arterial hypertension. Atrophy of the visualized right kidney with poor contrast enhancement of right renal artery. 08/30--patient was seen and examined today. Afebrile, heart rate 74, respirator y rate 16, blood pressure 145/77, saturating 98% on 2 L. WBC 6.5, hemoglobin 13.0, platelet 272. Sodium 136 potassium 3.9 chloride 100 CO2 28 BUN 73, creatinine 1.648. Procalcitonin 0.37. Assessment and plan: Acute hypoxic respiratory failure: Pneumonia: Acute COPD exacerbation: Acute influenza A infection Presented with worsening shortness of breath, productive cough, congestion Influenza A positive CT chest showed right middle lobe patchy consolidation with air bronchograms consistent with pneumonia Continue azithromycin and Rocephin Mucinex, incentive spirometry BiPAP as needed Tamiflu Inhaler/bronchodilator protocol, Solu-Medrol Pulmonary consult Acute on chronic diastolic CHF Paroxysmal atrial fibrillation: On Eliquis History of CAD/PCI: History of NSVT Hypertension Hyperlipidemia: Continue home meds including aspirin, statin, amiodarone,Farxiga, metoprolol, losartan IV Lasix Continue Eliquis Monitor daily weight and I&O's Cardiology consulted--recommended IV diuresis, outpatient sleep study. DVT prophylaxis Anticoagulated Monitor vital signs and labs Labs and medication were reviewed. Continue same treatment. Further recommendations as per clinical course of the patient PHYSICAL EXAMINATION: GENERAL: The patient is A&O x3, NAD HEENT: EOMI, Sclerae anicteric, Moist Mucous membranes Neck: Supple, Non tender, No JVD PULMONARY: Decreased breath sound bilaterally, bilateral crackles CARDIOVASCULAR: S1, S2 present. No murmurs, rubs, or gallops. ABDOMEN: Soft, nontender, nondistended, normoactive bowel sounds. No guarding or rebound tenderness. MUSCULOSKELETAL: No edema, No cyanosis. No clubbing. Normal ROM. Intact peripheral pulses. NEUROLOGICAL: CN 2-12 grossly intact. No FND REVIEW OF SYSTEMS: CONSTITUTIONAL: No fever or chills. CARDIOVASCULAR: No chest pain, palpitations or syncope. PULMONARY: Complains of shortness breath, productive cough, congestion. GASTROINTESTINAL: No nausea, vomiting, diarrhea, abdominal pain. : No Dysuria, urgency, frequency. Extremities: No edema. NEUROLOGICAL: No headaches, no weakness, or numbness Dictation was produced using [employer] dictation software. please excuse any grammatical, word or spelling errors. Objective - Vital Signs Vital signs: Vital Signs Temp 97.5 F L 08/30/24 08:18 Pulse 88 08/30/24 12:46 Resp 16 08/30/24 09:07 BP 145/77 08/30/24 09:07 Pulse Ox 98 08/30/24 09:07 FiO2 40 08/29/24 15:30 Intake & Output 08/29/24 08/30/24 08/30/24 18:59 06:59 18:59 Weight 127.006 kg - Labs CBC & Chem 7: 08/30/24 01:31 08/30/24 01:31 Labs: Abnormal Lab Results - Last 24 Hours (Table) 08/30/24 08/30/24 Range/Units 01:31 01:31 MCHC 29.7 L (31.0-37.0) g/dL Lymphocytes # 0.3 L (1.0-4.8) k/uL Sodium 136 L (137-145) mmol/L BUN 23 H (7-17) mg/dL Creatinine 1.68 H (0.52-1.04) mg/dL Glucose 154 H (74-99) mg/dL
[2024-08-30] MEDS: METOPROLOL SUCCINATE (ER) 50 MG TAB.ER.24H PO SCH (21:51)
[2024-08-31 09:35] LABS: Basophils # (A) 0.01 X 10*3/uL (0.00-0.10); Basophils % (A) 0.1 %; Eosinophils # (A) 0 X 10*3/uL (0.04-0.35); Eosinophils % (A) 0 %; HCT 39.4 % (37.2-46.3); HGB 12.5 g/dL (12.0-15.0); Lymphocytes # (A) 0.47 X 10*3/uL (0.90-5.00); Lymphocytes % (A) 4.1 %; MCH 29.8 pg (27.0-32.0); MCHC 31.7 g/dL (32.0-37.0); MCV 93.8 FL (80.0-97.0); Mean Platelet Volume 11.4 FL (9.5-12.2); Monocytes # (A) 0.52 X 10*3/uL (0.20-1.00); Monocytes % (A) 4.5 %; NRBC Per 100 WBC 0 X 10*3/uL (0.00-0.01); Neutrophils # (A) 10.47 X 10*3/uL (1.80-7.70); Neutrophils % (A) 90.7 %; Platelet Count 260 X 10*3/uL (140-440); RDW 14.6 % (11.5-14.5); WBC 11.54 X 10*3/uL (4.50-10.00)
--- NOTE | 2024-08-31 10:04 | P.PN ---
Subjective Progress Note Date: 08/31/24 HISTORY OF PRESENT ILLNESS: This is a 73-year-old female with a past medical history significant for co ronary artery disease with previous stenting, nonischemic cardiomyopathy, atrial fibrillation, SVT, hypertension, hyperlipidemia, COPD, morbid obesity, and nicotine dependence. Patient follows in the office with Dr. Macias. We have been asked to see the patient in consultation for congestive heart failure. Patient examined at the bedside in the emergency room. Patient presented to the hospital for chief complaint of shortness of breath. She states she has been feeling short of breath for the past 4 to 5 days. She states the shortness of breath is worse when she is laying flat and also with exertion. She denies any chest pain or pressure. Patient was found to be positive for influenza A. Patient was also found to be in acute CHF and was started on IV Lasix. DIAGNOSTICS: - EKG reveals sinus mechanism with IVCD. - Chest xray patchy infiltrate right lower lobe suspicious for developing pneumonia. -Chest CTA: Negative for pulmonary embolism, right middle lobe patchy consolidation with air bronchograms most consistent with pneumonia, small bilateral pleural effusions with associated atelectasis, right greater than left, dilated main pulmonary artery suggesting pulmonary arterial hypertension - Laboratory data: WBC 6.5. Hemoglobin 13.0. Platelet count 272. Sodium 136. Potassium 3.9. BUN 23. Creatinine 1.68. Troponin negative x 1. proBNP 10,800. Procalcitonin 0.37. - Current home cardiac medications include amiodarone 100 mg at night, Eliquis 5 mg twice a day, aspirin 81 mg at night, Farxiga 10 mg at night, Lasix 40 mg twice a day, losartan 25 mg at night, metoprolol succinate 50 mg at night. - Most recent echocardiogram obtained in February 2024 revealed ejection fraction 40 to 45% with global LV hypokinesis - Patient underwent cardioversion with Dr. Macias in November 2023 - Cardiac catheterization history: November 2023 revealing patent stent to the mid RCA, intermediate nonobstructive lesion involving the mid LAD unchanged from before, elevated left-sided filling pressures. 08/31 Patient is seen and examined on the [facility] floor. Patient has been transferred from cardiac stepdown unit. Patient is currently in isolation for influenza. Patient states that her breathing is not any better today. She continues to have a cough and wheezing. She also continues to complain of headache and nausea as well. She also states she had chest pain that came on about an hour ago while she was trying to move herself up in bed. She has been on IV Lasix 40 mg every 12 hours. She now has no lower extremity edema. Blood pressure 119/67, heart rate 65, pulse ox 93% on 2 L nasal cannula. Repeat blood work reveals WBC 11.5, hemoglobin 12.5. Chemistry is not reported at the time of this dictation. PHYSICAL EXAM: VITAL SIGNS: Reviewed. GENERAL: Well-developed in no acute distress. HEENT: Head is normocephalic. Pupils are equal, round. Sclerae anicteric. Mucous membranes of the mouth are moist. Neck supple. No JVD or thyromegaly LUNGS: Respirations even and unlabored. Lungs with crackles bilaterally HEART: Regular rate and rhythm. S1 and S2 heard. ABDOMEN: Soft. Nondistended. Nontender. EXTREMITIES: No clubbing or cyanosis. Peripheral pulses intact. No lower extremity edema NEUROLOGIC: Awake and alert. Oriented x 3. ASSESSMENT: Shortness of breath Acute influenza A Possible right sided pneumonia per chest x-ray Acute on chronic heart failure with reduced EF 40 to 45% Coronary artery disease with previous stenting Paroxysmal atrial fibrillation History of HAZEL cardioversion, November 2023 History of SVT Hypertension Hyperlipidemia History of COPD Morbid obesity: BMI 52.9 Former nicotine dependence PLAN: No need to repeat echocardiogram as this was performed in February 2024 Transition IV Lasix to oral 40 mg daily which is her home dose Daily weights, accurate intake and output, monitoring of kidney function Continue additional cardiac medications including amiodarone, Eliquis, aspirin, Farxiga, losartan, and metoprolol Recommend outpatient sleep study evaluation Repeat blood work including pBNP ordered for tomorrow Further recommendations pending patient course Nurse practitioner note has been reviewed by physician. Signing provider agrees with the documented findings, assessment, and plan of care documented by PHOTO CHECKER AND ASSEMBLER as a scribe. Objective - Vital Signs Vital signs: Vital Signs Temp 98.4 F 08/31/24 07:23 Pulse 86 08/31/24 09:04 Resp 20 08/31/24 07:23 BP 119/67 08/31/24 07:23 Pulse Ox 93 L 08/31/24 07:23 FiO2 40 08/29/24 15:30 Intake & Output 0308/31/24 08/31/24 18:59 06:59 18:59 Weight 127.006 kg Other: # Voids 4 - Labs CBC & Chem 7: 08/31/24 06:14 08/30/24 01:31 Labs: Microbiology - Last 24 Hours (Table) 08/30/24 08:25 Gram Stain - Preliminary Sputum 08/29/24 11:10 Blood Culture - Preliminary Blood
[2024-08-31 11:21] LABS: BUN/Creat Ratio 16.24 Ratio (12.00-20.00); Blood Urea Nitrogen 34.1 mg/dL (9.0-27.0); Calcium 8.8 mg/dL (8.7-10.3); Carbon Dioxide 24.2 mmol/L (21.6-31.8); Chloride 103 mmol/L (96-109); Glucose 213 mg/dL (70-110); Potassium 4.1 mmol/L (3.5-5.5); Sodium 140 mmol/L (135-145)
--- NOTE | 2024-08-31 12:22 | P.PN ---
Subjective Progress Note Date: 08/31/24 Patient is a 73-year-old female with past medical history significant for atrial fibrillation anticoagulated on Eliquis, coronary artery disease with previous PCI/stents, UT, ischemic cardiomyopathy with ejection fraction of 20 to 25% along with mild to moderate mitral regurgitation, COPD. PCP is Dr. Kamara. Presents to the emergency department yesterday morning with a chief complaint of difficulty in breathing. Progressively worse over the last couple days. States that herself and her developed a "cold" that started approximately 1 week ago. On arrival to the ED, found to be in some respiratory distress, pulse ox was reading the upper 70s. She was placed on BiPAP. Workup in the emergency department including a viral screen positive for influenza A. Chest CTA did not show any evidence of filling defects consistent with pulmonary embolism. Right middle lobe patchy consolidation with air bronchograms, consistent with pneumonia. Small bilateral pleural effusions with associated atelectasis right greater than left. Dilated main pulmonary artery suggestive of pulmonary hy pertension. CBC: WBC count 9.4, hemoglobin 14.7, platelets 256. CMP: Sodium 139, potassium 4.2, chloride 101, serum bicarb 24, BUN 19, creatinine 1.43, glucose elevated 239. Lactic was 3 and is down to 1.6. LFTs not elevated. Troponin less than 0.015. NT proBNP significantly elevated at 10,800. EKG: Sinus mechanism, heart rate 98 bpm, interventricular conduction delay. Patient is currently being evaluated emergency department. BiPAP is on standby with settings 12/5. She is on a 2 L/min nasal cannula. Nondistressed. Patient states that her and her developed flulike symptoms approximately 1 week ago. Progressive shortness of breath. Associated cough, with productive sputum brown to bloody in color. Denies any fever. Denies nausea, vomiting, diarrhea. Tolerating oral intake. Denies any chest pain. Denies orthopnea or increased lower extremity edema. Does take Lasix on an outpatient basis, states she is suppose to be taking 40 mg twice a day. She has cut it down to 20 mg once a day without direction of her pot liner. Denies missing any doses of Eliquis. S tarted on empiric antibiotics in the ED. Also, started on Tamiflu. Current vital signs: Temperature 99.5 F, heart rate 83 bpm, blood pressure 141/76 mmHg, respiratory rate nontachypneic, SpO2 reading 94% on 2 L/min nasal cannula. The patient is seen today August 31, 2024 in follow-up on the regular medical floor. She is currently sitting up in bed. Awake and alert in no acute distress. Feeling a bit better today compared to yesterday. She is maintaining O2 saturations in the 90s on room air. She is afebrile. Hemodynamically stable. Follow-up chest x-ray reveals right basilar airspace opacities. Procalcitonin was negative at 0.37. White count 11.5. Hemoglobin 12.5. Platelets 260. Sodium 140. Potassium 4.1. Bicarb 24. BUN 34. Creatinine 2.1. Glucose 213. She has been refusing her DuoNeb inhalations and Symbicort. She remains on Tamiflu. Remains on Solu-Medrol. Transitioned to oral diuretics. Objective - Vital Signs Vital signs: Vital Signs Temp 98.4 F 08/31/24 07:23 Pulse 88 08/31/24 09:19 Resp 20 08/31/24 08:56 BP 119/67 08/31/24 07:23 Pulse Ox 93 L 08/31/24 07:23 FiO2 40 08/29/24 15:30 Intake & Output 08/30/24 08/31/24 08/31/24 18:59 06:59 18:59 Weight 127.006 kg Other: # Voids 4 - Exam GENERAL EXAM: Alert, pleasant 73-year-old morbidly obese female, on 2 L nasal cannula, in no apparent distress. HEAD: Normocephalic and atraumatic EYES: Normal reaction of pupils, equal size. NOSE: Clear with pink turbinates. THROAT: No erythema or exudates. NECK: No masses, no JVD. CHEST: No chest wall deformity. LUNGS: Equal air entry with no crackles, wheeze, rhonchi or dullness. No conversational dyspnea or accessory muscle use. CVS: S1 and S2 normal with no audible murmur, regular rhythm. No extra heart sounds ABDOMEN: No hepatosplenomegaly, active bowel sounds, no guarding or rigidity. SPINE: No scoliosis or deformity SKIN: No rashes CENTRAL NERVOUS SYSTEM: No focal deficits, tone is normal in all 4 extremities. EXTREMITIES: There is no peripheral edema, clubbing, or cyanosis. Peripheral pulses are intact. - Labs CBC & Chem 7: 08/31/24 06:14 08/31/24 06:14 Labs: Abnormal Lab Results - Last 24 Hours (Table) 08/31/24 08/31/24 Range/Units 06:14 06:14 WBC 11.54 H (4.50-10.00) X 10*3/uL MCHC 31.7 L (32.0-37.0) g/dL RDW 14.6 H (11.5-14.5) % Immature Gran # 0.07 H (0.00-0.04) X 10*3/uL Neutrophils # 10.47 H (1.80-7.70) X 10*3/uL Lymphocytes # 0.47 L (0.90-5.00) X 10*3/uL Eosinophils # 0 L (0.04-0.35) X 10*3/uL Anion Gap 12.80 H (4.00-12.00) mmol/L BUN 34.1 H (9.0-27.0) mg/dL Creatinine 2.1 H (0.6-1.5) mg/dL Est GFR (CKD-EPI) 25 L (>=60) Glucose 213 H (70-110) mg/dL Microbiology - Last 24 Hours (Table) 08/30/24 08:25 Gram Stain - Preliminary Sputum 08/29/24 11:10 Blood Culture - Preliminary Blood Assessment and Plan Assessment: Acute influenza A infection, possibility of superimposed bacterial infection ruled out. Procalcitonin negative Acute exacerbation of systolic congestive heart failure Acute hypoxemic respiratory failure, secondary to above, currently on 2 L/min nasal cannula, Chest CTA did not show any evidence of filling defects consistent with pulmonary embolism. Right middle lobe patchy consolidation with air bronchograms, consistent with pneumonia. Small bilateral pleural effusions with associated atelectasis right greater than left. Dilated main pulmonary artery suggestive of pulmonary hypertension. NT proBNP elevated 10,800 History of paroxysmal atrial fibrillation, currently sinus mechanism History of coronary artery disease with previous PCI/stents History of nonischemic cardiomyopathy, with an ejection fraction 20 to 25% along with mild to moderate mitral regurgitation Hypertension History of hyperlipidemia Chronic kidney disease stage IIIB History of COPD, appears stable on clinical examination Morbid obesity, with a BMI of 52.9 kg/m The patient was seen and evaluated Chest x-ray, labs and medications reviewed Procalcitonin negative Antibiotics discontinued Patient declines breathing treatments DuoNebs and Symbicort discontinue Continue Solu-Medrol Continue Tamiflu Transitioned to oral diuretics Anticoagulated with Eliquis We will continue to follow I have personally seen and examined the patient, performed the documentation and the assessment and plan as written. Number of minutes spent on the visit: 10 Dictation was produced using [employer] dictation software. Please excuse any gramm atical, word or spelling errors.
--- NOTE | 2024-08-31 14:29 | P.PN ---
Subjective Interval History: 73-year-old female with past medical history significant for COPD, history of diastolic CHF, history of coronary artery disease status post PCI, history of proximal atrial fibrillation, history of NSVT, hypertension, hyperlipidemia who presented to ER with a complaint of worsening shortness of breath. Patient reported that she was having shortness of breath going on for the last 2 months which was recently getting worse for the last 4 days. Patient reports chills, denied any fevers. Patient reported that she was noticing worsening shortness of breath for the last 2 days, also reported cough and congestion, cough is productive with brown sputum. Patient reported using inhalers at home. Patient stated that she was not taking her Lasix regularly because of urinary frequency. Patient's reported that she was not able to catch her breath even at rest now. Patient reported chills. Patient denied any chest pain, palpitations, nausea vomiting diarrhea constipation abdominal pain dysuria urgency frequency weakness or numbness of the extremities. EMS found patient was tachycardic and hypoxic, oxygen saturation significantly improved with CPAP. Patient's pulse ox was noted to be in the upper 70s by EMS. In the ED patient had temperature 99 F, pulse rate 98, respiratory rate 18, blood pressure was 181/89, was saturating 99% on 40% FiO2 with BiPAP. WBC 9.4, hemoglobin 14.7, platelet 256. Sodium 139 potassium 4.2 chloride 101 CO2 24 BUN 19 creatinine 1.43. Initial lactate was 3.0, improved to 1.6. Troponin negative. NT proBNP was more than 10,000. Influenza A was positive. D-dimer was elevated. CT chest was negative for PE, showed right middle lobe patchy consolidation with air bronchograms most consistent with pneumonia, small bilateral pleural effusions with associated atelectasis, right greater than left, dilated main pulmonary artery suggesting pulmonary arterial hypertension. Atrophy of the v isualized right kidney with poor contrast enhancement of right renal artery. 08/30--patient was seen and examined today. Afebrile, heart rate 74, respiratory rate 16, blood pressure 145/77, saturating 98% on 2 L. WBC 6.5, hemoglobin 13.0, platelet 272. Sodium 136 potassium 3.9 chloride 100 CO2 28 BUN 73, creatinine 1.648. Procalcitonin 0.37. 08/31--patient was seen and examined today. Patient reported that her breathing is still worse. Complaint of cough and wheezing, patient reported that her cough got worse with the inhalers. Patient is currently on room air. Remained afebrile. WBCs 11.5, hemoglobin 12.5, platelet 260. Sodium 140 potassium 4.1 bicarbonate 24 BUN 34 creatinine 2.1. Pulmonary and cardiology following. IV Lasix switched to p.o. Lasix. Off antibiotics now since procalcitonin negative. Assessment and plan: Acute hypoxic respiratory failure: Pneumonia: Suspect viral Acute COPD exacerbation: Acute influenza A infection Presented with worsening shortness of breath, productive cough, congestion Influenza A positive CT chest showed right middle lobe patchy consolidation with air bronchograms consistent with pneumonia Antibiotics stopped as procalcitonin negative. Mucinex, incentive spirometry BiPAP as needed Tamiflu Inhaler/bronchodilator protocol, Solu-Medrol Pulmonary consult Acute on chronic diastolic CHF Paroxysmal atrial fibrillation: On Eliquis History of CAD/PCI: History of NSVT Hypertension Hyperlipidemia: Continue home meds including aspirin, statin, amiodarone,Farxiga, metoprolol, losartan Continue Eliquis Monitor daily weight and I&O's Cardiology consulted--recommended IV diuresis, outpatient sleep study. Initially received IV Lasix, now on p.o. Lasix. DVT prophylaxis Anticoagulated Monitor vital signs and labs Labs and medication were reviewed. Continue same treatment. Further recommendations as per clinical course of the patient PHYSICAL EXAMINATION: GENERAL: The patient is A&O x3, NAD HEENT: EOMI, Sclerae anicteric, Moist Mucous membranes Neck: Supple, Non tender, No JVD PULMONARY: Decreased breath sound bilaterally, bilateral crackles CARDIOVASCULAR: S1, S2 present. No murmurs, rubs, or gallops. ABDOMEN: Soft, nontender, nondistended, normoactive bowel sounds. No guarding or rebound tenderness. MUSCULOSKELETAL: No edema, No cyanosis. No clubbing. Normal ROM. Intact peripheral pulses. NEUROLOGICAL: CN 2-12 grossly intact. No FND REVIEW OF SYSTEMS: CONSTITUTIONAL: No fever or chills. CARDIOVASCULAR: No chest pain, palpitations or syncope. PULMONARY: Complains of shortness breath, productive cough, congestion. GASTROINTESTINAL: No nausea, vomiting, diarrhea, abdominal pain. : No Dysuria, urgency, frequency. Extremities: No edema. NEUROLOGICAL: No headaches, no weakness, or numbness Dictation was produced using [employer] software. please excuse any grammatical, word or spelling errors. Objective - Vital Signs Vital signs: Vital Signs Temp 98 F 08/31/24 13:48 Pulse 86 08/31/24 13:48 Resp 20 08/31/24 13:48 BP 133/72 08/31/24 13:48 Pulse Ox 92 L 08/31/24 13:48 FiO2 40 08/29/24 15:30 Intake & Output 08/30/24 08/31/24 08/31/24 18:59 06:59 18:59 Weight 127.006 kg Other: # Voids 4 - Labs CBC & Chem 7: 08/31/24 06:14 08/31/24 06:14 Labs: Abnormal Lab Results - Last 24 Hours (Table) 08/31/24 08/31/24 Range/Units 06:14 06:14 WBC 11.54 H (4.50-10.00) X 10*3/uL MCHC 31.7 L (32.0-37.0) g/dL RDW 14.6 H (11.5-14.5) % Immature Gran # 0.07 H (0.00-0.04) X 10*3/uL Neutrophils # 10.47 H (1.80-7.70) X 10*3/uL Lymphocytes # 0.47 L (0.90-5.00) X 10*3/uL Eosinophils # 0 L (0.04-0.35) X 10*3/uL Anion Gap 12.80 H (4.00-12.00) mmol/L BUN 34.1 H (9.0-27.0) mg/dL Creatinine 2.1 H (0.6-1.5) mg/dL Est GFR (CKD-EPI) 25 L (>=60) Glucose 213 H (70-110) mg/dL Microbiology - Last 24 Hours (Table) 08/30/24 08:25 Gram Stain - Preliminary Sputum Sputum Culture - Preliminary 08/29/24 11:10 Blood Culture - Preliminary Blood
[2024-08-31] MEDS: FUROSEMIDE 40 MG TAB PO SCH (17:27)
[2024-09-01] MEDS: AZITHROMYCIN 500 MG TAB PO SCH (08:48)
--- NOTE | 2024-09-01 09:23 | P.PN ---
Subjective Progress Note Date: 09/01/24 HISTORY OF PRESENT ILLNESS: This is a 73-year-old female with a past medical history significant for co ronary artery disease with previous stenting, nonischemic cardiomyopathy, atrial fibrillation, SVT, hypertension, hyperlipidemia, COPD, morbid obesity, and nicotine dependence. Patient follows in the office with Dr. Macias. We have been asked to see the patient in consultation for congestive heart failure. Patient examined at the bedside in the emergency room. Patient presented to the hospital for chief complaint of shortness of breath. She states she has been feeling short of breath for the past 4 to 5 days. She states the shortness of breath is worse when she is laying flat and also with exertion. She denies any chest pain or pressure. Patient was found to be positive for influenza A. Patient was also found to be in acute CHF and was started on IV Lasix. DIAGNOSTICS: - EKG reveals sinus mechanism with IVCD. - Chest xray patchy infiltrate right lower lobe suspicious for developing pneumonia. -Chest CTA: Negative for pulmonary embolism, right middle lobe patchy consolidation with air bronchograms most consistent with pneumonia, small bilateral pleural effusions with associated atelectasis, right greater than left, dilated main pulmonary artery suggesting pulmonary arterial hypertension - Laboratory data: WBC 6.5. Hemoglobin 13.0. Platelet count 272. Sodium 136. Potassium 3.9. BUN 23. Creatinine 1.68. Troponin negative x 1. proBNP 10,800. Procalcitonin 0.37. - Current home cardiac medications include amiodarone 100 mg at night, Eliquis 5 mg twice a day, aspirin 81 mg at night, Farxiga 10 mg at night, Lasix 40 mg twice a day, losartan 25 mg at night, metoprolol succinate 50 mg at night. - Most recent echocardiogram obtained in February 2024 revealed ejection fraction 40 to 45% with global LV hypokinesis - Patient underwent cardioversion with Dr. Macias in November 2023 - Cardiac catheterization history: November 2023 revealing patent stent to the mid RCA, intermediate nonobstructive lesion involving the mid LAD unchanged from before, elevated left-sided filling pressures. 08/31 Patient is seen and examined on the [facility] floor. Patient has been transferred from cardiac stepdown unit. Patient is currently in isolation for influenza. Patient states that her breathing is not any better today. She continues to have a cough and wheezing. She also continues to complain of headache and nausea as well. She also states she had chest pain that came on about an hour ago while she was trying to move herself up in bed. She has been on IV Lasix 40 mg every 12 hours. She now has no lower extremity edema. Blood pressure 119/67, heart rate 65, pulse ox 93% on 2 L nasal cannula. Repeat blood work reveals WBC 11.5, hemoglobin 12.5. Chemistry is not reported at the time of this dictation. 09/01 Patient is seen and examined. Patient's breathing is improving. Her lung sounds are improved. She feels better and she is coughing less. Yesterday we transition IV Lasix to oral. Blood pressure 137/76, heart rate 71, pulse ox 96% on 2 L nasal cannula and 89% on room air. Repeat blood work not available at the time of this dictation. PHYSICAL EXAM: VITAL SIGNS: Reviewed. GENERAL: Well-developed in no acute distress. HEENT: Head is normocephalic. Pupils are equal, round. Sclerae anicteric. Mucous membranes of the mouth are moist. Neck supple. No JVD or thyromegaly LUNGS: Respirations even and unlabored. Lungs with crackles bilaterally HEART: Regular rate and rhythm. S1 and S2 heard. ABDOMEN: Soft. Nondistended. Nontender. EXTREMITIES: No clubbing or cyanosis. Peripheral pulses intact. No lower extremity edema NEUROLOGIC: Awake and alert. Oriented x 3. ASSESSMENT: Shortness of breath Acute influenza A Possible right sided pneumonia per chest x-ray Acute on chronic heart failure with reduced EF 40 to 45% Coronary artery disease with previous stenting Paroxysmal atrial fibrillation History of HAZEL cardioversion, November 2023 History of SVT Hypertension Hyperlipidemia History of COPD Morbid obesity: BMI 52.9 Former nicotine dependence PLAN: No need to repeat echocardiogram as this was performed in February 2024 Continue Lasix oral 40 mg daily which is her home dose Continue additional cardiac medications including amiodarone, Eliquis, aspirin, Farxiga, losartan, and metoprolol Recommend outpatient sleep study evaluation No further cardiac workup at this time. Cardiology will sign off this case and follow on an as-needed basis. Please reconsult for any new concerns. Patient may follow-up in the office in [address] Macias. Nurse practitioner note has been reviewed by physician. Signing provider agrees with the documented findings, assessment, and plan of care documented by COTTON FARMER as a scribe. Objective - Vital Signs Vital signs: Vital Signs Temp 97.5 F L 09/01/24 07:09 Pulse 71 09/01/24 07:09 Resp 18 09/01/24 07:09 BP 137/76 09/01/24 07:09 Pulse Ox 89 L 09/01/24 07:09 FiO2 40 08/29/24 15:30 Intake & Output 08/31/24 09/01/24 09/01/24 18:59 06:59 18:59 Weight 128 kg - Labs CBC & Chem 7: 08/31/24 06:14 08/31/24 06:14 Labs: Abnormal Lab Results - Last 24 Hours (Table) 08/31/24 08/31/24 Range/Units 06:14 06:14 WBC 11.54 H (4.50-10.00) X 10*3/uL MCHC 31.7 L (32.0-37.0) g/dL RDW 14.6 H (11.5-14.5) % Immature Gran # 0.07 H (0.00-0.04) X 10*3/uL Neutrophils # 10.47 H (1.80-7.70) X 10*3/uL Lymphocytes # 0.47 L (0.90-5.00) X 10*3/uL Eosinophils # 0 L (0.04-0.35) X 10*3/uL Anion Gap 12.80 H (4.00-12.00) mmol/L BUN 34.1 H (9.0-27.0) mg/dL Creatinine 2.1 H (0.6-1.5) mg/dL Est GFR (CKD-EPI) 25 L (>=60) Glucose 213 H (70-110) mg/dL Microbiology - Last 24 Hours (Table) 08/29/24 11:10 Blood Culture - Preliminary Blood 08/30/24 08:25 Gram Stain - Preliminary Sputum Sputum Culture - Preliminary
[2024-09-01 12:55] LABS: BUN/Creat Ratio 20.42 Ratio (12.00-20.00); Blood Urea Nitrogen 38.8 mg/dL (9.0-27.0); Calcium 8.6 mg/dL (8.7-10.3); Carbon Dioxide 30.3 mmol/L (21.6-31.8); Chloride 107 mmol/L (96-109); Glucose 167 mg/dL (70-110); Potassium 3.6 mmol/L (3.5-5.5); Sodium 151 mmol/L (135-145)
--- NOTE | 2024-09-01 14:10 | P.PN ---
Subjective Progress Note Date: 09/01/24 Patient is a 73-year-old female with past medical history significant for atrial fibrillation anticoagulated on Eliquis, coronary artery disease with previous PCI/stents, MS, ischemic cardiomyopathy with ejection fraction of 20 to 25% along with mild to moderate mitral regurgitation, COPD. PCP is Dr. Kamara. Presents to the emergency department yesterday morning with a chief complaint of difficulty in breathing. Progressively worse over the last couple days. States that herself and her developed a "cold" that started approximately 1 week ago. On arrival to the ED, found to be in some respiratory distress, pulse ox was reading the upper 70s. She was placed on BiPAP. Workup in the emergency department including a viral screen positive for influenza A. Chest CTA did not show any evidence of filling defects consistent with pulmonary embolism. Right middle lobe patchy consolidation with air bronchograms, consistent with pneumonia. Small bilateral pleural effusions with associated atelectasis right greater than left. Dilated main pulmonary artery suggestive of pulmonary hy pertension. CBC: WBC count 9.4, hemoglobin 14.7, platelets 256. CMP: Sodium 139, potassium 4.2, chloride 101, serum bicarb 24, BUN 19, creatinine 1.43, glucose elevated 239. Lactic was 3 and is down to 1.6. LFTs not elevated. Troponin less than 0.015. NT proBNP significantly elevated at 10,800. EKG: Sinus mechanism, heart rate 98 bpm, interventricular conduction delay. Patient is currently being evaluated emergency department. BiPAP is on standby with settings 12/5. She is on a 2 L/min nasal cannula. Nondistressed. Patient states that her and her developed flulike symptoms approximately 1 week ago. Progressive shortness of breath. Associated cough, with productive sputum brown to bloody in color. Denies any fever. Denies nausea, vomiting, diarrhea. Tolerating oral intake. Denies any chest pain. Denies orthopnea or increased lower extremity edema. Does take Lasix on an outpatient basis, states she is suppose to be taking 40 mg twice a day. She has cut it down to 20 mg once a day without direction of her social professionals. Denies missing any doses of Eliquis. S tarted on empiric antibiotics in the ED. Also, started on Tamiflu. Current vital signs: Temperature 99.5 F, heart rate 83 bpm, blood pressure 141/76 mmHg, respiratory rate nontachypneic, SpO2 reading 94% on 2 L/min nasal cannula. The patient is seen today August 31, 2024 in follow-up on the regular medical floor. She is currently sitting up in bed. Awake and alert in no acute distress. Feeling a bit better today compared to yesterday. She is maintaining O2 saturations in the 90s on room air. She is afebrile. Hemodynamically stable. Follow-up chest x-ray reveals right basilar airspace opacities. Procalcitonin was negative at 0.37. White count 11.5. Hemoglobin 12.5. Platelets 260. Sodium 140. Potassium 4.1. Bicarb 24. BUN 34. Creatinine 2.1. Glucose 213. She has been refusing her DuoNeb inhalations and Symbicort. She remains on Tamiflu. Remains on Solu-Medrol. Transitioned to oral diuretics. The patient is seen today September 01, 2024 in follow-up on the regular medical floor. She is sitting up at the bedside. Awake and alert in no acute distress. Maintaining O2 saturations in the 90s on 2 L/min per nasal cannula. She is afebrile. Hemodynamically stable. Blood and sputum cultures revealed no growth. Sodium 151. Potassium 5.6. Bicarb 30. BUN 39. Creatinine 1.9. Glucose 167. Procalcitonin was negative at 0.37. proBNP was elevated at 8760. Tamiflu. Continued on oral diuretics. Currently on azithromycin. Maintained on Solu-Medrol. DuoNeb inhalations are as needed only. Objective - Vital Signs Vital signs: Vital Signs Temp 97.5 F L 09/01/24 07:09 Pulse 71 09/01/24 07:09 Resp 18 09/01/24 07:09 BP 137/76 09/01/24 07:09 Pulse Ox 96 09/01/24 09:09 FiO2 40 08/29/24 15:30 Intake & Output 08/31/24 09/01/24 09/01/24 18:59 06:59 18:59 Weight 128 kg - Exam GENERAL EXAM: Alert, 73-year-old morbidly obese female, on 2 L nasal cannula, in no apparent distress. HEAD: Normocephalic and atraumatic EYES: Normal reaction of pupils, equal size. NOSE: Clear with pink turbinates. THROAT: No erythema or exudates. NECK: No masses, no JVD. CHEST: No chest wall deformity. LUNGS: Equal air entry with coarse rhonchi bilaterally. No conversational dyspnea or accessory muscle use. CVS: S1 and S2 normal with no audible murmur, regular rhythm. No extra heart sounds ABDOMEN: No hepatosplenomegaly, active bowel sounds, no guarding or rigidity. SPINE: No scoliosis or deformity SKIN: No rashes CENTRAL NERVOUS SYSTEM: No focal deficits, tone is normal in all 4 extremities. EXTREMITIES: There is no peripheral edema, clubbing, or cyanosis. Peripheral pulses are intact. - Labs CBC & Chem 7: 08/31/24 06:14 09/01/24 06:53 Labs: Abnormal Lab Results - Last 24 Hours (Table) 09/01/24 Range/Units 06:53 Sodium 151 H (135-145) mmol/L Anion Gap 13.70 H (4.00-12.00) mmol/L BUN 38.8 H (9.0-27.0) mg/dL Creatinine 1.9 H (0.6-1.5) mg/dL Est GFR (CKD-EPI) 28 L (>=60) BUN/Creatinine Ratio 20.42 H (12.00-20.00) Ratio Glucose 167 H (70-110) mg/dL Calcium 8.6 L (8.7-10.3) mg/dL Microbiology - Last 24 Hours (Table) 08/30/24 08:25 Gram Stain - Final Sputum Sputum Culture - Final 08/29/24 11:10 Blood Culture - Preliminary Blood Assessment and Plan Assessment: Acute influenza A infection, possibility of superimposed bacterial infection ruled out. Procalcitonin negative Acute exacerbation of systolic congestive heart failure Acute hypoxemic respiratory failure, secondary to above, currently on 2 L/min nasal cannula, Chest CTA did not show any evidence of filling defects consistent with pulmonary embolism. Right middle lobe patchy consolidation with air bronchograms, consistent with pneumonia. Small bilateral pleural effusions with associated atelectasis right greater than left. Dilated main pulmonary artery suggestive of pulmonary hypertension. NT proBNP elevated 10,800 History of paroxysmal atrial fibrillation, currently sinus mechanism History of coronary artery disease with previous PCI/stents History of nonischemic cardiomyopathy, with an ejection fraction 20 to 25% along with mild to moderate mitral regurgitation Hypertension History of hyperlipidemia Chronic kidney disease stage IIIB History of COPD, appears stable on clinical examination Morbid obesity, with a BMI of 52.9 kg/m The patient was seen and evaluated Labs and medications reviewed Antibiotics discontinued Discontinue Solu-Medrol Initiated a prednisone taper Continue Tamiflu Continue oral diuretic Anticoagulated with Eliquis We will continue to follow I have personally seen and examined the patient, performed the documentation and the assessment and plan as written. Number of minutes spent on the visit: 10 Dictation was produced using [employer] dictation software. Please excuse any grammatical, word or spelling errors.
--- NOTE | 2024-09-01 15:07 | P.PN ---
Subjective Progress Note Date: 09/01/24 Interval History: 73-year-old female with past medical history significant for COPD, history of diastolic CHF, history of coronary artery disease status post PCI, history of proximal atrial fibrillation, history of NSVT, hypertension, hyperlipidemia who presented to ER with a complaint of worsening shortness of breath. Patient reported that she was having shortness of breath going on for the last 2 months which was recently getting worse for the last 4 days. Patient reports chills, denied any fevers. Patient reported that she was noticing worsening shortness of breath for the last 2 days, also reported cough and congestion, cough is productive with brown sputum. Patient reported using inhalers at home. Patient stated that she was not taking her Lasix regularly because of urinary frequency. Patient's reported that she was not able to catch her breath even at rest now. Patient reported chills. Patient denied any chest pain, palpitations, nausea vomiting diarrhea constipation abdominal pain dysuria urgency frequency weakness or numbness of the extremities. EMS found patient was tachycardic and hypoxic, oxygen saturation significantly improved with CPAP. Patient's pulse ox was noted to be in the upper 70s by EMS. In the ED patient had temperature 99 F, pulse rate 98, respiratory rate 18, blood pressure was 181/89, was saturating 99% on 40% FiO2 with BiPAP. WBC 9.4, hemoglobin 14.7, platelet 256. Sodium 139 potassium 4.2 chloride 101 CO2 24 BUN 19 creatinine 1.43. Initial lactate was 3.0, improved to 1.6. Troponin negative. NT proBNP was more than 10,000. Influenza A was positive. D-dimer was elevated. CT chest was negative for PE, showed right middle lobe patchy consolidation with air bronchograms most consistent with pneumonia, small bilateral pleural effusions with associated atelectasis, right greater than left, dilated main pulmonary artery suggesting pulmonary arterial hypertension. Atrophy of the visualized right kidney with poor contrast enhancement of right renal artery. 08/30--patient was seen and examined today. Afebrile, heart rate 74, respirator y rate 16, blood pressure 145/77, saturating 98% on 2 L. WBC 6.5, hemoglobin 13.0, platelet 272. Sodium 136 potassium 3.9 chloride 100 CO2 28 BUN 73, creatinine 1.648. Procalcitonin 0.37. 08/31--patient was seen and examined today. Patient reported that her breathing is still worse. Complaint of cough and wheezing, patient reported that her cough got worse with the inhalers. Patient is currently on room air. Remained afebrile. WBCs 11.5, hemoglobin 12.5, platelet 260. Sodium 140 potassium 4.1 bicarbonate 24 BUN 34 creatinine 2.1. Pulmonary and cardiology following. IV Lasix switched to p.o. Lasix. Off antibiotics now since procalcitonin negative. 09/01--patient was seen and examined today. Patient currently on 2 L oxygen, saturating above 90%, remained afebrile. Vital stable. Blood culture and sputum culture negative so far. Sodium 151, potassium 3.6, chloride 107, BUN 38.8, creatinine 1.9. Patient reported that worsening shortness of breath on and off, reported intolerance to inhalers. Solu-Medrol switched to prednisone by pulmonary, remains on Tamiflu, oral diuretic. Assessment and plan: Acute hypoxic respiratory failure: Pneumonia: Suspect viral Acute COPD exacerbation: Acute influenza A infection Presented with worsening shortness of breath, productive cough, congestion Influenza A positive CT chest showed right middle lobe patchy consolidation with air bronchograms consistent with pneumonia Antibiotics stopped as procalcitonin negative. Mucinex, incentive spirometry BiPAP as needed Tamiflu Inhaler/bronchodilator protocol, Solu-Medrol Pulmonary consult Acute on chronic diastolic CHF Paroxysmal atrial fibrillation: On Eliquis History of CAD/PCI: History of NSVT Hypertension Hyperlipidemia: Hypernatremia: Continue home meds including aspirin, statin, amiodarone,Farxiga, metoprolol, losartan Continue Eliquis Monitor daily weight and I&O's Cardiology consulted--recommended IV diuresis, outpatient sleep study. Initially received IV Lasix, now on p.o. Lasix. DVT prophylaxis Anticoagulated Monitor vital signs and labs Labs and medication were reviewed. Continue same treatment. Further recommendations as per clinical course of the patient PHYSICAL EXAMINATION: GENERAL: The patient is A&O x3, NAD HEENT: EOMI, Sclerae anicteric, Moist Mucous membranes Neck: Supple, Non tender, No JVD PULMONARY: Decreased breath sound bilaterally, bilateral crackles CARDIOVASCULAR: S1, S2 present. No murmurs, rubs, or gallops. ABDOMEN: Soft, nontender, nondistended, normoactive bowel sounds. No guarding or rebound tenderness. MUSCULOSKELETAL: No edema, No cyanosis. No clubbing. Normal ROM. Intact peripheral pulses. NEUROLOGICAL: CN 2-12 grossly intact. No FND REVIEW OF SYSTEMS: CONSTITUTIONAL: No fever or chills. CARDIOVASCULAR: No chest pain, palpitations or syncope. PULMONARY: Complains of shortness breath, productive cough, congestion. GASTROINTESTINAL: No nausea, vomiting, diarrhea, abdominal pain. : No Dysuria, urgency, frequency. Extremities: No edema. NEUROLOGICAL: No headaches, no weakness, or numbness Dictation was produced using [employer] dictation software. please excuse any grammatical, word or spelling errors. Objective - Vital Signs Vital signs: Vital Signs Temp 98.2 F 09/01/24 14:07 Pulse 66 09/01/24 14:07 Resp 18 09/01/24 14:07 BP 152/81 09/01/24 14:07 Pulse Ox 96 09/01/24 14:07 FiO2 40 08/29/24 15:30 Intake & Output 08/31/24 09/01/24 09/01/24 18:59 06:59 18:59 Weight 128 kg - Labs CBC & Chem 7: 08/31/24 06:14 09/01/24 06:53 Labs: Abnormal Lab Results - Last 24 Hours (Table) 09/01/24 Range/Units 06:53 Sodium 151 H (135-145) mmol/L Anion Gap 13.70 H (4.00-12.00) mmol/L BUN 38.8 H (9.0-27.0) mg/dL Creatinine 1.9 H (0.6-1.5) mg/dL Est GFR (CKD-EPI) 28 L (>=60) BUN/Creatinine Ratio 20.42 H (12.00-20.00) Ratio Glucose 167 H (70-110) mg/dL Calcium 8.6 L (8.7-10.3) mg/dL Microbiology - Last 24 Hours (Table) 08/30/24 08:25 Gram Stain - Final Sputum Sputum Culture - Final 08/29/24 11:10 Blood Culture - Preliminary Blood
[2024-09-01] MEDS: ZOLPIDEM 5 MG TAB PO PRN (22:15)
[2024-09-02] MEDS: predniSONE 20 MG TAB PO SCH (08:24)
[2024-09-02 08:44] LABS: BUN/Creat Ratio 21.89 Ratio (12.00-20.00); Blood Urea Nitrogen 39.4 mg/dL (9.0-27.0); Calcium 8.4 mg/dL (8.7-10.3); Carbon Dioxide 33.4 mmol/L (21.6-31.8); Chloride 99 mmol/L (96-109); Glucose 134 mg/dL (70-110); Potassium 3.1 mmol/L (3.5-5.5); Sodium 144 mmol/L (135-145)
--- NOTE | 2024-09-02 11:21 | XR ---
EXAMINATION TYPE: XR chest 1V portable DATE OF EXAM: 09/02/2024 CLINICAL INDICATION: Female, 73 years old with history of CHF, progress study. TECHNIQUE: Single AP portable upright view of the chest is obtained. COMPARISON: Chest x-ray from 3 days earlier FINDINGS: Persistent cardiomegaly. Lungs appear grossly clear. Osseous structures are intact. IMPRESSION: Cardiomegaly without suspicious acute pulmonary process. [facility], , 09/02/2024 11:19 AM
[2024-09-02 12:15] LABS: Basophils # (A) 0.01 X 10*3/uL (0.00-0.10); Basophils % (A) 0.1 %; Eosinophils # (A) 0 X 10*3/uL (0.04-0.35); Eosinophils % (A) 0 %; HCT 43.6 % (37.2-46.3); HGB 13.9 g/dL (12.0-15.0); Lymphocytes # (A) 1.14 X 10*3/uL (0.90-5.00); Lymphocytes % (A) 11.5 %; MCH 29.8 pg (27.0-32.0); MCHC 31.9 g/dL (32.0-37.0); MCV 93.4 FL (80.0-97.0); Mean Platelet Volume 10.7 FL (9.5-12.2); Monocytes # (A) 0.94 X 10*3/uL (0.20-1.00); Monocytes % (A) 9.5 %; NRBC Per 100 WBC 0 X 10*3/uL (0.00-0.01); Neutrophils # (A) 7.75 X 10*3/uL (1.80-7.70); Neutrophils % (A) 78.3 %; Platelet Count 256 X 10*3/uL (140-440); RBC 4.67 X 10*6/uL (4.10-5.20); RDW 14.2 % (11.5-14.5)
--- NOTE | 2024-09-02 14:22 | P.PN ---
Subjective Progress Note Date: 09/02/24 Patient is a 73-year-old female with past medical history significant for atrial fibrillation anticoagulated on Eliquis, coronary artery disease with previous PCI/stents, HI, ischemic cardiomyopathy with ejection fraction of 20 to 25% along with mild to moderate mitral regurgitation, COPD. PCP is Dr. Kamara. Presents to the emergency department yesterday morning with a chief complaint of difficulty in breathing. Progressively worse over the last couple days. States that herself and her developed a "cold" that started approximately 1 week ago. On arrival to the ED, found to be in some respiratory distress, pulse ox was reading the upper 70s. She was placed on BiPAP. Workup in the emergency department including a viral screen positive for influenza A. Chest CTA did not show any evidence of filling defects consistent with pulmonary embolism. Right middle lobe patchy consolidation with air bronchograms, consistent with pneumonia. Small bilateral pleural effusions with associated atelectasis right greater than left. Dilated main pulmonary artery suggestive of pulmonary hy pertension. CBC: WBC count 9.4, hemoglobin 14.7, platelets 256. CMP: Sodium 139, potassium 4.2, chloride 101, serum bicarb 24, BUN 19, creatinine 1.43, glucose elevated 239. Lactic was 3 and is down to 1.6. LFTs not elevated. Troponin less than 0.015. NT proBNP significantly elevated at 10,800. EKG: Sinus mechanism, heart rate 98 bpm, interventricular conduction delay. Patient is currently being evaluated emergency department. BiPAP is on standby with settings 12/5. She is on a 2 L/min nasal cannula. Nondistressed. Patient states that her and her developed flulike symptoms approximately 1 week ago. Progressive shortness of breath. Associated cough, with productive sputum brown to bloody in color. Denies any fever. Denies nausea, vomiting, diarrhea. Tolerating oral intake. Denies any chest pain. Denies orthopnea or increased lower extremity edema. Does take Lasix on an outpatient basis, states she is suppose to be taking 40 mg twice a day. She has cut it down to 20 mg once a day without direction of her software sales consultant. Denies missing any doses of Eliquis. S tarted on empiric antibiotics in the ED. Also, started on Tamiflu. Current vital signs: Temperature 99.5 F, heart rate 83 bpm, blood pressure 141/76 mmHg, respiratory rate nontachypneic, SpO2 reading 94% on 2 L/min nasal cannula. The patient is seen today August 31, 2024 in follow-up on the regular medical floor. She is currently sitting up in bed. Awake and alert in no acute distress. Feeling a bit better today compared to yesterday. She is maintaining O2 saturations in the 90s on room air. She is afebrile. Hemodynamically stable. Follow-up chest x-ray reveals right basilar airspace opacities. Procalcitonin was negative at 0.37. White count 11.5. Hemoglobin 12.5. Platelets 260. Sodium 140. Potassium 4.1. Bicarb 24. BUN 34. Creatinine 2.1. Glucose 213. She has been refusing her DuoNeb inhalations and Symbicort. She remains on Tamiflu. Remains on Solu-Medrol. Transitioned to oral diuretics. The patient is seen today September 01, 2024 in follow-up on the regular medical floor. She is sitting up at the bedside. Awake and alert in no acute distress. Maintaining O2 saturations in the 90s on 2 L/min per nasal cannula. She is afebrile. Hemodynamically stable. Blood and sputum cultures revealed no growth. Sodium 151. Potassium 5.6. Bicarb 30. BUN 39. Creatinine 1.9. Glucose 167. Procalcitonin was negative at 0.37. proBNP was elevated at 8760. Tamiflu. Continued on oral diuretics. Currently on azithromycin. Maintained on Solu-Medrol. DuoNeb inhalations are as needed only. The patient is seen today September 02, 2024 in follow-up on the regular medical floor. She is awake and alert in no acute distress. Resting comfortably in bed. Maintaining good O2 saturation in the 90s on 2 L/min per nasal cannula. Her procalcitonin was negative at 0.37. She remains on oral diuretics. Transition to a prednisone taper. Continued on DuoNeb inhalations as needed only. Anticoagulated with Eliquis. No accurate intake and output recorded. White count 9.9. Hemoglobin 13.9. Platelets 256. Sodium 144. Potassium 3.1. Bicarb 33. BUN 39. Creatinine 1.8. Glucose 134. proBNP 8760. Chest x-ray reveals cardiomegaly without acute pulmonary process. Objective - Vital Signs Vital signs: Vital Signs Temp 98.3 F 09/02/24 07:01 Pulse 66 09/02/24 14:00 Resp 18 09/02/24 14:00 BP 107/67 09/02/24 07:01 Pulse Ox 97 09/02/24 08:43 FiO2 40 08/29/24 15:30 Intake & Output 09/01/24 09/02/24 09/02/24 18:59 06:59 18:59 Intake Total 20 Balance 20 Weight 132.5 kg Intake: IV 20 Invasive Line 1 20 Other: Voiding Method Toilet Toilet # Voids 3 - Exam GENERAL EXAM: Alert, 73-year-old morbidly obese female, resting in bed, on 2 L nasal cannula, in no apparent distress. HEAD: Normocephalic and atraumatic EYES: Normal reaction of pupils, equal size. NOSE: Clear with pink turbinates. THROAT: No erythema or exudates. NECK: No masses, no JVD. CHEST: No chest wall deformity. LUNGS: Equal air entry with coarse rhonchi bilaterally. No conversational dyspnea or accessory muscle use. CVS: S1 and S2 normal with no audible murmur, regular rhythm. No extra heart sounds ABDOMEN: No hepatosplenomegaly, active bowel sounds, no guarding or rigidity. SPINE: No scoliosis or deformity SKIN: No rashes CENTRAL NERVOUS SYSTEM: No focal deficits, tone is normal in all 4 extremities. EXTREMITIES: There is no peripheral edema, clubbing, or cyanosis. Peripheral pulses are intact. - Labs CBC & Chem 7: 09/02/24 05:49 09/02/24 05:49 Labs: Abnormal Lab Results - Last 24 Hours (Table) 09/02/24 09/02/24 Range/Units 05:49 05:49 MCHC 31.9 L (32.0-37.0) g/dL Immature Gran # 0.06 H (0.00-0.04) X 10*3/uL Neutrophils # 7.75 H (1.80-7.70) X 10*3/uL Eosinophils # 0 L (0.04-0.35) X 10*3/uL Potassium 3.1 L (3.5-5.5) mmol/L Carbon Dioxide 33.4 H (21.6-31.8) mmol/L BUN 39.4 H (9.0-27.0) mg/dL Creatinine 1.8 H (0.6-1.5) mg/dL Est GFR (CKD-EPI) 30 L (>=60) BUN/Creatinine Ratio 21.89 H (12.00-20.00) Ratio Glucose 134 H (70-110) mg/dL Calcium 8.4 L (8.7-10.3) mg/dL Microbiology - Last 24 Hours (Table) 08/29/24 11:10 Blood Culture - Preliminary Blood 08/30/24 08:25 Gram Stain - Final Sputum Sputum Culture - Final Assessment and Plan Assessment: Acute influenza A infection, possibility of superimposed bacterial infection ruled out. Procalcitonin negative. Today's chest x-ray reveals evidence of cardiomegaly but no acute pulmonary process Acute exacerbation of systolic congestive heart failure Acute hypoxemic respiratory failure, secondary to above, currently on 2 L/min nasal cannula, Chest CTA did not show any evidence of filling defects consistent with pulmonary embolism. Right middle lobe patchy consolidation with air bronchograms, consistent with pneumonia. Small bilateral pleural effusions with associated atelectasis right greater than left. Dilated main pulmonary artery suggestive of pulmonary hypertension. NT proBNP elevated 10,800 History of paroxysmal atrial fibrillation, currently sinus mechanism, anticoagulated with Eliquis History of coronary artery disease with previous PCI/stents History of nonischemic cardiomyopathy, with an ejection fraction 20 to 25% along with mild to moderate mitral regurgitation Hypertension History of hyperlipidemia Chronic kidney disease stage IIIB History of COPD, appears stable on clinical examination Morbid obesity, with a BMI of 55.2 kg/m Plan: The patient was seen and evaluated Labs and medications reviewed Chest x-ray reveals no acute process Completed Tamiflu Continue a prednisone taper Continue oral diuretics Anticoagulated with Eliquis Titrate down the FiO2 as tolerated Increase her activity as tolerated We will continue to follow I have personally seen and examined the patient, performed the documentation and the assessment and plan as written. Number of minutes spent on the visit: 10 Dictation was produced using [employer] dictation software. Please excuse any grammatical, word or spelling errors.
[2024-09-02] MEDS ORDERED: Potassium Replacement Protocol 1 EACH MISC MISCELLANE PRN (14:26)
--- NOTE | 2024-09-02 14:26 | P.PN ---
Subjective Interval History: 73-year-old female with past medical history significant for COPD, history of diastolic CHF, history of coronary artery disease status post PCI, history of proximal atrial fibrillation, history of NSVT, hypertension, hyperlipidemia who presented to ER with a complaint of worsening shortness of breath. Patient reported that she was having shortness of breath going on for the last 2 months which was recently getting worse for the last 4 days. Patient reports chills, denied any fevers. Patient reported that she was noticing worsening shortness of breath for the last 2 days, also reported cough and congestion, cough is productive with brown sputum. Patient reported using inhalers at home. Patient stated that she was not taking her Lasix regularly because of urinary frequency. Patient's reported that she was not able to catch her breath even at rest now. Patient reported chills. Patient denied any chest pain, palpitations, nausea vomiting diarrhea constipation abdominal pain dysuria urgency frequency weakness or numbness of the extremities. EMS found patient was tachycardic and hypoxic, oxygen saturation significantly improved with CPAP. Patient's pulse ox was noted to be in the upper 70s by EMS. In the ED patient had temperature 99 F, pulse rate 98, respiratory rate 18, blood pressure was 181/89, was saturating 99% on 40% FiO2 with BiPAP. WBC 9.4, hemoglobin 14.7, platelet 256. Sodium 139 potassium 4.2 chloride 101 CO2 24 BUN 19 creatinine 1.43. Initial lactate was 3.0, improved to 1.6. Troponin negative. NT proBNP was more than 10,000. Influenza A was positive. D-dimer was elevated. CT chest was negative for PE, showed right middle lobe patchy consolidation with air bronchograms most consistent with pneumonia, small bilateral pleural effusions with associated atelectasis, right greater than left, dilated main pulmonary artery suggesting pulmonary arterial hypertension. Atrophy of the v isualized right kidney with poor contrast enhancement of right renal artery. 08/30--patient was seen and examined today. Afebrile, heart rate 74, respiratory rate 16, blood pressure 145/77, saturating 98% on 2 L. WBC 6.5, hemoglobin 13.0, platelet 272. Sodium 136 potassium 3.9 chloride 100 CO2 28 BUN 73, creatinine 1.648. Procalcitonin 0.37. 08/31--patient was seen and examined today. Patient reported that her breathing is still worse. Complaint of cough and wheezing, patient reported that her cough got worse with the inhalers. Patient is currently on room air. Remained afebrile. WBCs 11.5, hemoglobin 12.5, platelet 260. Sodium 140 potassium 4.1 bicarbonate 24 BUN 34 creatinine 2.1. Pulmonary and cardiology following. IV Lasix switched to p.o. Lasix. Off antibiotics now since procalcitonin negative. 09/01--patient was seen and examined today. Patient currently on 2 L oxygen, saturating above 90%, remained afebrile. Vital stable. Blood culture and sputum culture negative so far. Sodium 151, potassium 3.6, chloride 107, BUN 38.8, creatinine 1.9. Patient reported that worsening shortness of breath on and off, reported intolerance to inhalers. Solu-Medrol switched to prednisone by pulmonary, remains on Tamiflu, oral diuretic. 09/02--- patient was seen and examined today. Continues complain of shortness of breath, productive cough, wheezing. Patient's reported her shortness of breath and wheezing is worse today. Maintaining saturation in the 90s on 2 L ox ygen. Patient on p.o. diuretics. Also on. DuoNebs, prednisone taper. Anticoagulated with Eliquis. Afebrile, heart rate 66, respiratory rate 18, blood pressure 107/67, saturating 97%. WBC 9.9, hemoglobin 13.9 platelet 256. Sodium 144 potassium 3.1 chloride 99 CO2 33 BUN 39.4 creatinine 1.8. Pulmonary following. Assessment and plan: Acute hypoxic respiratory failure: Pneumonia: Suspect viral Acute COPD exacerbation: Acute influenza A infection Presented with worsening shortness of breath, productive cough, congestion Influenza A positive CT chest showed right middle lobe patchy consolidation with air bronchograms consistent with pneumonia Antibiotics stopped as procalcitonin negative. Mucinex, incentive spirometry BiPAP as needed Tamiflu Inhaler/bronchodilator protocol, Solu-Medrol Pulmonary consulted Acute on chronic diastolic CHF Paroxysmal atrial fibrillation: On Eliquis History of CAD/PCI: History of NSVT Hypertension Hyperlipidemia: Hypernatremia: Continue home meds including aspirin, statin, amiodarone,Farxiga, metoprolol, losartan Continue Eliquis Monitor daily weight and I&O's Cardiology consulted--recommended IV diuresis, outpatient sleep study. Initially received IV Lasix, now on p.o. Lasix. DVT prophylaxis Anticoagulated Monitor vital signs and labs Labs and medication were reviewed. Continue same treatment. Further recommendations as per clinical course of the patient PHYSICAL EXAMINATION: GENERAL: The patient is A&O x3, NAD HEENT: EOMI, Sclerae anicteric, Moist Mucous membranes Neck: Supple, Non tender, No JVD PULMONARY: Decreased breath sound bilaterally, bilateral crackles, bilateral expiratory wheezes. CARDIOVASCULAR: S1, S2 present. No murmurs, rubs, or gallops. ABDOMEN: Soft, nontender, nondistended, normoactive bowel sounds. No guarding or rebound tenderness. MUSCULOSKELETAL: No edema, No cyanosis. No clubbing. Normal ROM. Intact peripheral pulses. NEUROLOGICAL: CN 2-12 grossly intact. No FND REVIEW OF SYSTEMS: CONSTITUTIONAL: No fever or chills. CARDIOVASCULAR: No chest pain, palpitations or syncope. PULMONARY: Complains of shortness breath, productive cough, congestion. GASTROINTESTINAL: No nausea, vomiting, diarrhea, abdominal pain. : No Dysuria, urgency, frequency. Extremities: No edema. NEUROLOGICAL: No headaches, no weakness, or numbness Dictation was produced using [employer] dictation software. please excuse any grammatical, word or spelling errors. Objective - Vital Signs Vital signs: Vital Signs Temp 98.3 F 09/02/24 07:01 Pulse 66 09/02/24 14:00 Resp 18 09/02/24 14:00 BP 107/67 09/02/24 07:01 Pulse Ox 97 09/02/24 08:43 FiO2 40 08/29/24 15:30 Intake & Output 09/01/24 09/02/24 09/02/24 18:59 06:59 18:59 Intake Total 20 Balance 20 Weight 132.5 kg Intake: IV 20 Invasive Line 1 20 Other: Voiding Method Toilet Toilet # Voids 3 - Labs CBC & Chem 7: 09/02/24 05:49 09/02/24 05:49 Labs: Abnormal Lab Results - Last 24 Hours (Table) 09/02/24 09/02/24 Range/Units 05:49 05:49 MCHC 31.9 L (32.0-37.0) g/dL Immature Gran # 0.06 H (0.00-0.04) X 10*3/uL Neutrophils # 7.75 H (1.80-7.70) X 10*3/uL Eosinophils # 0 L (0.04-0.35) X 10*3/uL Potassium 3.1 L (3.5-5.5) mmol/L Carbon Dioxide 33.4 H (21.6-31.8) mmol/L BUN 39.4 H (9.0-27.0) mg/dL Creatinine 1.8 H (0.6-1.5) mg/dL Est GFR (CKD-EPI) 30 L (>=60) BUN/Creatinine Ratio 21.89 H (12.00-20.00) Ratio Glucose 134 H (70-110) mg/dL Calcium 8.4 L (8.7-10.3) mg/dL Microbiology - Last 24 Hours (Table) 08/29/24 11:10 Blood Culture - Preliminary Blood 08/30/24 08:25 Gram Stain - Final Sputum Sputum Culture - Final
[2024-09-02] MEDS: POTASSIUM CHLORIDE ER 20 MEQ TAB.ER PO SCH (15:29)
[2024-09-03 09:49] LABS: Basophils # (A) 0.01 X 10*3/uL (0.00-0.10); Basophils % (A) 0.1 %; Eosinophils # (A) 0.01 X 10*3/uL (0.04-0.35); Eosinophils % (A) 0.1 %; HCT 45.8 % (37.2-46.3); HGB 14.4 g/dL (12.0-15.0); Lymphocytes % (A) 21.8 %; MCH 29.5 pg (27.0-32.0); MCHC 31.4 g/dL (32.0-37.0); MCV 93.9 FL (80.0-97.0); Mean Platelet Volume 11.3 FL (9.5-12.2); Monocytes # (A) 0.98 X 10*3/uL (0.20-1.00); Monocytes % (A) 11.2 %; NRBC Per 100 WBC 0 X 10*3/uL (0.00-0.01); Neutrophils # (A) 5.77 X 10*3/uL (1.80-7.70); Neutrophils % (A) 66.2 %; Platelet Count 284 X 10*3/uL (140-440); RBC 4.88 X 10*6/uL (4.10-5.20); RDW 13.7 % (11.5-14.5); WBC 8.72 X 10*3/uL (4.50-10.00)
[2024-09-03 11:14] LABS: BUN/Creat Ratio 23.11 Ratio (12.00-20.00); Blood Urea Nitrogen 41.6 mg/dL (9.0-27.0); Calcium 8.4 mg/dL (8.7-10.3); Carbon Dioxide 35.2 mmol/L (21.6-31.8); Chloride 96 mmol/L (96-109); Glucose 105 mg/dL (70-110); Magnesium 1.9 mg/dL (1.5-2.4); Potassium 3.2 mmol/L (3.5-5.5); Sodium 144 mmol/L (135-145)
--- NOTE | 2024-09-03 14:26 | P.PN ---
Subjective Progress Note Date: 09/03/24 73-year-old female with past medical history significant for COPD, history of diastolic CHF, history of coronary artery disease status post PCI, history of proximal atrial fibrillation, history of NSVT, hypertension, hyperlipidemia who presented to ER with a complaint of worsening shortness of breath. Patient reported that she was having shortness of breath going on for the last 2 months which was recently getting worse for the last 4 days. Patient reports chills, denied any fevers. Patient reported that she was noticing worsening shortness of breath for the last 2 days, also reported cough and congestion, cough is productive with brown sputum. Patient reported using inhalers at home. Patient stated that she was not taking her Lasix regularly because of urinary frequency. Patient's reported that she was not able to catch her breath even at rest now. Patient reported chills. Patient denied any chest pain, palpitations, nausea vomiting diarrhea constipation abdominal pain dysuria urgency frequency weakness or numbness of the extremities. EMS found patient was tachycardic and hypoxic, oxygen saturation significantly improved with CPAP. Patient's pulse ox was noted to be in the upper 70s by EMS. In the ED patient had temperature 99 F, pulse rate 98, respiratory rate 18, blood pressure was 181/89, was saturating 99% on 40% FiO2 with BiPAP. WBC 9.4, hemoglobin 14.7, platelet 256. Sodium 139 potassium 4.2 chloride 101 CO2 24 BUN 19 creatinine 1.43. Initial lactate was 3.0, improved to 1.6. Troponin negative. NT proBNP was more than 10,000. Influenza A was positive. D-dimer was elevated. CT chest was negative for PE, showed right middle lobe patchy consolidation with air bronchograms most consistent with pneumonia, small bilateral pleural effusions with associated atelectasis, right greater than left, dilated main pulmonary artery suggesting pulmonary arterial hypertension. Atrophy of the visualized right kidney with poor contrast enhancement of right renal artery. 08/30--patient was seen and examined today. Afebrile, heart rate 74, respiratory rate 16, blood pressure 145/77, saturating 98% on 2 L. WBC 6.5, hemoglobin 13.0, platelet 272. Sodium 136 potassium 3.9 chloride 100 CO2 28 BUN 73, creatinine 1.648. Procalcitonin 0.37. 08/31--patient was seen and examined today. Patient reported that her breathing is still worse. Complaint of cough and wheezing, patient reported that her cough got worse with the inhalers. Patient is currently on room air. Remained afebrile. WBCs 11.5, hemoglobin 12.5, platelet 260. Sodium 140 potassium 4.1 bicarbonate 24 BUN 34 creatinine 2.1. Pulmonary and cardiology following. IV Lasix switched to p.o. Lasix. Off antibiotics now since procalcitonin negative. 09/01--patient was seen and examined today. Patient currently on 2 L oxygen, saturating above 90%, remained afebrile. Vital stable. Blood culture and sputum culture negative so far. Sodium 151, potassium 3.6, chloride 107, BUN 38.8, creatinine 1.9. Patient reported that worsening shortness of breath on and off, reported intolerance to inhalers. Solu-Medrol switched to prednisone by pulmonary, remains on Tamiflu, oral diuretic. 09/02--- patient was seen and examined today. Continues complain of shortness of breath, productive cough, wheezing. Patient's reported her shortness of breath and wheezing is worse today. Maintaining saturation in the 90s on 2 L oxygen. Patient on p.o. diuretics. Also on. DuoNebs, prednisone taper. A nticoagulated with Eliquis. Afebrile, heart rate 66, respiratory rate 18, blood pressure 107/67, saturating 97%. WBC 9.9, hemoglobin 13.9 platelet 256. Sodium 144 potassium 3.1 chloride 99 CO2 33 BUN 39.4 creatinine 1.8. Pulmonary following. 09/03. Patient seen and examined. Currently on 2 L of oxygen. States she feels better, still apprehensive about going home. Discussed with her detail r egarding need for her to ambulate. Possible discharge next 24 hours REVIEW OF SYSTEMS: CONSTITUTIONAL: No fever, no malaise,. CARDIOVASCULAR: No chest pain, no palpitations, no syncope. PULMONARY: No shortness of breath, no cough, GASTROINTESTINAL: No diarrhea, no nausea, no vomiting, no abdominal pain. NEUROLOGICAL: No headaches, no weakness, PHYSICAL EXAMINATION: GENERAL: The patient is alert and oriented x3, not in any acute distress. Well developed, well nourished. HEENT: Pupils are round and equally reacting to light. EOMI. No scleral icterus. No conjunctival pallor. Normocephalic, atraumatic. No pharyngeal erythema. No thyromegaly. CARDIOVASCULAR: S1 and S2 present. No murmurs, rubs, or gallops. PULMONARY: Chest is clear to auscultation, no wheezing or crackles. ABDOMEN: Soft, nontender, nondistended, normoactive bowel sounds. No palpable organomegaly. MUSCULOSKELETAL: No joint swelling or deformity. EXTREMITIES: No cyanosis, clubbing, or pedal edema. NEUROLOGICAL: Gross neurological examination did not reveal any focal deficits. SKIN: No rashes. Assessment and plan Acute hypoxic respiratory failure: Pneumonia: Suspect viral Acute COPD exacerbation: Acute influenza A infection Presented with worsening shortness of breath, productive cough, congestion Influenza A positive CT chest showed right middle lobe patchy consolidation with air bronchograms consistent with pneumonia Antibiotics stopped as procalcitonin negative. Mucinex, incentive spirometry BiPAP as needed Completed course of Tamiflu Inhaler/bronchodilator protocol, Currently on prednisone Pulmonary following Acute on chronic diastolic CHF Paroxysmal atrial fibrillation: On Eliquis History of CAD/PCI: History of NSVT Hypertension Hyperlipidemia: Hypernatremia: Continue home meds including aspirin, statin, amiodarone,Farxiga, metoprolol, losartan Continue Eliquis Monitor daily weight and I&O's Cardiology consulted--recommended IV diuresis, outpatient sleep study. Initially received IV Lasix, now on p.o. Lasix. Labs and medication were reviewed.. Continue same treatment. Continue with symptomatic treatment. Resume home medication. Monitor labs and vitals. DVT and GI prophylaxis. Further recommendations as per clinical course of the patient Dictation was produced using [employer] dictation software. please excuse any gramm atical, word or spelling errors. Objective - Vital Signs Vital signs: Vital Signs Temp 97.7 F 09/03/24 07:08 Pulse 55 L 09/03/24 07:08 Resp 18 09/03/24 07:08 BP 143/69 09/03/24 07:08 Pulse Ox 90 L 09/03/24 07:08 FiO2 40 08/29/24 15:30 Intake & Output 09/02/24 09/03/24 09/03/24 18:59 06:59 18:59 Weight 132 kg Other: Voiding Method Toilet Toilet - Labs CBC & Chem 7: 09/03/24 05:40 09/03/24 05:40 Labs: Abnormal Lab Results - Last 24 Hours (Table) 09/02/24 09/03/24 Range/Units 05:49 05:40 MCHC 31.9 L 31.4 L (32.0-37.0) g/dL Immature Gran # 0.06 H 0.05 H (0.00-0.04) X 10*3/uL Neutrophils # 7.75 H (1.80-7.70) X 10*3/uL Eosinophils # 0 L 0.01 L (0.04-0.35) X 10*3/uL
--- NOTE | 2024-09-03 14:54 | P.PN ---
Subjective Progress Note Date: 09/03/24 Patient is a 73-year-old female with past medical history significant for atrial fibrillation anticoagulated on Eliquis, coronary artery disease with previous PCI/stents, [place], ischemic cardiomyopathy with ejection fraction of 20 to 25% along with mild to moderate mitral regurgitation, COPD. PCP is Dr. Kamara. Presents to the emergency department yesterday morning with a chief complaint of difficulty in breathing. Progressively worse over the last couple days. States that herself and her developed a "cold" that started approximately 1 week ago. On arrival to the ED, found to be in some respiratory distress, pulse ox was reading the upper 70s. She was placed on BiPAP. Workup in the emergency department including a viral screen positive for influenza A. Chest CTA did not show any evidence of filling defects consistent with pulmonary embolism. Right middle lobe patchy consolidation with air bronchograms, consistent with pneumonia. Small bilateral pleural effusions with associated atelectasis right greater than left. Dilated main pulmonary artery suggestive of pulmonary hy pertension. CBC: WBC count 9.4, hemoglobin 14.7, platelets 256. CMP: Sodium 139, potassium 4.2, chloride 101, serum bicarb 24, BUN 19, creatinine 1.43, glucose elevated 239. Lactic was 3 and is down to 1.6. LFTs not elevated. Troponin less than 0.015. NT proBNP significantly elevated at 10,800. EKG: Sinus mechanism, heart rate 98 bpm, interventricular conduction delay. Patient is currently being evaluated emergency department. BiPAP is on standby with settings 12/5. She is on a 2 L/min nasal cannula. Nondistressed. Patient states that her and her developed flulike symptoms approximately 1 week ago. Progressive shortness of breath. Associated cough, with productive sputum brown to bloody in color. Denies any fever. Denies nausea, vomiting, diarrhea. Tolerating oral intake. Denies any chest pain. Denies orthopnea or increased lower extremity edema. Does take Lasix on an outpatient basis, states she is suppose to be taking 40 mg twice a day. 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 Denies missing any doses of Eliquis. S tarted on empiric antibiotics in the ED. Also, started on Tamiflu. Current vital signs: Temperature 99.5 F, heart rate 83 bpm, blood pressure 141/76 mmHg, respiratory rate nontachypneic, SpO2 reading 94% on 2 L/min nasal cannula. The patient is seen today August 31, 2024 in follow-up on the regular medical floor. She is currently sitting up in bed. Awake and alert in no acute distress. Feeling a bit better today compared to yesterday. She is maintaining O2 saturations in the 90s on room air. She is afebrile. Hemodynamically stable. Follow-up chest x-ray reveals right basilar airspace opacities. Procalcitonin was negative at 0.37. White count 11.5. Hemoglobin 12.5. Platelets 260. Sodium 140. Potassium 4.1. Bicarb 24. BUN 34. Creatinine 2.1. Glucose 213. She has been refusing her DuoNeb inhalations and Symbicort. She remains on Tamiflu. Remains on Solu-Medrol. Transitioned to oral diuretics. The patient is seen today September 01, 2024 in follow-up on the regular medical floor. She is sitting up at the bedside. Awake and alert in no acute distress. Maintaining O2 saturations in the 90s on 2 L/min per nasal cannula. She is afebrile. Hemodynamically stable. Blood and sputum cultures revealed no growth. Sodium 151. Potassium 5.6. Bicarb 30. BUN 39. Creatinine 1.9. Glucose 167. Procalcitonin was negative at 0.37. proBNP was elevated at 8760. Tamiflu. Continued on oral diuretics. Currently on azithromycin. Maintained on Solu-Medrol. DuoNeb inhalations are as needed only. The patient is seen today September 02, 2024 in follow-up on the regular medical floor. She is awake and alert in no acute distress. Resting comfortably in bed. Maintaining good O2 saturation in the 90s on 2 L/min per nasal cannula. Her procalcitonin was negative at 0.37. She remains on oral diuretics. Transition to a prednisone taper. Continued on DuoNeb inhalations as needed only. Anticoagulated with Eliquis. No accurate intake and output recorded. White count 9.9. Hemoglobin 13.9. Platelets 256. Sodium 144. Potassium 3.1. Bicarb 33. BUN 39. Creatinine 1.8. Glucose 134. proBNP 8760. Chest x-ray reveals cardiomegaly without acute pulmonary process. The patient is seen today September 03, 2024 in follow-up on the regular medical floor. She remains awake and alert in no acute distress. Sitting up in bed. Maintaining O2. She has been afebrile. Hemodynamically stable. Blood and sputum cultures revealed no growth. White count 8.7. Hemoglobin 14.4. Platelets 284. Sodium 144. Potassium 3.2. Bicarb 35. BUN 42. Creatinine 1.8. Glucose 105. Lesions as needed. Anticoagulated with Eliquis. Remains on oral diuretics. Objective - Vital Signs Vital signs: Vital Signs Temp 97.7 F 09/03/24 14:22 Pulse 62 09/03/24 14:22 Resp 16 09/03/24 14:22 BP 145/76 09/03/24 14:22 Pulse Ox 91 L 09/03/24 14:22 FiO2 40 08/29/24 15:30 Intake & Output 09/02/24 09/03/24 09/03/24 18:59 06:59 18:59 Weight 132 kg Other: Voiding Method Toilet Toilet - Exam GENERAL EXAM: Alert, 73-year-old morbidly obese female, on 2 L nasal cannula, in no apparent distress. HEAD: Normocephalic and atraumatic EYES: Normal reaction of pupils, equal size. NOSE: Clear with pink turbinates. THROAT: No erythema or exudates. NECK: No masses, no JVD. CHEST: No chest wall deformity. LUNGS: Equal air entry with coarse rhonchi bilaterally. No conversational dyspnea or accessory muscle use. CVS: S1 and S2 normal with no audible murmur, regular rhythm. No extra heart sounds ABDOMEN: No hepatosplenomegaly, active bowel sounds, no guarding or rigidity. SPINE: No scoliosis or deformity SKIN: No rashes CENTRAL NERVOUS SYSTEM: No focal deficits, tone is normal in all 4 extremities. EXTREMITIES: There is no peripheral edema, clubbing, or cyanosis. Peripheral pulses are intact. - Labs CBC & Chem 7: 09/03/24 05:40 09/03/24 05:40 Labs: Abnormal Lab Results - Last 24 Hours (Table) 09/03/24 09/03/24 Range/Units 05:40 05:40 MCHC 31.4 L (32.0-37.0) g/dL Immature Gran # 0.05 H (0.00-0.04) X 10*3/uL Eosinophils # 0.01 L (0.04-0.35) X 10*3/uL Potassium 3.2 L (3.5-5.5) mmol/L Carbon Dioxide 35.2 H (21.6-31.8) mmol/L Anion Gap 12.80 H (4.00-12.00) mmol/L BUN 41.6 H (9.0-27.0) mg/dL Creatinine 1.8 H (0.6-1.5) mg/dL Est GFR (CKD-EPI) 30 L (>=60) BUN/Creatinine Ratio 23.11 H (12.00-20.00) Ratio Calcium 8.4 L (8.7-10.3) mg/dL Assessment and Plan Assessment: Acute influenza A infection, possibility of superimposed bacterial infection ru led out. Procalcitonin negative. Chest x-ray reveals evidence of cardiomegaly but no acute pulmonary process Acute exacerbation of systolic congestive heart failure Acute hypoxemic respiratory failure, secondary to above, currently on 2 L/min nasal cannula, Chest CTA did not show any evidence of filling defects consistent with pulmonary embolism. Right middle lobe patchy consolidation with air bronchograms, consistent with pneumonia. Small bilateral pleural effusions with associated atelectasis right greater than left. Dilated main pulmonary artery suggestive of pulmonary hypertension. NT proBNP elevated 10,800 History of paroxysmal atrial fibrillation, currently sinus mechanism, ant icoagulated with Eliquis History of coronary artery disease with previous PCI/stents History of nonischemic cardiomyopathy, with an ejection fraction 20 to 25% along with mild to moderate mitral regurgitation Hypertension History of hyperlipidemia Chronic kidney disease stage IIIB History of COPD, appears stable on clinical examination Morbid obesity, with a BMI of 55.2 kg/m Plan: The patient was seen and evaluated Labs and medications reviewed Chest x-ray reveals no acute process Continue a prednisone taper Continue oral diuretics May require home oxygen Cleared for discharge from the pulmonary standpoint I have personally seen and examined the patient, performed the documentation and the assessment and plan as written. Number of minutes spent on the visit: 10 Dictation was produced using [employer] software. Please excuse any grammatical, word or spelling errors.
[2024-09-03] MEDS ORDERED: Potassium Replacement Protocol 1 EACH MISC MISCELLANE PRN (15:43)
[2024-09-03] MEDS: POTASSIUM CHLORIDE ER 20 MEQ TAB.ER PO SCH (16:13)
[2024-09-03 20:46] LABS: Glucose,Whole Blood 179 mg/dL (70-110)
[2024-09-04 06:25] LABS: Glucose,Whole Blood 115 mg/dL (70-110)
[2024-09-04 07:11] VITALS: BP 142/82; PULSE 63; RESP 18; TEMP 97.9
[2024-09-04 10:55] LABS: Glucose,Whole Blood 166 mg/dL (70-110)
--- NOTE | 2024-09-04 13:24 | P.PN ---
Subjective Progress Note Date: 09/04/24 Patient is a 73-year-old female with past medical history significant for atrial fibrillation anticoagulated on Eliquis, coronary artery disease with previous PCI/stents, AK, ischemic cardiomyopathy with ejection fraction of 20 to 25% along with mild to moderate mitral regurgitation, COPD. PCP is Dr. Kamara. Presents to the emergency department yesterday morning with a chief complaint of difficulty in breathing. Progressively worse over the last couple days. States that herself and her developed a "cold" that started approximately 1 week ago. On arrival to the ED, found to be in some respiratory distress, pulse ox was reading the upper 70s. She was placed on BiPAP. Workup in the emergency department including a viral screen positive for influenza A. Chest CTA did not show any evidence of filling defects consistent with pulmonary embolism. Right middle lobe patchy consolidation with air bronchograms, consistent with pneumonia. Small bilateral pleural effusions with associated atelectasis right greater than left. Dilated main pulmonary artery suggestive of pulmonary hy pertension. CBC: WBC count 9.4, hemoglobin 14.7, platelets 256. CMP: Sodium 139, potassium 4.2, chloride 101, serum bicarb 24, BUN 19, creatinine 1.43, glucose elevated 239. Lactic was 3 and is down to 1.6. LFTs not elevated. Troponin less than 0.015. NT proBNP significantly elevated at 10,800. EKG: Sinus mechanism, heart rate 98 bpm, interventricular conduction delay. Patient is currently being evaluated emergency department. BiPAP is on standby with settings 12/5. She is on a 2 L/min nasal cannula. Nondistressed. Patient states that her and her developed flulike symptoms approximately 1 week ago. Progressive shortness of breath. Associated cough, with productive sputum brown to bloody in color. Denies any fever. Denies nausea, vomiting, diarrhea. Tolerating oral intake. Denies any chest pain. Denies orthopnea or increased lower extremity edema. Does take Lasix on an outpatient basis, states she is suppose to be taking 40 mg twice a day. 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 Denies missing any doses of Eliquis. S tarted on empiric antibiotics in the ED. Also, started on Tamiflu. Current vital signs: Temperature 99.5 F, heart rate 83 bpm, blood pressure 141/76 mmHg, respiratory rate nontachypneic, SpO2 reading 94% on 2 L/min nasal cannula. The patient is seen today August 31, 2024 in follow-up on the regular medical floor. She is currently sitting up in bed. Awake and alert in no acute distress. Feeling a bit better today compared to yesterday. She is maintaining O2 saturations in the 90s on room air. She is afebrile. Hemodynamically stable. Follow-up chest x-ray reveals right basilar airspace opacities. Procalcitonin was negative at 0.37. White count 11.5. Hemoglobin 12.5. Platelets 260. Sodium 140. Potassium 4.1. Bicarb 24. BUN 34. Creatinine 2.1. Glucose 213. She has been refusing her DuoNeb inhalations and Symbicort. She remains on Tamiflu. Remains on Solu-Medrol. Transitioned to oral diuretics. The patient is seen today September 01, 2024 in follow-up on the regular medical floor. She is sitting up at the bedside. Awake and alert in no acute distress. Maintaining O2 saturations in the 90s on 2 L/min per nasal cannula. She is afebrile. Hemodynamically stable. Blood and sputum cultures revealed no growth. Sodium 151. Potassium 5.6. Bicarb 30. BUN 39. Creatinine 1.9. Glucose 167. Procalcitonin was negative at 0.37. proBNP was elevated at 8760. Tamiflu. Continued on oral diuretics. Currently on azithromycin. Maintained on Solu-Medrol. DuoNeb inhalations are as needed only. The patient is seen today September 02, 2024 in follow-up on the regular medical floor. She is awake and alert in no acute distress. Resting comfortably in bed. Maintaining good O2 saturation in the 90s on 2 L/min per nasal cannula. Her procalcitonin was negative at 0.37. She remains on oral diuretics. Transition to a prednisone taper. Continued on DuoNeb inhalations as needed only. Anticoagulated with Eliquis. No accurate intake and output recorded. White count 9.9. Hemoglobin 13.9. Platelets 256. Sodium 144. Potassium 3.1. Bicarb 33. BUN 39. Creatinine 1.8. Glucose 134. proBNP 8760. Chest x-ray reveals cardiomegaly without acute pulmonary process. The patient is seen today September 03, 2024 in follow-up on the regular medical floor. She remains awake and alert in no acute distress. Sitting up in bed. Maintaining O2. She has been afebrile. Hemodynamically stable. Blood and sputum cultures revealed no growth. White count 8.7. Hemoglobin 14.4. Platelets 284. Sodium 144. Potassium 3.2. Bicarb 35. BUN 42. Creatinine 1.8. Glucose 105. Lesions as needed. Anticoagulated with Eliquis. Remains on oral diuretics. The patient is seen today September 04, 2024 in follow-up on the regular medical floor. She is resting comfortably in bed. Awake and alert in no acute distress. Maintaining good O2 saturations in the 90s on room air. She remains on oral diuretics. Anticoagulated with Eliquis. Continued on bronchodilators as needed only. Blood culture revealed no growth. Sputum culture revealed no growth. Glucose 166. Objective - Vital Signs Vital signs: Vital Signs Temp 97.9 F 09/04/24 06:46 Pulse 63 09/04/24 06:46 Resp 18 09/04/24 06:46 BP 142/82 09/04/24 06:46 Pulse Ox 92 L 09/04/24 06:46 FiO2 40 08/29/24 15:30 Intake & Output 09/03/24 09/04/24 09/04/24 17:59 06:59 18:59 Intake Total Balance Weight Intake: Oral Other: Voiding Method # Voids - Exam GENERAL EXAM: Alert, 73-year-old morbidly obese female, resting in bed, on room air, in no apparent distress. HEAD: Normocephalic and atraumatic EYES: Normal reaction of pupils, equal size. NOSE: Clear with pink turbinates. THROAT: No erythema or exudates. NECK: No masses, no JVD. CHEST: No chest wall deformity. LUNGS: Equal air entry with coarse rhonchi bilaterally. No conversational dy spnea or accessory muscle use. CVS: S1 and S2 normal with no audible murmur, regular rhythm. No extra heart sounds ABDOMEN: No hepatosplenomegaly, active bowel sounds, no guarding or rigidity. SPINE: No scoliosis or deformity SKIN: No rashes CENTRAL NERVOUS SYSTEM: No focal deficits, tone is normal in all 4 extremities. EXTREMITIES: There is no peripheral edema, clubbing, or cyanosis. Peripheral pulses are intact. - Labs CBC & Chem 7: 09/03/24 05:40 09/03/24 05:40 Labs: Abnormal Lab Results - Last 24 Hours (Table) 09/03/24 09/04/24 09/04/24 Range/Units 20:38 06:24 10:45 POC Glucose (mg/dL) 179 H 115 H 166 H (70-110) mg/dL Microbiology - Last 24 Hours (Table) 08/29/24 11:10 Blood Culture - Final Blood Assessment and Plan Assessment: Acute influenza A infection, possibility of superimposed bacterial infection ruled out. Procalcitonin negative. Chest x-ray reveals evidence of cardiomegaly but no acute pulmonary process Acute exacerbation of systolic congestive heart failure Acute hypoxemic respiratory failure, secondary to above, currently on 2 L/min nasal cannula, Chest CTA did not show any evidence of filling defects consistent with pulmonary embolism. Right middle lobe patchy consolidation with air bronchograms, consistent with pneumonia. Small bilateral pleural effusions with associated atelectasis right greater than left. Dilated main pulmonary artery suggestive of pulmonary hypertension. NT proBNP elevated 10,800 History of paroxysmal atrial fibrillation, currently sinus mechanism, anticoagulated with Eliquis History of coronary artery disease with previous PCI/stents History of nonischemic cardiomyopathy, with an ejection fraction 20 to 25% along with mild to moderate mitral regurgitation Hypertension History of hyperlipidemia Chronic kidney disease stage IIIB History of COPD, appears stable on clinical examination Morbid obesity, with a BMI of 55.2 kg/m Plan: The patient was seen and evaluated Labs and medications reviewed Stable and on room air Cleared for discharge Continue a prednisone taper Continue oral diuretics Closely with her PCP in 1 week This patient was seen independently by the pulmonary nurse practitioner addressing pulmonary issues I have personally seen and examined the patient, performed the documentation and the assessment and plan as written. Number of minutes spent on the visit: 24 Dictation was produced using [employer] dictation software. Please excuse any grammatical, word or spelling errors.
--- NOTE | 2024-09-04 13:35 | P.DS ---
Providers Date of admission: 08/29/24 12:38 Expected date of discharge: 09/04/24 Attending physician: Trey Mathur MD Consults: 08/29/24 12:36 Consult Physician Routine Consulting Provider: Teto Mead Consult Reason/Comments: Respiratory failure, influenza, BiPAP Do you want consulting provider notified?: Yes 08/29/24 15:13 Consult Physician Routine Consulting Provider: Brayan Montesinos Consult Reason/Comments: CHF Do you want consulting provider notified?: Yes Primary care physician: [facility] Course: Discharge diagnoses; Acute hypoxic respiratory failure: Pneumonia: Suspect viral Acute COPD exacerbation: Acute influenza A infection Presented with worsening shortness of breath, productive cough, congestion Influenza A positive CT chest showed right middle lobe patchy consolidation with air bronchograms consistent with pneumonia Antibiotics stopped as procalcitonin negative. Mucinex, incentive spirometry BiPAP as needed Completed course of Tamiflu Inhaler/bronchodilator protocol, Currently on prednisone Pulmonary following 09/04. Being discharged on tapering dose of prednisone Acute on chronic diastolic CHF Paroxysmal atrial fibrillation: On Eliquis History of CAD/PCI: History of NSVT Hypertension Hyperlipidemia: Hypernatremia: Continue home meds including aspirin, statin, amiodarone,Farxiga, metoprolol, losartan Continue Eliquis Monitor daily weight and I&O's Cardiology consulted--recommended IV diuresis, outpatient sleep study. Initially received IV Lasix, now on p.o. Lasix. Hospital course; 73-year-old female with past medical history significant for COPD, history of diastolic CHF, history of coronary artery disease status post PCI, history of proximal atrial fibrillation, history of NSVT, hypertension, hyperlipidemia who presented to ER with a complaint of worsening shortness of breath. Patient reported that she was having shortness of breath going on for the last 2 months which was recently getting worse for the last 4 days. Patient reports chills, denied any fevers. Patient reported that she was noticing worsening shortness of breath for the last 2 days, also reported cough and congestion, cough is productive with brown sputum. Patient reported using inhalers at home. Patient stated that she was not taking her Lasix regularly because of urinary frequency. Patient's reported that she was not able to catch her breath even at rest now. Patient reported chills. Patient denied any chest pain, palpitations, nausea vomiting diarrhea constipation abdominal pain dysuria urgency frequency weakness or numbness of the extremities. EMS found patient was tachycardic and hypoxic, oxygen saturation significantly improved with CPAP. Patient's pulse ox was noted to be in the upper 70s by EMS. In the ED patient had temperature 99 F, pulse rate 98, respiratory rate 18, blood pressure was 181/89, was saturating 99% on 40% FiO2 with BiPAP. WBC 9.4, hemoglobin 14.7, platelet 256. Sodium 139 potassium 4.2 chloride 101 CO2 24 BUN 19 creatinine 1.43. Initial lactate was 3.0, improved to 1.6. Troponin negative. NT proBNP was more than 10,000. Influenza A was positive. D-dimer was elevated. CT chest was negative for PE, showed right middle lobe patchy consolidation with air bronchograms most consistent with pneumonia, small bilateral pleural eff usions with associated atelectasis, right greater than left, dilated main pulmonary artery suggesting pulmonary arterial hypertension. Atrophy of the visualized right kidney with poor contrast enhancement of right renal artery. 08/30--patient was seen and examined today. Afebrile, heart rate 74, respiratory rate 16, blood pressure 145/77, saturating 98% on 2 L. WBC 6.5, hemoglobin 13.0, platelet 272. Sodium 136 potassium 3.9 chloride 100 CO2 28 BUN 73, creatinine 1.648. Procalcitonin 0.37. 08/31--patient was seen and examined today. Patient reported that her breathing is still worse. Complaint of cough and wheezing, patient reported that her cough got worse with the inhalers. Patient is currently on room air. Remained afebrile. WBCs 11.5, hemoglobin 12.5, platelet 260. Sodium 140 potassium 4.1 bicarbonate 24 BUN 34 creatinine 2.1. Pulmonary and cardiology following. IV Lasix switched to p.o. Lasix. Off antibiotics now since procalcitonin negative. 09/01--patient was seen and examined today. Patient currently on 2 L oxygen, saturating above 90%, remained afebrile. Vital stable. Blood culture and sputum culture negative so far. Sodium 151, potassium 3.6, chloride 107, BUN 38.8, creatinine 1.9. Patient reported that worsening shortness of breath on and off, reported intolerance to inhalers. Solu-Medrol switched to prednisone by pulmonary, remains on Tamiflu, oral diuretic. 09/02--- patient was seen and examined today. Continues complain of shortness of breath, productive cough, wheezing. Patient's reported her shortness of breath and wheezing is worse today. Maintaining saturation in the 90s on 2 L oxygen. Patient on p.o. diuretics. Also on. DuoNebs, prednisone taper. Anticoagulated with Eliquis. Afebrile, heart rate 66, respiratory rate 18, blood pressure 107/67, saturating 97%. WBC 9.9, hemoglobin 13.9 platelet 256. Sodium 144 potassium 3.1 chloride 99 CO2 33 BUN 39.4 creatinine 1.8. Pulmonary following. 09/03. Patient seen and examined. Currently on 2 L of oxygen. States she feels better, still apprehensive about going home. Discussed with her detail regarding need for her to ambulate. Possible discharge next 24 hours 09/04. Patient seen examined. Patient doing much better. Discharged on prednisone taper, albuterol and Symbicort. Being discharged to follow-up outpatient with PCP and pulmonology PHYSICAL EXAMINATION: GENERAL: The patient is alert and oriented x3, not in any acute distress. Well developed, well nourished. HEENT: Pupils are round and equally reacting to light. EOMI. No scleral icterus. No conjunctival pallor. Normocephalic, atraumatic. No pharyngeal erythema. No thyromegaly. CARDIOVASCULAR: S1 and S2 present. No murmurs, rubs, or gallops. PULMONARY: Chest is clear to auscultation, no wheezing or crackles. ABDOMEN: Soft, nontender, nondistended, normoactive bowel sounds. No palpable organomegaly. MUSCULOSKELETAL: No joint swelling or deformity. EXTREMITIES: No cyanosis, clubbing, or pedal edema. NEUROLOGICAL: Gross neurological examination did not reveal any focal deficits. SKIN: No rashes. Dictation was produced using [employer] dictation software. please excuse any grammatical, word or spelling errors. Patient Condition at Discharge: Good Plan - Discharge Summary Discharge Rx Participant: No New Discharge Prescriptions: New guaiFENesin [Mucinex] 600 mg PO Q12HR 7 Days #14 tab Budesonide/Formoterol Fumarate [Symbicort 80-4.5 Mcg Inhaler] 2 puff INHALATION BID #1 each predniSONE 10 mg PO DAILY 8 Days #20 tab Albuterol Inhaler [Ventolin Hfa Inhaler] 2 puff INHALATION Q6H PRN #1 each PRN Reason: Shortness Of Breath Or Wheezing Continue Apixaban [Eliquis] 5 mg PO BID 30 Days #60 tab Famotidine [Pepcid] 20 mg PO HS #30 tab Amiodarone [Cordarone] 100 mg PO HS Losartan [Cozaar] 25 mg PO HS Furosemide [Lasix] 40 mg PO BID Aspirin 81 mg PO HS Dapagliflozin Propanediol [Farxiga] 10 mg PO HS Metoprolol Succinate (ER) [Toprol XL] 50 mg PO HS Discharge Medication List Apixaban [Eliquis] 5 mg PO BID 30 Days #60 tab 12/21/23 [Rx] Famotidine [Pepcid] 20 mg PO HS #30 tab 12/24/23 [Rx] Amiodarone [Cordarone] 100 mg PO HS 08/29/24 [History] Aspirin 81 mg PO HS 08/29/24 [History] Dapagliflozin Propanediol [Farxiga] 10 mg PO HS 08/29/24 [History] Furosemide [Lasix] 40 mg PO BID 08/29/24 [History] Losartan [Cozaar] 25 mg PO HS 08/29/24 [History] Metoprolol Succinate (ER) [Toprol XL] 50 mg PO HS 08/30/24 [History] Albuterol Inhaler [Ventolin Hfa Inhaler] 2 puff INHALATION Q6H PRN #1 each 09/04/24 [Rx] Budesonide/Formoterol Fumarate [Symbicort 80-4.5 Mcg Inhaler] 2 puff INHALATION BID #1 each 09/04/24 [Rx] guaiFENesin [Mucinex] 600 mg PO Q12HR 7 Days #14 tab 09/04/24 [Rx] predniSONE 10 mg PO DAILY 8 Days #20 tab 09/04/24 [Rx] Follow up Appointment(s)/Referral(s): Ziggy Macias MD [STAFF PHYSICIAN] - 2 Weeks Teto Mead DO [Doctor of Osteopathic Medicine] - 1 Week Gatito Kamara DO [Primary Care Provider] - 1-2 days Discharge Disposition: HOME SELF-CARE
== END 2024-09-04 14:14 | disposition home or self-care (01) | DRG 193 ==
LOC: EC 09:35 → 3SCARD 12:38 → 4SSUR 08-30 15:09
PROVIDERS: ADMIT Internal Medicine; ATTEND Internal Medicine
DX: J10.00 Influenza due to other identified influenza virus with unspecified type of pneumonia (principal); I50.43 Acute on chronic combined systolic (congestive) and diastolic (congestive) heart failure; J96.01 Acute respiratory failure with hypoxia; E87.0 Hyperosmolality and hypernatremia; Z68.43 Body mass index [BMI] 50.0-59.9, adult; I42.8 Other cardiomyopathies; I27.21 Secondary pulmonary arterial hypertension; I13.0 Hypertensive heart and chronic kidney disease with heart failure and stage 1 through stage 4 chronic kidney disease, or unspecified chronic kidney disease; J44.0 Chronic obstructive pulmonary disease with (acute) lower respiratory infection; N18.32 Chronic kidney disease, stage 3b; I34.0 Nonrheumatic mitral (valve) insufficiency; J44.1 Chronic obstructive pulmonary disease with (acute) exacerbation; J98.11 Atelectasis; I47.10 Supraventricular tachycardia, unspecified; I48.0 Paroxysmal atrial fibrillation; E66.01 Morbid (severe) obesity due to excess calories; J12.89 Other viral pneumonia; I25.5 Ischemic cardiomyopathy; I44.7 Left bundle-branch block, unspecified; E78.5 Hyperlipidemia, unspecified; F41.9 Anxiety disorder, unspecified; I25.10 Atherosclerotic heart disease of native coronary artery without angina pectoris; I25.2 Old myocardial infarction; Z20.822 Contact with and (suspected) exposure to COVID-19; I45.9 Conduction disorder, unspecified; Z79.01 Long term (current) use of anticoagulants; Z79.82 Long term (current) use of aspirin; Z79.84 Long term (current) use of oral hypoglycemic drugs; Z87.891 Personal history of nicotine dependence; Z95.5 Presence of coronary angioplasty implant and graft; Z95.1 Presence of aortocoronary bypass graft; Z28.310 Unvaccinated for COVID-19; Z28.21 Immunization not carried out because of patient refusal; Z90.49 Acquired absence of other specified parts of digestive tract; Z79.899 Other long term (current) drug therapy
CPT/HCPCS: 36415; 71045; 71275; 80048; 80053; 83605; 83735; 83880; 84145; 84484; 85025; 85379; 85610; 85730; 87040; 87070; 87205; 87449; 87636; 93005; 94640; 94660; 94760; 96365; 96366; 96367; 96375; 96376; 99291

== ENCOUNTER 2024-10-28 16:24 | Inpatient (IN) | payer MEDICARE ==
--- NOTE | 2024-10-28 16:58 | ED ---
SOB HPI - General Chief Complaint: Shortness of Breath Stated Complaint: SOB Time Seen by Provider: 10/28/24 16:32 Source: patient, RN notes reviewed Mode of arrival: wheelchair Limitations: no limitations - History of Present Illness Initial Comments: This is a 74-year-old female who presents to the emergency department for shortness of breath. States that it started 3 to 4 days ago. Denies any chest pain. Denies any coughing/congestion or other URI symptoms. Dates that she was here in November of last year and August of this year for similar problems, but is unsure what caused it. States that when she was in the hospital they thought she had a COPD at one point, however she followed up with pulmonology and they advised that she did not. Reports a history of CAD and cardiomyopathy. She is on Eliquis. Unsure if she has CHF. MD Complaint: shortness of breath - Related Data Home Medications Medication Instructions Recorded Confirmed Amiodarone [Cordarone] 100 mg PO DAILY 08/29/24 10/28/24 Aspirin 81 mg PO DAILY 08/29/24 10/28/24 Dapagliflozin Propanediol [Farxiga] 10 mg PO DAILY 08/29/24 10/28/24 Losartan [Cozaar] 25 mg PO DAILY 08/29/24 10/28/24 Metoprolol Succinate (ER) [Toprol 50 mg PO DAILY 08/30/24 10/28/24 XL] Albuterol Inhaler [Ventolin Hfa 2 puff INHALATION RT-Q6H PRN 10/28/24 10/28/24 Inhaler] Apixaban [Eliquis] 5 mg PO DAILY 10/28/24 10/28/24 Budesonide/Formoterol Fumarate 2 puff INHALATION RT-BID 10/28/24 10/28/24 [Symbicort 80-4.5 Mcg Inhaler] Allergies Allergy/AdvReac Type Severity Reaction Status Date / Time No Known Allergies Allergy Verified 10/28/24 18:01 Review of Systems ROS Statement: Those systems with pertinent positive or pertinent negative responses have been documented in the HPI. ROS Other: All systems not noted in ROS Statement are negative. Past Medical History Past Medical History: Hypertension Additional Past Medical History / Comment(s): questionable a-fib History of Any Multi-Drug Resistant Organisms: None Reported Past Surgical History: Section, Cholecystectomy, Tonsillectomy Additional Past Surgical History / Comment(s): Part on colon removed Past Anesthesia/Blood Transfusion Reactions: No Reported Reaction Date of Last Stent Placement:: 2019 Past Psychological History: Anxiety Smoking Status: Former smoker Past Alcohol Use History: Rare Past Drug Use History: None Reported General Exam Limitations: no limitations General appearance: alert, in no apparent distress Head exam: Present: atraumatic, normocephalic, normal inspection Respiratory exam: Present: decreased breath sounds, prolonged expiratory Cardiovascular Exam: Present: regular rate, normal rhythm Neurological exam: Present: alert, oriented X3, CN II-XII intact Psychiatric exam: Present: normal affect, normal mood Skin exam: Present: warm, dry, intact, normal color. Absent: rash Course Vital Signs 10/28/24 10/28/24 10/28/24 16:25 17:35 17:40 Temperature 97.4 F L Pulse Rate 65 53 L 53 L Respiratory 18 16 16 Rate Blood Pressure 185/100 O2 Sat by Pulse 96 Oximetry 10/28/24 10/28/24 10/28/24 20:09 20:21 20:27 Temperature Pulse Rate 61 63 65 Respiratory 18 Rate Blood Pressure 168/89 O2 Sat by Pulse 96 Oximetry 10/28/24 21:29 Temperature 98.2 F Pulse Rate 63 Respiratory 18 Rate Blood Pressure 161/77 O2 Sat by Pulse 97 Oximetry Medical Decision Making - Medical Decision Making This is a 74-year-old female who presents to the emergency department for shortness of breath. Was pt. sent in by a medical professional or institution? @ -No Did you speak to anyone other than the patient for history? @ -No Did you review nursing and triage notes? @ -Yes, and I agree, it is accurate with regards to the patient's symptoms. Were old charts reviewed? @ -Echocardiogram from 12/18/2023 demonstrating an EF of 20 to 25%. Differential Diagnosis? @ -Differential Dyspnea: Coronary syndrome, arrhythmia, tamponade, asthma, COPD, pulmonary embolism, pneumonia, pneumothorax, pulmonary effusion, anaphylaxis, diabetic ketoacidosis, flailed chest, pulmonary contusion, diaphragmatic rupture, anemia, neuromuscular, this is not meant to be an all-inclusive list. EKG interpreted by me (3pts min.)? @ -EKG interpreted by me demonstrating the following: Sinus rhythm. Ventricular rate 60 bpm, ME interval 175 ms, QRS duration 170 ms, QTc 498 ms. X-rays interpreted by me (1pt min.)? @ -Chest x-ray obtained, my interpretation identifies no localized consolidations or infiltrates. CT interpreted by me (1pt min.)? @ -Not obtained U/S interpreted by me (1pt. min.)? @ -Not obtained What testing was considered but not performed? (CT, X-rays, U/S, labs)? Why? @ -Cepheid 4-plex swab, however patient refused. What meds were considered but not given? Why? @ -None Did you discuss the management of the patient with other professionals? @ -Yes, Bekah Monique with [facility], who accepts the patient for admission Did you reconcile home meds? @ -Yes Was smoking cessation discussed for >3mins.? @ -No Was critical care preformed (if so, how long)? @ -No Were there social determinants of health that impacted care today? How? (Homelessness, low income, unemployed, alcoholism, drug addiction, transportation, low edu. Level, literacy, decrease access to med. care, prison, rehab)? @ -No Was there de-escalation of care discussed even if they declined? (Discuss DNR or withdrawal of care, Hospice)? @ -No What co-morbidities impacted this encounter? (DM, HTN, Smoking, COPD, CAD, Cancer, CVA, Hep., AIDS, mental health diagnosis, sleep apnea, morbid obesity)? @ -CAD, cardiomyopathy, HTN Was patient admitted / discharged? @ -Admitted. Lab work demonstrates a BNP of 15,500 and is otherwise unremarkable. Chest x-ray reveals no acute process. Patient refused a Cepheid 4 Plex swab. Symptoms likely related to a CHF exacerbation. She had an echocardiogram on 12/18/2023 demonstrating an EF of 20 to 25%. 40 mg of IV Lasix administered. Patient admitted to medicine for CHF exacerbation. Lasix ordered to be administered as 40 mg twice daily. Consult placed for cardiology. Case discussed with ED attending Dr. Morris. Undiagnosed new problem with uncertain prognosis? @ -None Drug Therapy requiring intensive monitoring for toxicity (Heparin, Nitro, Insulin, Cardizem)? @ -None Were any procedures done? @ -None Diagnosis/symptom? @ -CHF exacerbation Acute, or Chronic, or Acute on Chronic? @ -Acute on chronic Uncomplicated (without systemic symptoms) or Complicated (systemic symptoms)? @ -Complicated Side effects of treatment? @ -None Exacerbation, Progression, or Severe Exacerbation] @ -Severe exacerbation Poses a threat to life or bodily function? @ -Yes, can lead to respiratory failure and - Lab Data Result diagrams: 10/28/24 17:02 10/28/24 17:02 Lab Results 10/28/24 10/28/24 10/28/24 Range/Units 17: 17: 17: WBC 6.00 (4.50-10.00) 10*3/uL RBC 4.52 (4.10-5.20) 10*6/uL Hgb 13.6 (12.0-15.0) g/dL Hct 41.4 (37.2-46.3) % MCV 91.6 (80.0-97.0) fL MCH 30.1 (27.0-32.0) pg MCHC 32.9 (32.0-37.0) g/dL Plt Count 200 (140-440) 10*3/uL MPV 10.9 (9.5-12.2) fL Immature Gran % (Auto) 0.3 % Neutrophils % 62.0 % Lymphocytes % 24.8 % Monocytes % 7.8 % Eosinophils % 4.3 % Basophils % 0.8 % Immature Gran # 0.02 (0.00-0.04) 10*3/uL Neutrophils # 3.71 (1.80-7.70) 10*3/uL Lymphocytes # 1.49 (0.90-5.00) 10*3/uL Monocytes # 0.47 (0.20-1.00) 10*3/uL Eosinophils # 0.26 (0.04-0.35) 10*3/uL Basophils # 0.05 (0.00-0.10) 10*3/uL PT 10.7 (10.0-12.5) sec INR 1.0 (<1.2) APTT 24.4 (22.0-30.0) sec Sodium 138 (137-145) mmol/L Potassium 4.4 (3.5-5.1) mmol/L Chloride 106 (98-107) mmol/L Carbon Dioxide 25 (22-30) mmol/L Anion Gap 7 mmol/L BUN 24 H (7-17) mg/dL Creatinine 1.30 H (0.52-1.04) mg/dL Est GFR (CKD-EPI)AfAm 48 (>60 ml/min/1.73 sqM) Est GFR (CKD-EPI)NonAf 41 (>60 ml/min/1.73 sqM) Glucose 123 H (74-99) mg/dL Plasma Lactic Acid Manuel (0.7-2.0) mmol/L Calcium 9.1 (8.4-10.2) mg/dL Magnesium 1.9 (1.6-2.3) mg/dL Total Bilirubin 1.4 H (0.2-1.3) mg/dL AST 17 (14-36) U/L ALT 9 (4-34) U/L Alkaline Phosphatase 43 (38-126) U/L Troponin I (0.000-0.034) ng/mL NT-Pro-B Natriuret Pep 30941 pg/mL Total Protein 6.3 (6.3-8.2) g/dL Albumin 3.7 (3.5-5.0) g/dL 10/28/24 10/28/24 Range/Units 17:02 17:02 WBC (4.50-10.00) 10*3/uL RBC (4.10-5.20) 10*6/uL Hgb (12.0-15.0) g/dL Hct (37.2-46.3) % MCV (80.0-97.0) fL MCH (27.0-32.0) pg MCHC (32.0-37.0) g/dL Plt Count (140-440) 10*3/uL MPV (9.5-12.2) fL Immature Gran % (Auto) % Neutrophils % % Lymphocytes % % Monocytes % % Eosinophils % % Basophils % % Immature Gran # (0.00-0.04) 10*3/uL Neutrophils # (1.80-7.70) 10*3/uL Lymphocytes # (0.90-5.00) 10*3/uL Monocytes # (0.20-1.00) 10*3/uL Eosinophils # (0.04-0.35) 10*3/uL Basophils # (0.00-0.10) 10*3/uL PT (10.0-12.5) sec INR (<1.2) APTT (22.0-30.0) sec Sodium (137-145) mmol/L Potassium (3.5-5.1) mmol/L Chloride (98-107) mmol/L Carbon Dioxide (22-30) mmol/L Anion Gap mmol/L BUN (7-17) mg/dL Creatinine (0.52-1.04) mg/dL Est GFR (CKD-EPI)AfAm (>60 ml/min/1.73 sqM) Est GFR (CKD-EPI)NonAf (>60 ml/min/1.73 sqM) Glucose (74-99) mg/dL Plasma Lactic Acid Manuel 0.9 (0.7-2.0) mmol/L Calcium (8.4-10.2) mg/dL Magnesium (1.6-2.3) mg/dL Total Bilirubin (0.2-1.3) mg/dL AST (14-36) U/L ALT (4-34) U/L Alkaline Phosphatase (38-126) U/L Troponin I <0.012 (0.000-0.034) ng/mL NT-Pro-B Natriuret Pep pg/mL Total Protein (6.3-8.2) g/dL Albumin (3.5-5.0) g/dL - Radiology Data Radiology results: report reviewed, image reviewed Disposition Clinical Impression: CHF exacerbation Disposition: ADMITTED IP TO THIS HOSP
[2024-10-28 17:10] LABS: Basophils # (A) 0.05 10*3/uL (0.00-0.10); Basophils % (A) 0.8 %; Eosinophils # (A) 0.26 10*3/uL (0.04-0.35); Eosinophils % (A) 4.3 %; HCT 41.4 % (37.2-46.3); HGB 13.6 g/dL (12.0-15.0); Lymphocytes # (A) 1.49 10*3/uL (0.90-5.00); Lymphocytes % (A) 24.8 %; MCH 30.1 pg (27.0-32.0); MCHC 32.9 g/dL (32.0-37.0); MCV 91.6 fL (80.0-97.0); Mean Platelet Volume 10.9 fL (9.5-12.2); Monocytes # (A) 0.47 10*3/uL (0.20-1.00); Monocytes % (A) 7.8 %; Neutrophils # (A) 3.71 10*3/uL (1.80-7.70); Platelet Count 200 10*3/uL (140-440); RBC 4.52 10*6/uL (4.10-5.20); RDW 14.6 % (11.5-14.5)
[2024-10-28 17:22] LABS: ALT 9 U/L (4-34); AST 17 U/L (14-36); African American GFR (CKD) 48 (>60 ml/min/1.73 sqM); Albumin 3.7 g/dL (3.5-5.0); Alkaline Phosphatase 43 U/L (38-126); Anion Gap 7 mmol/L; Blood Urea Nitrogen 24 mg/dL (7-17); Calcium 9.1 mg/dL (8.4-10.2); Carbon Dioxide 25 mmol/L (22-30); Chloride 106 mmol/L (98-107); Glucose 123 mg/dL (74-99); Magnesium 1.9 mg/dL (1.6-2.3); Non-African American GFR(CKD) 41 (>60 ml/min/1.73 sqM); Partial Thromboplastin Time 24.4 sec (22.0-30.0); Potassium 4.4 mmol/L (3.5-5.1); Prothrombin Time 10.7 sec (10.0-12.5); Sodium 138 mmol/L (137-145); Total Bilirubin 1.4 mg/dL (0.2-1.3); Total Protein 6.3 g/dL (6.3-8.2)
[2024-10-28 17:30] LABS: NT-Pro-B-Type Natriuretic Pept 15500 pg/mL
[2024-10-28] MEDS: IPRATROPIUM-ALBUTEROL 3 ML NEB INHALATION STA (17:35)
[2024-10-28] MEDS: FUROSEMIDE 10 MG/ML 4 ML VIAL IV STA (17:59)
--- NOTE | 2024-10-28 18:00 | XR ---
EXAMINATION TYPE: XR chest 2V DATE OF EXAM: 10/28/2024 5:19 PM COMPARISON: Chest radiographs from 09/02/2024 CLINICAL INDICATION: Female, 74 years old with history of difficulty breathing; [facility] TECHNIQUE: XR chest 2V Frontal and lateral views of the chest. FINDINGS: Lungs/Pleura: There is no evidence of pleural effusion, focal consolidation, or pneumothorax. Pulmonary vascularity: Unremarkable. Heart/mediastinum: Cardiomediastinal silhouette is unremarkable. Musculoskeletal: No acute osseous pathology. IMPRESSION: No acute cardiopulmonary disease/process. [facility], , 10/28/2024 5:58 PM
[2024-10-28] MEDS: ALBUTEROL NEBULIZED 2.5 MG/3 ML INHALATION PRN (20:08)
[2024-10-28] MEDS: SYMBICORT 80-4.5 MCG INHALER INHALATION SCH (20:09)
[2024-10-28] MEDS: APIXABAN 5 MG TAB PO SCH (20:26)
[2024-10-29] MEDS: FUROSEMIDE 10 MG/ML 4 ML VIAL IV SCH (05:24)
[2024-10-29] MEDS: METOPROLOL SUCCINATE (ER) 50 MG TAB.ER.24H PO SCH (08:27)
[2024-10-29] MEDS: AMIODARONE 100 MG TAB PO SCH (08:28)
[2024-10-29] MEDS: DAPAGLIFLOZIN PROPANEDIOL 10 MG TABLET PO SCH (08:28)
[2024-10-29] MEDS: LOSARTAN 25 MG TAB PO SCH (08:28)
[2024-10-29] MEDS: ASPIRIN 81 MG PO SCH (08:42)
--- NOTE | 2024-10-29 12:07 | P.CRDCN ---
History of Present Illness History of present illness: HISTORY OF PRESENT ILLNESS: This is a 74-year-old female with a past medical history significant for coronary artery disease, cardiomyopathy, paroxysmal atrial fibrillation, hypertension, hyperlipidemia, nonsustained ventricular tachycardia, COPD, and obesity. Patient follows in the office with Dr. Macias. We have been asked to see the patient in consultation for congestive heart failure. Patient examined at the bedside. Patient presented to the hospital with a chief complaint of fany rtness of breath. She states she has been feeling short of breath for the past 3 to 4 days. She denies any chest pain or pressure. She states she has been compliant with her medications. She states that she used to take Eliquis twice a day but was started on Farxiga recently and her Eliquis has been changed to once a day. She reports compliance with a low-sodium diet. DIAGNOSTICS: - EKG reveals sinus mechanism with left bundle branch block. - Chest xray negative for acute process - Laboratory data: WBC 6.0. Hemoglobin 13.6. Platelet count 200. Sodium 138. Potassium 4.4. BUN 24. Creatinine 1.30. Troponin negative x 1. proBNP 15,500. - Current home cardiac medications include metoprolol succinate 50 mg daily, losartan 25 mg daily, Farxiga 10 mg daily, aspirin 81 mg daily, Eliquis 5 mg daily, amiodarone 100 mg daily. - Most recent echocardiogram obtained in February 2024 revealed ejection fraction 40 to 45% - Patient underwent Lexiscan stress test in August 2020 which was negative for ischemia - Cardiac catheterization: April 2020 with stenting of the mid RCA REVIEW OF SYSTEMS: At the time of my exam: CONSTITUTIONAL: Denies fever or chills. HEENT: Denies blurred vision, vision changes, or eye pain. Denies hemoptysis CARDIOVASCULAR: Denies chest pain. Denies orthopnea. Denies PND. Denies palpitations RESPIRATORY: Denies shortness of breath. GASTROINTESTINAL: Denies abdominal pain. Denies nausea or vomiting. HEMATOLOGIC: Denies bleeding disorders. GENITOURINARY: Denies any blood in urine. SKIN: Denies pruitis. Denies rash. PHYSICAL EXAM: VITAL SIGNS: Reviewed. GENERAL: Well-developed in no acute distress. HEENT: Head is normocephalic. Pupils are equal, round. Sclerae anicteric. Mucous membranes of the mouth are moist. Neck supple. No JVD or thyromegaly LUNGS: Respirations even and unlabored. Lungs diminished bilaterally HEART: Regular rate and rhythm. S1 and S2 heard. ABDOMEN: Soft. Nondistended. Nontender. EXTREMITIES: Normal range of motion. No clubbing or cyanosis. Peripheral pulses intact. No lower extremity edema NEUROLOGIC: Awake and alert. Oriented x 3. ASSESSMENT: Shortness of breath Acute on chronic heart failure with reduced EF, 40% Coronary artery disease with previous stenting of the RCA Known intermediate disease involving the LAD Ischemic cardiomyopathy History of nonsustained ventricular tachycardia Hypertension Hyperlipidemia History of COPD Paroxysmal atrial fibrillation History of cardioversion, November 2023 Morbid obesity: BMI 54.6 PLAN: Obtain 2D echo to assess cardiac structure and function Resume home cardiac medications Increase Eliquis to 5 mg twice a day for appropriate thromboembolic protection Continue IV Lasix 40 mg every 12 hours Daily weights, accurate intake and output, monitoring of kidney function Further recommendations pending patient course Nurse practitioner note has been reviewed by physician. Signing provider agrees with the documented findings, assessment, and plan of care documented by [employer] as a scribe. Past Medical History Past Medical History: Hypertension Additional Past Medical History / Comment(s): questionable a-fib History of Any Multi-Drug Resistant Organisms: None Reported Past Surgical History: Section, Cholecystectomy, Tonsillectomy Additional Past Surgical History / Comment(s): Part on colon removed Past Anesthesia/Blood Transfusion Reactions: No Reported Reaction Date of Last Stent Placement:: 2019 Past Psychological History: Anxiety Smoking Status: Former smoker Past Alcohol Use History: Rare Additional Past Alcohol Use History / Comment(s): quit 2 weeks ago Past Drug Use History: None Reported Medications and Allergies Home Medications Medication Instructions Recorded Confirmed Type Amiodarone [Cordarone] 100 mg PO DAILY 08/29/24 10/28/24 History Aspirin 81 mg PO DAILY 08/29/24 10/28/24 History Dapagliflozin Propanediol [Farxiga] 10 mg PO DAILY 08/29/24 10/28/24 History Losartan [Cozaar] 25 mg PO DAILY 08/29/24 10/28/24 History Metoprolol Succinate (ER) [Toprol 50 mg PO DAILY 08/30/24 10/28/24 History XL] Albuterol Inhaler [Ventolin Hfa 2 puff INHALATION RT-Q6H PRN 10/28/24 10/28/24 History Inhaler] Apixaban [Eliquis] 5 mg PO DAILY 10/28/24 10/28/24 History Budesonide/Formoterol Fumarate 2 puff INHALATION RT-BID 10/28/24 10/28/24 History [Symbicort 80-4.5 Mcg Inhaler] Allergies Allergy/AdvReac Type Severity Reaction Status Date / Time No Known Allergies Allergy Verified 10/28/24 18:01 Physical Exam Vitals: Vital Signs Temp Pulse Pulse Resp BP BP Pulse Ox 10/29/24 11:26 66 17 152/76 94 L 10/29/24 08:26 98.1 F 64 17 136/72 95 10/29/24 03:40 97.9 F 57 L 16 150/82 94 L 10/28/24 23:30 97.5 F L 68 16 127/77 94 L 10/28/24 21:29 98.2 F 63 18 161/77 97 10/28/24 20:27 65 18 168/89 96 10/28/24 20:21 63 10/28/24 20:09 61 10/28/24 17:40 53 L 16 10/28/24 17:35 53 L 16 10/28/24 16:25 97.4 F L 65 18 185/100 96 Intake and Output 10/28/24 10/29/24 10/29/24 22:59 06:59 14:59 Intake Total 240 Output Total 500 500 Balance -500 -260 Intake: Oral 240 Output: Urine 500 500 Other: Voiding Method Toilet Toilet # Voids 1 1 Weight 127.006 kg 131 kg Results 10/28/24 17:02 10/28/24 17:02 Cardiac Enzymes 10/28/24 10/28/24 Range/Units 17:02 17:02 AST 17 (14-36) U/L Troponin I <0.012 (0.000-0.034) ng/mL Coagulation 10/28/24 Range/Units 17:02 PT 10.7 (10.0-12.5) sec APTT 24.4 (22.0-30.0) sec CBC 10/28/24 Range/Units 17:02 WBC 6.00 (4.50-10.00) 10*3/uL RBC 4.52 (4.10-5.20) 10*6/uL Hgb 13.6 (12.0-15.0) g/dL Hct 41.4 (37.2-46.3) % Plt Count 200 (140-440) 10*3/uL Comprehensive Metabolic Panel 10/28/24 Range/Units 17:02 Sodium 138 (137-145) mmol/L Potassium 4.4 (3.5-5.1) mmol/L Chloride 106 (98-107) mmol/L Carbon Dioxide 25 (22-30) mmol/L BUN 24 H (7-17) mg/dL Creatinine 1.30 H (0.52-1.04) mg/dL Glucose 123 H (74-99) mg/dL Calcium 9.1 (8.4-10.2) mg/dL AST 17 (14-36) U/L ALT 9 (4-34) U/L Alkaline Phosphatase 43 (38-126) U/L Total Protein 6.3 (6.3-8.2) g/dL Albumin 3.7 (3.5-5.0) g/dL Current Medications Generic Name Dose Route Start Last Admin Trade Name Freq PRN Reason Stop Dose Admin Albuterol Sulfate 2.5 mg 10/28/24 18:29 10/28/24 20:08 Albuterol Nebulized 2.5 Mg/3 Ml INHALATION 2.5 mg RT-Q6H PRN Administration Shortness Of Breath Or Wheezing Amiodarone HCl 100 mg 10/29/24 09:00 10/29/24 08:28 Amiodarone 100 Mg Tab PO 100 mg DAILY MUKESH Administration Apixaban 5 mg 10/28/24 21:00 10/29/24 08:28 Apixaban 5 Mg Tab PO 5 mg BID MUKESH Administration Protocol Aspirin 81 mg 10/29/24 09:00 10/29/24 08:42 Aspirin 81 Mg PO Not Given DAILY MUKESH Budesonide/Formoterol Fumarate 2 puff 10/28/24 20:00 10/29/24 08:58 Symbicort 80-4.5 Mcg Inhaler INHALATION Not Given RT-BID MUKESH Dapagliflozin 10 mg 10/29/24 09:00 10/29/24 08:28 Dapagliflozin Propanediol 10 Mg Tablet PO 10 mg DAILY MUKESH Administration Furosemide 40 mg 10/29/24 06:00 10/29/24 05:24 Furosemide 10 Mg/Ml 4 Ml Vial IV 40 mg Q12H MUKESH Administration Losartan Potassium 25 mg 10/29/24 09:00 10/29/24 08:28 Losartan 25 Mg Tab PO 25 mg DAILY MUKESH Administration Metoprolol Succinate 50 mg 10/29/24 09:00 10/29/24 08:27 Metoprolol Succinate (Er) 50 Mg Tab.Er.24h PO 50 mg DAILY MUKESH Administration Intake and Output 10/28/24 10/29/24 10/29/24 22:59 06:59 14:59 Intake Total 240 Output Total 500 500 Balance -500 -260 Intake: Oral 240 Output: Urine 500 500 Other: Voiding Method Toilet Toilet # Voids 1 1 Weight 127.006 kg 131 kg 10/28/24 17:02 10/28/24 17:02
--- NOTE | 2024-10-29 13:42 | CA ---
Transthoracic Echo Report Name: Tiana Mcdowell Age: 74 Gender: F : 1950 Exam Date: 10/29/2024 11:29 Exam Location: [place] [facility] Ht (in): 63 Wt (lb): 288 Ordering Physician: Karina Jordan Attending/Referring Phys: [id number], Julian Licensed Home Inspector Justine Blackwell, LOY Procedure CPT: Indications: LV Function, SOB, CHF Cardiac Hx: Technical Quality: Fair Contrast 1: Total Dose (mL): Contrast 2: Total Dose (mL): MEASUREMENTS (Male / Female) Normal Values 2D ECHO LV Diastolic Diameter PLAX 6.1 cm 4.2 - 5.9 / 3.9 - 5.3 cm LV Systolic Diameter PLAX 5.7 cm IVS Diastolic Thickness 1.0 cm 0.6 - 1.0 / 0.6 - 0.9 cm LVPW Diastolic Thickness 1.3 cm 0.6 - 1.0 / 0.6 - 0.9 cm LV Relative Wall Thickness 0.4 RV Internal Dim ED PLAX 1.8 cm LA Systolic Diameter LX 3.6 cm 3.0 - 4.0 / 2.7 - 3.8 cm LV Diastolic Volume MOD BP 160.5 cm??? 67 - 155 / 56 - 104 cm??? LV Systolic Volume MOD BP 104.1 cm??? - 58 / 19 - 49 cm??? LV Ejection Fraction MOD BP 35.2 % >= 55 % LV Cardiac Index MOD BP 1517.3 cm???/min???m??? LV Diastolic Volume MOD 4C 173.2 cm??? LV Systolic Volume MOD 4C 115.5 cm??? LV Ejection Fraction MOD 4C 33.3 % LV Cardiac Index MOD 4C 1550.6 cm???/min???m??? LV Diastolic Length 4C 8.3 cm LV Systolic Length 4C 7.8 cm LV Diastolic Volume MOD 2C 143.3 cm??? LV Systolic Volume MOD 2C 88.8 cm??? LV Ejection Fraction MOD 2C 38.0 % LV Cardiac Index MOD 2C 1464.1 cm???/min???m??? LV Diastolic Length 2C 8.0 cm LV Systolic Length 2C 7.2 cm LA Volume 75.2 cm??? 18 - 58 / 22 - 52 cm??? LA Volume Index 30.2 cm???/m??? 16 - 28 cm???/m??? M-MODE Aortic Root Diameter MM 3.2 cm LA Systolic Diameter MM 3.3 cm LA Ao Ratio MM 1.0 AV Cusp Separation MM 1.9 cm DOPPLER MV Area PHT 4.3 cm??? Mitral E Point Velocity 108.8 cm/s Mitral A Point Velocity 1.3 cm/s Mitral E to A Ratio 85.1 MV Deceleration Time 176.8 ms FINDINGS Left Ventricle Left ventricular ejection fraction is estimated at 20-25 %. Moderately increased posterior wall thickness. Moderately increased left ventricular diastolic diameter. Severely increased left ventricular diastolic volume. Severely increased left ventricular systolic volume.severely reduced global left ventricular systolic function. Right Ventricle Right ventricle not well visualized. Unable to estimate the right ventricular systolic pressure. Right Atrium Mild right atrial dilatation. Left Atrium Mildly increased left atrial volume. Mildly increased left atrial area. Mitral Valve Structurally normal mitral valve. No mitral stenosis. Mild mitral regurgitation. Aortic Valve Aortic valve not well visualized. No aortic valve stenosis or regurgitation. Tricuspid Valve Structurally normal tricuspid valve. No tricuspid stenosis. Trace tricuspid regurgitation. Pulmonic Valve Structurally normal pulmonic valve. Trace pulmonic regurgitation. No pulmonic stenosis. Pericardium No pericardial or pleural effusion. Aorta Normal size aortic root and proximal ascending aorta. CONCLUSIONS Severe LV systolic dysfunction with an ejection fraction of 20 to 25% Mild mitral regurgitation Previewed by: Dr. Ian Bernard MD (Electronically Signed) Final Date: 29 Oct 2024 13:41
[2024-10-29 15:00] VITALS: BMI 54.6
--- NOTE | 2024-10-29 15:18 | P.HPIM ---
History of Present Illness H&P Date: 10/29/24 History of present illness; Patient is a 74-year-old female with CHF with EF of 20 to 25%, COPD, paroxysmal A-fib who presents with shortness of breath. She states that it started 3 to 4 days ago and is denying chest pain, cough, congestion and other upper respiratory symptoms. She does endorse some ongoing lower extremity and abdominal swelling. No recent immobilization. She denies she has no other symptoms at this time. Spoke with the ER physician, patient admission was accepted by internal medicine service for treatment. REVIEW OF SYSTEMS: Pertinent positives and negatives noted in HPI. PHYSICAL EXAMINATION: Vitals reviewed GENERAL: Resting comfortably in bed. Obese. EYES: PERRL, no scleral injection or icterus. No vision loss HENT: Normocephalic, atraumatic, hearing grossly intact, moist mucous membranes NECK: No tracheal deviation, full range of motion. CARDIOVASCULAR: Distant heart sounds PULMONARY: Distant breath sounds ABDOMEN: Soft, nontender, nondistended. No palpable organomegaly. MUSCULOSKELETAL: No apparent joint swelling and deformities. EXTREMITIES: No apparent cyanosis, clubbing. 2+ pedal edema. NEUROLOGICAL: Alert and oriented. Gross neurological examination with no apparent focal deficits. SKIN: No apparent rashes. ER FINDINGS: Labs significant for BUN 24 creatinine 1.3, glucose 123, bilirubin 1.4, troponin<0.012, proBNP 15,500 EKG independently interpreted showed sinus rhythm with left bundle branch block, heart rate of 60, QTc 498, no ST segment elevation or depression seen, no T-wave inversions seen. Chest x-ray done independently interpreted showed no acute cardiopulmonary process. No consolidations or infiltrates. Echocardiogram with EF 20 to 25% Assessment and Plan: # CHF exacerbation # CHF with systolic dysfunction EF 20 to 25% -continue IV Lasix 40 mg BID -cardiac monitoring -Initial weight 131kg, daily weights -strict I/O, no more than 2L of total volume intake daily -Low sodium diet, <2g daily -supplemental O2 as needed -Monitor BMP and Magnesium -cardiology consulted Chronic Medical Conditions #Hypertension #COPD #Paroxysmal A-fib #History of SVT #CAD with previous stenting #Hyperlipidemia Resume home medications DVT ppx: Eliquis 5 mg twice daily F: P.o. E: Replete as needed N: Heart healthy diet, Low sodium diet, <2g daily Anticipated discharge place: Pending clinical course Anticipated discharge time: [address] Tovar seen patient with resident, present during exam, and agreed with findings. Dictation was produced using [employer] dictation software. Please excuse any grammatical, word or spelling errors. Past Medical History Past Medical History: Hypertension Additional Past Medical History / Comment(s): questionable a-fib History of Any Multi-Drug Resistant Organisms: None Reported Past Surgical History: Section, Cholecystectomy, Tonsillectomy Additional Past Surgical History / Comment(s): Part on colon removed Past Anesthesia/Blood Transfusion Reactions: No Reported Reaction Date of Last Stent Placement:: 2019 Past Psychological History: Anxiety Smoking Status: Former smoker Past Alcohol Use History: Rare Additional Past Alcohol Use History / Comment(s): quit 2 weeks ago Past Drug Use History: None Reported Medications and Allergies Home Medications Medication Instructions Recorded Confirmed Type Amiodarone [Cordarone] 100 mg PO DAILY 08/29/24 10/28/24 History Aspirin 81 mg PO DAILY 08/29/24 10/28/24 History Dapagliflozin Propanediol [Farxiga] 10 mg PO DAILY 08/29/24 10/28/24 History Losartan [Cozaar] 25 mg PO DAILY 08/29/24 10/28/24 History Metoprolol Succinate (ER) [Toprol 50 mg PO DAILY 08/30/24 10/28/24 History XL] Albuterol Inhaler [Ventolin Hfa 2 puff INHALATION RT-Q6H PRN 10/28/24 10/28/24 History Inhaler] Apixaban [Eliquis] 5 mg PO DAILY 10/28/24 10/28/24 History Budesonide/Formoterol Fumarate 2 puff INHALATION RT-BID 10/28/24 10/28/24 History [Symbicort 80-4.5 Mcg Inhaler] Allergies Allergy/AdvReac Type Severity Reaction Status Date / Time No Known Allergies Allergy Verified 10/28/24 18:01 Physical Exam Vitals: Vital Signs Temp Pulse Pulse Resp BP BP Pulse Ox 10/29/24 08:26 98.1 F 64 17 136/72 95 10/29/24 03:40 97.9 F 57 L 16 150/82 94 L 10/28/24 23:30 97.5 F L 68 16 127/77 94 L 10/28/24 21:29 98.2 F 63 18 161/77 97 10/28/24 20:27 65 18 168/89 96 10/28/24 20:21 63 10/28/24 20:09 61 10/28/24 17:40 53 L 16 10/28/24 17:35 53 L 16 10/28/24 16:25 97.4 F L 65 18 185/100 96 Intake and Output 10/28/24 10/29/24 10/29/24 22:59 06:59 14:59 Intake Total 240 Output Total 500 500 Balance -500 -260 Intake: Oral 240 Output: Urine 500 500 Other: Voiding Method Toilet Toilet # Voids 1 1 Weight 127.006 kg 131 kg Results CBC & Chem 7: 10/28/24 17:02 10/28/24 17:02 Labs: Abnormal Lab Results - Last 24 Hours (Table) 10/28/24 Range/Units 17:02 BUN 24 H (7-17) mg/dL Creatinine 1.30 H (0.52-1.04) mg/dL Glucose 123 H (74-99) mg/dL Total Bilirubin 1.4 H (0.2-1.3) mg/dL Thrombosis Risk Factor Assmnt - Choose All That Apply Any of the Below Risk Factors Present?: No Other Risk Factors: Yes Each Risk Factor Represents 2 Points: Age 61-74 years Other congenital or acquired thrombophilia - If yes, enter type in comment: No Thrombosis Risk Factor Assessment Total Risk Factor Score: 2 Thrombosis Risk Factor Assessment Level: Low Risk
[2024-10-29] MEDS: LACTULOSE 20 GM/30 ML CUP PO SCH (18:03)
[2024-10-29] MEDS: PSYLLIUM HUSK 100% 6 GM PACKET PO SCH (20:09)
[2024-10-30 08:21] LABS: African American GFR (CKD) 29 (>60 ml/min/1.73 sqM); Anion Gap 8 mmol/L; Blood Urea Nitrogen 30 mg/dL (7-17); Carbon Dioxide 31 mmol/L (22-30); Chloride 100 mmol/L (98-107); Glucose 141 mg/dL (74-99); Non-African American GFR(CKD) 26 (>60 ml/min/1.73 sqM); Potassium 3.5 mmol/L (3.5-5.1); Sodium 139 mmol/L (137-145)
--- NOTE | 2024-10-30 10:26 | P.PN ---
Subjective HISTORY OF PRESENT ILLNESS: This is a 74-year-old female with a past medical history significant for coronary artery disease, cardiomyopathy, paroxysmal atrial fibrillation, hypertension, hyperlipidemia, nonsustained ventricular tachycardia, COPD, and obesity. Patient follows in the office with Dr. Macias. We have been asked to see the patient in consultation for congestive heart failure. Patient examined at the bedside. Patient presented to the hospital with a chief complaint of shortness of breath. She states she has been feeling short of breath for the past 3 to 4 days. She denies any chest pain or pressure. She states she has been compliant with her medications. She states that she used to take Eliquis twice a day but was started on Farxiga recently and her Eliquis has been changed to once a day. She reports compliance with a low-sodium diet. DIAGNOSTICS: - EKG reveals sinus mechanism with left bundle branch block. - Chest xray negative for acute process - Laboratory data: WBC 6.0. Hemoglobin 13.6. Platelet count 200. Sodium 138. Potassium 4.4. BUN 24. Creatinine 1.30. Troponin negative x 1. proBNP 15,500. - Current home cardiac medications include metoprolol succinate 50 mg daily, losartan 25 mg daily, Farxiga 10 mg daily, aspirin 81 mg daily, Eliquis 5 mg daily, amiodarone 100 mg daily. - Most recent echocardiogram obtained in February 2024 revealed ejection fraction 40 to 45% - Patient underwent Lexiscan stress test in August 2020 which was negative for ischemia - Cardiac catheterization: April 2020 with stenting of the mid RCA 10/30/2024 Patient examined this morning at bedside. Patient continues to report mild shortness of breath. She denies any chest pain or pressure. She remains on IV Lasix 40 mg every 12 hours. Creatinine today increased to 1.93 from 1.30. Echocardiogram completed revealing ejection fraction 20 to 25% with mild MR PHYSICAL EXAM: VITAL SIGNS: Reviewed. GENERAL: Well-developed in no acute distress. HEENT: Head is normocephalic. Pupils are equal, round. Sclerae anicteric. Mucous membranes of the mouth are moist. Neck supple. No JVD or thyromegaly LUNGS: Respirations even and unlabored. Lungs diminished bilaterally HEART: Regular rate and rhythm. S1 and S2 heard. ABDOMEN: Soft. Nondistended. Nontender. EXTREMITIES: Normal range of motion. No clubbing or cyanosis. Peripheral pulses intact. No lower extremity edema NEUROLOGIC: Awake and alert. Oriented x 3. ASSESSMENT: Shortness of breath Acute on chronic heart failure with reduced EF, 40%, now 20 to 25% Coronary artery disease with previous stenting of the RCA Known intermediate disease involving the LAD Ischemic cardiomyopathy History of nonsustained ventricular tachycardia Hypertension Hyperlipidemia History of COPD Paroxysmal atrial fibrillation History of cardioversion, November 2023 Morbid obesity: BMI 54.6 PLAN: Eliquis increased to 5 mg twice a day yesterday for appropriate thromboembolic protection Discontinue IV Lasix today due to worsening kidney function Nursing to hold losartan today. May resume tomorrow Repeat BMP in a.m. Further recommendations pending patient course Nurse practitioner note has been reviewed by physician. Signing provider agrees with the documented findings, assessment, and plan of care documented by SKIDWAY WORKER as a scribe. Objective - Vital Signs Vital signs: Vital Signs Temp 97.9 F 10/30/24 09:07 Pulse 66 10/30/24 09:07 Resp 17 10/30/24 09:07 BP 133/83 10/30/24 09:07 Pulse Ox 93 L 10/30/24 09:07 FiO2 Intake & Output 10/29/24 10/30/24 10/30/24 18:59 06:59 18:59 Intake Total 358 240 Output Total 500 900 950 Balance -142 900 -710 Weight 131 kg Intake: Oral 358 240 Output: Urine 500 900 950 Other: Voiding Method Toilet Toilet Toilet # Voids 1 1 - Labs CBC & Chem 7: 10/28/24 17:02 10/30/24 06:33 Labs: Abnormal Lab Results - Last 24 Hours (Table) 10/30/24 Range/Units 06:33 Carbon Dioxide 31 H (22-30) mmol/L BUN 30 H (7-17) mg/dL Creatinine 1.93 H (0.52-1.04) mg/dL Glucose 141 H (74-99) mg/dL
--- NOTE | 2024-10-30 12:05 | P.PN ---
Subjective Patient is a 74-year-old female with CHF with EF of 20 to 25%, COPD, paroxysmal A-fib who presents with shortness of breath. She states that it started 3 to 4 days ago and is denying chest pain, cough, congestion and other upper respiratory symptoms. She does endorse some ongoing lower extremity and abdominal swelling. No recent immobilization. She denies she has no other symptoms at this time. 10/30/2024 Patient's creatinine has worsened from 1.3-1.93 because of which losartan and Lasix are being held at this time patient appears to be euvolemic patient is saturating 98% on room air. Patient A-fib resolved at this time. REVIEW OF SYSTEMS: Pertinent positives and negatives noted in HPI. PHYSICAL EXAMINATION: Vitals reviewed GENERAL: Resting comfortably in bed. Obese. EYES: PERRL, no scleral injection or icterus. No vision loss HENT: Normocephalic, atraumatic, hearing grossly intact, moist mucous membranes NECK: No tracheal deviation, full range of motion. CARDIOVASCULAR: Distant heart sounds PULMONARY: Distant breath sounds ABDOMEN: Soft, nontender, nondistended. No palpable organomegaly. MUSCULOSKELETAL: No apparent joint swelling and deformities. EXTREMITIES: No apparent cyanosis, clubbing. no pedal edema. NEUROLOGICAL: Alert and oriented. Gross neurological examination with no apparent focal deficits. SKIN: No apparent rashes. ER FINDINGS: Labs significant for BUN 24 creatinine 1.3, glucose 123, bilirubin 1.4, troponin<0.012, proBNP 15,500 EKG independently interpreted showed sinus rhythm with left bundle branch block, heart rate of 60, QTc 498, no ST segment elevation or depression seen, no T-wave inversions seen. Chest x-ray done independently interpreted showed no acute cardiopulmonary process. No consolidations or infiltrates. Echocardiogram with EF 20 to 25% Assessment and Plan: # CHF exacerbation # CHF with systolic dysfunction EF 20 to 25% patient was in exacerbation on admission which resolved at this time -Discontinue IV Lasix due to worsening renal function -cardiac monitoring -Initial weight 131kg, daily weights -strict I/O, no more than 2L of total volume intake daily -Low sodium diet, <2g daily -supplemental O2 as needed -Monitor BMP and Magnesium -cardiology consulted # Acute renal failure on chronic kidney disease acute renal failure secondary to losartan and excessive diuresis both of which are being held at this time. Repeat electrolytes. Chronic Medical Conditions #Hypertension #COPD #Paroxysmal A-fib #History of SVT #CAD with previous stenting #Hyperlipidemia Resume home medications DVT ppx: Eliquis 5 mg twice daily F: P.o. E: Replete as needed N: Heart healthy diet, Low sodium diet, <2g daily Objective - Vital Signs Vital signs: Vital Signs Temp 97.9 F 10/30/24 09:07 Pulse 66 10/30/24 11:05 Resp 17 10/30/24 11:05 BP 134/82 10/30/24 11:05 Pulse Ox 96 10/30/24 11:05 FiO2 Intake & Output 10/29/24 10/30/24 10/30/24 18:59 06:59 18:59 Intake Total 358 240 Output Total 833 869 6349 Balance -142 -900 -1010 Weight 131 kg Intake: Oral 358 240 Output: Urine 302 874 2151 Other: Voiding Method Toilet Toilet Toilet # Voids 1 1 - Labs CBC & Chem 7: 10/28/24 17:02 10/30/24 06:33 Labs: Abnormal Lab Results - Last 24 Hours (Table) 10/30/24 Range/Units 06:33 Carbon Dioxide 31 H (22-30) mmol/L BUN 30 H (7-17) mg/dL Creatinine 1.93 H (0.52-1.04) mg/dL Glucose 141 H (74-99) mg/dL
[2024-10-31 06:59] LABS: African American GFR (CKD) 30 (>60 ml/min/1.73 sqM); Anion Gap 10 mmol/L; Blood Urea Nitrogen 32 mg/dL (7-17); Calcium 9.7 mg/dL (8.4-10.2); Carbon Dioxide 31 mmol/L (22-30); Chloride 95 mmol/L (98-107); Glucose 113 mg/dL (74-99); Non-African American GFR(CKD) 26 (>60 ml/min/1.73 sqM); Potassium 3.8 mmol/L (3.5-5.1); Sodium 136 mmol/L (137-145)
[2024-10-31 07:01] LABS: HCT 43.6 % (37.2-46.3); HGB 14.1 g/dL (12.0-15.0); MCH 29.9 pg (27.0-32.0); MCHC 32.3 g/dL (32.0-37.0); MCV 92.6 fL (80.0-97.0); Mean Platelet Volume 11.1 fL (9.5-12.2); Platelet Count 231 10*3/uL (140-440); RBC 4.71 10*6/uL (4.10-5.20); RDW 14.4 % (11.5-14.5); WBC 5.88 10*3/uL (4.50-10.00)
--- NOTE | 2024-10-31 14:38 | P.PN ---
Subjective Progress Note Date: 10/31/24 HISTORY OF PRESENT ILLNESS: This is a 74-year-old female with a past medical history significant for c oronary artery disease, cardiomyopathy, paroxysmal atrial fibrillation, hypertension, hyperlipidemia, nonsustained ventricular tachycardia, COPD, and obesity. Patient follows in the office with Dr. Macias. We have been asked to see the patient in consultation for congestive heart failure. Patient examined at the bedside. Patient presented to the hospital with a chief complaint of shortness of breath. She states she has been feeling short of breath for the past 3 to 4 days. She denies any chest pain or pressure. She states she has been compliant with her medications. She states that she used to take Eliquis twice a day but was started on Farxiga recently and her Eliquis has been changed to once a day. She reports compliance with a low-sodium diet. DIAGNOSTICS: - EKG reveals sinus mechanism with left bundle branch block. - Chest xray negative for acute process - Laboratory data: WBC 6.0. Hemoglobin 13.6. Platelet count 200. Sodium 138. Potassium 4.4. BUN 24. Creatinine 1.30. Troponin negative x 1. proBNP 15,500. - Current home cardiac medications include metoprolol succinate 50 mg daily, losartan 25 mg daily, Farxiga 10 mg daily, aspirin 81 mg daily, Eliquis 5 mg daily, amiodarone 100 mg daily. - Most recent echocardiogram obtained in February 2024 revealed ejection f raction 40 to 45% - Patient underwent Lexiscan stress test in August 2020 which was negative for ischemia - Cardiac catheterization: April 2020 with stenting of the mid RCA 10/30/2024 Patient examined this morning at bedside. Patient continues to report mild shortness of breath. She denies any chest pain or pressure. She remains on IV Lasix 40 mg every 12 hours. Creatinine today increased to 1.93 from 1.30. Echocardiogram completed revealing ejection fraction 20 to 25% with mild MR 5/5 Patient seen and examined. Patient states that her breathing is better. But when she gets up to the bathroom she does have some shortness of breath. She has a cough after her updraft treatments no sputum production. Blood pressure 137/83, heart rate in the 60s, pulse ox 93% on room air. Dr. Mayorga discussed with patient plan for biventricular ICD once she is discharged and will follow- up in the office for this. Repeat blood work reveals BUN 32 creatinine 1.9. PHYSICAL EXAM: VITAL SIGNS: Reviewed. GENERAL: Well-developed in no acute distress. HEENT: Head is normocephalic. Pupils are equal, round. Sclerae anicteric. Neck supple. No JVD or thyromegaly LUNGS: Respirations even and unlabored. Lungs diminished bilaterally HEART: Regular rate and rhythm. S1 and S2 heard. ABDOMEN: Soft. Nondistended. Nontender. EXTREMITIES: No clubbing or cyanosis. Peripheral pulses intact. No lower e xtremity edema NEUROLOGIC: Awake and alert. Oriented x 3. ASSESSMENT: Shortness of breath Acute on chronic heart failure with reduced EF, 40%, now 20 to 25% Coronary artery disease with previous stenting of the RCA Known intermediate disease involving the LAD Ischemic cardiomyopathy History of nonsustained ventricular tachycardia Hypertension Hyperlipidemia History of COPD Paroxysmal atrial fibrillation History of cardioversion, November 2023 Morbid obesity: BMI 54.6 PLAN: Continue Eliquis 5 mg twice a day Discontinue IV Lasix today due to worsening kidney function Continue losartan Repeat BMP in a.m. At the time of discharge, patient will follow-up in the office with Dr. Macias with plan for biventricular ICD for her heart failure, atrial fibrillation and left BBB. Further recommendations pending patient course Nurse practitioner note has been reviewed by physician. Signing provider agrees with the documented findings, assessment, and plan of care documented by DISPLAY FABRICATOR as a scribe. Objective - Vital Signs Vital signs: Vital Signs Temp 98 F 10/31/24 08:00 Pulse 60 10/31/24 08:00 Resp 20 10/31/24 08:00 BP 137/83 10/31/24 08:00 Pulse Ox 93 L 10/31/24 08:00 FiO2 Intake & Output 10/30/24 10/31/24 10/31/24 18:59 06:59 18:59 Intake Total 684 120 Output Total 1550 250 500 Balance -866 -250 -380 Weight 131.2 kg Intake: Oral 684 120 Output: Urine 1550 250 500 Other: Voiding Method Toilet Toilet # Voids 1 1 - Labs CBC & Chem 7: 10/31/24 05:54 10/31/24 05:54 Labs: Abnormal Lab Results - Last 24 Hours (Table) 10/31/24 Range/Units 05:54 Sodium 136 L (137-145) mmol/L Chloride 95 L (98-107) mmol/L Carbon Dioxide 31 H (22-30) mmol/L BUN 32 H (7-17) mg/dL Creatinine 1.90 H (0.52-1.04) mg/dL Glucose 113 H (74-99) mg/dL
--- NOTE | 2024-10-31 15:15 | P.PN ---
Progress Note - Text Update Patient with severe cardiomyopathy ejection fraction on this admission 20-25% Admitted with heart failure exacerbation Sinus mechanism normal VT interval left bundle branch block pattern QRS width of 170 ms Predominantly nonischemic cardiomyopathy with single-vessel CAD status post stenting in the remote past Baseline creatinine 1.3 On guideline directed medical treatment for heart failure History of atrial fibrillation, currently on amiodarone 100 mg p.o. daily and maintaining sinus rhythm On Eliquis In view of her nonischemic cardiomyopathy left bundle branch block pattern on twelve-lead EKG and congestive heart failure history and now with severe LV dysfunction with yet another hospitalization, I would recommend BiV ICD for management of congestive heart failure with systolic dysfunction in the presence of left bundle branch block with a QRS width of 170 ms and for management of risk of future sudden cardiac Detail discussion with the patient regarding pros and cons Will schedule procedure electively
--- NOTE | 2024-10-31 18:07 | P.PN ---
Subjective Progress Note Date: 10/31/24 Patient is a 74-year-old female with CHF with EF of 20 to 25%, COPD, paroxysmal A-fib who presents with shortness of breath. She states that it started 3 to 4 days ago and is denying chest pain, cough, congestion and other upper respiratory symptoms. She does endorse some ongoing lower extremity and abd ominal swelling. No recent immobilization. She denies she has no other symptoms at this time. Labs significant for BUN 24 creatinine 1.3, glucose 123, bilirubin 1.4, troponin<0.012, proBNP 15,500 EKG independently interpreted showed sinus rhythm with left bundle branch block, heart rate of 60, QTc 498, no ST segment elevation or depression seen, no T-wave inversions seen. Chest x-ray done independently interpreted showed no acute cardiopulmonary process. No consolidations or infiltrates. Echocardiogram with EF 20 to 25% 10/30/2024 Patient's creatinine has worsened from 1.3-1.93 because of which losartan and Lasix are being held at this time patient appears to be euvolemic patient is saturating 98% on room air. Patient A-fib resolved at this time. 10/31/2024 Patient seen and examined at the bedside. No acute events overnight. Labs done today show WBC 5.88, hemoglobin 14.1, sodium 136, potassium 3.8, chloride 95, bicarb 31, BUN creatinine 1.90, glucose 113. REVIEW OF SYSTEMS: Pertinent positives and negatives noted in HPI. PHYSICAL EXAMINATION: Vitals reviewed GENERAL: Resting comfortably in bed. Obese. EYES: PERRL, no scleral injection or icterus. No vision loss HENT: Normocephalic, atraumatic, hearing grossly intact, moist mucous membranes NECK: No tracheal deviation, full range of motion. CARDIOVASCULAR: Distant heart sounds PULMONARY: Distant breath sounds ABDOMEN: Soft, nontender, nondistended. No palpable organomegaly. MUSCULOSKELETAL: No apparent joint swelling and deformities. EXTREMITIES: No apparent cyanosis, clubbing. no pedal edema. NEUROLOGICAL: Alert and oriented. Gross neurological examination with no apparent focal deficits. SKIN: No apparent rashes. Assessment and Plan: # CHF exacerbation # CHF with systolic dysfunction EF 20 to 25% patient was in exacerbation on admission which resolved at this time # Acute renal failure on chronic kidney disease excessive diuresis Hold Lasix and losartan -cardiac monitoring -Initial weight 131kg, daily weights -strict I/O, no more than 2L of total volume intake daily -Low sodium diet, <2g daily -supplemental O2 as needed -Monitor BMP and Magnesium -cardiology consulted, note reviewed, plan for elective biventricular ICD for ischemic cardiomyopathy with poor ejection fraction and left heart block -Patient on GDMT Chronic Medical Conditions #Hypertension #COPD #Paroxysmal A-fib #History of SVT #CAD with previous stenting #Hyperlipidemia Resume home medications DVT ppx: Eliquis 5 mg twice daily F: P.o. E: Replete as needed N: Heart healthy diet, Low sodium diet, <2g daily Objective - Vital Signs Vital signs: Vital Signs Temp 98.2 F 10/31/24 16:05 Pulse 56 L 10/31/24 16:05 Resp 18 10/31/24 16:05 BP 145/78 10/31/24 16:05 Pulse Ox 91 L 10/31/24 16:05 FiO2 Intake & Output 10/30/24 10/31/24 10/31/24 18:59 06:59 18:59 Intake Total 684 360 Output Total 1550 250 700 Balance -866 -250 -340 Weight 131.2 kg Intake: Oral 684 360 Output: Urine 1550 250 700 Other: Voiding Method Toilet Toilet # Voids 1 1 - Labs CBC & Chem 7: 10/31/24 05:54 10/31/24 05:54 Labs: Abnormal Lab Results - Last 24 Hours (Table) 10/31/24 Range/Units 05:54 Sodium 136 L (137-145) mmol/L Chloride 95 L (98-107) mmol/L Carbon Dioxide 31 H (22-30) mmol/L BUN 32 H (7-17) mg/dL Creatinine 1.90 H (0.52-1.04) mg/dL Glucose 113 H (74-99) mg/dL
[2024-11-01 04:43] VITALS: RESP 20
[2024-11-01 07:11] LABS: Basophils # (A) 0.06 10*3/uL (0.00-0.10); Basophils % (A) 1.2 %; Eosinophils # (A) 0.32 10*3/uL (0.04-0.35); Eosinophils % (A) 6.6 %; HCT 43.3 % (37.2-46.3); Lymphocytes # (A) 1.67 10*3/uL (0.90-5.00); Lymphocytes % (A) 34.2 %; MCH 29.9 pg (27.0-32.0); MCHC 32.3 g/dL (32.0-37.0); MCV 92.5 fL (80.0-97.0); Mean Platelet Volume 10.8 fL (9.5-12.2); Monocytes # (A) 0.62 10*3/uL (0.20-1.00); Monocytes % (A) 12.7 %; Neutrophils % (A) 45.1 %; Platelet Count 235 10*3/uL (140-440); RBC 4.68 10*6/uL (4.10-5.20); RDW 14.8 % (11.5-14.5); WBC 4.88 10*3/uL (4.50-10.00)
[2024-11-01 07:27] LABS: African American GFR (CKD) 30 (>60 ml/min/1.73 sqM); Anion Gap 6 mmol/L; Blood Urea Nitrogen 35 mg/dL (7-17); Calcium 9.4 mg/dL (8.4-10.2); Carbon Dioxide 34 mmol/L (22-30); Chloride 97 mmol/L (98-107); Glucose 127 mg/dL (74-99); Non-African American GFR(CKD) 26 (>60 ml/min/1.73 sqM); Sodium 137 mmol/L (137-145)
[2024-11-01 11:28] VITALS: BP 130/70; PULSE 63; TEMP 98.4
--- NOTE | 2024-11-01 14:11 | P.PN ---
Subjective Progress Note Date: 11/01/24 HISTORY OF PRESENT ILLNESS: This is a 74-year-old female with a past medical history significant for c oronary artery disease, cardiomyopathy, paroxysmal atrial fibrillation, hypertension, hyperlipidemia, nonsustained ventricular tachycardia, COPD, and obesity. Patient follows in the office with Dr. Macias. We have been asked to see the patient in consultation for congestive heart failure. Patient examined at the bedside. Patient presented to the hospital with a chief complaint of shortness of breath. She states she has been feeling short of breath for the past 3 to 4 days. She denies any chest pain or pressure. She states she has been compliant with her medications. She states that she used to take Eliquis twice a day but was started on Farxiga recently and her Eliquis has been changed to once a day. She reports compliance with a low-sodium diet. DIAGNOSTICS: - EKG reveals sinus mechanism with left bundle branch block. - Chest xray negative for acute process - Laboratory data: WBC 6.0. Hemoglobin 13.6. Platelet count 200. Sodium 138. Potassium 4.4. BUN 24. Creatinine 1.30. Troponin negative x 1. proBNP 15,500. - Current home cardiac medications include metoprolol succinate 50 mg daily, losartan 25 mg daily, Farxiga 10 mg daily, aspirin 81 mg daily, Eliquis 5 mg daily, amiodarone 100 mg daily. - Most recent echocardiogram obtained in February 2024 revealed ejection f raction 40 to 45% - Patient underwent Lexiscan stress test in August 2020 which was negative for ischemia - Cardiac catheterization: April 2020 with stenting of the mid RCA 10/30/2024 Patient examined this morning at bedside. Patient continues to report mild shortness of breath. She denies any chest pain or pressure. She remains on IV Lasix 40 mg every 12 hours. Creatinine today increased to 1.93 from 1.30. Echocardiogram completed revealing ejection fraction 20 to 25% with mild MR 5/5 Patient seen and examined. Patient states that her breathing is better. But when she gets up to the bathroom she does have some shortness of breath. She has a cough after her updraft treatments no sputum production. Blood pressure 137/83, heart rate in the 60s, pulse ox 93% on room air. Dr. Mayorga discussed with patient plan for biventricular ICD once she is discharged and will follow- up in the office for this. Repeat blood work reveals BUN 32 creatinine 1.9. 11/01 Patient seen and examined. She states she is doing well today. No chest pain or chest pressure. Breathing is stable. Blood pressure 122/55, heart rate 60s, pulse ox 93 to 97% on room air. Repeat blood work reveals BUN 35 creatinine 1.9. Due to poor renal function, patient is not a candidate for cardiac catheterization at this time. PHYSICAL EXAM: VITAL SIGNS: Reviewed. GENERAL: Well-developed in no acute distress. HEENT: Head is normocephalic. Pupils are equal, round. Sclerae anicteric. Neck supple. No JVD or thyromegaly LUNGS: Respirations even and unlabored. Lungs diminished bilaterally HEART: Regular rate and rhythm. S1 and S2 heard. ABDOMEN: Soft. Nondistended. Nontender. EXTREMITIES: No clubbing or cyanosis. Peripheral pulses intact. No lower extremity edema NEUROLOGIC: Awake and alert. Oriented x 3. ASSESSMENT: Shortness of breath Acute on chronic heart failure with reduced EF, 40%, now 20 to 25% Coronary artery disease with previous stenting of the RCA Known intermediate disease involving the LAD Ischemic cardiomyopathy History of nonsustained ventricular tachycardia Hypertension Hyperlipidemia History of COPD Paroxysmal atrial fibrillation History of cardioversion, November 2023 Morbid obesity: BMI 54.6 PLAN: Continue Eliquis 5 mg twice a day Continue losartan At the time of discharge, patient will follow-up in the office with Dr. Macias with plan for biventricular ICD for her heart failure, atrial fibrillation and left BBB. Patient is cleared for discharge from cardiology perspective. Nurse practitioner note has been reviewed by physician. Signing provider agrees with the documented findings, assessment, and plan of care documented by SCALE RE[employer]AMATION TENDER as a scribe. Objective - Vital Signs Vital signs: Vital Signs Temp 98.3 F 11/01/24 08:00 Pulse 62 11/01/24 08:00 Resp 20 11/01/24 08:00 BP 122/55 11/01/24 08:00 Pulse Ox 93 L 11/01/24 08:00 FiO2 Intake & Output 10/31/24 11/01/24 11/01/24 18:59 06:59 18:59 Intake Total 360 540 476 Output Total 700 800 Balance -340 -260 476 Weight 130 kg Intake: Oral 360 540 476 Output: Urine 700 800 Other: Voiding Method Toilet # Voids 1 - Labs CBC & Chem 7: 11/01/24 06:42 11/01/24 06:42 Labs: Abnormal Lab Results - Last 24 Hours (Table) 11/01/24 Range/Units 06:42 Chloride 97 L (98-107) mmol/L Carbon Dioxide 34 H (22-30) mmol/L BUN 35 H (7-17) mg/dL Creatinine 1.90 H (0.52-1.04) mg/dL Glucose 127 H (74-99) mg/dL
--- NOTE | 2024-11-01 15:20 | P.DS ---
Providers Date of admission: 10/28/24 19:41 Attending physician: Nav Loo Consults: 10/28/24 18:27 Consult Physician Routine Consulting Provider: Noelle Lane Consult Reason/Comments: CHF exacerbation Do you want consulting provider notified?: Yes Primary care physician: Gatito Kamara Hospital Course: Discharge Diagnosis: #CHF exacerbation, resolved #CHF with systolic dysfunction with ejection fraction of 20 to 25% #Acute renal failure on CKD due to excessive diuresis, hold Lasix Hospital Course: Patient is a 74-year-old female with CHF with EF of 20 to 25%, COPD, paroxysmal A-fib on Eliquis who presents with shortness of breath who was admitted to the hospital on 10/28/2024 for CHF exacerbation.. Labs significant for BUN 24 creatinine 1.3, glucose 123, bilirubin 1.4, troponin<0.012, proBNP 15,500EKG independently interpreted showed sinus rhythm with left bundle branch block, heart rate of 60, QTc 498, no ST segment elevation or depression seen, no T-wave inversions seen. Chest x-ray done independently interpreted showed no acute cardiopulmonary process. No consolidations or infiltrates. Echocardiogram with EF 20 to 25%. During the hospital course patient also had a YOLI on CKD secondary to excessive diuresis. Both Lasix and losartan was put on hold. Desk Manager was consulted and restarted patient on losartan but continue to hold Lasix. Despite holding the Lasix for 3 days her creatinine continues to be stable at 1.9. Her urine output is optimal. Cardiology cleared the patient for discharge and patient will follow-up with Dr. Barbosa with plan for biventricular ICD for heart failure and A-fib. Patient will be discharged on regular home meds with close follow-up with her PCP. Patient is provided with a prescription to get her BMP within 3 days. Discharge disposition: Home Vital signs reviewed. PHYSICAL EXAMINATION: Vitals reviewed GENERAL: Resting comfortably in bed. Obese. EYES: PERRL, no scleral injection or icterus. No vision loss HENT: Normocephalic, atraumatic, hearing grossly intact, moist mucous membranes NECK: No tracheal deviation, full range of motion. CARDIOVASCULAR: Distant heart sounds PULMONARY: Distant breath sounds ABDOMEN: Soft, nontender, nondistended. No palpable organomegaly. MUSCULOSKELETAL: No apparent joint swelling and deformities. EXTREMITIES: No apparent cyanosis, clubbing. no pedal edema. NEUROLOGICAL: Alert and oriented. Gross neurological examination with no apparent focal deficits. SKIN: No apparent rashes. Dictation was produced using [employer] dictation software. Please excuse any grammatical, word or spelling errors. Patient Condition at Discharge: Stable Plan - Discharge Summary Discharge Rx Participant: No New Discharge Prescriptions: Continue Amiodarone [Cordarone] 100 mg PO DAILY Losartan [Cozaar] 25 mg PO DAILY Apixaban [Eliquis] 5 mg PO DAILY Aspirin 81 mg PO DAILY Dapagliflozin Propanediol [Farxiga] 10 mg PO DAILY Metoprolol Succinate (ER) [Toprol XL] 50 mg PO DAILY Budesonide/Formoterol Fumarate [Symbicort 80-4.5 Mcg Inhaler] 2 puff INHALATION RT-BID Albuterol Inhaler [Ventolin Hfa Inhaler] 2 puff INHALATION RT-Q6H PRN PRN Reason: Shortness Of Breath Or Wheezing Discharge Medication List Amiodarone [Cordarone] 100 mg PO DAILY 08/29/24 [History] Aspirin 81 mg PO DAILY 08/29/24 [History] Dapagliflozin Propanediol [Farxiga] 10 mg PO DAILY 08/29/24 [History] Losartan [Cozaar] 25 mg PO DAILY 08/29/24 [History] Metoprolol Succinate (ER) [Toprol XL] 50 mg PO DAILY 08/30/24 [History] Albuterol Inhaler [Ventolin Hfa Inhaler] 2 puff INHALATION RT-Q6H PRN 10/28/24 [History] Apixaban [Eliquis] 5 mg PO DAILY 10/28/24 [History] Budesonide/Formoterol Fumarate [Symbicort 80-4.5 Mcg Inhaler] 2 puff INHALATION RT-BID 10/28/24 [History] Follow up Appointment(s)/Referral(s): Ziggy Macias MD [STAFF PHYSICIAN] - 1 Week (has appointment) Mario Baer MD [RESIDENT] - 3 Days Ambulatory/Diagnostic Orders: Basic Metabolic Panel [LAB.AMB] Time Frame: 3 Days, Facility: [facility], Location: [place] [id number] Patient Instructions/Handouts: Heart Failure (DC), Acute Kidney Injury (DC), Low-Sodium Diet (DC), Implantable Cardioverter Defibrillator (DC) Activity/Diet/Wound Care/Special Instructions: Please follow-up with PCP and cardiology within 1 week. Please do your blood work at the hospital lab within 3 days before you see PCP. If you do not have a PCP please contact the number below as I have set up your appointment with Dr. Baer who is a medical doctor and can be your PCP: [facility] Address: [address] [place] [address], [place] [address]
== END 2024-11-01 16:03 | disposition home or self-care (01) | DRG 291 ==
LOC: EC 16:24 → 3SCARD 19:41
PROVIDERS: ADMIT Hospitalist; ATTEND Hospitalist
DX: I13.0 Hypertensive heart and chronic kidney disease with heart failure and stage 1 through stage 4 chronic kidney disease, or unspecified chronic kidney disease (principal); I50.23 Acute on chronic systolic (congestive) heart failure; N17.9 Acute kidney failure, unspecified; Z79.01 Long term (current) use of anticoagulants; J44.9 Chronic obstructive pulmonary disease, unspecified; E66.01 Morbid (severe) obesity due to excess calories; N18.9 Chronic kidney disease, unspecified; Z68.43 Body mass index [BMI] 50.0-59.9, adult; I48.0 Paroxysmal atrial fibrillation; I42.8 Other cardiomyopathies; I25.10 Atherosclerotic heart disease of native coronary artery without angina pectoris; E78.5 Hyperlipidemia, unspecified; I25.5 Ischemic cardiomyopathy; I44.7 Left bundle-branch block, unspecified; T50.2X5A Adverse effect of carbonic-anhydrase inhibitors, benzothiadiazides and other diuretics, initial encounter; T46.5X5A Adverse effect of other antihypertensive drugs, initial encounter; Z79.82 Long term (current) use of aspirin; Z79.899 Other long term (current) drug therapy; Z87.891 Personal history of nicotine dependence; Z95.5 Presence of coronary angioplasty implant and graft; Z79.51 Long term (current) use of inhaled steroids; Z79.84 Long term (current) use of oral hypoglycemic drugs
CPT/HCPCS: 36415; 71046; 80048; 80053; 83605; 83735; 83880; 84484; 85025; 85027; 85610; 85730; 93005; 93306; 94640; 96374; 99285